=== PATIENT | female | born 1950 | race Caucasian/White ===

== ENCOUNTER 2019-07-20 23:44 | Inpatient (IN) | payer OTHER, MEDICARE, SELFPAY ==
--- NOTE | ~2019-07-20 | CT_ITS ---
EXAMINATION: CT abdomen pelvis wo con DATE: 07/21/2019 01:13 INDICATION: Generalized abdominal pain, nausea, vomiting, diarrhea. Gastrostomy tube. TECHNIQUE: Computed tomography (CT) of the abdomen and pelvis was performed without intravenous contr ast. Automated exposure control and iterative reconstruction technique were employed. Exam dose: 341 .36 mGy-cm total exam DLP. COMPARISON: 09/30/2018 CT abdomen pelvis FINDINGS: The lung bases are clear of infiltrate or consolidation. Normal heart size. No pericardial or pleural effusion. Small sliding hiatal hernia. Status post cholecystectomy. No bile duct or pancreatic duct dilatation. No hepatic, splenic, pancrea tic, and adrenal or renal space-occupying mass lesion is evident. No urinary tract calculus or hydrou reteronephrosis is detected. There is extensive calcification of the abdominal aorta and branches. No intraperitoneal or retroperitoneal or pelvic mass lesion or adenopathy or ascites. The urinary bladder is unremarkable. Status post hysterectomy. A gastrostomy tube is present within the gastric lumen. There is fluid throughout the nondilated smal l and large bowel without bowel wall thickening, obstruction, pneumatosis or intraperitoneal free air . Consider gastroenteritis. Bilateral fat-containing inguinal hernias. IMPRESSION: Fluid throughout the small and large bowel, which may be secondary to gastroenteritis Gastrostomy tube in stomach Small sliding hiatal hernia Status post cholecystectomy Reviewed, dictated and finalized at [facility]. Reviewed, dictated and finalized at [facility].
[2019-07-20 23:45] VITALS: BP 75/42; PULSE 64; RESP 22; TEMP 36.7; O2SAT 100
[2019-07-21] VITALS (19 sets, daily range): BP systolic 93–121; BP diastolic 45–83; PULSE 59–96; RESP 16–22; TEMP 36.3–37.2; O2SAT 78–100; BMI 24.0; BMI 24.2
--- NOTE | 2019-07-21 | ECHO_ITS ---
Patient Info Name: Barb Padilla Age: 69 years : 1950 Gender: Female Ht: 64 in Wt: 141 lbs BSA: 1.71 m2 HR: 62 bpm BP: 93 / 45 mmHg Heart Rhythm: Sinus Rhythm Technical Quality: Good Exam Date: 07/21/2019 10:06 AM Exam Location: [facility] Patient Status: Inpatient Admit Date: 07/21/2019 Staff Ordering Physician: Candido Odonnell MD Negative Cutter: Angelito Medrano RDCS Attending Provider: Goldie Roman DO Referring Physician: Belle FRANKS; Exam Type: CA echo doppler color flow Study Info Indications R01.1 - Cardiac murmur, unspecified Complete two-dimensional, color flow and Doppler transthoracic echocardiogram is performed. History/Risk Factors HoTN; syncope and ATIYA, CKD4. Summary 1. Left ventricular chamber size, wall thickness, systolic and diastolic function are normal with no regional wall motion abnormalities with an estimated ejection fraction of >70%. 2. No significant valve disease. 3. Normal sinus rhythm. Left Ventricle Left ventricular chamber dimension is normal. Left ventricular systolic function is normal, estimated at >70%. There is no increased left ventricular wall thickness. Left ventricular septal wall motion is normal. The left ventricular diastolic function is normal. Left ventricular chamber size, wall thickness, systolic and diastolic function are normal with no regional wall motion abnormalities with an estimated ejection fraction of >70%. Right Ventricle Right ventricular chamber dimension is normal. Right ventricular systolic function is normal. Left Atria Left atrial chamber dimension is normal. Right Atria Right atrial chamber dimension is normal. Aortic Valve The aortic valve is trileaflet. There is no aortic valve sclerosis. There is no aortic valve stenosis. There is no aortic valve regurgitation. Pulmonic Valve The pulmonic valve is normal. There is no pulmonic valve stenosis. There is no pulmonic regurgitation. Mitral Valve The mitral valve has normal leaflets. There is no mitral valve stenosis. There is trace mitral valve regurgitation. Tricuspid Valve The tricuspid valve leaflets are normal. There is no significant tricuspid valve stenosis. There is trace tricuspid valve regurgitation. No pulmonary hypertension, estimated pulmonary arterial systolic pressure is 33 mmHg. Pericardium/Pleural The pericardium appears normal. There is no pericardial effusion. Inferior Vena Cava Normal inferior vena cava with >50% collapse upon inspiration consistent with Empty right atrial pressure, 5 mmHg. Aorta The aortic root size at the sinus of Valsalva is normal. The prox ascending aorta size is normal. Left Ventricular Outflow Tract Name Value Normal LVOT 2D LVOT Diameter 1.9 cm LVOT Doppler LVOT Peak Gradient 9 mmHg LVOT Mean Gradient 5 mmHg LVOT VTI 33 cm LVOT VTI/AV VTI Ratio 0.9 LVOT Stroke Volume 92 ml LVOT CO
--- NOTE | 2019-07-21 00:01 | ED.SYNCOPE ---
HPI - Syncope General Chief Complaint: Syncope Stated Complaint: syncope Time Seen by Provider: 07/20/19 23:56 Source: patient and RN notes reviewed Mode of arrival: EMS Limitations: no limitations History of Present Illness HPI narrative: Pt is a 69 y/o female who presents to the ED via EMS with c/o multiple syncopal episodes happening this evening. She notes that she has a Hx of oral cancer, and states that she has a chronic feeding tube in place. Pt notes that she developed severe diffuse ABD pain earlier this evening. She states that shortly after her pain began, she passed out while laying in her recliner. Pt notes that she later regained consciousness and had a large episode of watery diarrhea. She states that she then began having projectile vomiting. Pt notes that she lost consciousness two more times before coming to the ED. She states that she was incoherent immediately after the episodes. Pt currently denies any fever or chills. She states that she hasn't had any recent antibiotic use. MD complaint: loss of consciousness Description of event: post-event confusion Prodromal symptoms: nausea/vomiting and other (diffuse ABD pain; diarrhea) Injuries sustained associated with event: none Current symptoms: abdominal pain (diffuse ABD pain) Related Data Home Medications Medication Instructions Recorded Confirmed citalopram mg 05/09/19 levothyroxine 05/09/19 Allergies Allergy/AdvReac Type Severity Reaction Status Date / Time Penicillins Allergy Unknown Anaphylactic Verified 07/21/19 00:01 Shock povidone-iodine Allergy Rash Verified 07/21/19 00:01 [From Betadine] soap [From Betadine] Allergy Rash Verified 07/21/19 00:01 Review of Systems Review of Systems: All systems reviewed & are unremarkable except as noted in HPI and below Constitutional: Constitutional: Denies chills and Denies fever(s) Gastrointestinal: Gastrointestinal: Reports abdominal pain (diffuse ABD pain), Reports diarrhea, Reports nausea and Reports vomiting Neurologic: Reports syncope PMFSH Past Medical History Medical History (Updated 07/21/19 @ 02:38 by Mason Gracia MD) Cancer of mandible Depression Fibromyalgia GERD (gastroesophageal reflux disease) History of chemotherapy Hx of radiation therapy Kidney failure Uses feeding tube Surgical History Surgical History H/O: hysterectomy History of mandibular surgery partial removal of mandible Hx of cholecystectomy Social History Social History Smoking status: Former smoker Exam Narrative: Exam Narrative: General appearance: Well-developed, well-nourished, at the bedside, intermittent shaking Skin: Normal color Head: Normocephalic, nontraumatic Eyes: Clear conjunctiva ENT: Oropharynx normal, ears normal, nose normal Neck: Supple, nontender Chest and respiratory: Airway patent, no respiratory distress, no accessory muscle use Heart: Regular rate/rhythm Abdomen: Soft, diffuse abdominal tenderness, feeding tube in place, no organomegaly, quiet bowel sounds Vascular: Normal peripheral pulses, normal capillary refill. 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 Roman. Accepted admission. Date: 07/21/19 Time: 02:29 Vital Signs Vital signs: Vital Signs Temperature 36.7 C 07/20/19 23:45 Pulse Rate 64 07/20/19 23:45 Respiratory Rate 22 H 07/20/19 23:45 Blood Pressure 75/4
--- NOTE | 2019-07-21 00:05 | ECG_ITS ---
Measurements Intervals [place] Rate: 62 P: 69 FL: 150 QRS: 15 QRSD: 94 T: 52 QT: 451 QTc: 460 Interpretive Statements SINUS RHYTHM LOW VOLTAGE- LIMB LEADS BASELINE ARTIFACT- I, II, III, AVR, AVL, AVF, V1-V6 BORDERLINE ECG Electronically Signed On 07-21-2019 7:02:07 CDT by García Friedman D.O.
[2019-07-21 00:29] LABS: Basophils Percent Auto 0.3 % (0.2-1.2); Eosinophils Absolute Auto 0.1 K/mm3 (0-0.3); Eosinophils Percent Auto 0.8 % (0-4.4); Hematocrit 35.3 % (37.0-47.0); Immature Granulocyte Absolute 0.01 K/mm3 (0.00-0.031); Immature Granulocyte Percent A 0.2 % (0-0.5); Lymphocytes Absolute Auto 0.36 K/mm3 (0.9-3.2); Lymphocytes Percent Auto 5.9 % (18.3-44.2); Mean Corpuscular HGB Conc 31.2 g/dl (32-36); Mean Corpuscular Hemoglobin 28.7 pg (26-34); Mean Corpuscular Volume 92.2 fl (80-100); Monocytes Absolute Auto 0.2 K/mm3 (0.1-0.6); Monocytes Percent Auto 3.8 % (2.6-8.5); Neutrophils Absolute Auto 5.5 K/mm3 (1.3-6.7); Platelet Count Result 153 k/mm3 (150-375); Red Blood Count 3.83 M/mm3 (4.2-5.4); Red Cell Distribution Width 13.9 % (11.5-14.5); White Blood Count 6.1 K/mm3 (4.5-10.0)
[2019-07-21] MEDS: SODIUM CHLORIDE 0.9% IV 1,000 ML 999 ML IV CONT (00:30)
[2019-07-21 00:33] LABS: Lactic Acid 1.8 mmol/L (0.7-2.1)
[2019-07-21 00:34] LABS: Blood Urea Nitrogen 43 mg/dL (7-17); Calcium 9.1 mg/dL (8.4-10.2); Carbon Dioxide 26 mmol/L (22-30); Chloride 105 mmol/L (98-107); Estimated Glomerular Filt Rate 28; Glucose 83 mg/dL (65-105); Potassium 4.2 mmol/L (3.4-5.0); Sodium 136 mmol/L (137-145)
[2019-07-21 00:50] LABS: Alanine Aminotransferase 18 U/L (4-35); Albumin Level 3.4 g/dL (3.5-5.1); Alkaline Phosphatase 100 U/L (38-126); Aspartate Amino Transferase 27 U/L (14-36); Bilirubin,Total 0.3 mg/dL (0.2-1.3); Lipase 91 U/L (23-300)
[2019-07-21 01:20] LABS: Add Urine Microscopic? YES; Appearance Urine Clear (Clear); Bilirubin Urine Negative (Negative); Blood Urine Negative (Negative); Color Urine Yellow (Yellow); Glucose Urine UA Negative (Negative); Ketones Urine Trace mg/dL (Negative); Leukocyte Esterase Ur Negative LEU/UL (Negative); Mucus Urine Rare /lpf; Nitrate Urine Negative (Negative); Protein Urine Negative (Negative); RBC Urine 0-2 /hpf (0-2); Specific Grav Ur 1.013 (1.001-1.035); Squamous Epithelial Cell Urine Rare /hpf (Few); Urobilinogen Urine Negative mg/dL (<2.0); WBC Urine 0-3 /hpf
--- NOTE | 2019-07-21 03:41 | ADMGEN ---
This patient, Barb Padilla, was admitted to IMU Room 203-01. Patient/family oriented to hospital policies and general routines including ID bracelet, bed and alarms, visiting hours, pain management, procedures, bathroom and other care routines, personal items, smoking policy, room service/diet, and visiting hours. Valuables list has been completed. Information on how to activate the Rapid Response Team has been discussed. Patient/Family are encouraged to report perceived risks to care and to ask questions if they do not understand what they are told or what they should do.
[2019-07-21] MEDS: LACTATED RINGERS 1,000 ML 125 ML IV CONT ×3 (03:59→20:25)
--- NOTE | 2019-07-21 08:37 | PM.IMHP ---
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 Yesterday in the evening while preparing for sleep developed rather severe diffuse abdominal pain was in a recliner and passed out. Possibly under 2 minutes and observed. When awoke she felt like she had to have diarrhea and had profuse diarrhea. While sitting on the stool had another syncopal episode with propping her up and eventually managed to get her to the shower where she had projectile vomiting with another syncopal episode. No tonic or clonic activity but mild confusion. She remembers the ambulance coming and bringing her to the hospital. She has had syncopal episodes in the past but none recently. She has had no unusual travel no fever no chills and has not eaten anything unusual or different. 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 after chemo in the past Psych history of mild depression PMFSH Past Medical History Medical History (Updated 07/21/19 @ 08:50 by Candido Odonnell MD) Cancer of mandible Depression Fibromyalgia GERD (gastroesophageal reflux disease) History of chemotherapy Hx of radiation therapy Kidney failure Uses feeding tube Surgical History Surgical History H/O: hysterectomy History of mandibular surgery partial removal of mandible Hx of cholecystectomy Family History Family History (Updated 07/21/19 @ 03:35 by Jennifer David RN) Father Afib COPD (chronic obstructive pulmonary disease) Diabetes mellitus Mother Tumor Daughter Cancer Social History Social History Smoking packs per day: 1 Smoking cigarettes per day: 20.0 Years smoked: 30 Smoking pack-years: 30.00 Smoking status: Former smoker Tobacco type: cigarettes Second hand tobacco smoke exposure: Yes Alcohol intake: never Substance use: never Gender identity (if verbalized by the patient): Female Spiritual care concerns: No Agree to blood products: Yes Meds Home Medications and Allergies Home Medications Medication Instructions Recorded Confirmed Type albuterol sulfate 2 puff INHALATION QID PRN #6.7 gm 05/09/19 07/21/19 Rx citalopram 40 mg FEEDING TUBE DAILY 05/09/19 07/21/19 History levothyroxine 50 mcg FEEDING TUBE DAILY 05/09/19 07/21/19 History hydrocodone-acetaminophen 1 tablet FEEDING TUBE PRN PRN 07/21/19 07/21/19 History Allergies Allergy/AdvReac Type Severity Reaction Status Date / Time Penicillins Allergy Unknown Anaphylactic Verified 07/21/19 00:01 Shock povidone-iodine Allergy Rash Verified 07/21/19 00:01 [From Betadine] soap [From Betadine] Allergy Rash Verified 07/21/19 00:01 Vital Signs Vital Signs - 24 hr 07/20/19 23:45 07/21/19 00:30 07/21/19 01:54 Temperature 36.7 C Pulse Rate 64 96 76 Respiratory Rate 22 H 22 H 20 Blood Pressure 75/42 L 102/83 110/53 L Pulse Oximetry 100 96 96 07/21/19 02:52 07/21/19 03:07 07/21/19 03:40 Temperature 36.6 C 37.2 C Pulse Rate 83 82 78 Respiratory Rate 18 18 20 Blood Pressure 115/58 L 112/58 L 104/51 L Pulse Oximetry 98 97 78 L 07/21/19 04:00 07/21/19 06:00 07/21/19 07:42 Temperature 36.3 C L Pulse Rate 78 75 68 Respiratory Rate 16 Blood Pressure 93/45 L Pulse Oximetry 100
[2019-07-21] MEDS: ENOXAPARIN 30 MG/0.3 ML SYRINGE SUB-Q (12:08)
[2019-07-21] MEDS: CITALOPRAM HYDROBROMIDE 20 MG TABLET 40 MG FEED TUBE (12:08)
[2019-07-21] MEDS: LEVOTHYROXINE SODIUM 50 MCG TABLET FEED TUBE (12:09)
--- NOTE | 2019-07-21 15:01 | PCNSR ---
On 07/21/19, the student, Abida Ni, provided care and completed [facility] documentation on this patient. I have reviewed the student's documentation and agree with the findings.
[2019-07-22] VITALS: PULSE 64
[2019-07-22 02:00] VITALS: PULSE 58
[2019-07-22 04:00] VITALS: PULSE 60
[2019-07-22 04:16] VITALS: BP 123/57; PULSE 59; RESP 18; TEMP 36.8; O2SAT 97
[2019-07-22] MEDS: LACTATED RINGERS 1,000 ML 125 ML IV CONT (04:37)
[2019-07-22 04:48] LABS: Basophils Percent Auto 0.5 % (0.2-1.2); Eosinophils Absolute Auto 0.2 K/mm3 (0-0.3); Eosinophils Percent Auto 4.8 % (0-4.4); Hematocrit 31.5 % (37.0-47.0); Hemoglobin 9.7 g/dL (12.0-15.0); Immature Granulocyte Absolute 0.01 K/mm3 (0.00-0.031); Immature Granulocyte Percent A 0.3 % (0-0.5); Immature Platelet Fraction Pct 8.8 % (0.9-11.2); Lymphocytes Percent Auto 20.4 % (18.3-44.2); Mean Corpuscular HGB Conc 30.8 g/dl (32-36); Mean Corpuscular Hemoglobin 28.7 pg (26-34); Mean Corpuscular Volume 93.2 fl (80-100); Mean Platelet Volume 13.1 fl (7.4-10.4); Monocytes Absolute Auto 0.3 K/mm3 (0.1-0.6); Monocytes Percent Auto 8.4 % (2.6-8.5); Neutrophils Absolute Auto 2.6 K/mm3 (1.3-6.7); Neutrophils Percent Auto 65.6 % (45.5-73.1); Platelet Count Result 122 k/mm3 (150-375); Red Blood Count 3.38 M/mm3 (4.2-5.4); White Blood Count 3.9 K/mm3 (4.5-10.0)
[2019-07-22 05:06] LABS: Blood Urea Nitrogen 26 mg/dL (7-17); Carbon Dioxide 28 mmol/L (22-30); Chloride 109 mmol/L (98-107); Estimated CRCL calculation 30 ml/min; Estimated Glomerular Filt Rate 38; Glucose 67 mg/dL (65-105); Potassium 4.1 mmol/L (3.4-5.0); Sodium 140 mmol/L (137-145)
[2019-07-22] MEDS: LEVOTHYROXINE SODIUM 50 MCG TABLET FEED TUBE (05:38)
[2019-07-22 05:39] VITALS: PULSE 76; RESP 16
[2019-07-22 08:56] VITALS: BP 114/58; PULSE 59; RESP 18; TEMP 36.3; O2SAT 100
[2019-07-22] MEDS: CITALOPRAM HYDROBROMIDE 20 MG TABLET 40 MG FEED TUBE (09:03)
--- NOTE | 2019-07-23 17:21 | PM.DS ---
DS: Diagnosis Admitting Diagnosis Admitting Diagnosis: Syncope and collapse Discharge Diagnosis (1) Syncope and collapse: Code(s): R55 - Syncope and collapse Status: Acute Assessment and Plan: By history definitely appears to be vagal.. Hydrated and pressure rebounded. echocardiogram was normal with EF 70% and minimal mitral insufficiency . (2) Gastroenteritis: Code(s): K52.9 - Noninfective gastroenteritis and colitis, unspecified Status: Acute Assessment and Plan: By history and by CT scan, probable viral. Resumed tube feedings and tolerated well (3) Chronic renal failure, stage 4 (severe): Code(s): N18.4 - Chronic kidney disease, stage 4 (severe) Status: Acute Assessment and Plan: Creatinine 1.7 in April of 2019 and 1.8 now. Have her hydration and before discharge creatinine 1.4 (4) Hypotension due to hypovolemia: Code(s): I95.89 - Other hypotension; E86.1 - Hypovolemia Status: Acute Assessment and Plan: BP back to her usual baseline 114 systolic by discharge after hydration (5) Hypothyroidism: Code(s): E03.9 - Hypothyroidism, unspecified Status: Acute Assessment and Plan: Continue thyroid replacement DS: Summary Hospital Course Hospital Course: [age] old white female with chronic tube feeding after treatment for oral carcinoma several years ago. She developed abdominal pain and had a syncopal episode followed by profuse diarrhea and emesis. Which is brought in by EMS for evaluation. CT scan abdomen pelvis was compatible with gastroenteritis.. After hydration pressure darrell and creatinine fell to 1.4. She was up and about without any symptomatology on tolerating her tube feedings. If she has recurrent episodes possibly and event monitor would be in order but appear to be simple vagal syncope He has follow-up soon with her oncologist Time Spent with Patient Time attestation: Total time spent providing and/or coordinating discharge services:35 minutes Exam Narrative: Exam Narrative: Condition on discharge Blood pressure 114/58 pulse 60 Lungs clear CV regular rate rhythm with very faint systolic ejection murmur lower left sternal border Abdomen soft nontender Extremities without edema distal pulses are 2+ Neuro alert pleasant cooperative no focal deficits She was up about without any symptomatology tolerating her tube feedings. DS: Data Data Completed and Pending Labs on day of discharge: Preliminary micro results at discharge 07/21/19 01:01 Blood Culture - Preliminary Blood 07/21/19 01:01 Blood Culture - Preliminary Blood Discharge Plan Discharge Attending physician on discharge: Candido Odonnell Discharging Clinician: Candido Odonnell Patient Disposition: Home, Self-Care Activity: as tolerated Diet: tube feeding Patient Instructions: Antibiotic Form Stand Alone Forms: General Discharge Information Follow-up/Referrals: LeylaVince MD [Primary Care Provider] - Keep Reg. Scheduled Appt. Discharge Medications: Continued citalopram 40 mg tablet 40 mg feeding tube DAILY RF: 0 levothyroxine 50 mcg tablet 50 mcg feeding tube DAILY RF: 0 albuterol sulfate 90 mcg/actuation HFA aerosol inhaler 2 puff INHALATION QID PRN (Reason: shortness of breath or wheezing) Qty: 6.7 RF: 0 hydrocodone-acetaminophen 5-325 mg tablet 1 tablet feeding tube PRN PRN (Reason: Pain) RF: 0 Date of admission: 07/21/19 02:39 Primary Care Provider: LeylaVince Admitting Provider: Goldie Roman Discharge Date/Time: 07/22/19 10:00 Attending physician on admission: Goldie Roman Condition: Stable
== END 2019-07-22 10:00 | disposition home or self-care (01) | DRG 312 ==
LOC: ANHED 07-21 02:56 → ANHIMU 07-21 03:11
PROVIDERS: Admitting Provider Internal Medicine; Emergency Provider Emergency Medicine; PCP Internal Medicine; Visit Provider Internal Medicine
DX: R55 Syncope and collapse (principal); N18.4 Chronic kidney disease, stage 4 (severe); A08.4 Viral intestinal infection, unspecified; I95.89 Other hypotension; E86.1 Hypovolemia; E03.9 Hypothyroidism, unspecified; K21.9 Gastro-esophageal reflux disease without esophagitis; M79.7 Fibromyalgia; Z85.818 Personal history of malignant neoplasm of other sites of lip, oral cavity, and pharynx; Z85.819 Personal history of malignant neoplasm of unspecified site of lip, oral cavity, and pharynx; Z90.49 Acquired absence of other specified parts of digestive tract; Z90.710 Acquired absence of both cervix and uterus; Z87.891 Personal history of nicotine dependence; Z93.1 Gastrostomy status
CPT/HCPCS: 36415; 51701; 74176; 80048; 80076; 81001; 83605; 83690; 85025; 85055; 87040; 93005; 93306; 96360; 99291; A9270; J1650; J7030; J7120

== ENCOUNTER 2019-08-20 13:47 | Emergency (ER) | payer OTHER, SELFPAY ==
--- NOTE | ~2019-08-20 | XR_ITS ---
EXAMINATION: XR chest 1V portable EXAM DATE: 08/20/2019 15:15 INDICATION: Cough and fever. TECHNIQUE: Portable AP frontal chest x-ray was obtained. Comparison is made to prior examination from chest x-ray 05/09/2019. FINDINGS: The lungs are clear. There are no pleural effusions. The cardiomediastinal silhouette is within normal limits. There is no pneumothorax suspected. There is aortic arterial sclerosis. Cervi mulu fusion hardware. Surgical clips in the neck probably thyroidectomy related, correlate with histor y. IMPRESSION: No acute cardiopulmonary findings. Reviewed, dictated and finalized at location A.
[2019-08-20 13:50] VITALS: BP 122/70; PULSE 87; RESP 18; TEMP 39.1; O2SAT 100
--- NOTE | 2019-08-20 14:08 | ED.SOB ---
HPI - SOB/Dyspnea General Chief Complaint: Fever Stated Complaint: fever/cough/body aches Time Seen by Provider: 08/20/19 13:49 Source: patient and family Mode of arrival: ambulatory Limitations: no limitations History of Present Illness HPI Narrative: Patient is a 69-year-old female with a hx of oral carcinoma, g tube dependent, who presents for evaluation of cough, shortness of breath and fever. Patient reports a 3-day history of cough, sore throat, myalgias. Patient with 102 degrees fever today. She is not taking any Tylenol. Patient reports general malaise overall. She reports some myalgias. No nausea, vomiting or diarrhea. Patient has been at home over the past week, prior to 7 days ago she had been going to physical therapy sessions. Patient's has been going into the office sporadically, twice in the past week. No known contacts with diagnosed coronavirus. Related Data Home Medications Medication Instructions Recorded Confirmed citalopram 40 mg FEEDING TUBE DAILY 05/09/19 07/21/19 levothyroxine 50 mcg FEEDING TUBE DAILY 05/09/19 07/21/19 hydrocodone-acetaminophen 1 tablet FEEDING TUBE PRN PRN 07/21/19 07/21/19 Allergies Allergy/AdvReac Type Severity Reaction Status Date / Time Penicillins Allergy Unknown Anaphylactic Verified 07/21/19 00:01 Shock povidone-iodine Allergy Rash Verified 07/21/19 00:01 [From Betadine] soap [From Betadine] Allergy Rash Verified 07/21/19 00:01 Review of Systems Review of Systems: Narrative: CONSTITUTIONAL: Reports fever and chills EYES: Denies visual changes, redness, or discharge. ENT: Reports sore throat CARDIOVASCULAR: Denies chest pain, palpitations, or edema. RESPIRATORY: Reports cough and shortness of breath GASTROINTESTINAL: Denies abdominal pain, nausea, vomiting, or diarrhea. GENITOURINARY: Denies dysuria or hematuria. SKIN: Denies rash or itching. MUSCULOSKELETAL: Denies back pain, joint pain, or myalgia. NEUROLOGIC: Denies headache, numbness, or weakness. [facility] Past Medical History Medical History Cancer of mandible Depression Fibromyalgia GERD (gastroesophageal reflux disease) History of chemotherapy Hx of radiation therapy Kidney failure Uses feeding tube Surgical History Surgical History H/O: hysterectomy History of mandibular surgery partial removal of mandible Hx of cholecystectomy Family History Family History Father Afib COPD (chronic obstructive pulmonary disease) Diabetes mellitus Mother Tumor Daughter Cancer Social History Social History Smoking packs per day: 1 Smoking cigarettes per day: 20.0 Years smoked: 30 Smoking pack-years: 30.00 Smoking status: Former smoker Tobacco type: cigarettes Second hand tobacco smoke exposure: Yes Alcohol intake: never Substance use: never Gender identity (if verbalized by the patient): Female Spiritual care concerns: No Agree to blood products: Yes Exam Narrative: Exam Narrative: GENERAL: Awake, alert, conversant HEAD: Normocephalic, evidence of mandibular surgery EYES: PERRLA and EOMI. ENT: Nares clear, no rhinorrhea or epistaxis. Mucous membranes dry. Former tracheostomy tube site scarred, well-healed. NECK: Supple. CHEST: No respiratory distress, breathing even and non labored, no coarse breath sounds, no crackles, no wheezing HEART: Regular rate, sinus rhythm ABDOMEN:Non distended, non tender, g tube present EXTREMITIES: Normal range of motion. No edema. SKIN: Warm, dry, no rash. NEURO:No focal deficits. Alert and oriented x3 Course Vital Signs Vital signs: Vital Signs Temperature 39.1 C H 08/20/19 13:50 Pulse Rate 87 08/20/19 13:50 Respiratory Rate 18 08/20/19 13:50 Blood Pressure 122/70 08/20/19 13:50 Puls
[2019-08-20] MEDS: ONDANSETRON INJ 4 MG/2 ML VIAL IV PUSH (14:28)
[2019-08-20] MEDS: SODIUM CHLORIDE 0.9% IV 500 ML 999 ML IV CONT (14:29)
[2019-08-20 14:47] LABS: Hematocrit 37.9 % (37.0-47.0); Hemoglobin 11.7 g/dL (12.0-15.0); Immature Platelet Fraction Pct 11.6 % (0.9-11.2); Mean Corpuscular HGB Conc 30.9 g/dl (32-36); Mean Corpuscular Hemoglobin 28.8 pg (26-34); Mean Corpuscular Volume 93.3 fl (80-100); Mean Platelet Volume 13.7 fl (7.4-10.4); Platelet Count Result 131 k/mm3 (150-375); Red Blood Count 4.06 M/mm3 (4.2-5.4); Red Cell Distribution Width 13.6 % (11.5-14.5); White Blood Count 9.7 K/mm3 (4.5-10.0)
[2019-08-20 14:48] LABS: Alveolar/Arterial O2 Gradient 28.1 mmHg; Base Excess ABG 2.6 mEq/l (+/-2.0); Carboxyhemoglobin 0.3 % THb (0-2.0); Fractional Inspired Oxygen 21 %; HCO3 ABG 26.4 mEq/l (22.0-26.0); Methemoglobin ABG 0.3 %THb (0-1.5); Oxygen Content ABG 14.9 %vol (16.0-22.0); Oxygen Saturation ABG 95.9 % (95.0-100.0); Oxyhemoglobin 94.2 % THb (90.0-100.0); PO2 ABG 76.1 mmHg (80.0-100.0); PO2 FiO2 Ratio Arterial Blood 3.62 %; Reduced Hemoglobin 5.2 %THb (0-5.0); Site Drawn LEFT BRACHIAL; Total Hemoglobin 11.2 g/dL (12.0-18.0)
[2019-08-20 14:49] LABS: Add Urine Microscopic? YES; Appearance Urine Clear (Clear); Bacteria Urine Trace /hpf; Bilirubin Urine Negative (Negative); Blood Urine Negative (Negative); Color Urine Yellow (Yellow); Glucose Urine UA Negative (Negative); Ketones Urine Negative (Negative); Leukocyte Esterase Ur Negative LEU/UL (Negative); Nitrate Urine Negative (Negative); Protein Urine Negative (Negative); RBC Urine 0-2 /hpf (0-2); Specific Grav Ur 1.015 (1.001-1.035); Squamous Epithelial Cell Urine Rare /hpf (Few); Urobilinogen Urine Negative mg/dL (<2.0); WBC Urine 0-3 /hpf
[2019-08-20 14:49] LABS: Device ROOM AIR
[2019-08-20 14:56] LABS: INR 1.1; Prothrombin Time 14.1 Seconds (11.1-14.7)
[2019-08-20 14:57] LABS: Partial Thromboplastin Time 27.5 SECONDS (22.3-36.8)
[2019-08-20 14:58] VITALS: BP 115/56; PULSE 73; RESP 16; O2SAT 99
[2019-08-20 15:02] LABS: Alanine Aminotransferase 20 U/L (4-35); Alkaline Phosphatase 135 U/L (38-126); Aspartate Amino Transferase 30 U/L (14-36); Bilirubin,Total 0.5 mg/dL (0.2-1.3); Blood Urea Nitrogen 36 mg/dL (7-17); Calcium 9.3 mg/dL (8.4-10.2); Carbon Dioxide 32 mmol/L (22-30); Chloride 99 mmol/L (98-107); Estimated Glomerular Filt Rate 35; Glucose 96 mg/dL (65-105); Lactate Dehydrogenase 374 U/L (313-618); Potassium 3.8 mmol/L (3.4-5.0); Sodium 137 mmol/L (137-145)
[2019-08-20 15:12] LABS: Band Neutrophils Percent 11 % (0-6); Eosinophils Absolute Manual 0.19 K/mm3 (0.02-0.5); Eosinophils Percent Manual 2 % (0-4); Lymphocytes Absolute Manual 0.48 K/mm3 (1.1-4.5); Monocytes Absolute Manual 0.09 K/mm3 (0.1-0.90); Monocytes Percent Manual 1 % (3-9); Neutrophils Absolute Manual 8.92 K/mm3 (1.7-7.2); Neutrophils Percent Manual 81 % (46-73); Platelet Estimate Decreased (Adequate); Total Cells Counted 100
[2019-08-20 16:02] VITALS: BP 110/53; PULSE 78; RESP 18; O2SAT 97
== END 2019-08-20 16:03 | disposition home or self-care (01) ==
PROVIDERS: Emergency Provider Emergency Medicine; PCP Internal Medicine
DX: R50.9 Fever, unspecified (principal); B34.9 Viral infection, unspecified; Z20.828 Contact with and (suspected) exposure to other viral communicable diseases; N18.9 Chronic kidney disease, unspecified; Z92.21 Personal history of antineoplastic chemotherapy; Z85.818 Personal history of malignant neoplasm of other sites of lip, oral cavity, and pharynx; Z93.1 Gastrostomy status; Z92.3 Personal history of irradiation; Z87.891 Personal history of nicotine dependence
CPT/HCPCS: 36415; 36600; 71045; 80053; 81001; 82375; 82728; 82805; 83050; 83615; 85025; 85055; 85610; 85730; 86140; 87804; 87880; 96361; 96374; 96375; 99284; J0131; J2405; J7040

== ENCOUNTER 2019-08-25 09:00 | Outpatient (RCR) | payer OTHER, SELFPAY ==
--- NOTE | 2019-07-03 08:26 | PTOPEVAL ---
PHYSICAL THERAPY EVALUATION AND PLAN OF CARE 07-03-2019 The PT evaluation was completed for the diagnosis of lymphedema of head/neck/face. Her plan of treatment is for 2x/week for 6 weeks. Thank you for referring Mrs. Padilla to [facility]. Please review, sign, date and return this plan of care HEIDI. I agree with and certify that the following plan of care is medically necessary. Referring Physician Date Attending Provider: Dr. Juan Miguel Elliott *PT Outpatient Evaluation Start: 07/03/19 07:10 Document 07/03/19 07:10 ZA (Rec: 07/03/19 08:25 ZA [email or web address]) Outpatient Past Medical History Cardiovascular History Hx Cardiac Disorders No Significant History Respiratory History Hx Respiratory Disorders No Significant History Gastrointestinal History Hx Cholecystectomy Yes Hx Other Gastrointestinal Disorders Yes: feeding tube-taking liquids only,swallow issues Genitourinary History Hx Other Genitourinary Disorders Yes: kidney failure after chemo 30% capacity Musculoskeletal History Hx Fibromyalgia Yes: shoulders and neck most tender Hx Orthopedic Surgery Yes: cervical fusion 2000; Hx Other Musculoskeletal Disorders Yes: L knee pain, incr on stairs, pops Endocrine History Hx Hypothyroidism Yes Hx Other Endocrine Disorders Yes Reproductive History Hx Hysterectomy Yes Psychosocial History Hx Anxiety Yes Hx Depression Yes: take meds doing OK Other History Hx Cancer Yes: ORAL Hx Other Surgeries Yes: gall bladder, hysterectomy Evaluation Information Problem Diagnosis lymphedema of neck, face, head Onset May 27 2019 Subjective Information gradual increase in swelling Query Text:As Reported By Patient/ and mouth harder to move Family Previous Treatments Previous Treatments For This Problem previous PT here Apr 2017 and into 2018 Prior Level of Function Activity Level (Last 3 Months) 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
--- NOTE | 2019-07-06 07:56 | PCPTNOTE ---
Pt no show fo 7am appt. Called pt at 7:20 am . Pt thought her appt was at 8 and still wanted to come. At 7:57 pt was not here.
--- NOTE | 2019-07-29 10:19 | PCPTNOTE ---
Late Note for 07/23/2019 8am, Babr was seen for 45 minutes , 3 units of manual therapy. MLD to head , neck, face. focusing on anterior and posterior neck. STM to right anterior incision scar. afterward, swelling in cheeks greatly reduced. scar tissue softer. Pt arrived and stated she had been in the hospital for 2 days due to inflammation of her intestines, Pt stated she had had this before since having a feeding tube . Physical Therapist , Jewels Moore talked to Barb and cleared her for therapy today.
--- NOTE | 2019-08-13 08:46 | PTOPEVAL ---
PHYSICAL THERAPY REEVALUATION AND UPDATED PLAN OF CARE 08-13-2019 Mrs. Padilla has received 13 PT sessions, from July 03 to today, for the diagnosis of lymphedema of head/neck/face. Compared to the initial evaluation: pain rating has decreased at the worst rating from 9 to 7/10 and least rating from 3 to 2/10; reported use of pain med has reduced from 2x/week to 1x/week; strength of shoulder and scapular musculature has increased; cervical active rotation to the R and L have increased by 15' to R and 8' to L, and flexion improved by 1 cm with distance bottom lip to chest; circumferential measurements: at top of lip decreased by 2.5 cm and horizontal to top lip is the same; jaw/mouth motions: opening of mouth is the same, sticking tongue out is the same and slight increase with tongue motion to the L side of mouth; and slight increase with lateral jaw motion to R and L; There continues to to tightness and decreased mobility of the tissue over her neck, with reports of tenderness and pain. It does decrease with manual therapy and kinesiotaping. She is also reporting dizziness with positional changes, which may be related to her allergies and sinus issues. PT is to continue treatment 2x/week for 3 weeks. Thank you for referring Steve to [facility]. Please review, sign, date and return this plan of care HEIDI. I agree with and certify that the following plan of care is medically necessary. Referring Physician Date Attending Provider: Dr. Juan Miguel Elliott *PT Outpatient ReEvaluation Document 08/13/19 08:02 ZA (Rec: 08/13/19 08:46 ZA [id number]) Subjective Information Barb reports: therapy is Query Text:As Reported By Patient/ going well; more tightness in Family neck in the past few days--not able to relate to anything-? change in weather, wants to contiue therapy; is doing her exercises; has been having dizzy spells, like head spinning, when go from lying down to sitting to standing and quick movements; have allergy med, but not taking regularly; (discussed use of zyrtex PRN for allergy and see if dizziness changes); is using her home intermittent compression pump daily. She feels that PT is helping to loosen up the neck area and wants to continue therapy. Pain Assessment Timing of Pain Assessment Timing of Pain Assessment Assessment Pain Scale Pain Scale Used Numeric (1 - 10) Self Report Pain Assessment Bilateral Mouth Reported Pain Level 4 Pain Description Tightness Pain Frequency Chronic Other Pain Description tender and sore--neck- on both
--- NOTE | 2019-08-18 08:45 | PCPTNOTE ---
Patient called & cancelled scheduled appointment this date due to [ cough, no temp reported.]
--- NOTE | 2019-08-27 08:44 | PCPTNOTE ---
talked with pt on phone, she called and stated in the hospital, infection and on IV antibiotics at [facility]; COVID testing was negative; told her infection may be coming from the mandible; discussed with her hold PT and will need new order to resume PT.
--- NOTE | 2019-09-21 11:53 | PCPTNOTE ---
PHYSICAL THERAPY DISCHARGE 09-21-2019 Attending Provider: Dr. Juan Miguel Elliott Patient:Barb Padilla Date of :1950 Barb was hospitalized, canceling on August 26 and has not returned for any further treatments. Therefore she will be discharged at this time. She had received 14 PT sessions, from July 03 to August 24, for the diagnosis of neck and face lymphedema. The goals were not assessed. Thank you for referring Mrs. Padilla to [facility]. Please review, sign, date and return this discharge summary HEIDI. I have been updated about the patient's current status and I agree with discharge from the above service at this time. Referring Physician Date
== END 2019-09-21 12:18 | disposition home or self-care (01) ==
LOC: ANHPT 09:00
PROVIDERS: PCP Internal Medicine
DX: I89.0 Lymphedema, not elsewhere classified (principal); T85.8 Other specified complications of internal prosthetic devices, implants and grafts, not elsewhere classified
CPT/HCPCS: 97110; 97140; 97162

== ENCOUNTER 2020-03-19 15:16 | Emergency (ER) | payer OTHER, SELFPAY ==
--- NOTE | ~2020-03-19 | XR_ITS ---
EXAMINATION: XR chest 1V portable DATE: 03/19/2020 16:26 INDICATION: Shortness of breath. COVID-19 positive. TECHNIQUE: A single frontal view of the chest was obtained. COMPARISON: Chest single view 08/20/19, CT abdomen and pelvis 07/21/2019 FINDINGS: There is mild scarring at the lung apices. No pleural effusion or pneumothorax. The heart s ize is normal. There are changes of anterior fusion procedure in cervical spine. There are surgical c lips in the neck. IMPRESSION: 1. Mild scarring at the lung apices. Reviewed, dictated and finalized at location A. R FEEDER
[2020-03-19 15:50] VITALS: BP 120/68; PULSE 71; RESP 18; TEMP 37.3; O2SAT 100
[2020-03-19 15:54] VITALS: PULSE 71
[2020-03-19 16:05] LABS: Basophils Percent Auto 0.6 % (0.2-1.2); Eosinophils Percent Auto 0.6 % (0-4.4); Hematocrit 36.3 % (37.0-47.0); Hemoglobin 11.5 g/dL (12.0-15.0); Lymphocytes Absolute Auto 0.52 K/mm3 (0.9-3.2); Lymphocytes Percent Auto 10.9 % (18.3-44.2); Mean Corpuscular HGB Conc 31.7 g/dl (32-36); Mean Corpuscular Hemoglobin 29.1 pg (26-34); Mean Corpuscular Volume 91.9 fl (80-100); Monocytes Absolute Auto 0.4 K/mm3 (0.1-0.6); Monocytes Percent Auto 8.4 % (2.6-8.5); Neutrophils Absolute Auto 3.8 K/mm3 (1.3-6.7); Neutrophils Percent Auto 79.5 % (45.5-73.1); Platelet Count Result 117 k/mm3 (150-375); Red Blood Count 3.95 M/mm3 (4.2-5.4); Red Cell Distribution Width 13.4 % (11.5-14.5); White Blood Count 4.8 K/mm3 (4.5-10.0)
[2020-03-19 16:16] LABS: Alanine Aminotransferase 21 U/L (4-35); Alkaline Phosphatase 121 U/L (38-126); Anion Gap 5 mmol/L (8-16); Aspartate Amino Transferase 35 U/L (14-36); Bilirubin,Total 0.4 mg/dL (0.2-1.3); Blood Urea Nitrogen 33 mg/dL (7-17); Calcium 9.2 mg/dL (8.4-10.2); Carbon Dioxide 33 mmol/L (22-30); Chloride 98 mmol/L (98-107); Estimated CRCL calculation 30 ml/min; Estimated Glomerular Filt Rate 38; Glucose 68 mg/dL (65-105); Lactic Acid Reflex 0.9 mmol/L (0.7-2.1); Potassium 4.1 mmol/L (3.4-5.0); Sodium 136 mmol/L (137-145)
--- NOTE | 2020-03-19 16:27 | ED.GENADULT ---
HPI - General Adult General Chief complaint: Unspecified Stated complaint: COVID + SOB Time Seen by Provider: 03/19/20 15:47 Source: patient Mode of arrival: ambulatory Limitations: no limitations History of Present Illness HPI narrative: This is a 69 year old female that presents to the ER for coronavirus. Reports she tested positive about one week ago. Reports her tested positive first and then she developed symptoms shortly after. Reports fever, cough, congestion and sore throat. Reports some shortness of breath with exertion. Reports she mostly came in to be seen so her would be seen as she was worried about him. Denies chest pain or lower extremity edema. Related Data Home Medications Medication Instructions Recorded Confirmed citalopram 40 mg FEEDING TUBE DAILY 05/09/19 07/21/19 levothyroxine 50 mcg FEEDING TUBE DAILY 05/09/19 07/21/19 hydrocodone-acetaminophen 1 tablet FEEDING TUBE PRN PRN 07/21/19 07/21/19 Allergies Allergy/AdvReac Type Severity Reaction Status Date / Time Penicillins Allergy Unknown Anaphylactic Verified 07/21/19 00:01 Shock povidone-iodine Allergy Rash Verified 07/21/19 00:01 [From Betadine] soap [From Betadine] Allergy Rash Verified 07/21/19 00:01 Review of Systems Review of Systems: Narrative: CONSTITUTIONAL: Denies fever CARDIOVASCULAR: Denies chest pain, or edema. RESPIRATORY: Reports cough and dyspnea. All systems reviewed & are unremarkable except as noted in HPI and below PMFSH Past Medical History Medical History (Updated 03/19/20 @ 17:25 by Zoë Alcocer PA-C) Cancer of mandible Depression Fibromyalgia GERD (gastroesophageal reflux disease) History of chemotherapy Hx of radiation therapy Kidney failure Uses feeding tube Surgical History Surgical History H/O: hysterectomy History of mandibular surgery partial removal of mandible Hx of cholecystectomy Family History Family History Father Afib COPD (chronic obstructive pulmonary disease) Diabetes mellitus Mother Tumor Daughter Cancer Social History Social History Smoking packs per day: 1 Smoking cigarettes per day: 20.0 Years smoked: 30 Smoking pack-years: 30.00 Smoking status: Former smoker Tobacco type: cigarettes Second hand tobacco smoke exposure: Yes Alcohol intake: never Substance use: never Gender identity (if verbalized by the patient): Female Spiritual care concerns: No Agree to blood products: Yes Exam Narrative: Exam Narrative: GENERAL: Well-appearing, well-nourished, and in no acute distress. HEAD: Normocephalic, atraumatic. EYES: EOMI. ENT: Nares clear, no rhinorrhea or epistaxis. Mucous membranes moist. Oropharynx without tonsillar hypertrophy exudate or other lesions. Bilateral TMs pearly kimbrough non-bulging NECK: Supple. No adenopathy or masses. CHEST: Clear to auscultation. No respiratory distress. No wheezes rales or rhonchi HEART: Regular rate and rhythm. No murmur heard. Normal peripheral pulses. EXTREMITIES: Normal range of motion. No edema. SKIN: Warm, dry, no rash. NEURO: No focal deficits. Alert and oriented x3. PSYCH: Normal mood and affect Course Vital Signs Vital signs: Vital Signs Temperature 99.2 F 03/19/20 15:50 Pulse Rate 71 03/19/20 15:50 Respiratory Rate 18 03/19/20 15:50 Blood Pressure 120/68 03/19/20 15:50 Pulse Oximetry 100 03/19/20 15:50 Temperature 99.2 F 03/19/20 15:50 Pulse Rate 68 03/19/20 17:07 Respiratory Rate 16 03/19/20 17:07 Blood Pressure 126/82 03/19/20 17:07 Pulse Oximetry 98 03/19/20 17:07 Medical Decision Making MDM Narrative Medical decision making narrative: Patient presents to the emergency department for cold symptoms. Reports she had been diagnosed with coronavirus about a week ago. S
[2020-03-19 17:07] VITALS: BP 126/82; PULSE 68; RESP 16; O2SAT 98
[2020-03-19 17:56] VITALS: BP 121/78; PULSE 68; RESP 18; O2SAT 100
== END 2020-03-19 17:57 | disposition home or self-care (01) ==
PROVIDERS: Physician Assistant; Emergency Provider Emergency Medicine; PCP Internal Medicine
DX: U07.1 COVID-19 (principal); N19 Unspecified kidney failure; K21.9 Gastro-esophageal reflux disease without esophagitis; M79.7 Fibromyalgia; F32.9 Major depressive disorder, single episode, unspecified; Z93.1 Gastrostomy status; Z92.3 Personal history of irradiation; Z92.21 Personal history of antineoplastic chemotherapy; Z85.830 Personal history of malignant neoplasm of bone; Z87.891 Personal history of nicotine dependence
CPT/HCPCS: 36415; 71045; 80053; 83605; 85025; 99283

== ENCOUNTER 2020-04-27 09:30 | Outpatient (RCR) | payer OTHER, SELFPAY ==
--- NOTE | 2020-02-01 15:58 | PTOPEVAL ---
PHYSICAL THERAPY EVALUATION AND PLAN OF CARE 02-01-2020 Thank you for referring Mrs. Padilla to [facility].? She is scheduled to be seen for therapy? 2 x/week for 6 weeks. Please review, sign, date and return this plan of care HEIDI. I agree with and certify that the following plan of care is medically necessary. Referring Physician Date Attending Provider: Dr. Juan Miguel Elliott *PT Outpatient Evaluation Start: 02/01/20 14:40 Document 02/01/20 14:35 ZA (Rec: 02/01/20 15:52 ZA [email or web address]) Therapy Assessment Status Assessment Status Assessment Status Evaluation Outpatient Past Medical History Past Medical History Source of Past Medical History Patient Neurological History Hx Seizures Yes: FROM AGES 5-16 Cardiovascular History Hx Cardiac Disorders No Significant History Respiratory History Hx Respiratory Disorders No Significant History Gastrointestinal History Hx Cholecystectomy Yes Hx Other Gastrointestinal Disorders Yes: feeding tube-taking liquids only,swallow issues Genitourinary History Hx Other Genitourinary Disorders Yes: kidney failure after chemo 30% capacity Musculoskeletal History Hx Fibromyalgia Yes: shoulders and neck most tender Hx Orthopedic Surgery Yes: cervical fusion 2000; Hx Other Musculoskeletal Disorders Yes: L knee pain, incr on stairs, pops Endocrine History Hx Hypothyroidism Yes Hx Other Endocrine Disorders Yes HEENT History Hx Cataracts Yes: surgery on Leye in November and to have R eye tomorrow Hx Other HEENT Disorders Yes: decrease hearing- does not want hearing aides Reproductive History Hx Hysterectomy Yes Psychosocial History Hx Anxiety Yes Hx Depression Yes: take meds doing OK Other History Hx Cancer Yes: ORAL Hx Other Surgeries Yes: gall bladder, hysterectomy Evaluation Information Problem Diagnosis lymphedema of head and neck Onset January 11, 2020 Diagnostic Tests MRI For This Problem Yes: head,neck,spine-negative; did have dizziness Prior Level of Function Activity Level (Last 3 Months) Occupation retired Hand Dominance Right Activity of Daily Living Ability Independent Indoor/Home Mobility Independent Community Mobility Independent Stairs Ability Independent Functional Cognition (Planning, Shopping Independent , Taking Medications) Cleaning Yes
--- NOTE | 2020-02-15 16:01 | PTOPEVAL ---
PHYSICAL THERAPY REEVALUATION FOR INSURANCE AUTHORIZATION 02-15-2020 Document 02/15/20 15:00 KASHBRYAN (Rec: 02/15/20 16:01 [email or web address] [email or web address]) Assessment Status Re-evaluation Subjective Information Mikhailen reports: feel like Query Text:As Reported By Patient/ neck is more loose; able to Family open up mouth a little more, so talking is better; still pop in L jaw, but not as often ; NO pain meds for past week ; shoulders not hurting as much; had R eye cataract surgery and doing well with it ; sleeping with pillows in wedge so head is elevated, so better; able to wear compression head piece about 2 hours, then too tight on ears and have to take off; feel like swelling is less when wake up in the morning; is using home pump 2x/day instead of 1x/day; having less headaches; she is very pleased with her improvements; is doing home exercises; weIght is about the same, 129# this AM; want to continue with therapy; Pain Assessment Timing of Pain Assessment Timing of Pain Assessment Assessment Pain Scale Pain Scale Used Numeric (1 - 10) Self Report Pain Assessment Bilateral Neck Reported Pain Level 0 Pain Frequency Chronic Lowest Pain Intensity 0 Greatest Pain Intensity 0 Other Alleviating Interventions no pain meds for past few weeks; Additional Pain Comments no neck pain, had one headache started but only 20 min then gone; muscles tight & tender, but no pain Pain Score Pain Score 0: Self Report Cervical and Lumbar ROM Cervical ROM Cervical ROM Comments sitting active cervical rotation to R 45'/ L 40'- no increase pain but tight Upper Extremity Range of Motion General Upper Extremity Range of Motion Gross Upper Extremity Range of Motion standing R shoulder AROM; Comments flexion 145'/abduction 145'- no pain L shoulder AROM: flexion 140'/ abduction 135'- no pain; ER- reach to back of head with
--- NOTE | 2020-03-28 08:51 | PTOPEVAL ---
PHYSICAL THERAPY RE-EVALUATION AND UPDATED PLAN OF CARE 03-28-2020 Refer to the clinical summary below for her status with the reevaluation. PT is to continue 2x/week for 5 weeks. Thank you for referring Barb Ross Barbraellyn to [facility].? Please review, sign, date and return this plan of care HEIDI. I agree with and certify that the following plan of care is medically necessary. Referring Physician Date Attending Provider: Dr. Juan Miguel Elliott *PT Outpatient Re-Evaluation Document 03/28/20 08:05 ZA (Rec: 03/28/20 08:50 ZA [id number]) Subjective Information Barb reports: L top tooth Query Text:As Reported By Patient/ just fell out- to have CT scan Family tomorrow; feeling better, recovering from COVID, still fatigued; still have a cough; neck and bottom of jaw tight and stiff- hurts; rub the area to help it; sleeping OK; am doing FlexiTouch pump 2x/ day; when sick, was not doing pump or exercises, now back to doing face and arm exercises; still not have very much energy; see oncologist tomorrow after CT scan- will get results of it tomorrow; Pain Assessment Timing of Pain Assessment Timing of Pain Assessment Assessment Pain Scale Pain Scale Used Numeric (1 - 10) Self Report Pain Assessment Bilateral Neck Reported Pain Level 3 Pain Frequency Chronic Other Pain Description start of headache in both jaws ; Lowest Pain Intensity 0 Greatest Pain Intensity 4 Additional Pain Comments jaw and neck tight and stiff, hurts, same range as above 0-4 /10; Pain Score Pain Score 3: Self Report Interventions Used Interventions Used By Clinicians Exercise Other Alleviating Interventions had L top tooth just fell out- not sure why--pain is less in mouth now Upper Extremity Range of Motion General Upper Extremity Range of Motion Gross Upper Extremity Range of Motion active R shoulder ROM: Comments flexion 140;; abduct 145'; ER- reach back of head , palm to back of head; ER- reach behind back, fingers to scapula active L shoulder ROM: flexion 140', abduction
--- NOTE | 2020-04-27 10:12 | PTOPEVAL ---
PHYSICAL THERAPY DISCHARGE Thank you for referring Barb Padilla to [facility].? Please review, sign, date and return this discharge HEIDI. I agree with and certify that the following plan of care is medically necessary. Referring Physician Date Attending Provider: Dr. Juan Miguel Elliott PT Outpatient Discharge Document 04/27/20 09:30 ZA (Rec: 04/27/20 10:11 ZA [email or web address]) Subjective Information Barb reports: she has an Query Text:As Reported By Patient/ appointment next week for the Family oral surgeon; dry needling helps the muscle tightness; has been doing the mouth and neck exercises and her self massage; Pain Assessment Timing of Pain Assessment Timing of Pain Assessment Assessment Pain Scale Pain Scale Used Numeric (1 - 10) Self Report Pain Assessment Jaw(s) Reported Pain Level 0 Pain Description Soreness,Tender on Palpation, Tightness Pain Frequency Chronic Other Pain Description R and L TMJ, mandible and neck ; B upper traps Lowest Pain Intensity 0 Greatest Pain Intensity 5 Pain Score Pain Score 0: Self Report Interventions Used Interventions Used By Clinicians Exercise Other Alleviating Interventions educated and used Theracane for trigger points upper traps Upper Extremity Range of Motion General Upper Extremity Range of Motion Gross Upper Extremity Range of Motion R and L shoulder AROM is WNL, Comments without pain reported Lymphedema Evaluation Skin Inspection Location Head/Neck/Face Tissue Texture Hard Lymphedema Stage II Skin Inspection Comment sitting: AROM: open mouth: bottom of top tooth to top of bottom lip: .5 cm; stick tongue out: from top lip to edge of tongue: .8 cm stick tongue out and move to R /L corner of mouth: R can reach corner/ L about 1/2 to corner of mouth; TMJ- with palpation, tender over L; with open/ close mouth : slight motion/movement over TMJ; MEASUREMENTS: sitting: - base of L ear to corner of L mouth: 8.8 cm
== END 2020-04-27 11:28 | disposition home or self-care (01) ==
LOC: ANHPT 09:30
PROVIDERS: PCP Internal Medicine
DX: C06.9 Malignant neoplasm of mouth, unspecified (principal); C41.1 Malignant neoplasm of mandible
CPT/HCPCS: 97110; 97140; 97162

== ENCOUNTER 2021-04-05 15:19 | Emergency (ER) | payer OTHER, SELFPAY ==
[2021-04-05] VITALS (16 sets, daily range): BP systolic 121–144; BP diastolic 69–76; PULSE 56–68; RESP 9–22; TEMP 36.6–36.9; O2SAT 96–100
--- NOTE | ~2021-04-05 | XR_ITS ---
EXAMINATION: XR chest 2V DATE: 04/05/2021 15:43 INDICATION: Midsternal chest pain. TECHNIQUE: Frontal and lateral views of the chest were obtained. COMPARISON: Chest single view 03/19/2020 FINDINGS: The chest demonstrates clear lungs without pneumonia, pleural effusion, or pneumothorax. Th e heart size is normal. Surgical clips in the right upper quadrant are likely from cholecystectomy. T here is a gastrostomy tube in expected position. There are changes of anterior fusion procedure in ce rvical spine. Surgical clips overlie the neck. IMPRESSION: 1. No acute cardiopulmonary disease. Reviewed, dictated and finalized at location B. [facility]
--- NOTE | 2021-04-05 15:19 | ECG_ITS ---
Measurements Intervals [place] Rate: 63 P: 67 VT: 145 QRS: -7 QRSD: 84 T: 51 QT: 414 QTc: 424 Interpretive Statements SINUS RHYTHM NORMAL ECG Electronically Signed On 04-05-2021 16:08:46 PARADICHLOROBENZENE TENDER by García Friedman D.O.
[2021-04-05 15:51] LABS: Basophils Absolute Auto 0.1 K/mm3 (0.0-0.1); Basophils Percent Auto 1.5 % (0.2-1.2); Eosinophils Absolute Auto 0.1 K/mm3 (0-0.3); Eosinophils Percent Auto 1.8 % (0-4.4); Hematocrit 36.5 % (37.0-47.0); Hemoglobin 11.5 g/dL (12.0-15.0); Immature Granulocyte Absolute 0.01 K/mm3 (0.00-0.031); Immature Granulocyte Percent A 0.3 % (0-0.5); Lymphocytes Absolute Auto 0.74 K/mm3 (0.9-3.2); Lymphocytes Percent Auto 18.9 % (18.3-44.2); Mean Corpuscular HGB Conc 31.5 g/dl (32-36); Mean Corpuscular Hemoglobin 30.3 pg (26-34); Mean Corpuscular Volume 96.3 fl (80-100); Mean Platelet Volume 12.5 fl (7.4-10.4); Monocytes Absolute Auto 0.4 K/mm3 (0.1-0.6); Monocytes Percent Auto 8.9 % (2.6-8.5); Neutrophils Absolute Auto 2.7 K/mm3 (1.3-6.7); Neutrophils Percent Auto 68.6 % (45.5-73.1); Platelet Count Result 137 k/mm3 (150-375); Red Blood Count 3.79 M/mm3 (4.2-5.4); Red Cell Distribution Width 14.8 % (11.5-14.5); White Blood Count 3.9 K/mm3 (4.5-10.0)
[2021-04-05 16:01] LABS: Alanine Aminotransferase 28 U/L (4-35); Albumin Level 4.2 g/dL (3.5-5.1); Alkaline Phosphatase 119 U/L (38-126); Anion Gap 3 mmol/L (8-16); Aspartate Amino Transferase 34 U/L (14-36); Bilirubin,Total 0.3 mg/dL (0.2-1.3); Blood Urea Nitrogen 44 mg/dL (7-17); Calcium 9.6 mg/dL (8.4-10.2); Carbon Dioxide 33 mmol/L (22-30); Chloride 96 mmol/L (98-107); Estimated CRCL calculation 29 ml/min; Estimated Glomerular Filt Rate 37; Glucose 95 mg/dL (65-110); Lipase 167 U/L (23-300); Potassium 4.1 mmol/L (3.4-5.0); Sodium 132 mmol/L (137-145)
[2021-04-05 16:13] LABS: Troponin I < 0.012 ng/mL (0.000-0.034)
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
[2021-04-05 17:09] LABS: NT Pro B Type Natriuretic Pept 490 pg/mL (5-100)
[2021-04-05 17:21] LABS: INR 1.1; Partial Thromboplastin Time 32.1 SECONDS (22.3-36.8); Prothrombin Time 13.7 Seconds (11.1-14.7)
[2021-04-05 17:38] LABS: D Dimer 0.27 ug/mL (<0.48)
[2021-04-05] MEDS: ONDANSETRON INJ 4 MG/2 ML VIAL IV PUSH (18:16)
[2021-04-05] MEDS: MORPHINE SULFATE (*CRX) 2 MG/ML INJ IV PUSH (18:16)
[2021-04-05 19:03] LABS: Troponin I < 0.012 ng/mL (0.000-0.034)
== END 2021-04-05 19:50 | disposition home or self-care (01) ==
PROVIDERS: Physician Assistant; Emergency Provider Emergency Medicine; PCP Internal Medicine
DX: R07.89 Other chest pain (principal); M79.7 Fibromyalgia; K21.9 Gastro-esophageal reflux disease without esophagitis; N19 Unspecified kidney failure; Z92.21 Personal history of antineoplastic chemotherapy; Z92.3 Personal history of irradiation; Z87.891 Personal history of nicotine dependence; Z85.830 Personal history of malignant neoplasm of bone; Z93.1 Gastrostomy status
CPT/HCPCS: 36415; 71046; 80053; 83690; 83880; 84484; 85025; 85380; 85610; 85730; 93005; 96374; 96375; 99284; J0131; J2270; J2405

== ENCOUNTER 2021-04-28 02:39 | Day surgery (SDC) | payer MEDICARE, SELFPAY ==
[2021-04-17 10:04] VITALS: BMI 20.1
--- NOTE | 2021-04-17 11:08 | PC.NURSE ---
Report to the Outpatient Waiting Room, entrance under the green pavilion located off [facility], at time _0745_ on date _04/28/21__. OR Time: __0945 AM__. - You and your visitor will be asked a series of questions to screen for COVID 19 for your protection. - A mask is required within the hospital. - Only one visitor is allowed at this time. Patient visitors will be guided where to wait when not with patient. Preoperative COVID Testing Requirements: No COVID Test needed if: (proof is required; if not received patient will have Rapid Test prior to entry) - Patient has received COVID Vaccine at least 14 days prior to procedure date or - Patient has positive COVID test result within last 90 days of surgery date. COVID Test needed if above criteria is not met If not COVID vaccinated a COVID test must be conducted within 72 hours of surgery and patient is asked to isolate self from time of testing until procedure. You will go to the [facility] for your COVID testing. The [facility] is located at the corner of [address] [facility]. You will only be called if COVID results are positive and your surgeon may reschedule your elective surgery date. Patients may have clear liquids (water, carbonated beverages, clear teas, apple juice) until 3 hours prior to surgery (0645AM) with a maximum of 20 ounces. - No food from midnight until time of surgery - Infants may have breast milk until 4 hours before surgery, formula 6 hours prior to surgery. - Children will be allowed to drink immediately following surgery. If applicable, please bring a bottle or sippy cup to assist with drinking. Juice, water, soda, and popsicles are readily available. For infants on formula, please bring formula the day of surgery. Pacifiers are allowed. Take the following medications with a SIP of water the morning of surgery: _CITALOPRAM, LEVOTHYROXIINE, PAIN PILL & INHALER IF NEEDED_ Medications to discontinue per physician ALL VITAMINS & SUPPLEMENTS - 3 DAYS PRIOR TO SURGERY PER ANESTHESIA_ Date to take last dose__04/24/21 Please no make-up, nail cypriot, hairspray, perfume, deodorant, or body powder the day of surgery. No jewelry (including any body piercings) or valuables the day of surgery, leave them at home. Please take a shower or bath the night before, or the morning of, surgery with an antibacterial soap. Wear comfortable, loose fitting clothing. Children are encouraged to wear pajamas. - Jewelry must be removed prior to entering the operating room. Rings and piercings that are not removed may be cut off. - The hospital will not accept responsibility for valuables. - Please leave all valuables, including medications, at home the day of surgery. If you are going home after surgery, a licensed bottom hoop driver must drive you home. - NO public transportation without another adult. - We recommend that an adult stay with you for 24 hours following discharge. - We also recommend that you do not drive, make important decision, drink alcoholic beverages, or take any drugs that were not prescribed by your health care provider for at least 24 hours after your discharge time. For Pediatric surgeries, we recommend two adults accompany the child home (only one inside the building at this time). Follow any additional instructions given to you from your surgeon. Telephone instructions given to ___PT and asked if any additional questions and then verbalized understanding. Patient advised to call surgeon office or pre surgery nurse liaison [phone] if any additional questions.
--- NOTE | 2021-04-23 11:32 | PM.IMHP ---
H&P: HPI History of Present Illness Date/Time: 04/23/21 11:32 70-year-old woman with overactive bladder and urge incontinence. She has had InterStim trial with greater than 65% improvement in symptoms. Chief Complaint: urge incontinence Review of Systems Review of Systems: All systems reviewed & are unremarkable except as noted in HPI and below PMFSH Past Medical History Medical History (Updated 04/23/21 @ 11:33 by Ben Mishra MD) Cancer of mandible Depression Fibromyalgia GERD (gastroesophageal reflux disease) History of chemotherapy Hx of radiation therapy Kidney failure Uses feeding tube Surgical History Surgical History H/O: hysterectomy History of mandibular surgery partial removal of mandible Hx of cholecystectomy Family History Family History Father Afib COPD (chronic obstructive pulmonary disease) Diabetes mellitus Mother Tumor Daughter Cancer Social History Social History Smoking packs per day: 1 Smoking cigarettes per day: 20.0 Years smoked: 30 Smoking pack-years: 30.00 Smoking status: Former smoker Tobacco type: cigarettes Second hand tobacco smoke exposure: No Additional smoking assessment comments: STATES 1PK/DAY/30+YRS-QUIT 2005 Alcohol intake: former Substance use: never Substance use type: does not use Gender identity (if verbalized by the patient): Female Spiritual care concerns: No Agree to blood products: Yes Meds Home Medications and Allergies Home Medications Medication Instructions Recorded Confirmed Type albuterol sulfate 2 puff INHALATION QID PRN #6.7 gm 05/09/19 04/17/21 Rx citalopram 40 mg FEEDING TUBE DAILY 05/09/19 04/17/21 History levothyroxine 50 mcg FEEDING TUBE DAILY 05/09/19 04/17/21 History hydrocodone-acetaminophen 1 tablet FEEDING TUBE PRN PRN 07/21/19 04/17/21 History albuterol sulfate 2 inh INHALATION Q4-6H PRN #1 ea 03/19/20 04/17/21 Rx L.rhamn A-191-L.ac-B.carri-B.diana 1 cap PO DAILY 04/17/21 04/17/21 History [Probiotic] Allergies Allergy/AdvReac Type Severity Reaction Status Date / Time Penicillins Allergy Unknown Anaphylactic Verified 04/17/21 09:59 Shock povidone-iodine Allergy Rash Verified 04/17/21 09:59 [From Betadine] soap [From Betadine] Allergy Rash Verified 04/17/21 09:59 CILLINS Allergy Anaphylaxis Uncoded 04/17/21 09:59 Exam Narrative: no acute distress normal breathing alert and oriented x3 Assessment and Plan Assessment and plan (1) Urge incontinence: Code(s): N39.41 - Urge incontinence Status: Acute Assessment and Plan: placement of sacral neurostimulator
--- NOTE | ~2021-04-28 | XR_ITS ---
EXAMINATION: XR fl neurostim insert<1hr EXAM DATE: 04/28/2021 10:53 INDICATION: Neurostim Implant Phase 1 2 TECHNIQUE: Fluoroscopy used during XR fl neurostim insert<1hr performed by Dr. Ben Mishra MD . Radiologist was not present for the imaging or procedure. Total fluoroscopic time of 114 seconds The DAP for this procedure was 0.88 mGym2. A total of 3 images sent to PACS from the exam. FINDINGS: Images demonstrate neural stimulator lead extending through a neural foramina. No side mar ker. Correlate with procedure note. IMPRESSION: Fluoroscopy used during XR fl neurostim insert<1hr. Reviewed, dictated and finalized at location B. NTEGRATOR
--- NOTE | 2021-04-28 07:06 | WPDHPUPDATE1 ---
History and Physical Update Update Date/Time: 04/28/21 07:06 History and Physical has been reviewed, including an updated exam of the patient. There are NO changes in the patient's condition. Risks, benefits, and alternatives have been discussed and questions answered. Patient agrees to proceed with procedure.
[2021-04-28] MEDS: LACTATED RINGERS 1,000 ML 30 ML IV CONT (08:32)
[2021-04-28 08:36] VITALS: BP 99/68; PULSE 64; RESP 16; TEMP 35.9; O2SAT 100
--- NOTE | 2021-04-28 08:57 | WPDANESEPPF ---
Anes - Initial Pre Proc Eval Procedure: Operation Date: 04/28/21 09:45 Proposed Procedures p Neurostimulator Implant Phase One and Two Combined - Ben Mishra MD Date/Time: 04/28/21 08:57 Surgeon: Ben Mishra MD Pre Op Diagnosis: sensory urge incont, stress incont Patient Data Age: 70 Gender: F Height: 1.63 m Weight: 54.1 kg Last Vital Signs Temp 35.9 C L 04/28/21 08:36 Pulse 64 04/28/21 08:36 Resp 16 04/28/21 08:36 BP 99/68 L 04/28/21 08:36 Pulse Ox 100 04/28/21 08:36 Allergies Allergy/AdvReac Type Severity Reaction Status Date / Time Penicillins Allergy Unknown Anaphylactic Verified 04/28/21 08:03 Shock povidone-iodine Allergy Rash Verified 04/28/21 08:03 [From Betadine] soap [From Betadine] Allergy Rash Verified 04/28/21 08:03 CILLINS Allergy Anaphylaxis Uncoded 04/28/21 08:03 Home Medications Medication Instructions Recorded Confirmed Type albuterol sulfate 2 puff INHALATION QID PRN #6.7 gm 05/09/19 04/17/21 Rx citalopram 40 mg FEEDING TUBE DAILY 05/09/19 04/28/21 History levothyroxine 50 mcg FEEDING TUBE DAILY 05/09/19 04/28/21 History hydrocodone-acetaminophen 1 tablet FEEDING TUBE PRN PRN 07/21/19 04/28/21 History albuterol sulfate 2 inh INHALATION Q4-6H PRN #1 ea 03/19/20 04/17/21 Rx L.rhamn A-191-L.ac-B.carri-B.diana 1 cap PO DAILY 04/17/21 04/28/21 History [Probiotic] Patient hx anesthesia problems: none Family hx anesthesia problems: none Results Review: All pre-operative results and documents have been reviewed as part of the pre-operative evaluation. [facility] Past Medical History Medical History Asthma Cancer of mandible Chronic renal failure, stage 4 (severe) Depression Fibromyalgia GERD (gastroesophageal reflux disease) History of chemotherapy Hx of radiation therapy Kidney failure Seizure age 5-16 Uses feeding tube Surgical History Surgical History H/O: hysterectomy History of mandibular surgery partial removal of mandible Hx of cholecystectomy S/P cervical spinal fusion 2000 Family History Family History Father Afib COPD (chronic obstructive pulmonary disease) Diabetes mellitus Mother Tumor Daughter Cancer Social History Social History Smoking packs per day: 1 Smoking cigarettes per day: 20.0 Years smoked: 30 Smoking pack-years: 30.00 Smoking status: Former smoker Tobacco type: cigarettes Second hand tobacco smoke exposure: No Additional smoking assessment comments: STATES 1PK/DAY/30+YRS-QUIT 2005 Alcohol intake: former Substance use: never Substance use type: does not use Living arrangements: with family Gender identity (if verbalized by the patient): Female Spiritual care concerns: No Agree to blood products: Yes Anes - Eval Final PreProcedure Day of Procedure 04/28/21 08:57 Patient weight: normal Heart: regular rate and rhythm Lungs: clear to auscultation Airway: Mallampati scale class IV and special considerations (mandible reconstruction/oral cancer 5 years ago) Neurological: alert and oriented Last oral intake: >/= 8 hours ASA classification: III Emergent: no Anesthesia type and monitoring: general GIVS and standard monitoring Results Review: All pre-operative results and documents have been reviewed as part of the pre-operative evaluation. Informed Consent: The patient's anesthetic plan and its attendant risks and benefits were discussed with the patient/family/POA. Questions were solicited and answers provided to the satisfaction of the patient/family/POA.
[2021-04-28] MEDS: ceFAZolin 2 GM/D5W 50 ML 2 GM/50 ML BAG IVPB (10:01)
[2021-04-28] MEDS: LIDO 1%/EPINEPHRINE 1:100,000 50 ML VIAL 30 ML INFILTRATE (10:20)
[2021-04-28 10:58] VITALS: BP 109/48; PULSE 92; RESP 18; O2SAT 100
--- NOTE | 2021-04-28 11:05 | P.OP_ITS ---
Procedure Note - Detailed Date of Procedure 04/28/21 Pre-op Diagnosis sensory urge incont, stress incont Post-op Diagnosis same Procedure Performed Implantation of sacral lead 30346 Fluoroscopic guidance for needle placement 76938-68 Placement of implantable pulse generator 18779 Complex neurostimulator programming impedance check [id number] Surgeon Ben Mishra MD Anesthesia MAC and local Indications This is a patient with refractory urge urinary incontinence. They have undergone a successful trial of sacral nerve stimulation. They present today for permanent implantation. They understand the risks of bleeding, infection, decreased efficacy, need for revision and battery changes. They agree to proce ed Findings See dictated Description of Procedure They were correctly identified and informed consent was obtained. There brought to the operating room. There placed in the prone position. There given appropriate perioperative antibiotics. A time-out performed. I used fluoroscopy to khari out my sacral landmarks in the AP and the lateral orientation. I anesthetized the skin. I entered the S3 foramen. I monitored the needle with fluoroscopy. I got appropriate Rishi and toe response at a l ow threshold. I made a skin daja. I placed a stylet. I placed the lead introducer sheath. I thinned placed and deployed to my lead. I got appropriate responses again at a low threshold. I marked out the site of the pulse generator. I anesthetized the skin and made that incision. I created a subcutaneous pocket to house the pulse generator. I did a skipping incision. I tunneled the lead towards this pocket. Appropriate connections were made between the lead and the battery. It was placed in the pocket. It was programmed and impedances were checked and found to be normal. I irrigated out all wounds. I ensured hemostasis. I closed the subcutaneous tissues with 2 Vicryl. I closed the skin with 4 0 Vicryl. Glue was applied. There then awakened and transferred to the PACU in stable condition. Implants Sacral neurostimulator Estimated Blood Loss 5 Drains No Packing No Pathology none sent Condition stable Disposition PACU
[2021-04-28 11:25] VITALS: BP 111/44; PULSE 71; RESP 18; O2SAT 100
[2021-04-28 11:55] VITALS: BP 108/45; PULSE 69; RESP 18
--- NOTE | 2021-04-28 12:01 | SUR.PHASEII ---
NEURO STIM TECH HERE TO INSTRUCT PATIENT AND SPOUSE.
== END 2021-04-28 12:44 | disposition home or self-care (01) ==
PROVIDERS: PCP Internal Medicine; Visit Provider Urology
PROC: (CPT 64581; principal; 2021-04-28 09:45)
DX: N39.46 Mixed incontinence (principal); J45.909 Unspecified asthma, uncomplicated; N18.4 Chronic kidney disease, stage 4 (severe); M79.7 Fibromyalgia; K21.9 Gastro-esophageal reflux disease without esophagitis; G40.909 Epilepsy, unspecified, not intractable, without status epilepticus; F32.9 Major depressive disorder, single episode, unspecified; Z79.51 Long term (current) use of inhaled steroids; Z93.1 Gastrostomy status; Z85.830 Personal history of malignant neoplasm of bone; Z92.3 Personal history of irradiation; Z98.1 Arthrodesis status; Z87.891 Personal history of nicotine dependence
CPT/HCPCS: 64581; 64590; C1767; C1778; C1787; J0171; J0690; J2250; J3010; J7120

== ENCOUNTER 2021-07-06 12:30 | Outpatient (RCR) | payer MEDICARE, SELFPAY ==
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
--- NOTE | 2021-06-16 10:05 | PCPTNOTE ---
pt called and canceled due to bad weather;
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
== END 2021-07-07 11:04 | disposition home or self-care (01) ==
LOC: ANHPT 12:30
PROVIDERS: PCP Internal Medicine
DX: I89.0 Lymphedema, not elsewhere classified (principal)
CPT/HCPCS: 97140; 97161

== ENCOUNTER 2021-11-23 07:29 | Outpatient (CLI) | payer MEDICARE, SELFPAY ==
--- NOTE | ~2021-11-23 | CT_ITS ---
EXAMINATION: CT abdomen pelvis w con DATE: 11/23/2021 08:21 INDICATION: Left upper quadrant abdominal pain TECHNIQUE: Computed tomography (CT) of the abdomen and pelvis was performed with 100 CC Omnipaque 300 intravenous contrast. Automated exposure control and iterative reconstruction technique were employe d. Exam dose: 220.56 mGy-cm total exam DLP. COMPARISON: 07/21/2019 CT abdomen pelvis noncontrast examination FINDINGS: The lung bases are clear. Normal heart size. No pericardial or pleural effusion. Status post cholecystectomy. No bile duct or pancreatic duct dilatation. No hepatic, pancreatic or sp lenic space-occupying mass lesion. Normal morphology of the adrenal glands. No renal mass lesion or urinary tract calculus or hydroureteronephrosis. There is moderate thickening of the urinary bladder wall; cystitis is not excluded. Status post hysterectomy. Small bilateral fat-containing inguinal hernias. There is atherosclerotic calcification but normal caliber of the abdominal wall. Prominent renal aram ry calcifications and calcifications at the origins of the celiac and superior mesenteric arteries. B ilateral iliac and femoral atherosclerotic calcifications. No intraperitoneal or retroperitoneal or pelvic mass lesion or adenopathy or ascites. Normal appendix. No bowel obstruction or intraperitoneal free air. There is a gastrostomy tube in the gastric lumen. Right lower back battery pack with lead extending through the right sacral neural foramen. Severe degenerative disc disease is at L5-S1. No suspicious osteolytic or osteosclerotic lesions. IMPRESSION: Gastrostomy tube in stomach Normal appendix No bowel obstruction or free air Status post cholecystectomy Moderate bladder wall thickening; cystitis is not excluded Status post hysterectomy Bilateral fat-containing inguinal hernias Atherosclerosis Reviewed, dictated and finalized at Location A. Reviewed, dictated and finalized at location A.
[2021-11-23 08:12] LABS: Estimated Glomerular Filt Rate 37
== END 2021-11-23 07:30 | disposition home or self-care (01) ==
PROVIDERS: PCP Internal Medicine; Visit Provider Nurse Practitioner
DX: R10.12 Left upper quadrant pain (principal); T85.848A Pain due to other internal prosthetic devices, implants and grafts, initial encounter; Z86.010 Personal history of colon polyps; I70.0 Atherosclerosis of aorta; K40.20 Bilateral inguinal hernia, without obstruction or gangrene, not specified as recurrent; Z90.49 Acquired absence of other specified parts of digestive tract
CPT/HCPCS: 74177; Q9967

== ENCOUNTER 2021-11-30 21:14 | Emergency (ER) | payer MEDICARE, SELFPAY ==
--- NOTE | ~2021-11-30 | XR_ITS ---
EXAMINATION: XR chest 2V DATE: 11/30/2021 21:44 INDICATION: Left chest pain. TECHNIQUE: Frontal and lateral views of the chest were obtained. COMPARISON: Chest 2 views 04/05/2021 FINDINGS: There is mild scarring at the lung apices. No pleural effusion or pneumothorax. The heart s ize is normal. There are changes of anterior fusion procedure in cervical spine. There are surgical c lips in the neck. Surgical clips in the right upper quadrant are likely from cholecystectomy. There i s a gastrostomy tube in expected position. IMPRESSION: 1. Stable mild scarring at the lung apices. Reviewed, dictated and finalized at location A.
--- NOTE | 2021-11-30 21:20 | ECG_ITS ---
Measurements Intervals [place] Rate: 50 P: 73 MS: 154 QRS: -24 QRSD: 85 T: 54 QT: 434 QTc: 399 Interpretive Statements SINUS BRADYCARDIA LEFT ATRIAL ENLARGEMENT ANTEROSEPTAL INFARCT, AGE INDETERMINATE ABNORMAL ECG Electronically Signed On 12-01-2021 8:41:46 CDT by García Friedman D.O.
[2021-11-30 21:24] VITALS: BP 118/66; PULSE 57; RESP 18; TEMP 36.6; O2SAT 99
[2021-11-30 21:35] LABS: Basophils Percent Auto 1.1 % (0.2-1.2); Eosinophils Absolute Auto 0.2 K/mm3 (0-0.3); Eosinophils Percent Auto 4.9 % (0-4.4); Hematocrit 35.7 % (37.0-47.0); Lymphocytes Percent Auto 27.4 % (18.3-44.2); Mean Corpuscular HGB Conc 30.8 g/dl (32-36); Mean Corpuscular Hemoglobin 29.8 pg (26-34); Mean Corpuscular Volume 96.7 fl (80-100); Mean Platelet Volume 12.6 fl (7.4-10.4); Monocytes Absolute Auto 0.4 K/mm3 (0.1-0.6); Neutrophils Percent Auto 55.6 % (45.5-73.1); Platelet Count Result 111 k/mm3 (150-375); Red Blood Count 3.69 M/mm3 (4.2-5.4); Red Cell Distribution Width 13.2 % (11.5-14.5); White Blood Count 3.7 K/mm3 (4.5-10.0)
[2021-11-30 21:44] LABS: INR 1.1; Prothrombin Time 13.7 Seconds (11.1-14.7)
[2021-11-30 21:45] LABS: Partial Thromboplastin Time 32.4 SECONDS (22.3-36.8)
[2021-11-30 21:47] LABS: Alanine Aminotransferase 15 U/L (6-35); Albumin Level 3.9 g/dL (3.5-5.1); Alkaline Phosphatase 121 U/L (38-126); Anion Gap 4 mmol/L (8-16); Aspartate Amino Transferase 28 U/L (14-36); Bilirubin,Total 0.4 mg/dL (0.2-1.3); Blood Urea Nitrogen 45 mg/dL (7-17); Calcium 8.9 mg/dL (8.4-10.2); Carbon Dioxide 32 mmol/L (22-30); Chloride 99 mmol/L (98-107); Estimated CRCL calculation 31 ml/min; Estimated Glomerular Filt Rate 41; Glucose 105 mg/dL (65-110); Lipase 485 U/L (23-300); Potassium 4.5 mmol/L (3.4-5.0); Sodium 135 mmol/L (137-145)
[2021-11-30 21:59] LABS: Troponin I < 0.012 ng/mL (0.000-0.034)
[2021-11-30 23:16] VITALS: PULSE 48
[2021-11-30 23:20] VITALS: BP 127/60; PULSE 54; RESP 20; O2SAT 100
--- NOTE | 2021-11-30 23:28 | ED.GENADULT ---
HPI - General Adult General Chief complaint: Chest Pain Stated complaint: chest pain Time Seen by Provider: 11/30/21 23:06 History of Present Illness HPI narrative: 71-year-old female presenting to the emergency department for evaluation of left-sided chest tenderness to palpation. Patient states the left-sided chest pain has been present since approximately 6 AM. Patient denies any associated shortness of breath. Patient states pain is not worsened with deep inspiration. Patient denies any radiation of the pain. Patient does have reproducible tenderness to palpation. Patient does have history of oral cancer status postsurgical repair and treatment. Patient does have G-tube feeding, patient was having some tenderness at her G-tube site and did have an outpatient CT scan. Patient does have follow-up with GI. Patient also reports chronic ache in all her joints has been going on for greater than a month. Patient denies any prior cardiac history. Related Data Home Medications Medication Instructions Recorded Confirmed citalopram 40 mg tablet 40 mg PO DAILY 05/09/19 11/30/21 levothyroxine 50 mcg tablet 50 mcg PO DAILY 05/09/19 11/30/21 L.acidophil,rhamnosus-B.breve,longum 1 cap PO DAILY 04/17/21 11/30/21 20 billion cell sprinkle capsule (Probiotic) cetirizine 5 mg tablet 5 mg PO DAILY PRN Allergy Symptoms 11/09/21 11/30/21 fluticasone propionate 50 1 spray intranasal DAILY 11/09/21 11/30/21 mcg/actuation nasal spray,suspension Allergies Allergy/AdvReac Type Severity Reaction Status Date / Time Penicillins Allergy Unknown Anaphylactic Verified 11/30/21 23:17 Shock povidone-iodine Allergy Rash Verified 11/30/21 23:17 [From Betadine] soap [From Betadine] Allergy Rash Verified 11/30/21 23:17 CILLINS Allergy Anaphylaxis Uncoded 11/30/21 23:17 Review of Systems Review of Systems: CONSTITUTIONAL: Denies fever, chills, or sweats. EYES: Denies visual changes, redness, or discharge. ENT: Denies rhinorrhea, congestion, sore throat, or otalgia. CARDIOVASCULAR: See HPI RESPIRATORY: Denies cough or dyspnea. GASTROINTESTINAL: Denies abdominal pain, nausea, vomiting, or diarrhea. GENITOURINARY: Denies dysuria or hematuria. SKIN: Denies rash or itching. MUSCULOSKELETAL: See HPI NEUROLOGIC: Denies headache, numbness, or weakness. [facility] Past Medical History Medical History (Updated 12/01/21 @ 01:59 by Douglas Evans MD) Asthma Cancer of mandible Chronic renal failure, stage 4 (severe) Depression Fibromyalgia GERD (gastroesophageal reflux disease) History of chemotherapy Hx of adenomatous colonic polyps Hx of radiation therapy Kidney failure Left upper quadrant pain Pain around percutaneous endoscopic gastrostomy (PEG) tube site Seizure age 5-16 Uses feeding tube Surgical History Surgical History H/O: hysterectomy History of mandibular surgery partial removal of mandible Hx of cholecystectomy S/P cervical spinal fusion 2000 Family History Family History Father Afib COPD (chronic obstructive pulmonary disease) Diabetes mellitus Mother Tumor Daughter Cancer Social History Social History Smoking packs per day: 1 Smoking cigarettes per day: 20.0 Years smoked: 30 Smoking pack-years: 30.00 Smoking status: Former smoker Tobacco type: cigarettes Second hand tobacco smoke exposure: No Additional smoking assessment comments: STATES 1PK/DAY/30+YRS-QUIT 2005 Alcohol intake: former Substance use: never Substance use type: does not use Gender identity (if verbalized by the patient): Female Spiritual care concerns: No Agree to blood products: Yes Exam Narrative: APPEARANCE: Well appearing, no pain, no distress, well-nourished. HEAD: normocephalic, atraumatic. EYES: PERRLA/EOMI, conju
[2021-12-01 00:57] LABS: Appearance Urine Clear (Clear); Bilirubin Urine Negative (Negative); Blood Urine Negative (Negative); Color Urine Yellow (Yellow); Glucose Urine UA Negative (Negative); Ketones Urine Negative (Negative); Leukocyte Esterase Ur Negative LEU/UL (Negative); Nitrate Urine Negative (Negative); Protein Urine Negative (Negative); Urobilinogen Urine 0.2 mg/dL (<2.0)
[2021-12-01 01:01] VITALS: BP 134/56; PULSE 50; RESP 11; O2SAT 100
[2021-12-01 01:01] LABS: Bacteria Urine Trace /hpf; Mucus Urine Rare /lpf; RBC Urine 0-2 /hpf (0-2); WBC Urine 0-3 /hpf
[2021-12-01 01:12] LABS: Add Urine Microscopic? NO
[2021-12-01 01:18] LABS: Troponin I < 0.012 ng/mL (0.000-0.034)
[2021-12-01 02:01] VITALS: BP 127/58; PULSE 51; RESP 17; O2SAT 100
== END 2021-12-01 02:27 | disposition home or self-care (01) ==
PROVIDERS: Emergency Provider Emergency Medicine; PCP Internal Medicine
DX: R07.89 Other chest pain (principal); J45.909 Unspecified asthma, uncomplicated; N18.4 Chronic kidney disease, stage 4 (severe); M79.7 Fibromyalgia; K21.9 Gastro-esophageal reflux disease without esophagitis; Z92.3 Personal history of irradiation; Z92.21 Personal history of antineoplastic chemotherapy; Z98.1 Arthrodesis status; Z90.710 Acquired absence of both cervix and uterus; Z93.1 Gastrostomy status; Z85.819 Personal history of malignant neoplasm of unspecified site of lip, oral cavity, and pharynx; Z87.891 Personal history of nicotine dependence; R00.1 Bradycardia, unspecified; R94.31 Abnormal electrocardiogram [ECG] [EKG]
CPT/HCPCS: 36415; 71046; 80053; 81003; 83690; 84484; 85025; 85610; 85730; 93005; 99284

== ENCOUNTER 2021-12-06 00:35 | Day surgery (SDC) | payer MEDICARE, SELFPAY ==
[2021-12-01 08:53] VITALS: BMI 20.2
[2021-12-06 06:27] VITALS: BP 107/50; PULSE 60; RESP 18; TEMP 36.6; O2SAT 98
--- NOTE | 2021-12-06 09:33 | P.OP_ITS ---
Procedure Note - Detailed Date of Procedure 12/06/21 Pre-op Diagnosis malfuncting Gastrostomy Tube Post-op Diagnosis Same Procedure Performed I removed previous G-tube and then placed a 16 [place] Quinn[place]richmond low profile gastrostomy tube at the bedside, then inflated the balloon with 5 ml of water, if was secured in right position. Patient is going home and ok to resume tube feeding as usual she is to call if malfunctioning again Surgeon Patrice Fields MD Anesthesia None Description of Procedure as above
== END 2021-12-06 07:20 | disposition home or self-care (01) ==
PROVIDERS: PCP Internal Medicine; Visit Provider Internal Medicine Gastroenterology
PROC: 0DH63UZ Insertion of Feeding Device into Stomach, Percutaneous Approach (ICD-10-PCS; CPT 43246; principal; 2021-12-06 07:00)
DX: T85.848A Pain due to other internal prosthetic devices, implants and grafts, initial encounter (principal); R10.12 Left upper quadrant pain; Y83.3 Surgical operation with formation of external stoma as the cause of abnormal reaction of the patient, or of later complication, without mention of misadventure at the time of the procedure; Z85.830 Personal history of malignant neoplasm of bone; N18.4 Chronic kidney disease, stage 4 (severe); J45.909 Unspecified asthma, uncomplicated; F32.A Depression, unspecified; M79.7 Fibromyalgia; Z92.21 Personal history of antineoplastic chemotherapy; Z92.3 Personal history of irradiation; Z98.1 Arthrodesis status; Z87.891 Personal history of nicotine dependence; Z79.51 Long term (current) use of inhaled steroids; Z79.891 Long term (current) use of opiate analgesic
CPT/HCPCS: 99211; G0463

== ENCOUNTER 2021-12-15 07:40 | Outpatient (CLI) | payer MEDICARE, SELFPAY ==
--- NOTE | ~2021-12-15 | NM_ITS ---
EXAMINATION: NM bone scan whole body DATE: 12/15/2021 13:32 INDICATION: Malignant neoplasm of the mandible. TECHNIQUE: 24.2 mCi Tc-99m HDP was administered intravenously. Delayed whole-body scintigrams were o btained. COMPARISON: Chest 2 views 11/30/2021, CT abdomen and pelvis 11/23/2021 FINDINGS: There is increased activity in the mandible. There is increased activity in the spine corre lating with spondylosis on radiographs. There is increased activity in the carpus on either side, lik cira osteoarthritis. IMPRESSION: 1. Increased activity in the mandible, which may be an expected finding given the history of mandible surgery. Infection and malignancy are not excluded. Correlate with any outside imaging such as a nec k CT. Reviewed, dictated and finalized at location A. IMPRESSION: 1. Increased activity in the mandible, which may be an expected finding given t he history of mandible surgery. Infection and malignancy are not excluded. Mery elate with any outside imaging such as a neck CT.
== END 2021-12-15 07:41 | disposition home or self-care (01) ==
PROVIDERS: PCP Internal Medicine; Visit Provider Internal Medicine
DX: C41.1 Malignant neoplasm of mandible (principal)
CPT/HCPCS: 78306; A9561

== ENCOUNTER → 2022-01-10 11:04 | Outpatient (CLI) | payer MEDICARE, SELFPAY ==
--- NOTE | ~2022-01-10 | MM_ITS ---
EXAMINATION: MM screening [facility] BI w [facility] HISTORY: Screening mammogram TECHNIQUE: Craniocaudal and mediolateral oblique 3-D tomosynthesis images were obtained and synthetic 2-D images were generated. CAD analysis was submitted and interpreted. COMPARISON: 09/10/2018, 03/24/2015, 02/17/2014 BREAST PARENCHYMAL COMPOSITION: The breasts are heterogeneously dense, which may obscure small masses . FINDINGS: There is no suspicious mass, calcification, or architectural distortion to suggest malignan cy in either breast. There has been no suspicious interval change. IMPRESSION: 1. No mammographic evidence of malignancy. 2. Recommend routine screening mammography in one year. BI-RADS Category 1: Negative Reviewed, dictated and finalized at location A.
== END ==
PROVIDERS: PCP Internal Medicine; Visit Provider Internal Medicine
DX: Z12.31 Encounter for screening mammogram for malignant neoplasm of breast (principal)
CPT/HCPCS: 77063; 77067

== ENCOUNTER 2022-02-10 08:44 | Observation (INO) | payer MEDICARE, SELFPAY ==
[2022-02-10] VITALS (17 sets, daily range): BP systolic 103–130; BP diastolic 53–97; PULSE 53–66; RESP 14–18; TEMP 36.4–36.6; O2SAT 65–100; BMI 20.9
--- NOTE | ~2022-02-10 | US_ITS ---
EXAMINATION: US carotid duplex BI DATE: 02/12/2022 12:23 INDICATION: Syncope TECHNIQUE: Grayscale, color Doppler, and pulsed Doppler images of the cervical carotid arteries were obtained. The degree of vessel stenosis is placed in one of the following categories: normal, <50%, 5 0-69%, >=70% but less than near-occlusion, near-occlusion, or total occlusion. Note that percent sten osis relative to normal distal artery lumen diameter is indirectly measured from velocity measurement s as described by Major, et al. Radiology 2003; 229:340-346. Notes: Normal: Peak systolic velocity <125 centimeters/sec and no plaque <50%. Peak systolic velocity <125 ( EDV <40; ICA/CCA PSV ratio <2.0; used these factors only a tandem lesions or low cardiac output or co ntralateral disease) 50-69 %: PSV 125-230 (EDV 40-100; ratio 2-4) >= 70% but less than near occlusion: PSV greater than 230 (EDV > 100; ratio> 4.0) Near Occlusion: PSV that is variable; markedly narrowed lumen Occlusion: Absent flow on color/spectral Doppler and no lumen on kimbrough scale. COMPARISON: None. FINDINGS: RIGHT: The right common carotid artery (CCA) peak systolic velocity (PSV) is 94 cm/s. The right internal car otid artery (ICA) PSV is 97 cm/s. The right ICA end-diastolic velocity (EDV) is 29 cm/s. The right IC A/CCA PSV ratio is 1.0. The external carotid artery (ECA) PSV is 124 cm/s. There is antegrade flow in the right vertebral artery. LEFT: The left CCA PSV is 97 cm/s. The left ICA PSV is 102 cm/s. The left ICA EDV is 25 cm/s. The left ICA/ CCA PSV ratio is 1.1. The ECA PSV is 126 cm/s. There is antegrade flow in the left vertebral artery. IMPRESSION: 1. Less than 50% stenosis in the right internal carotid artery by sonographic criteria. 2. Less than 50% stenosis in the left internal carotid artery by sonographic criteria. Reviewed, dictated and finalized at location A. IMPRESSION: 1. Less than 50% stenosis in the right internal carotid artery by sonographic francia farias. 2. Less than 50% stenosis in the left internal carotid artery by sonographic shena beltran.
--- NOTE | ~2022-02-10 | CT_ITS ---
EXAMINATION: CT cervical spine wo con DATE: 02/10/2022 10:38 INDICATION: Neck injury. Fall. TECHNIQUE: Computed tomography (CT) of the cervical spine was performed without intravenous contrast. Automated exposure control and iterative reconstruction technique were employed. The dose-length pro duct was 132.24 mGy-cm. COMPARISON: None FINDINGS: There is mild scarring at the lung apices. There are surgical clips in the neck bilaterally . There are changes of anterior fusion procedure from C5 to C7 with healed interbody bone graft and a nterior plate and screws. There is mild chronic anterior wedging of T1 and T2 vertebral bodies. There is mildly decreased disc height at C2-C3, moderately decreased disc height at C3-C4, and severely de creased disc height at C4-C5 and from C7-T1 through T3-T4. The following disc levels are specifically discussed: C2-C3: There is mild bilateral uncovertebral joint osteoarthritis. There is mild right and severe lef t facet joint osteoarthritis. There is mild left neural foraminal stenosis. There is no central canal stenosis. C3-C4: There is moderate right and severe left uncovertebral joint osteoarthritis. There is severe bi lateral facet joint osteoarthritis. There is mild bilateral neural foraminal stenosis. There is mild central canal stenosis. C4-C5: There is severe bilateral uncovertebral joint osteoarthritis. There is mild right and severe l eft facet joint osteoarthritis. There is mild right and moderate left neural foraminal stenosis. Ther e is mild central canal stenosis. C5-C6: There is moderate bilateral uncovertebral joint hypertrophy. There is ankylosis of the facet j oints without hypertrophy. There is mild bilateral neural foraminal stenosis. There is mild central c anal stenosis. C6-C7: There is mild bilateral uncovertebral joint hypertrophy. There is ankylosis of the facet joint s without hypertrophy. There is no neural foraminal stenosis. There is mild central canal stenosis. C7-T1: There is severe bilateral uncovertebral joint osteoarthritis. There is severe bilateral facet joint osteoarthritis. There is mild right neural foraminal stenosis. There is mild central canal sten osis. IMPRESSION: 1. No fracture. 2. Severe cervical spondylosis. 3. Anterior fusion procedure from C5 to C7. Reviewed, dictated and finalized at location A.
--- NOTE | ~2022-02-10 | CT_ITS ---
EXAMINATION: CT brain wo con DATE: 02/10/2022 10:38 INDICATION: Syncope. TECHNIQUE: Computed tomography (CT) of the head was performed without intravenous contrast. The mA wa s adjusted according to patient size. Iterative reconstruction technique was employed. The dose-lengt h product was 605.33 mGy-cm. COMPARISON: None FINDINGS: There are scattered areas of low attenuation in the cerebral white matter. There is no intr acranial hemorrhage, acute infarction, or abnormal intracranial mass lesion. The ventricles are francy l in size. There are likely changes of ocular lens replacement surgeries. There is mild mucosal thick ening in the ethmoid sinuses. The mastoid air cells are normal. IMPRESSION: 1. Moderate nonspecific cerebral white matter disease, which likely represents chronic small vessel i schemic disease. Reviewed, dictated and finalized at location A. IMPRESSION: 1. Moderate nonspecific cerebral white matter disease, which likely represents chronic small vessel ischemic disease.
--- NOTE | 2022-02-10 08:45 | ECG_ITS ---
Measurements Intervals [place] Rate: 53 P: 65 [place]: 152 QRS: -6 QRSD: 85 T: 46 QT: 448 QTc: 424 Interpretive Statements SINUS BRADYCARDIA ANTEROSEPTAL INFARCT, AGE INDETERMINATE COMPARED TO ECG 11/30/2021 21:24:05 NO SIGNIFICANT CHANGES Electronically Signed On 02-11-2022 17:03:26 CDT by Pee Mendiola M.D.
[2022-02-10 09:09] LABS: Basophils Percent Auto 0.6 % (0.2-1.2); Eosinophils Absolute Auto 0.1 K/mm3 (0-0.3); Eosinophils Percent Auto 1.3 % (0-4.4); Hemoglobin 11.4 g/dL (12.0-15.0); Immature Granulocyte Absolute 0.01 K/mm3 (0.00-0.031); Immature Granulocyte Percent A 0.2 % (0-0.5); Immature Platelet Fraction Pct 11.8 % (0.9-11.2); Lymphocytes Absolute Auto 0.23 K/mm3 (0.9-3.2); Lymphocytes Percent Auto 4.9 % (18.3-44.2); Mean Corpuscular HGB Conc 30.8 g/dl (32-36); Mean Corpuscular Hemoglobin 30.1 pg (26-34); Mean Corpuscular Volume 97.6 fl (80-100); Mean Platelet Volume 12.2 fl (7.4-10.4); Monocytes Absolute Auto 0.3 K/mm3 (0.1-0.6); Monocytes Percent Auto 6.6 % (2.6-8.5); Neutrophils Percent Auto 86.4 % (45.5-73.1); Platelet Count Result 92 k/mm3 (150-375); Red Blood Count 3.79 M/mm3 (4.2-5.4); Red Cell Distribution Width 13.4 % (11.5-14.5); White Blood Count 4.7 K/mm3 (4.5-10.0)
[2022-02-10 09:17] LABS: Alanine Aminotransferase 18 U/L (6-35); Albumin Level 3.6 g/dL (3.5-5.1); Alkaline Phosphatase 99 U/L (38-126); Anion Gap 5 mmol/L (8-16); Aspartate Amino Transferase 27 U/L (14-36); Bilirubin,Total 0.7 mg/dL (0.2-1.3); Blood Urea Nitrogen 36 mg/dL (7-17); Carbon Dioxide 31 mmol/L (22-30); Chloride 102 mmol/L (98-107); Estimated CRCL calculation 31 ml/min; Estimated Glomerular Filt Rate 41; Glucose 87 mg/dL (65-110); Potassium 4.7 mmol/L (3.4-5.0); Sodium 138 mmol/L (137-145)
--- NOTE | 2022-02-10 09:55 | ED.FALL ---
HPI - Fall General Chief Complaint: Fall Stated Complaint: dizzy/fall, weakness, hypotensive Time Seen by Provider: 02/10/22 09:44 Source: patient, family and EMS Mode of arrival: EMS Limitations: no limitations History of Present Illness HPI Narrative: 71 years old white female was taking a shower, developed lightheadedness, came out of the shower to go to her bedroom and blacked out next to her bed ,went down to the floor, hit the back of her head on the floor, the blackout lasted for less than 1 minute then patient is back to normal. Currently complaining of occipital pain and feeling hungry and would like to eat. Patient reported history of lightheadedness before of unknown etiology.. But never blacked out. 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 Patient had a feeding tube for the last 6 years, she is able to swallow her saliva and intermittent sips of water. She denies any fever, chills, nausea, vomiting, chest pain, shortness of breath, diarrhea, constipation or urinary symptoms. Patient is not on any antiplatelet or anticoagulant medication. EMT reported that patient blood pressure was low and her pulse was 43-52 on arrival to her house MD complaint: fall Related Data Home Medications Medication Instructions Recorded Confirmed citalopram 40 mg tablet 40 mg PO DAILY 05/09/19 12/01/21 levothyroxine 50 mcg tablet 50 mcg PO DAILY 05/09/19 12/01/21 L.acidophil,rhamnosus-B.breve,longum 1 cap PO DAILY 04/17/21 12/01/21 20 billion cell sprinkle capsule (Probiotic) cetirizine 5 mg tablet 5 mg PO DAILY PRN Allergy Symptoms 11/09/21 12/01/21 fluticasone propionate 50 1 spray intranasal DAILY 11/09/21 12/01/21 mcg/actuation nasal spray,suspension Allergies Allergy/AdvReac Type Severity Reaction Status Date / Time Penicillins Allergy Unknown Anaphylactic Verified 02/10/22 08:55 Shock povidone-iodine Allergy Rash Verified 02/10/22 08:55 [From Betadine] soap [From Betadine] Allergy Rash Verified 02/10/22 08:55 CILLINS Allergy Anaphylaxis Uncoded 02/10/22 08:55 Review of Systems Review of Systems: All systems reviewed & are unremarkable except as noted in HPI and below PMFSH Past Medical History Medical History Asthma Cancer of mandible Chronic renal failure, stage 4 (severe) Depression Fibromyalgia GERD (gastroesophageal reflux disease) History of chemotherapy Hx of adenomatous colonic polyps Hx of radiation therapy Kidney failure Left upper quadrant pain Pain around percutaneous endoscopic gastrostomy (PEG) tube site Seizure age 5-16 Uses feeding tube Surgical History Surgical History H/O: hysterectomy History of mandibular surgery partial removal of mandible Hx of cholecystectomy S/P cervical spinal fusion 2000 Family History Family History Father Afib COPD (chronic obstructive pulmonary disease) Diabetes mellitus Mother Tumor Daughter Cancer Social History Social History Smoking packs per day: 1 Smoking cigarettes per day: 20.0 Years smoked: 30 Smoking pack-years: 30.00 Smoking status: Former smoker Tobacco type: cigarettes Second hand tobacco smoke exposure: No Additional smoking assessment comments: STATES 1PK/DAY/30+YRS-QUIT 2005 Alcohol intake: former Substance use: never Substance use type: does not use Gender identity (if verbalized by the patient): Female Spiritual care concerns: No Agree to blood products: Yes Exam Narrative: General appearance: Well-developed, well-nourished Skin: Normal color Head: Normocephalic, occipital tenderness Eyes: Clear conjunctiva ENT: Oropharynx normal, ears normal, nose normal Neck: Supple, nontender Chest and respirat
[2022-02-10 09:59] LABS: Platelet Estimate Decreased (Adequate)
[2022-02-10 10:03] LABS: Schistocytes None Seen (NORMAL)
[2022-02-10 10:05] LABS: Anisocytosis 1+ (NORMAL)
[2022-02-10] MEDS: ONDANSETRON INJ 4 MG/2 ML VIAL IV PUSH (11:57)
[2022-02-10] MEDS: MORPHINE SULFATE (*CRX) 4 MG/ML INJ IV PUSH (11:57)
--- NOTE | 2022-02-10 14:28 | PM.IMHP ---
H&P: HPI History of Present Illness Date/Time: 02/10/22 14:28 Chief Complaint: Fall dizziness Narrative: This is a 71-year-old female patient who has a history of having mandible cancer with radiation and chemotherapy many years ago. The patient only eats to her G-tube. The patient was taking a shower this morning when she developed some lightheadedness. She came out of her shower to go to her bedroom and she blacked out next her bed. She went down on the floor and hit the back of her head on the floor and blacked out for approximately 1 minute and then came back to normal. The patient was complaining of occipital pain and was feeling hungry. The patient gave herself her usual tube feeding. The patient has had periods of lightheadedness in the past but has never passed out. The patient has to bed for at least 6 years and she can swallow her saliva and has intermittent sips of water. She denies any fever chills. No nausea vomiting chest pain or shortness of breath. No diarrhea. The patient's blood pressure was low upon admission to the ED and her pulse was 40 3-50 T upon arrival to her house. The patient has no complaints at this time. The patient is able to get up and walk from the stretcher to the bed in her room. The patient was given Zofran, IV Tylenol and IV fluids in the emergency room. The patient chronically takes [place] and was given 1 [place] in the emergency room. Her blood pressure is currently 103/56. Heart rate 66. The patient is being admitted to observation status on the date of service of 02/10/2022. Review of Systems Review of Systems: See HPI All systems reviewed & are unremarkable except as noted in HPI and below Constitutional: Constitutional: Reports as per HPI and Reports no additional constitutional complaints Eyes: Eyes: Reports as per HPI and Reports no additional eye complaints ENT: Reports system reviewed and no additional complaints, except as documented and Reports Normal hearing present Cardiovascular: Cardiovascular: Reports no additional cardiovascular complaints Respiratory: Respiratory: Reports no additional respiratory complaints and Reports no additional respiratory complaints Gastrointestinal: Gastrointestinal: Reports as per HPI and Reports no additional gastrointestinal complaints Musculoskeletal: Musculoskeletal: Reports no additional musculoskeletal complaints Integumentary/Breasts: Skin/Breast: Reports system reviewed and no additional complaints, except as docu and Reports as per HPI Neurologic: Reports system reviewed and no additional complaints, except as documented, Reports as per HPI and Reports Normal hearing present Psychiatric: Psychiatric: Reports no additional psychiatric complaints and Reports as per HPI Endocrine: Endocrine: Reports no additional endocrine complaints Hematologic/Lymphatic: Hematologic/Lymphatic: Reports no additional hematologic/lymphatic complaints Allergic/Immunologic: Allergic/Immunologic: Reports no additional allergic/immunologic complaints PMF Past Medical History Medical History (Updated 02/10/22 @ 20:36 by Lorie Nunes NP) Asthma Cancer of mandible Chronic renal failure, stage 4 (severe) Depression Fibromyalgia GERD (gastroesophageal reflux disease) History of chemotherapy Hx of adenomatous colonic polyps Hx of radiation therapy Kidney failure Left upper quadrant pain Pain around percutaneous endoscopic gastrostomy (PEG) tube site Seizure age 5-16 Uses feeding tube Surgical History Surgical History H/O: hysterectomy History of mandibular surgery partial removal of mandible Hx of cholecystectomy S/P cervical spinal fusion 2000 Family History Family History Father Afib COPD (chronic obstructive pulmonary disease) Diabetes mellitus Mother Tumor Daughter Cancer Social History Social History ([place]
[2022-02-10] MEDS: SODIUM CHLORIDE 0.9% IV 1,000 ML 125 ML IV CONT ×2 (15:15→23:16)
[2022-02-10] MEDS: HYDROcodone/acetaminophen (*CRX) 7.5-325 MG TABLET 1 TAB PO (17:30)
[2022-02-10] MEDS: HYDROcodone/acetaminophen (*CRX) 7.5-325 MG TABLET 1 TAB FEED TUBE (23:23)
[2022-02-11] VITALS (11 sets, daily range): BP systolic 114–161; BP diastolic 57–73; PULSE 6–70; RESP 16–20; TEMP 35.8–36.4; O2SAT 90–98
[2022-02-11 05:52] LABS: Basophils Percent Auto 0.5 % (0.2-1.2); Eosinophils Absolute Auto 0.1 K/mm3 (0-0.3); Eosinophils Percent Auto 4.6 % (0-4.4); Hematocrit 33.7 % (37.0-47.0); Hemoglobin 10.4 g/dL (12.0-15.0); Immature Granulocyte Absolute 0.01 K/mm3 (0.00-0.031); Immature Granulocyte Percent A 0.5 % (0-0.5); Immature Platelet Fraction Pct 10.8 % (0.9-11.2); Lymphocytes Absolute Auto 0.28 K/mm3 (0.9-3.2); Lymphocytes Percent Auto 14.4 % (18.3-44.2); Mean Corpuscular HGB Conc 30.9 g/dl (32-36); Mean Corpuscular Hemoglobin 30.7 pg (26-34); Mean Corpuscular Volume 99.4 fl (80-100); Mean Platelet Volume 12.9 fl (7.4-10.4); Monocytes Absolute Auto 0.2 K/mm3 (0.1-0.6); Monocytes Percent Auto 11.8 % (2.6-8.5); Neutrophils Absolute Auto 1.3 K/mm3 (1.3-6.7); Neutrophils Percent Auto 68.2 % (45.5-73.1); Platelet Count Result 79 k/mm3 (150-375); Red Blood Count 3.39 M/mm3 (4.2-5.4); Red Cell Distribution Width 13.6 % (11.5-14.5)
[2022-02-11] MEDS: SODIUM CHLORIDE 0.9% IV 1,000 ML 125 ML IV CONT ×3 (05:53→17:48)
[2022-02-11] MEDS: LEVOTHYROXINE SODIUM 50 MCG TABLET FEED TUBE (05:55)
[2022-02-11 06:13] LABS: Alanine Aminotransferase 21 U/L (6-35); Albumin Level 3.1 g/dL (3.5-5.1); Alkaline Phosphatase 108 U/L (38-126); Anion Gap 3 mmol/L (8-16); Aspartate Amino Transferase 29 U/L (14-36); Bilirubin,Total 0.2 mg/dL (0.2-1.3); Blood Urea Nitrogen 29 mg/dL (7-17); Calcium 8.4 mg/dL (8.4-10.2); Carbon Dioxide 28 mmol/L (22-30); Chloride 108 mmol/L (98-107); Creatine Kinase 68 U/L (30-135); Estimated CRCL calculation 37 ml/min; Estimated Glomerular Filt Rate 49; Glucose 76 mg/dL (65-110); Lactate Dehydrogenase 139 U/L (120-246); Potassium 4.3 mmol/L (3.4-5.0); Sodium 139 mmol/L (137-145)
[2022-02-11 07:41] LABS: Lactic Acid Reflex < 0.5 mmol/L (0.7-2.0)
[2022-02-11] MEDS: FLUTICASONE PROPIONATE 0.05% NA SPR 16 GM BTL (*BKC) 1 SPRAY NASAL (08:57)
[2022-02-11] MEDS: ACIDOPHILUS/BULGARICUS CHEWABLE TABLET 1 TABLET FEED TUBE (08:58)
[2022-02-11] MEDS: LIDOCAINE 5% PATCH 2 PATCH TRANSDERM (08:58)
[2022-02-11] MEDS: LORATADINE 10 MG TABLET FEED TUBE (08:58)
[2022-02-11] MEDS: CITALOPRAM HYDROBROMIDE 20 MG TABLET 40 MG FEED TUBE (08:58)
[2022-02-11] MEDS: HYDROcodone/acetaminophen (*CRX) 7.5-325 MG TABLET 1 TAB FEED TUBE ×2 (09:09→20:54)
--- NOTE | 2022-02-11 11:33 | PM.IMPN ---
Progress Note: A&P Assessment and Plan (1) Syncope: Code(s): R55 - Syncope and collapse Status: Acute Assessment and Plan: -the patient does take pain medication routinely which could possibly be adding to this situation. - the patient only takes tube feedings and appears to be thin and frail. I did continue with her tube feedings but then I ask for dietary to consult to see if the patient is getting enough nutrition. 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 -The patient is not on any beta-blockers or blood pressure medicine. We will check her orthostatics. -Continue with IV fluids. Patient may have been dehydrated. 02/11/2022 interval history: patient with mandible cancer presented with syncopal episode etiology uncertain, patient had a CT scan of the head and cervical spine no acute injury, possibly orthostatic hypertension, due to dehydration, as patient being fed with PEG and been able to take p.o. water and ice chips, to further evaluate will do cardiac echo and carotid ultrasound, patient also has a bradycardia will consult Cardiology patient will benefit from Holter monitor, PT OT evaluate the and further recommendation to follow (2) Bradycardia: Code(s): R00.1 - Bradycardia, unspecified Status: Acute Assessment and Plan: - I am not sure if this is due to dehydration or if it is due to her pain medication. -Her heart rate is in the 60s Now. 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 She has completed her course and is in remission (4) Hypothyroidism: Code(s): E03.9 - Hypothyroidism, unspecified Status: Acute Assessment and Plan: -Check thyroid level - continue with Synthroid (5) Chronic renal failure, stage 3 (moderate): Code(s): N18.30 - Chronic kidney disease, stage 3 unspecified Status: Acute Assessment and Plan: - patient's creatinine is 1.3 which is at her baseline. The patient does get tube feedings and she takes sips of water. (6) Depression: Code(s): F32.9 - Major depressive disorder, single episode, unspecified Status: Acute Assessment and Plan: -Continue citalopram (7) Asthma: Code(s): J45.909 - Unspecified asthma, uncomplicated Status: Acute Assessment and Plan: Continue with albuterol and allergy medicine Subjective Date/time seen: 02/11/22 11:33 Fall dizziness HPI-Narrative: This is a 71-year-old female patient who has a history of having mandible cancer with radiation and chemotherapy many years ago.? The patient only eats to her G-tube.? The patient was taking a shower this morning when she developed some lightheadedness.? She came out of her shower to go to her bedroom and she blacked out next her bed.? She went down on the floor and hit the back of her head on the floor and blacked out for approximately 1 minute and then came back to normal.? The patient was complaining of occipital pain and was feeling hungry.? The patient gave herself her usual tube feeding.? The patient has had periods of lightheadedness in the past but has never passed out.? The patient has to bed for at least 6 years and she can swallow her saliva and has intermittent sips of water.? She denies any fever chills.? No nausea vomiting chest pain or shortness of breath.? No diarrhea.? The patient's blood pressure was low upon admission to the ED and her pulse was 40 3-50 T upon arrival to her house.? The patient has no complaints at this time.? The patient is able to get up and walk from the stretcher to the bed in her room.? The patient was given Zofran, IV Tylenol and IV fluids in the emergency room.? The patient chronically takes [place] and was given 1 [place] in the emergency room.? Her blood
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
[2022-02-11] MEDS: guaiFENesin 12 HR 600 MG TABCR PO (17:44)
[2022-02-12] VITALS (9 sets, daily range): BP systolic 128–163; BP diastolic 63–70; PULSE 63–76; RESP 16–18; TEMP 36.3–37; O2SAT 91–98; BMI 20.9
--- NOTE | 2022-02-12 | ECHO_ITS ---
Patient Info Name: Barb Padilla Age: 71 years : 1950 Gender: Female Ht: 64 in Wt: 121 lbs BSA: 1.57 m2 HR: 76 bpm BP: 163 / 70 mmHg Heart Rhythm: Sinus Rhythm Technical Quality: Good, Fair Exam Date: 02/12/2022 1:25 PM Exam Location: [facility] Exam Room: 324 Patient Status: Inpatient Admit Date: 02/10/2022 Staff Ordering Physician: Galileo Frank MD Transportation Maintenance Specialist: Chikis Hawthorne RDCS Attending Provider: Rachel Vivar DO Exam Type: CA echo doppler color flow Study Info Indications - SYNCOPE BRADYCARDIA Complete two-dimensional, color flow and Doppler transthoracic echocardiogram is performed. Summary 1. Complete two-dimensional, color flow and Doppler transthoracic echocardiogram is performed. 2. Left ventricular chamber dimension is normal. 3. Left ventricular systolic function is hyperdynamic, estimated at >70%. 4. There is no increased left ventricular wall thickness. 5. The left ventricular diastolic function is grade I diastolic dysfunction. 6. There is no aortic valve stenosis. 7. There is trace mitral valve regurgitation. 8. There is trace tricuspid valve regurgitation. 9. No pulmonary hypertension, estimated pulmonary arterial systolic pressure is 29 mmHg. 10. There is small pericardial effusion. Left Ventricle Left ventricular chamber dimension is normal. Left ventricular systolic function is hyperdynamic, estimated at >70%. There is no increased left ventricular wall thickness. The left ventricular diastolic function is grade I diastolic dysfunction. Right Ventricle Right ventricular chamber dimension is normal. Right ventricular systolic function is normal. Left Atria Left atrial chamber dimension is normal. Right Atria Right atrial chamber dimension is mildly enlarged. Aortic Valve The aortic valve is probable trileaflet. There is no aortic valve stenosis. There is no aortic valve regurgitation. Pulmonic Valve The pulmonic valve is not well visualized. Mitral Valve The mitral valve has thickened leaflets. There is trace mitral valve regurgitation. The mitral valve annulus is moderately calcified. Tricuspid Valve The tricuspid valve leaflets are normal. There is trace tricuspid valve regurgitation. No pulmonary hypertension, estimated pulmonary arterial systolic pressure is 29 mmHg. Pericardium/Pleural The pericardium appears normal. There is small pericardial effusion. Inferior Vena Cava Normal inferior vena cava with >50% collapse upon inspiration consistent with normal right atrial pressure, 5 mmHg. Aorta The aortic root size at the sinus of Valsalva is not well visualized. Left Ventricular Outflow Tract Name Value Normal LVOT 2D LVOT Diameter 2.0 cm LVOT Doppler LVOT Peak Gradient 7 mmHg LVOT Mean Gradient 3 mmHg LVOT VTI 26 cm LVOT VTI/AV VTI Ratio 0.9 LVOT Stroke Volume 81 ml LVOT CO 15.8 l/min LVOT CI
[2022-02-12] MEDS: HYDROcodone/acetaminophen (*CRX) 7.5-325 MG TABLET 1 TAB FEED TUBE ×2 (03:34→08:32)
[2022-02-12] MEDS: SODIUM CHLORIDE 0.9% IV 1,000 ML 125 ML IV CONT ×2 (03:35→11:24)
[2022-02-12] MEDS: LEVOTHYROXINE SODIUM 50 MCG TABLET FEED TUBE (06:27)
[2022-02-12 06:29] LABS: Hematocrit 37.1 % (37.0-47.0); Hemoglobin 11.2 g/dL (12.0-15.0); Immature Platelet Fraction Pct 11.6 % (0.9-11.2); Mean Corpuscular HGB Conc 30.2 g/dl (32-36); Mean Corpuscular Hemoglobin 29.8 pg (26-34); Mean Corpuscular Volume 98.7 fl (80-100); Mean Platelet Volume 13.5 fl (7.4-10.4); Platelet Count Result 87 k/mm3 (150-375); Red Blood Count 3.76 M/mm3 (4.2-5.4); Red Cell Distribution Width 13.7 % (11.5-14.5); White Blood Count 6.3 K/mm3 (4.5-10.0)
[2022-02-12 06:49] LABS: Anion Gap 5 mmol/L (8-16); Blood Urea Nitrogen 23 mg/dL (7-17); Calcium 8.7 mg/dL (8.4-10.2); Carbon Dioxide 26 mmol/L (22-30); Chloride 108 mmol/L (98-107); Estimated CRCL calculation 45 ml/min; Estimated Glomerular Filt Rate > 60; Glucose 83 mg/dL (65-110); Magnesium 1.8 mg/dL (1.6-2.3); Potassium 3.9 mmol/L (3.4-5.0); Sodium 139 mmol/L (137-145)
[2022-02-12] MEDS: FLUTICASONE PROPIONATE 0.05% NA SPR 16 GM BTL (*BKC) 1 SPRAY NASAL (08:30)
[2022-02-12] MEDS: CITALOPRAM HYDROBROMIDE 20 MG TABLET 40 MG FEED TUBE (08:31)
[2022-02-12] MEDS: guaiFENesin 12 HR 600 MG TABCR PO (08:31)
[2022-02-12] MEDS: ACIDOPHILUS/BULGARICUS CHEWABLE TABLET 1 TABLET FEED TUBE (08:31)
[2022-02-12] MEDS: LORATADINE 10 MG TABLET FEED TUBE (08:31)
--- NOTE | 2022-02-12 11:12 | PM.PNCARD ---
Progress Note: A&P Assessment and Plan (1) Syncope: Code(s): R55 - Syncope and collapse Status: Acute Assessment and Plan: Most likely intravascular volume depletion orthostatic hypotension. No clear indication bradycardia primary contributor despite reported history. Avoid AV wyatt blocking agents. Continue IV fluid hydration as clinically appropriate. Check orthostatics. 2D echo pending will review when available. No exam findings suggestive of significant pathologic valve contribution at this time. Concern for contribution with narcotic pain medication. (2) Bradycardia: Code(s): R00.1 - Bradycardia, unspecified Status: Acute Assessment and Plan: As above, stable thus far, no evidence of high-grade AV block. Need for outpatient school bus monitor questionable at this time. Recommendation follow after review of echo and ability to ambulate to monitor heart rate response. (3) Acute kidney injury: Code(s): N17.9 - Acute kidney failure, unspecified Status: Acute Assessment and Plan: Resolved with IV fluid since admission clinically appears to be secondary to intravascular volume depletion. (4) Thrombocytopenia: Code(s): D69.6 - Thrombocytopenia, unspecified Status: Acute Assessment and Plan: Chronic, some progressive. No evidence for bleeding. She has outpatient evaluation with Hematology set up in 1 month. Follow while in hospital defer to primary service in this regard. Subjective Date/time seen: Date of service: 02/12/22 11:12 Follow-up for syncope Patient has received IV fluids since admission and feels much better. No longer orthostatic. Denies shortness of breath, chest pain. No abdominal pain or palpitations. No new issues overnight. Afebrile. Some question with regards to free fluid administration as an outpatient although patient admits to 16 oz free water after tube feeds for total 64 oz free water. Review of Systems Review of Systems: No dizziness lightheadedness, shortness of breath. All systems reviewed & are unremarkable except as noted in HPI and below (subjective) Exam Const: General: comfortable and no acute distress Other: Alert and oriented x3 breathing comfortably sitting upright in bed. HENMT: Other: Deformity of the chin Neck: Neck: no JVD Resp: Effort & Inspection: normal respiratory effort Auscultation: clear to auscultation bilaterally Cardio: Rate: regular rate Rhythm: regular rhythm Heart sounds: no murmurs GI: Other: Nontender nondistended positive bowel sounds. G-tube in place Skin: General skin exam: normal color Other: Warm and dry no ecchymosis or cyanosis Neuro: Speech: normal speech Other: Nonfocal exam alert and oriented x3 Extrem: General: no edema Other: No edema clubbing or cyanosis Psych: Mental Status: mental status grossly normal Other: Mood calm and appropriate Objective Data Vital Signs Vital Signs: Vital Signs - 24 hr 02/11/22 14:00 02/11/22 12:00 02/11/22 16:00 Temperature 36.4 C Pulse Rate 61 60 56 L Respiratory Rate 18 Blood Pressure 114/72 Pulse Oximetry 95 Oxygen Delivery 02/11/22 20:00 02/11/22 20:05 02/11/22 20:42 Temperature 35.8 C L Pulse Rate 58 L 65 70 Respiratory Rate 18 18 18 Blood Pressure 161/67 H 149/71 H 156/63 H Pulse Oximetry 90 90 92 Oxygen Delivery 02/11/22 20:00 02/11/22 20:00 02/12/22 00:00 Temperature Pulse Rate 64 63 Respiratory Rate Blood Pressure Pulse Oximetry Oxygen Delivery Room Air 02/12/22 04:00 02/12/22 06:00 02/12/22 07:58 Temperature 36.3 C L Pulse Rate 73 76 Respiratory Rate 18 Blood Pressure 163/70 H 145/69 H Pulse Oximetry 91 Oxygen Delivery 02/12/22 08:00 02/12/22 08:02 Temperature Pulse Rate Respiratory Rate Blood Pressure 128/69 128/69 Pulse Oximetry Oxygen Delivery Intake/Output Intake/Output: Intake & Output 01/13
--- NOTE | 2022-02-12 14:40 | PM.IMPN ---
Progress Note: A&P Assessment and Plan (1) Syncope: Code(s): R55 - Syncope and collapse Status: Acute Assessment and Plan: -the patient does take pain medication routinely which could possibly be adding to this situation. - the patient only takes tube feedings and appears to be thin and frail. I did continue with her tube feedings but then I ask for dietary to consult to see if the patient is getting enough nutrition. 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 -The patient is not on any beta-blockers or blood pressure medicine. We will check her orthostatics. -Continue with IV fluids. Patient may have been dehydrated. 02/12/2022 interval history: patient with mandible cancer presented with syncopal episode etiology uncertain, patient had a CT scan of the head and cervical spine no acute injury, possibly orthostatic hypotension, due to dehydration, as patient being fed with PEG and been able to take p.o. water and ice chips, today patient seen by cross roller does not suspect cardiac cause of syncopal episode and bradycardia, to further evaluate will do cardiac echo and carotid ultrasound, which are pending, patient has thrombocytopenia, seen by veneer jointer helper at [facility], PT OT evaluate the and further recommendation to follow (2) Bradycardia: Code(s): R00.1 - Bradycardia, unspecified Status: Acute Assessment and Plan: - I am not sure if this is due to dehydration or if it is due to her pain medication. -Her heart rate is in the 60s Now. 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 She has completed her course and is in remission (4) Hypothyroidism: Code(s): E03.9 - Hypothyroidism, unspecified Status: Acute Assessment and Plan: -Check thyroid level - continue with Synthroid (5) Chronic renal failure, stage 3 (moderate): Code(s): N18.30 - Chronic kidney disease, stage 3 unspecified Status: Acute Assessment and Plan: - patient's creatinine is 1.3 which is at her baseline. The patient does get tube feedings and she takes sips of water. (6) Depression: Code(s): F32.9 - Major depressive disorder, single episode, unspecified Status: Acute Assessment and Plan: -Continue citalopram (7) Asthma: Code(s): J45.909 - Unspecified asthma, uncomplicated Status: Acute Assessment and Plan: Continue with albuterol and allergy medicine Subjective Date/time seen: 02/12/22 14:40 02/12/2022 interval history: patient with mandible cancer presented with syncopal episode etiology uncertain, patient had a CT scan of the head and cervical spine no acute injury, possibly orthostatic hypotension, due to dehydration, as patient being fed with PEG and been able to take p.o. water and ice chips, today patient seen by cross roller does not suspect cardiac cause of syncopal episode and bradycardia, to further evaluate will do cardiac echo and carotid ultrasound, which are pending, patient has thrombocytopenia, seen by veneer jointer helper at [facility], PT OT evaluate the and further recommendation to follow Review of Systems Review of Systems: All systems reviewed & are unremarkable except as noted in HPI and below Exam Narrative: Patient is comfortable, NAD HEENT: eyes are clear and none icteric, there is asymmetry of the face around mandible LUNGS:CTA HEART: RR S1S2 ABD: BS+, Soft and nontender Lower extremities: no edema SKIN: nonjaundiced Neuro: grossly intact. Objective Data Vital Signs Vital Signs: Vital Signs - 24 hr 02/11/22 16:00 02/11/22 20:00 02/11/22 20:05 Temperature 96.4 F L Pulse Rate 56 L 58 L 65 Respiratory Rate 18 18 Blood Pressure 161/67 H 149/71 H Pulse Oxi
--- NOTE | 2022-02-12 16:39 | PM.DS ---
DS: Admitting Diagnosis Discharge Date 02/12/2022 Admitting Diagnosis Fall dizziness DS: Discharge Diagnosis Discharge Diagnosis (1) Syncope: Code(s): R55 - Syncope and collapse Status: Acute Assessment and Plan: -the patient does take pain medication routinely which could possibly be adding to this situation. - the patient only takes tube feedings and appears to be thin and frail. I did continue with her tube feedings but then I ask for dietary to consult to see if the patient is getting enough nutrition. 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 -The patient is not on any beta-blockers or blood pressure medicine. We will check her orthostatics. -Continue with IV fluids. Patient may have been dehydrated. 02/12/2022 interval history: patient with mandible cancer presented with syncopal episode etiology uncertain, patient had a CT scan of the head and cervical spine no acute injury, possibly orthostatic hypotension, due to dehydration, as patient being fed with PEG and been able to take p.o. water and ice chips, today patient seen by postdoctoral fellow does not suspect cardiac cause of syncopal episode and bradycardia, to further evaluate will do cardiac echo and carotid ultrasound, which are pending, patient has thrombocytopenia, seen by rip tailer at [facility], PT OT evaluate the and further recommendation to follow (2) Bradycardia: Code(s): R00.1 - Bradycardia, unspecified Status: Acute Assessment and Plan: - I am not sure if this is due to dehydration or if it is due to her pain medication. -Her heart rate is in the 60s Now. 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 She has completed her course and is in remission (4) Hypothyroidism: Code(s): E03.9 - Hypothyroidism, unspecified Status: Acute Assessment and Plan: -Check thyroid level - continue with Synthroid (5) Chronic renal failure, stage 3 (moderate): Code(s): N18.30 - Chronic kidney disease, stage 3 unspecified Status: Acute Assessment and Plan: - patient's creatinine is 1.3 which is at her baseline. The patient does get tube feedings and she takes sips of water. (6) Depression: Code(s): F32.9 - Major depressive disorder, single episode, unspecified Status: Acute Assessment and Plan: -Continue citalopram (7) Asthma: Code(s): J45.909 - Unspecified asthma, uncomplicated Status: Acute Assessment and Plan: Continue with albuterol and allergy medicine DS: Summary Hospital Course Reason for hospitalization: Fall dizziness Narrative: This is a 71-year-old female patient who has a history of having mandible cancer with radiation and chemotherapy many years ago.? The patient only eats to her G-tube.? The patient was taking a shower this morning when she developed some lightheadedness.? She came out of her shower to go to her bedroom and she blacked out next her bed.? She went down on the floor and hit the back of her head on the floor and blacked out for approximately 1 minute and then came back to normal.? The patient was complaining of occipital pain and was feeling hungry.? The patient gave herself her usual tube feeding.? The patient has had periods of lightheadedness in the past but has never passed out.? The patient has to bed for at least 6 years and she can swallow her saliva and has intermittent sips of water.? She denies any fever chills.? No nausea vomiting chest pain or shortness of breath.? No diarrhea.? The patient's blood pressure was low upon admission to the ED and her pulse was 40 3-50 T upon arrival to her house.? The patient has no complaints at this time.? The patient is able to get up and walk from the stret
--- NOTE | 2022-02-12 21:09 | PC.NURSE ---
Patient called nurses station post discharge with c/o new onset of fever and stated that I just don't feel right ; I'm starting to feel bad again . Patient advised to return to the closest emergency department per discharge instructions from discharging provider.
== END 2022-02-12 17:48 | disposition home or self-care (01) ==
LOC: ANHED 13:07 → ANH3MEDSUR 02-12 13:33
PROVIDERS: Nurse Practitioner; Admitting Provider Student in an Organized Health Care Education/Training Program; Emergency Provider Emergency Medicine; PCP Internal Medicine; Visit Provider Family Medicine
DX: R55 Syncope and collapse (principal); R00.1 Bradycardia, unspecified; D69.6 Thrombocytopenia, unspecified; K21.9 Gastro-esophageal reflux disease without esophagitis; J45.909 Unspecified asthma, uncomplicated; N18.4 Chronic kidney disease, stage 4 (severe); Z85.89 Personal history of malignant neoplasm of other organs and systems; Z87.891 Personal history of nicotine dependence; Z93.1 Gastrostomy status; F32.9 Major depressive disorder, single episode, unspecified; E03.9 Hypothyroidism, unspecified
CPT/HCPCS: 36415; 70450; 72125; 80048; 80053; 82550; 83605; 83615; 83735; 84443; 85025; 85027; 85055; 93005; 93306; 93880; 96361; 96365; 96366; 96374; 96375; 96376; 97161; 99285; A9270; G0378; J0131; J2270; J2405; J7030

== ENCOUNTER 2022-06-20 10:23 | Outpatient (CLI) | payer MEDICARE, SELFPAY | END 2022-06-20 10:24 | disposition home or self-care (01) | LOC: ANHAUDASC 10:24 | PROVIDERS: PCP Internal Medicine; Visit Provider Internal Medicine | DX: H90.3 Sensorineural hearing loss, bilateral (principal) | CPT/HCPCS: 92557; 92567 ==

== ENCOUNTER 2022-08-24 10:31 | Outpatient (CLI) | payer MEDICARE, SELFPAY ==
[2022-08-24 11:17] LABS: INR 1.1; Prothrombin Time 14.1 Seconds (11.1-14.7)
[2022-08-24 11:18] LABS: Anion Gap 4 mmol/L (8-16); Blood Urea Nitrogen 32 mg/dL (7-17); Calcium 9.7 mg/dL (8.4-10.2); Carbon Dioxide 36 mmol/L (22-30); Chloride 96 mmol/L (98-107); Estimated Glomerular Filt Rate 44; Glucose 77 mg/dL (65-110); Potassium 4.4 mmol/L (3.4-5.0); Sodium 136 mmol/L (137-145)
[2022-08-24 11:19] LABS: Partial Thromboplastin Time 33.1 SECONDS (22.3-36.8)
== END 2022-08-24 10:32 | disposition home or self-care (01) ==
LOC: ANHSURGERY 10:35
PROVIDERS: Anesthesiology; PCP Internal Medicine; Visit Provider Urology
DX: Z01.812 Encounter for preprocedural laboratory examination (principal); N18.30 Chronic kidney disease, stage 3 unspecified; N36.42 Intrinsic sphincter deficiency (ISD)
CPT/HCPCS: 36415; 80048; 85610; 85730; 87086

== ENCOUNTER 2022-08-31 03:01 | Day surgery (SDC) | payer MEDICARE, SELFPAY ==
--- NOTE | 2022-08-21 15:35 | PC.NURSE ---
Addendum entered by Maria Isabel Oneil RN 08/21/22 15:46: PT AWARE CAN TAKE PAIN PILL AM OF SURGERY IF NEEDED Original Note: PRE-OP INSTRUCTIONS, PLEASE READ CAREFULLY Report to the Outpatient Waiting Room, entrance under the green pavilion located off [facility], at time _0745_ on date _08/31/22_. Planned Procedure Time: _0945_. Time changes happen often and if your time is changed the preop area will call you the afternoon before. - You and your visitor will be asked to self-screen and do not enter if you have any COVID symptoms. - A mask is optional within the hospital at this time. Patients may have clear liquids (water, carbonated beverages, clear teas, apple juice) until 3 hours prior to surgery (0645 AM) with a maximum of 20 ounces. - No TUBE FEEDING from midnight until time of surgery Take the following medications with a SIP of water the morning of surgery: _CITALOPRAM, LEVOTHYROXINE, NASAL SPRAY, INHALER IF NEEDED_ DO NOT STOP ANY OF YOUR OTHER PRESCRIPTION MEDICATIONS PRIOR TO SURGERY ?EXCEPT THE FOLLOWING Medications to discontinue per ANESTHESIA - _PROBIOTIC 3 DAYS PRIOR TO SURGERY, Date to take last dose 08/27/22_ Please no make-up, nail yi, hairspray, perfume, deodorant, or body powder the day of surgery. No jewelry (including any body piercings) or valuables the day of surgery, leave them at home. Please take a shower or bath the night before, or the morning of, surgery with an antibacterial soap. Wear comfortable, loose fitting clothing. - Jewelry must be removed prior to entering the operating room. Rings and piercings that are not removed may be cut off. - The hospital will not accept responsibility for valuables. - Please leave all valuables, including medications, at home the day of surgery. If you are going home after surgery, a licensed local flatbed driver must drive you home. - NO public transportation without another adult if you receive anesthesia. - We recommend that an adult stay with you for 24 hours following discharge. - We also recommend that you do not drive, make important decision, drink alcoholic beverages, or take any drugs that were not prescribed by your health care provider for at least 24 hours after your discharge time. Follow any additional instructions given to you from your surgeon. If you or anyone in your household have experienced Covid symptoms in the past week, please notify your surgeon or the nurse liaison at the phone number below for possible testing. Telephone instructions given to _PATIENT_and asked if any additional questions and then verbalized understanding. Patient advised to call surgeon office or pre surgery nurse liaison [phone] if any additional questions.
[2022-08-21 15:38] VITALS: BMI 20.1
[2022-08-30 08:23] VITALS: BP 100/50; PULSE 66; RESP 18; TEMP 36.6; O2SAT 97
--- NOTE | 2022-08-31 05:03 | PM.IMHP ---
H&P: HPI History of Present Illness Date/Time: 08/31/22 05:03 Chief Complaint: intrinsic sphincter deficiency Narrative: urge incontinence controlled with InterStim. 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 Review of Systems Review of Systems: All systems reviewed & are unremarkable except as noted in HPI and below PMFSH Past Medical History Medical History Asthma Cancer of mandible Chronic renal failure, stage 4 (severe) Depression Fibromyalgia GERD (gastroesophageal reflux disease) History of chemotherapy Hx of adenomatous colonic polyps Hx of radiation therapy Kidney failure Left upper quadrant pain Pain around percutaneous endoscopic gastrostomy (PEG) tube site Seizure age 5-16 Uses feeding tube Surgical History Surgical History H/O: hysterectomy History of mandibular surgery partial removal of mandible Hx of cholecystectomy S/P cervical spinal fusion 2000 Family History Family History Father Afib COPD (chronic obstructive pulmonary disease) Diabetes mellitus Mother Tumor Daughter Cancer Social History Social History Social History: The patient is and lives with her . 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 She does not drink any alcohol. She is an ex-smoker she smoked a pack a cigarettes a day for 30 years and quit in 2005. Her is a durable power prosecuting attorney for healthcare. Code status full code Smoking packs per day: 1 Smoking cigarettes per day: 20.0 Years smoked: 30 Smoking pack-years: 30.00 Smoking status: Former smoker Tobacco type: cigarettes Second hand tobacco smoke exposure: No Additional smoking assessment comments: STATES QUIT SMOKING 2006 Alcohol intake: never Substance use: never Substance use type: does not use Living arrangements: with family Gender identity (if verbalized by the patient): Female Spiritual care concerns: No Agree to blood products: Yes Meds Home Medications and Allergies Home Medications Medication Instructions Recorded Confirmed Type albuterol sulfate 90 mcg/actuation 2 puff inhalation QID PRN 05/09/19 08/21/22 Rx aerosol inhaler shortness of breath or wheezing #6.7 grams citalopram 40 mg tablet 40 mg feeding tube DAILY 05/09/19 08/21/22 History levothyroxine 50 mcg tablet 50 mcg feeding tube DAILY 05/09/19 08/21/22 History L.acidophil,rhamnosus-B.breve,longum 1 cap PO DAILY 04/17/21 08/21/22 History 20 billion cell sprinkle capsule (Probiotic) cetirizine 5 mg tablet 5 mg feeding tube DAILY 11/09/21 08/21/22 History fluticasone propionate 50 1 spray intranasal DAILY 11/09/21 08/21/22 History mcg/actuation nasal spray,suspension hydrocodone 7.5 mg-acetaminophen 1 tablet feeding tube Q8H 02/10/22 08/21/22 History 325 mg tablet lactose-reduced food with fiber 1 ea feeding tube USEASDIRECTD 02/10/22 08/21/22 History oral liquid lidocaine 5 % topical patch 1 patch transdermal DAILY PRN Pain 02/10/22 08/21/22 History clindamycin HCl 300 mg capsule 300 mg Q6H 08/21/22 08/21/22 History Allergies Allergy/AdvReac Type Severity Reaction Status Date / Time Penicillins Allergy Unknown Anaphylactic Verified 08/21/22 15:30 Shock povidone-iodine Allergy Rash Verified 08/21/22 15:30 [From Betadine] soap [From Betadine] Allergy Rash Verified 08/21/22 15:30 CILLINS Allergy Anaphylaxis Uncoded 08/21/22 15:30 Exam Narrative: no acute distress normal breathing alert oriented x3 fixed urethra Assessment and Plan Assessment and plan (1) Intrinsic sphincter deficiency (ISD): Code(s): N36.42 - Intrinsic sphincter deficiency (ISD) Status: Acute Assessment and Girma
[2022-08-31] MEDS: LACTATED RINGERS 1,000 ML 30 ML IV CONT (08:35)
--- NOTE | 2022-08-31 09:21 | WPDANESEPPF ---
Anes - Initial Pre Proc Eval Procedure: Operation Date: 08/31/22 09:45 Proposed Procedures p Cystoscopy, Injection Bulking Agent - Ben Mishra MD Date/Time: 08/31/22 09:21 Surgeon: Ben Mishra MD Pre Op Diagnosis: ISD Patient Data Age: 72 Gender: F Height: 1.63 m Weight: 53.4 kg Last Vital Signs Temp 36.6 C 08/30/22 08:23 Pulse 66 08/30/22 08:23 Resp 18 08/30/22 08:23 BP 100/50 L 08/30/22 08:23 Pulse Ox 97 08/30/22 08:23 O2 Del Method Room Air 08/30/22 08:23 Allergies Allergy/AdvReac Type Severity Reaction Status Date / Time Penicillins Allergy Unknown Anaphylactic Verified 08/31/22 08:40 Shock povidone-iodine Allergy Rash Verified 08/31/22 08:40 [From Betadine] soap [From Betadine] Allergy Rash Verified 08/31/22 08:40 CILLINS Allergy Anaphylaxis Uncoded 08/31/22 08:40 Home Medications Medication Instructions Recorded Confirmed Type albuterol sulfate 90 mcg/actuation 2 puff inhalation QID PRN 05/09/19 08/31/22 Rx aerosol inhaler shortness of breath or wheezing #6.7 grams citalopram 40 mg tablet 40 mg feeding tube DAILY 05/09/19 08/31/22 History levothyroxine 50 mcg tablet 50 mcg feeding tube DAILY 05/09/19 08/31/22 History L.acidophil,rhamnosus-B.breve,longum 1 cap PO DAILY 04/17/21 08/31/22 History 20 billion cell sprinkle capsule (Probiotic) cetirizine 5 mg tablet 5 mg feeding tube DAILY 11/09/21 08/31/22 History fluticasone propionate 50 1 spray intranasal DAILY 11/09/21 08/31/22 History mcg/actuation nasal spray,suspension hydrocodone 7.5 mg-acetaminophen 1 tablet feeding tube Q8H 02/10/22 08/31/22 History 325 mg tablet lactose-reduced food with fiber 1 ea feeding tube USEASDIRECTD 02/10/22 08/31/22 History oral liquid lidocaine 5 % topical patch 1 patch transdermal DAILY PRN Pain 02/10/22 08/31/22 History clindamycin HCl 300 mg capsule 300 mg Q6H 08/21/22 08/31/22 History phenazopyridine 200 mg tablet 200 mg PO TID PRN pain 6 doses #30 08/31/22 Rx (Pyridium) tabs Patient hx anesthesia problems: none Family hx anesthesia problems: none Results Review: All pre-operative results and documents have been reviewed as part of the pre-operative evaluation. [facility] Past Medical History Medical History Asthma Cancer of mandible Chronic renal failure, stage 4 (severe) Depression Fibromyalgia GERD (gastroesophageal reflux disease) History of chemotherapy Hx of adenomatous colonic polyps Hx of radiation therapy Kidney failure Left upper quadrant pain Pain around percutaneous endoscopic gastrostomy (PEG) tube site Seizure age 5-16 Uses feeding tube Surgical History Surgical History H/O: hysterectomy History of mandibular surgery partial removal of mandible Hx of cholecystectomy S/P cervical spinal fusion 2000 Family History Family History Father Afib COPD (chronic obstructive pulmonary disease) Diabetes mellitus Mother Tumor Daughter Cancer Social History Social History Social History: The patient is and lives with her . 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 She does not drink any alcohol. She is an ex-smoker she smoked a pack a cigarettes a day for 30 years and quit in 2005. Her is a durable power associate attorney for healthcare. Code status full code Smoking packs per day: 1 Smoking cigarettes per day: 20.0 Years smoked: 30 Smoking pack-years: 30.00 Smoking status: Former smoker Tobacco type: cigarettes Second hand tobacco smoke exposure: No Additional smoking assessment comments: STATES QUIT SMOKING 2005 Alcohol intake: never Substance use: never Substance use type: does not use Living arrangements: with
[2022-08-31] MEDS: levoFLOXacin 500 MG/D5W 100 ML 500 MG/100 ML BAG 100 MG IVPB (09:53)
[2022-08-31] MEDS: LIDOCAINE HCL 2% GEL UROJET 10 ML PKG MUCOUS MEM (10:04)
[2022-08-31 10:20] VITALS: BP 102/46; PULSE 51; RESP 12; O2SAT 99
--- NOTE | 2022-08-31 10:22 | W.PM.PROC2 ---
Procedure Note - Detailed Date of Procedure 08/31/22 Pre-op Diagnosis ISD Post-op Diagnosis Same Procedure Performed Cystoscopy with suburethral injection of implant material Surgeon Ben Mishra MD Anesthesia MAC and Local Indications This is a woman mixed incontinence. She has InterStim device for her urge incontinence. She has bothersome intrinsic sphincter deficiency and presents for a bulking agent. She understands risks of bleeding, infection, lack of efficacy, need for repeat procedures, urinary retension. She agrees to proceed Findings Open urethra consistent with intrinsic sphincter deficiency Description of Procedure She was correctly identified. Informed consent obtained. She from the operating room. She was given MAC anesthesia. She was placed in dorsal lithotomy position. She was prepped draped sterile fashion. Time-out performed. I performed cystoscopy. The bladder was examined was normal. There was no significant abnormalities. Ureteral orifices were normal. Urethra was open consistent with intrinsic sphincter deficiency. I chose a site 2 cm distal the bladder neck. I injected my bulking agent circumferentially. I used 1-1/2 syringe. There was excellent bulking effect. Her bladder was left partially full. She was awakened transferred to PACU in stable condition. Estimated Blood Loss 0 Pathology None sent Complications No immediate complications Condition Stable
[2022-08-31 10:50] VITALS: BP 101/51; PULSE 51; O2SAT 99
[2022-08-31 11:20] VITALS: BP 119/61; PULSE 49; RESP 14
== END 2022-08-31 11:36 | disposition home or self-care (01) ==
PROVIDERS: PCP Internal Medicine; Visit Provider Urology
PROC: 3E0K8GC Introduction of Other Therapeutic Substance into Genitourinary Tract, Via Natural or Artificial Opening Endoscopic (ICD-10-PCS; CPT 51715; principal; 2022-08-31 09:45)
DX: N36.42 Intrinsic sphincter deficiency (ISD) (principal); Z93.1 Gastrostomy status; J45.909 Unspecified asthma, uncomplicated; N18.4 Chronic kidney disease, stage 4 (severe); F32.A Depression, unspecified; Z92.3 Personal history of irradiation; Z85.830 Personal history of malignant neoplasm of bone; Z79.51 Long term (current) use of inhaled steroids; Z98.1 Arthrodesis status; Z87.891 Personal history of nicotine dependence
CPT/HCPCS: 51715; 36415; 80048; 85610; 85730; 87086; J1956; J2704; J3010; J7120; L8606

== ENCOUNTER 2022-10-12 09:00 | Outpatient (RCR) | payer MEDICARE, SELFPAY ==
--- NOTE | 2022-07-18 10:19 | PTOPEVAL1 ---
Assessment and note entered by Jewels Moore, PT, CLT Evaluation Information Assessment Status Evaluation Diagnosis lymphedema of head/neck,face Onset Mar 2022 Subjective Information more swelling when started having more dental issues and dentists' looking and messing with mouth; August 01- will have 2 root canals and capping of tooth; compared to previous--feels have more pain in her jaws and more swelling over her cheeks, L more so than R; neck more tight, swollen and tender; Reported Pain Level Pain Score Self Report Additional Pain Score Comments pain range of R and L jaw, stays at 7/10 most of the time; pain med- hydrocodone takes the edge off the pain a little but always there; dull, achey, throbbing that will not go away; tender on both sides of neck--have tried heat, ice rubbing neck; Assessment PT Clinical Summary Barb has the diagnosis of lymphedema of head, neck and face. She reports more swelling and pain with dental exams and care. And is to have root canals with tooth capping August 01, currently on an antibiotic for preventative to surgery. Reports that her mouth opening is about the same as it has been, continues to receive nutrition by the feeding tube. With the evaluation, she has tightness and tenderness over R and L neck and upper traps areas with puffy area of swelling over L neck--below mandible. Her cervical rotation ROM is limited to R and L. Skilled PT services are indicated for manual lymph drainage, manual therapy, therapeutic exercises and education for lymphedema care and management. Plan of Care Interventions Manual Lymph Drainage,Manual Therapy,Patient/ Caregiver Education,Therapeutic Exercise PT Services Indicated Yes Treatment Frequency and 2x/wk for 6 weeks Duration These treatments will address the objective and functional deficits as defined above. The patient will be advanced safely and appropriately in order for the patient to progress towards his/her prior level of function. Additional exercises will be introduced and as well as a comprehensive home exercise program upon discharge, if needed, ?to ensure carryover of functional gains achieved in the clinic. This treatment plan has been reviewed and agreement upon by the patient.
--- NOTE | 2022-09-07 11:47 | PTOPPROG ---
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 is using the tubigrip band over her cheeks and head at night when sleeping; pain range in past week 7-8/10; both R and L mouth sore, hurt and swollen, is biting her L inside of mouth; neck is still tight; Assessment PT Clinical Summary Barb has had 11 PT sessions. Compared to the initial evaluation: she has more pain reported with more pocketing of fluid proximal to scar and pain with recent dental work; her cervical rotation to the R is less and to the L is same. She continues to use her home pump and night compression over her cheeks. And is doing her neck exercises. During the course of treatment, she had improved slightly, then worse after the 2 dental procedures Continue PT to decrease pain of cheeks and neck, and decrease lymphedema over cheeks and neck, with improved skin mobility. Plan of Care Interventions Manual Lymph Drainage,Manual Therapy,Patient/ Caregiver Educati,Therapeutic Exercise PT Services Indicated Yes Treatment Frequency and 1-2x/wk for 5 weeks Duration These treatments will address the objective and functional deficits as defined above. The patient will be advanced safely and appropriately in order for the patient to progress towards his/her prior level of function. Additional exercises will be introduced and as well as a comprehensive home exercise program upon discharge, if needed, ?to ensure carryover of functional gains achieved in the clinic. This treatment plan has been reviewed and agreement upon by the patient.
--- NOTE | 2022-09-12 10:02 | PCPTNOTE ---
Patient did not show up for scheduled appointment this date. Called and left voicemail about missed appointment. Reminded of upcoming appointment on September 20, @ 09:30. Informed Pt to call back if unable to make it, had questions or concerns at . This is Pt's first N/S.
--- NOTE | 2022-10-12 09:53 | PTOPDC ---
Assessment and note entered by Jewels Moore, PT, CLT Evaluation Information Assessment Status Discharge Diagnosis lymphedema of head/neck,face Onset Mar 2022 Subjective Information Barb reports: saw her general dr yesterday, weight is down 4#; discussed pain with dr-- he referred her to pain management; do not feel like anything has changed; continues to use her home pump and home compression with tubigrip, cannot tolerate her full face/neck garment; have been doing the tape at home too; swallowing is better, not as swollen feeling in her throat; agree to d/c from PT treatment. Reported Pain Level Pain Score Self Report Additional Pain Score Comments pain range in the past week: 3-9/10; R and L mandible and cheeks; pain meds not really help that much, not working like it used to--going to see pain management dr; use heat; sometimes ice; Assessment PT Clinical Summary Barb has received a total of 18 PT sessions. Compared to the last reevaluation: less pain rating, was 7-8/10 and now 3-9/10-- she has had dental work completed; reports swallowing is better, does not feel as tight in her throat with swallowing; cervical rotation to R and L ranges are the same; continues to have tightness of the tissue and tenderness over neck, jaw and cheeks; kinesiotape over her neck does give her slight relief in pain; education completed and she has good understanding. She is to continue with her home exercises, self massage, home pump and compression over neck and cheeks. The goals were partially met Discharge from PT treatment. Plan of Care PT Services Indicated No
== END 2022-10-12 13:14 | disposition home or self-care (01) ==
LOC: ANHPT 09:00
PROVIDERS: PCP Internal Medicine; Visit Provider Internal Medicine
DX: R59.0 Localized enlarged lymph nodes (principal)
CPT/HCPCS: 97140; 97161; 99199

== ENCOUNTER 2022-12-02 21:23 | Emergency (ER) | payer MEDICARE, SELFPAY ==
--- NOTE | ~2022-12-02 | XR_ITS ---
XR soft tissue neck 12/02/2022 22:26 Indication: Dog bite in the neck. History of cancer. Evaluate for retained foreign body. Procedure: 2 views of the neck soft tissues Comparison: No prior studies for comparison. Findings: There are extensive surgical changes of the neck bilaterally including fusion at C5-C7. No prevertebral soft tissue abnormality. Lung apices are normal. There is multilevel uncinate and facet hypertrophy. Generalized osteopenia. No prevertebral soft tissue abnormality. Impression: 1: No acute abnormality of the neck soft tissues are identified. Reviewed, dictated and finalized at location A. Impression: 1: No acute abnormality of the neck soft tissues are identified.
[2022-12-02 21:25] VITALS: BP 145/67; PULSE 59; RESP 18; O2SAT 98
[2022-12-02] MEDS: TETANUS,DIPHTHERIA,AC PERTUSSIS ADULT (0.5 ML) BOOSTRIX IM (22:27)
[2022-12-03] MEDS: CLINDAMYCIN HCL 150 MG CAP 450 MG FEED TUBE (00:01)
[2022-12-03 00:06] VITALS: BP 144/70; PULSE 59; RESP 17; TEMP 36.4; O2SAT 100
--- NOTE | 2022-12-03 00:12 | PC.NURSE ---
ERP in room with patient, patient states she is in 6/10 pain. ERP gave VORB to given 1 5-325 percocet.
[2022-12-03] MEDS: oxyCODONE/ACETAMINOPHEN (*CRX) 5-325 MG TABLET 1 TABLET FEED TUBE (00:19)
--- NOTE | 2022-12-03 00:20 | ED.ANIMALBIT ---
HPI - Animal Bite General Chief Complaint: Animal Bite Stated Complaint: dog bite to face Time Seen by Provider: 12/02/22 21:39 History of Present Illness HPI narrative: This is a 72-year-old female, with past history of oral cancer, status post mandible resection who presents to the emergency department after being bitten in the face by a dog. The patient states she was working in her garden, when the neighbor's vaccinated dog ran into her, jumping to the face and biting her at the chin and upper lip. 5/10 pain at the neck but denies difficulty breathing, head injury or loss of consciousness. Related Data Home Medications Medication Instructions Recorded Confirmed citalopram 40 mg tablet 40 mg feeding tube DAILY 05/09/19 08/31/22 levothyroxine 50 mcg tablet 50 mcg feeding tube DAILY 05/09/19 08/31/22 L.acidophil,rhamnosus-B.breve,longum 1 cap PO DAILY 04/17/21 08/31/22 20 billion cell sprinkle capsule (Probiotic) cetirizine 5 mg tablet 5 mg feeding tube DAILY 11/09/21 08/31/22 fluticasone propionate 50 1 spray intranasal DAILY 11/09/21 08/31/22 mcg/actuation nasal spray,suspension hydrocodone 7.5 mg-acetaminophen 1 tablet feeding tube Q8H 02/10/22 08/31/22 325 mg tablet lactose-reduced food with fiber 1 ea feeding tube USEASDIRECTD 02/10/22 08/31/22 oral liquid lidocaine 5 % topical patch 1 patch transdermal DAILY PRN Pain 02/10/22 08/31/22 clindamycin HCl 300 mg capsule 300 mg Q6H 08/21/22 08/31/22 Allergies Allergy/AdvReac Type Severity Reaction Status Date / Time Penicillins Allergy Unknown Anaphylactic Verified 12/02/22 21:24 Shock povidone-iodine Allergy Rash Verified 12/02/22 21:24 [From Betadine] soap [From Betadine] Allergy Rash Verified 12/02/22 21:24 CILLINS Allergy Anaphylaxis Uncoded 12/02/22 21:24 Review of Systems Review of Systems: CONSTITUTIONAL: Denies fever, chills, or sweats. CARDIOVASCULAR: Denies chest pain, palpitations, or edema. RESPIRATORY: Denies cough or dyspnea. GASTROINTESTINAL: Denies abdominal pain, nausea, vomiting, or diarrhea. GENITOURINARY: Denies dysuria or hematuria. SKIN: Laceration of the left upper lip and right neck. Denies rash or itching. MUSCULOSKELETAL: Denies back pain, joint pain, or myalgia. NEUROLOGIC: Denies headache, numbness, dizziness, or weakness. PSYCHIATRIC: Denies anxiety or depression. [facility] Past Medical History Medical History Asthma Cancer of mandible Chronic renal failure, stage 4 (severe) Depression Fibromyalgia GERD (gastroesophageal reflux disease) History of chemotherapy Hx of adenomatous colonic polyps Hx of radiation therapy Kidney failure Left upper quadrant pain Pain around percutaneous endoscopic gastrostomy (PEG) tube site Seizure age 5-16 Uses feeding tube Surgical History Surgical History H/O: hysterectomy History of mandibular surgery partial removal of mandible Hx of cholecystectomy S/P cervical spinal fusion 2000 Family History Family History Father Afib COPD (chronic obstructive pulmonary disease) Diabetes mellitus Mother Tumor Daughter Cancer Social History Social History Social History: The patient is and lives with her . 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 She does not drink any alcohol. She is an ex-smoker she smoked a pack a cigarettes a day for 30 years and quit in 2005. Her is a durable power embedded systems software developer for healthcare. Code status full code Smoking packs per day: 1 Smoking cigarettes per day: 20.0 Years smoked: 30 Smoking pack-years: 30.00 Smoking status: Former smoker Tobacco type: cigarettes Second hand tobacco smoke exposure: No Additional smoking assessment comments: STATES EDMUNDO
== END 2022-12-03 00:47 | disposition home or self-care (01) ==
PROVIDERS: Emergency Provider Preventive Medicine Aerospace Medicine; PCP Internal Medicine
DX: S01.551A Open bite of lip, initial encounter (principal); S11.95XA Open bite of unspecified part of neck, initial encounter; Z23 Encounter for immunization; J45.909 Unspecified asthma, uncomplicated; N18.4 Chronic kidney disease, stage 4 (severe); M79.7 Fibromyalgia; K21.9 Gastro-esophageal reflux disease without esophagitis; Z85.830 Personal history of malignant neoplasm of bone; Z92.21 Personal history of antineoplastic chemotherapy; Z86.010 Personal history of colon polyps; Z87.891 Personal history of nicotine dependence; Z90.710 Acquired absence of both cervix and uterus; Z90.49 Acquired absence of other specified parts of digestive tract; Z98.1 Arthrodesis status; W54.0XXA Bitten by dog, initial encounter
CPT/HCPCS: 12011; 70360; 90471; 90715; 99283; A9270

== ENCOUNTER 2023-01-07 19:17 | Emergency (ER) | payer MEDICARE, SELFPAY ==
--- NOTE | ~2023-01-07 | XR_ITS ---
EXAMINATION: XR tibia fibula RT 2V DATE: 01/07/2023 19:47 INDICATION: Right lower leg injury and pain. TECHNIQUE: 2 views of right tibia and fibula on 4 radiographs were obtained. COMPARISON: Right foot radiographs 01/07/2023 FINDINGS: Bone alignment is normal. There is a transverse fracture of distal tip of fibula. There is no soft tissue swelling in this area. There is absence of diaphysis of fibula with surgical clips. Th ere is mild osteoarthritis of talonavicular joint. There is mild right knee osteoarthritis. IMPRESSION: 1. Age-indeterminate transverse fracture of distal tip of fibula. Reviewed, dictated and finalized at location E.
--- NOTE | ~2023-01-07 | XR_ITS ---
EXAMINATION: XR foot RT min 3V DATE: 01/07/2023 19:47 INDICATION: Right foot injury and pain. TECHNIQUE: 4 views of right foot were obtained. COMPARISON: None. FINDINGS: Bone alignment is normal. No fracture. There is heterotopic ossification distal to lateral malleolus. There is absence of diaphysis of right fibula. There is mild osteoarthritis of first metat arsophalangeal joint and some of the interphalangeal joints. There are enthesophytes at the posterior and plantar aspects of calcaneal tuberosity. IMPRESSION: 1. Mild polyarticular osteoarthritis. Reviewed, dictated and finalized at location E.
[2023-01-07 19:37] VITALS: BP 125/64; PULSE 56; RESP 18; TEMP 36.4; O2SAT 100
--- NOTE | 2023-01-07 19:43 | ED.LOWEXIN ---
HPI - Extremity Injury (Lower) General Chief Complaint: Extremity Injury, Lower Stated Complaint: Injured foot and leg Time Seen by Provider: 01/07/23 19:43 Source: patient, RN notes reviewed and old records reviewed Mode of arrival: ambulatory Limitations: no limitations History of Present Illness HPI Narrative: 72-year-old female presents to the [facility] with complaints of right foot pain and lower anterior bennett pain since approximately 4:00 a.m. this morning. States that she got up was walking, stumbled. No direct injury. Small contusion noted to the anterior portion of the lower bennett. No bruising or swelling noted to the foot. Tenderness at the 1st 2nd and 3rd metatarsals Related Data Home Medications Medication Instructions Recorded Confirmed citalopram 40 mg tablet 40 mg feeding tube DAILY 05/09/19 01/07/23 levothyroxine 50 mcg tablet 50 mcg feeding tube DAILY 05/09/19 01/07/23 L.acidophil,rhamnosus-B.breve,longum 1 cap PO DAILY 04/17/21 01/07/23 20 billion cell sprinkle capsule (Probiotic) cetirizine 5 mg tablet 5 mg feeding tube DAILY 11/09/21 01/07/23 fluticasone propionate 50 1 spray intranasal DAILY 11/09/21 01/07/23 mcg/actuation nasal spray,suspension hydrocodone 7.5 mg-acetaminophen 1 tablet feeding tube Q8H 02/10/22 01/07/23 325 mg tablet lactose-reduced food with fiber 1 ea feeding tube USEASDIRECTD 02/10/22 01/07/23 oral liquid Allergies Allergy/AdvReac Type Severity Reaction Status Date / Time Penicillins Allergy Unknown Anaphylactic Verified 01/07/23 19:31 Shock povidone-iodine Allergy Rash Verified 01/07/23 19:31 [From Betadine] soap [From Betadine] Allergy Rash Verified 01/07/23 19:31 CILLINS Allergy Anaphylaxis Uncoded 01/07/23 19:31 Review of Systems Review of Systems: All systems reviewed & are unremarkable except as noted in HPI and below Constitutional: Constitutional: Reports no additional constitutional complaints Eyes: Eyes: Reports no additional eye complaints ENT: Reports system reviewed and no additional complaints, except as documented Cardiovascular: Cardiovascular: Reports no additional cardiovascular complaints, Denies chest pain and Denies dyspnea Respiratory: Respiratory: Reports no additional respiratory complaints, Denies chest congestion, Denies cough and Denies dyspnea Gastrointestinal: Gastrointestinal: Reports no additional gastrointestinal complaints, Denies abdominal pain, Denies nausea and Denies vomiting Musculoskeletal: Musculoskeletal: Reports as per HPI Integumentary/Breasts: Skin/Breast: Reports system reviewed and no additional complaints, except as docu Neurologic: Reports system reviewed and no additional complaints, except as documented Psychiatric: Psychiatric: Reports no additional psychiatric complaints Allergic/Immunologic: Allergic/Immunologic: Reports no additional allergic/immunologic complaints PMFSH Past Medical History Medical History Asthma Cancer of mandible Chronic renal failure, stage 4 (severe) Depression Fibromyalgia GERD (gastroesophageal reflux disease) History of chemotherapy Hx of adenomatous colonic polyps Hx of radiation therapy Kidney failure Left upper quadrant pain Pain around percutaneous endoscopic gastrostomy (PEG) tube site Seizure age 5-16 Uses feeding tube Surgical History Surgical History H/O: hysterectomy History of mandibular surgery partial removal of mandible Hx of cholecystectomy S/P cervical spinal fusion 2000 Family History Family History Father Afib COPD (chronic obstructive pulmonary disease) Diabetes mellitus Mother Tumor Daughter Cancer Social History Social History Social History: The patient is and lives with her .
== END 2023-01-07 20:04 | disposition home or self-care (01) ==
PROVIDERS: Emergency Provider Nurse Practitioner; PCP Internal Medicine
DX: M19.071 Primary osteoarthritis, right ankle and foot (principal); S80.11XA Contusion of right lower leg, initial encounter; X58.XXXA Exposure to other specified factors, initial encounter; J45.909 Unspecified asthma, uncomplicated; M79.7 Fibromyalgia; K21.9 Gastro-esophageal reflux disease without esophagitis; N18.4 Chronic kidney disease, stage 4 (severe); Z85.830 Personal history of malignant neoplasm of bone; Z92.3 Personal history of irradiation
CPT/HCPCS: 73590; 73630; 99214; G0463

== ENCOUNTER 2023-02-21 19:32 | Observation (INO) | payer MEDICARE, SELFPAY ==
[2023-02-21] VITALS (17 sets, daily range): BP systolic 80–127; BP diastolic 43–64; PULSE 72–78; RESP 12–20; TEMP 36.6–38.8; O2SAT 92–97
--- NOTE | ~2023-02-21 | XR_ITS ---
Clinical Indication: Fever AP and lateral views of the chest: Comparison: 11/30/2021 Findings: There is probable left lower lobe airspace disease. Right lung clear. Cardiomediastinal si lhouette is within normal limits. Bones and soft tissues are unremarkable. Impression: . Probable left lower lobe pneumonia. Reviewed, dictated and finalized at location . Impression: . Probable left lower lobe pneumonia.
--- NOTE | ~2023-02-21 | CT_ITS ---
CT of the Abdomen and Pelvis: Indication: Abdominal pain Technique: 2.5 mm axial scans were obtained through the abdomen and pelvis following intravenous adm inistration of 100 cc of Omnipaque 350. Dose reduction technique was used on this scan by utilizing a utomated exposure control and iterative reconstruction technique. The dose-length product (DLP) was 3 11.41 mGy-cm. COMPARISON: 11/23/2021 Findings: Scans through the lung bases demonstrate extensive consolidation in the visualized left lo wer lobe with small left pleural effusion.. The liver, spleen, pancreas, adrenals and kidneys are within normal limits. Cholecystectomy clips are present. There are atherosclerotic calcifications of the aorta. No lymphadenopathy. No bowel obstruction or bowel wall thickening. There is no evidence to suggest acute appendicitis. Images through the pelvis were performed. Urinary bladder unremarkable. No adnexal mass seen. No asci john. Neurostimulator noted in the pelvis. Impression: Left lower lobe pneumonia with small left pleural effusion. Reviewed, dictated and finalized at [facility]. Impression: Left lower lobe pneumonia with small left pleural effusion.
[2023-02-21 21:42] LABS: Basophils Percent Auto 0.5 % (0.2-1.2); Eosinophils Percent Auto 0.2 % (0-4.4); Hematocrit 34.7 % (37.0-47.0); Hemoglobin 10.9 g/dL (12.0-15.0); Immature Granulocyte Absolute 0.02 K/mm3 (0.00-0.031); Immature Granulocyte Percent A 0.3 % (0-0.5); Lymphocytes Absolute Auto 0.17 K/mm3 (0.9-3.2); Lymphocytes Percent Auto 2.7 % (18.3-44.2); Mean Corpuscular HGB Conc 31.4 g/dl (32-36); Mean Corpuscular Hemoglobin 29.7 pg (26-34); Mean Corpuscular Volume 94.6 fl (80-100); Mean Platelet Volume 12.8 fl (7.4-10.4); Monocytes Absolute Auto 0.4 K/mm3 (0.1-0.6); Monocytes Percent Auto 6.3 % (2.6-8.5); Neutrophils Absolute Auto 5.6 K/mm3 (1.3-6.7); Platelet Count Result 108 k/mm3 (150-375); Red Blood Count 3.67 M/mm3 (4.2-5.4); Red Cell Distribution Width 13.4 % (11.5-14.5); White Blood Count 6.2 K/mm3 (4.5-10.0)
[2023-02-21 22:27] LABS: Alanine Aminotransferase 21 U/L (6-35); Albumin Level 3.9 g/dL (3.5-5.1); Alkaline Phosphatase 103 U/L (38-126); Anion Gap 5 mmol/L (8-16); Aspartate Amino Transferase 35 U/L (14-36); Bilirubin,Total 0.8 mg/dL (0.2-1.3); Blood Urea Nitrogen 43 mg/dL (7-17); Carbon Dioxide 31 mmol/L (22-30); Chloride 96 mmol/L (98-107); Estimated CRCL calculation 27 ml/min; Estimated Glomerular Filt Rate 37; Glucose 103 mg/dL (65-110); Lipase 33 U/L (23-300); Sodium 132 mmol/L (137-145)
--- NOTE | 2023-02-21 23:37 | ECG_ITS ---
Measurements Intervals [place] Rate: 71 P: 62 IL: 154 QRS: -19 QRSD: 82 T: 37 QT: 390 QTc: 424 Interpretive Statements SINUS RHYTHM LEFT ATRIAL ENLARGEMENT [-0.15mV P WAVE IN V1/V2] LOW QRS VOLTAGE IN PRECORDIAL LEADS [QRS DEFLECTION < 1.0 mV IN CHEST LEADS] CANNOT RULE OUT PREVIOUS ANTEROSEPTAL INFARCTION ABNORMAL ECG COMPARED TO ECG 02/10/2022 08:50:34 NO DIFFERENCE Electronically Signed On 02-22-2023 7:40:01 CDT by Sammy Baumann M.D.
[2023-02-21 23:56] LABS: Appearance Urine Clear (Clear); Bacteria Urine None Seen /hpf; Bilirubin Urine Negative (Negative); Blood Urine Negative (Negative); Color Urine Yellow (Yellow); Glucose Urine UA Negative (Negative); Ketones Urine Negative (Negative); Leukocyte Esterase Ur Trace LEU/UL (Negative); Nitrate Urine Negative (Negative); Non Pathogenic Casts 0-2; Protein Urine Negative (Negative); RBC Urine 0-2 /hpf (0-2); Specific Grav Ur 1.013 (1.001-1.035); Squamous Epithelial Cell Urine None seen /hpf (Few); WBC Urine 0-5 /hpf
[2023-02-21 23:58] LABS: Add Urine Microscopic? YES
[2023-02-22] VITALS (18 sets, daily range): BP systolic 98–127; BP diastolic 45–58; PULSE 57–81; RESP 12–23; TEMP 36.4–36.8; O2SAT 90–98; BMI 20.3
[2023-02-22 00:25] LABS: Partial Thromboplastin Time 32.2 SECONDS (22.3-36.8)
[2023-02-22 00:46] LABS: Lactic Acid Reflex 1.4 mmol/L (0.7-2.0)
[2023-02-22 00:49] LABS: CRP 1.4 mg/dL (<1.0)
[2023-02-22] MEDS: MORPHINE SULFATE (*CRX) 2 MG/ML INJ IV PUSH ×2 (00:53→03:02)
[2023-02-22 01:07] LABS: INR 1.2; Prothrombin Time 15.5 Seconds (11.1-14.7)
--- NOTE | 2023-02-22 03:54 | PC.NURSE ---
Patient states that after the second round of morphine her pain is still 10/10. EDP Marlin Ruvalcaba aware.
--- NOTE | 2023-02-22 04:00 | ED.ABDPAIN ---
HPI - Abdominal Pain General Chief Complaint: Abdominal Pain Stated Complaint: left lower abd pain Time Seen by Provider: 02/21/23 23:09 Source: patient Mode of arrival: ambulatory Limitations: no limitations History of Present Illness HPI narrative: 72-year-old female presents today with complaints of left-sided abdominal pain that started today around 4:00. Temperature possibly at home. Her had come home and found her covered up and shivering and brought her here. Upon arrival patient's temp was 102 and blood pressure was 80/43. She does have a history of oral cancer and does do tube feedings. G-tube is intact and patient states there is no issues with this. Denies any burning on urination or more frequent urination than normal. Patient with left sided abdominal pain. Related Data Home Medications Medication Instructions Recorded Confirmed citalopram 40 mg tablet 40 mg feeding tube DAILY 05/09/19 01/07/23 levothyroxine 50 mcg tablet 50 mcg feeding tube DAILY 05/09/19 01/07/23 L.acidophil,rhamnosus-B.breve,longum 1 cap PO DAILY 04/17/21 01/07/23 20 billion cell sprinkle capsule (Probiotic) cetirizine 5 mg tablet 5 mg feeding tube DAILY 11/09/21 01/07/23 fluticasone propionate 50 1 spray intranasal DAILY 11/09/21 01/07/23 mcg/actuation nasal spray,suspension hydrocodone 7.5 mg-acetaminophen 1 tablet feeding tube Q8H 02/10/22 01/07/23 325 mg tablet lactose-reduced food with fiber 1 ea feeding tube USEASDIRECTD 02/10/22 01/07/23 oral liquid Allergies Allergy/AdvReac Type Severity Reaction Status Date / Time Penicillins Allergy Unknown Anaphylactic Verified 01/07/23 19:31 Shock povidone-iodine Allergy Rash Verified 01/07/23 19:31 [From Betadine] soap [From Betadine] Allergy Rash Verified 01/07/23 19:31 CILLINS Allergy Anaphylaxis Uncoded 01/07/23 19:31 Review of Systems Review of Systems: All systems reviewed & are unremarkable except as noted in HPI and below PMFSH Past Medical History Medical History Asthma Cancer of mandible Chronic renal failure, stage 4 (severe) Depression Fibromyalgia GERD (gastroesophageal reflux disease) History of chemotherapy Hx of adenomatous colonic polyps Hx of radiation therapy Kidney failure Left upper quadrant pain Pain around percutaneous endoscopic gastrostomy (PEG) tube site Seizure age 5-16 Uses feeding tube Surgical History Surgical History H/O: hysterectomy History of mandibular surgery partial removal of mandible Hx of cholecystectomy S/P cervical spinal fusion 2000 Family History Family History Father Afib COPD (chronic obstructive pulmonary disease) Diabetes mellitus Mother Tumor Daughter Cancer Social History Social History Social History: The patient is and lives with her . 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 She does not drink any alcohol. She is an ex-smoker she smoked a pack a cigarettes a day for 30 years and quit in 2005. Her is a durable power deputy county attorney for healthcare. Code status full code Smoking packs per day: 1 Smoking cigarettes per day: 20.0 Years smoked: 30 Smoking pack-years: 30.00 Smoking status: Former smoker Tobacco type: cigarettes Second hand tobacco smoke exposure: No Additional smoking assessment comments: STATES QUIT SMOKING 2005 Alcohol intake: never Substance use: never Substance use type: does not use Living arrangements: with family Gender identity (if verbalized by the patient): Female Spiritual care concerns: No Agree to blood products: Yes Exam Const: General: cooperative, healthy appearing, comfortable, no acute distress and well developed Orientation/consciousnes
[2023-02-22] MEDS: KETOROLAC 15 MG/ML VIAL (*BKC) IV PUSH (04:10)
[2023-02-22] MEDS: levoFLOXacin 750 MG/D5W 150 ML 750 MG/150 ML BAG 100 MG IVPB (04:34)
[2023-02-22] MEDS: LACTATED RINGERS 1,000 ML 75 ML IV CONT (06:10)
--- NOTE | 2023-02-22 06:31 | ADMGEN ---
This patient, Barb Padilla, was admitted to Medical Room 245-. Patient/family oriented to hospital policies and general routines including ID bracelet, bed and alarms, visiting hours, pain management, procedures, bathroom and other care routines, personal items, smoking policy, room service/diet, and visiting hours. Information on how to activate the Rapid Response Team has been discussed. Patient/Family are encouraged to report perceived risks to care and to ask questions if they do not understand what they are told or what they should do.
[2023-02-22] MEDS: MORPHINE SULFATE (*CRX) 4 MG/ML INJ IV PUSH (07:00)
--- NOTE | 2023-02-22 09:25 | PM.IMHP ---
H&P: HPI History of Present Illness Date/Time: 02/22/23 09:25 Chief Complaint: Left side pain, findings of left lower lobe pneumonia Narrative: This is a 72-year-old female patient with a history mandibular cancer CKD stage PEG tube, seizures and fibromyalgia who was admitted to the hospital after sudden onset left side pain, chills, shortness of breath that started around 1600 yesterday. Patient states prior to this she was feeling in her baseline state of health. Patient had aggressive ENT surgery in 2017 with mandible removal at [facility] and she has been PEG tube dependent since then. Patient has a G-button in place and she feeds Jevity 1.58 oz 4 times daily followed by 8 oz of water each feed. She also sips on ice, water and occasionally coffee orally. She does not eat any food orally. Patient denies any recent choking episode or reflux symptoms to support concern for aspiration. Additionally, abnormal findings are in the left lower lobe which would be the least likely place for an aspiration pneumonia. Patient reports that her only problem at this time is pain that is worse with ambulation or palpation. She denies any nausea vomiting bowel or bladder problems. Patient takes chronic [place] 10 mg every 4 hours and has not received any overnight. She reports that her home [place] was not helping her pain which is partially why she came to the hospital. In the ER she was noted to be hypotensive. This has improved with IV fluids. Patient reports she is allergic to penicillin but has tolerated cephalosporins in the past. Review of Systems Review of Systems: All systems reviewed & are unremarkable except as noted in HPI and below PMFSH Past Medical History Medical History (Updated 02/22/23 @ 11:49 by Landon Garcia APRN) Asthma Cancer of mandible Chronic anemia Chronic renal failure, stage 4 (severe) Depression Fibromyalgia GERD (gastroesophageal reflux disease) History of chemotherapy Hx of adenomatous colonic polyps Hx of radiation therapy Kidney failure Left upper quadrant pain Pain around percutaneous endoscopic gastrostomy (PEG) tube site Seizure age 5-16 Uses feeding tube Surgical History Surgical History H/O: hysterectomy History of mandibular surgery partial removal of mandible Hx of cholecystectomy S/P cervical spinal fusion 2000 Family History Family History Father Afib COPD (chronic obstructive pulmonary disease) Diabetes mellitus Mother Tumor Daughter Cancer Social History Social History Social History: The patient is and lives with her . 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 She does not drink any alcohol. She is an ex-smoker she smoked a pack a cigarettes a day for 30 years and quit in 2005. Her is a durable power title attorney for healthcare. Code status full code Smoking packs per day: 1 Smoking cigarettes per day: 20.0 Years smoked: 30 Smoking pack-years: 30.00 Smoking status: Former smoker Tobacco type: cigarettes Second hand tobacco smoke exposure: No Additional smoking assessment comments: STATES QUIT SMOKING 2006 Alcohol intake: former Substance use: never Substance use type: does not use Lack of Transportation: No Lack of Food: Never True Current Housing: I Have Housing Concerned About Future Housing: No Difficulty Paying Gas/Electric Bills: No Difficulty Paying for Meds: No Currently Unemployed: No Education: Associate Degree Difficulty w/ Childcare or Family Care: No Living arrangements: with family Gender identity (if verbalized by the patient): Female Spiritual care concerns: No Agree to blood products: Yes Meds Home Medications and Allergies Home Medications Medication Instructions Recorded
[2023-02-22] MEDS: FLUTICASONE PROPIONATE 0.05% NA SPR 16 GM BTL (*BKC) 1 SPRAY NASAL (10:48)
[2023-02-22] MEDS: LORATADINE 5 MG TABLET FEED TUBE (10:49)
[2023-02-22] MEDS: CITALOPRAM HYDROBROMIDE 20 MG TABLET 40 MG FEED TUBE (10:49)
[2023-02-22] MEDS: LEVOTHYROXINE SODIUM 50 MCG TABLET FEED TUBE (10:49)
[2023-02-22] MEDS: ACIDOPHILUS/BULGARICUS CHEWABLE TABLET 1 TABLET PO (10:49)
[2023-02-22] MEDS: HYDROcodone/acetaminophen (*CRX) 10-325 MG TABLET 1 TAB FEED TUBE ×4 (10:50→22:01)
[2023-02-22 12:41] LABS: Hematocrit 30.1 % (37.0-47.0); Hemoglobin 9.3 g/dL (12.0-15.0); Immature Platelet Fraction Pct 11.1 % (0.9-11.2); Mean Corpuscular HGB Conc 30.9 g/dl (32-36); Mean Corpuscular Hemoglobin 29.9 pg (26-34); Mean Corpuscular Volume 96.8 fl (80-100); Mean Platelet Volume 12.2 fl (7.4-10.4); Platelet Count Result 98 k/mm3 (150-375); Red Blood Count 3.11 M/mm3 (4.2-5.4); Red Cell Distribution Width 13.9 % (11.5-14.5); White Blood Count 10.1 K/mm3 (4.5-10.0)
[2023-02-22 12:49] LABS: Anion Gap 3 mmol/L (8-16); Blood Urea Nitrogen 38 mg/dL (7-17); Calcium 8.4 mg/dL (8.4-10.2); Carbon Dioxide 30 mmol/L (22-30); Chloride 97 mmol/L (98-107); Estimated CRCL calculation 29 ml/min; Estimated Glomerular Filt Rate 37; Glucose 116 mg/dL (65-110); Potassium 4.1 mmol/L (3.4-5.0); Sodium 130 mmol/L (137-145)
[2023-02-22 15:33] LABS: Influenza A QL RT-PCR Negative (Negative); Influenza B QL RT-PCR Negative (Negative); RSV RNA, RT-PCR Negative (Negative); SARS-CoV-2 RNA PCR Negative (Negative)
[2023-02-22] MEDS: ACETAMINOPHEN 325 MG TABLET 650 MG PO (17:29)
[2023-02-23] MEDS: HYDROcodone/acetaminophen (*CRX) 10-325 MG TABLET 1 TAB FEED TUBE ×6 (02:30→23:33)
[2023-02-23 05:32] VITALS: BP 112/53; PULSE 62; RESP 14; TEMP 36.7; O2SAT 93
[2023-02-23 05:50] LABS: Hematocrit 31.6 % (37.0-47.0); Hemoglobin 9.8 g/dL (12.0-15.0); Immature Platelet Fraction Pct 11.1 % (0.9-11.2); Mean Corpuscular Hemoglobin 30.2 pg (26-34); Mean Corpuscular Volume 97.2 fl (80-100); Mean Platelet Volume 13.1 fl (7.4-10.4); Platelet Count Result 96 k/mm3 (150-375); Red Blood Count 3.25 M/mm3 (4.2-5.4); Red Cell Distribution Width 13.7 % (11.5-14.5); White Blood Count 9.3 K/mm3 (4.5-10.0)
[2023-02-23 06:00] LABS: Alanine Aminotransferase 20 U/L (6-35); Alkaline Phosphatase 112 U/L (38-126); Anion Gap 1 mmol/L (8-16); Aspartate Amino Transferase 29 U/L (14-36); Bilirubin,Total 0.4 mg/dL (0.2-1.3); Blood Urea Nitrogen 37 mg/dL (7-17); Calcium 8.8 mg/dL (8.4-10.2); Carbon Dioxide 35 mmol/L (22-30); Chloride 97 mmol/L (98-107); Estimated CRCL calculation 27 ml/min; Estimated Glomerular Filt Rate 34; Glucose 94 mg/dL (65-110); Potassium 4.2 mmol/L (3.4-5.0); Sodium 133 mmol/L (137-145)
[2023-02-23] MEDS: LEVOTHYROXINE SODIUM 50 MCG TABLET FEED TUBE (06:11)
[2023-02-23 06:51] LABS: Band Neutrophils Percent 5 % (0-6); Eosinophils Absolute Manual 0.27 K/mm3 (0.02-0.5); Eosinophils Percent Manual 3 % (0-4); Lymphocytes Absolute Manual 0.65 K/mm3 (1.1-4.5); Monocytes Absolute Manual 0.55 K/mm3 (0.1-0.90); Monocytes Percent Manual 6 % (3-9); Neutrophils Absolute Manual 7.81 K/mm3 (1.7-7.2); Neutrophils Percent Manual 79 % (46-73); Platelet Estimate Decreased (Adequate); Schistocytes None Seen (NORMAL); Total Cells Counted 100
[2023-02-23 08:54] VITALS: O2SAT 95
[2023-02-23] MEDS: FLUTICASONE PROPIONATE 0.05% NA SPR 16 GM BTL (*BKC) 1 SPRAY NASAL (08:56)
[2023-02-23] MEDS: CITALOPRAM HYDROBROMIDE 20 MG TABLET 40 MG FEED TUBE (08:57)
[2023-02-23] MEDS: ACIDOPHILUS/BULGARICUS CHEWABLE TABLET 1 TABLET PO (08:57)
--- NOTE | 2023-02-23 09:31 | PM.IMPN ---
Progress Note: A&P Assessment and Plan (1) Pneumonia: Qualifiers: Laterality: left Lung location: lower lobe of lung Pneumonia type: due to unspecified organism Qualified Code(s): J18.9 - Pneumonia, unspecified organism Code(s): J18.9 - Pneumonia, unspecified organism Status: Acute Assessment and Plan: Left lower quadrant pneumonia on chest x-ray and CT scan abdomen pelvis. No oxygen demand at this time. Patient is allergic to penicillin so she was started on Levaquin adjusted for renal failure. 02/23: vest therapy for pulmonary toilet is helping. Continue this today and plan discharge tomorrow. PEP is not making a difference. (2) Chronic renal failure, stage 3 (moderate): Code(s): N18.30 - Chronic kidney disease, stage 3 unspecified Status: Acute Assessment and Plan: Estimated GFR 37, creatinine 1.4, BUN 43, estimated creatinine clearance 27 on admission. Prior findings GFR range from 28-49 with most recent prior to admission 44. Renally adjust medications and avoid nephrotoxins when possible. (3) Hypotension due to hypovolemia: Code(s): I95.89 - Other hypotension; E86.1 - Hypovolemia Status: Acute Assessment and Plan: Hypotension resolved after IV fluid resuscitation. Patient maintains on IV fluids at 75 mL/hr. Restarting tube feeds as well. 02/23: blood pressure remains on the low side of normal without symptoms. Stable. (4) Cancer of mandible: Code(s): C41.1 - Malignant neoplasm of mandible Status: Acute Assessment and Plan: G-button in place. Tube feeds escalated per dietitian evaluation. Patient will receive Jevity 1.5, 300 mL 4 times daily with 150 mL flush after each feed. 02/23: Patient tolerating tube feeds increased as above. (5) Chronic anemia: Code(s): D64.9 - Anemia, unspecified Status: Acute Assessment and Plan: Admission hemoglobin of 10.9 hematocrit 34.7 within range of prior values. Likely related to chronic renal insufficiency and anemia of chronic disease. 02/23: stable 9.8/31.6 after fluid resuscitation, no signs of acute blood loss (6) Protein calorie malnutrition: Qualifiers: Protein-calorie malnutrition severity: severe Qualified Code(s): E43 - Unspecified severe protein-calorie malnutrition Code(s): E46 - Unspecified protein-calorie malnutrition Status: Acute Assessment and Plan: Severe protein calorie malnutrition as evidenced by: weight loss per patient. States about 3 months ago weight was around 120 ibs. She has been down to 112 lbs. 8 lbs down or 6% Plan continue treatment throughout the day today. Plan discharge tomorrow. Time Spent With Patient Time with patient: 25 - 35 minutes Subjective Date/time seen: 02/23/23 09:31 Interval history: Patient reporting improved pain only needing 1 dose of IV narcotic medication. She notes that the vest therapy has been helping to break-up consolidation in her chest. She states no improvement with PEP treatments. patient also reports that she is tolerating her increased Jevity feeding through G-tube. Patient feels like her condition is improving. We will plan to keep on Vest therapy and additional IV antibiotics today with planned discharge tomorrow. Review of Systems Review of Systems: All systems reviewed & are unremarkable except as noted in HPI and below Exam Narrative: GENERAL: Thin, chronically ill-appearing, alert and oriented, in no apparent distress. She is pleasant and conversant in full sentences. HEENT: Pupils are equally round and briskly reactive to light. Extraocular muscles are intact. Oral mucous membranes are moist without lesions. Facial changes of mandibular resection NECK: The patient has no noted JVD. No adenopathy is appreciated. CHEST/LUNGS: Lungs are clear throughout except left lower lobe which has improved aeration and some coarse crackles. Palpable tenderness to the lef
[2023-02-23 14:00] VITALS: BP 122/60; PULSE 64; RESP 16; TEMP 37.1; O2SAT 97
[2023-02-23 20:10] VITALS: BP 125/56; PULSE 64; RESP 16; TEMP 36.8; O2SAT 97
[2023-02-23 21:08] VITALS: O2SAT 96
[2023-02-24] MEDS: HYDROcodone/acetaminophen (*CRX) 10-325 MG TABLET 1 TAB FEED TUBE ×2 (03:13→06:15)
[2023-02-24 03:17] VITALS: BP 123/63; PULSE 65; RESP 14; TEMP 36.9; O2SAT 97
[2023-02-24 05:15] LABS: Basophils Percent Auto 0.3 % (0.2-1.2); Eosinophils Absolute Auto 0.3 K/mm3 (0-0.3); Eosinophils Percent Auto 4.5 % (0-4.4); Hematocrit 30.7 % (37.0-47.0); Hemoglobin 9.5 g/dL (12.0-15.0); Immature Granulocyte Absolute 0.01 K/mm3 (0.00-0.031); Immature Granulocyte Percent A 0.2 % (0-0.5); Immature Platelet Fraction Pct 12.8 % (0.9-11.2); Lymphocytes Percent Auto 10.6 % (18.3-44.2); Mean Corpuscular HGB Conc 30.9 g/dl (32-36); Mean Corpuscular Hemoglobin 30.3 pg (26-34); Mean Corpuscular Volume 97.8 fl (80-100); Mean Platelet Volume 13.5 fl (7.4-10.4); Monocytes Absolute Auto 0.5 K/mm3 (0.1-0.6); Neutrophils Absolute Auto 5.1 K/mm3 (1.3-6.7); Neutrophils Percent Auto 77.4 % (45.5-73.1); Platelet Count Result 102 k/mm3 (150-375); Red Blood Count 3.14 M/mm3 (4.2-5.4); Red Cell Distribution Width 13.7 % (11.5-14.5); White Blood Count 6.6 K/mm3 (4.5-10.0)
[2023-02-24 05:28] LABS: Alanine Aminotransferase 17 U/L (6-35); Alkaline Phosphatase 115 U/L (38-126); Anion Gap -1 mmol/L (8-16); Aspartate Amino Transferase 26 U/L (14-36); Bilirubin,Total 0.3 mg/dL (0.2-1.3); Blood Urea Nitrogen 32 mg/dL (7-17); Calcium 8.6 mg/dL (8.4-10.2); Carbon Dioxide 33 mmol/L (22-30); Chloride 102 mmol/L (98-107); Estimated CRCL calculation 33 ml/min; Estimated Glomerular Filt Rate 44; Glucose 110 mg/dL (65-110); Potassium 4.3 mmol/L (3.4-5.0); Sodium 134 mmol/L (137-145)
[2023-02-24] MEDS: LEVOTHYROXINE SODIUM 50 MCG TABLET FEED TUBE (06:15)
[2023-02-24 07:52] VITALS: PULSE 56; RESP 18; O2SAT 95
[2023-02-24 08:00] VITALS: PULSE 56; RESP 18; O2SAT 95
[2023-02-24] MEDS: LORATADINE 5 MG TABLET FEED TUBE (08:32)
[2023-02-24] MEDS: ACIDOPHILUS/BULGARICUS CHEWABLE TABLET 1 TABLET PO (08:32)
[2023-02-24] MEDS: CITALOPRAM HYDROBROMIDE 20 MG TABLET 40 MG FEED TUBE (08:32)
[2023-02-24] MEDS: FLUTICASONE PROPIONATE 0.05% NA SPR 16 GM BTL (*BKC) 1 SPRAY NASAL (08:32)
[2023-02-24] MEDS: levoFLOXacin 750 MG/D5W 150 ML 750 MG/150 ML BAG 100 MG IVPB (08:32)
--- NOTE | 2023-02-24 09:15 | PM.DS ---
DS: Admitting Diagnosis Discharge Date 02/24/2023 Admitting Diagnosis pneumonia, CKD stage 3, hypotension due to hypovolemia, cancer of mandible, chronic anemia, protein calorie malnutrition DS: Discharge Diagnosis Discharge Diagnosis (1) Pneumonia: Qualifiers: Laterality: left Lung location: lower lobe of lung Pneumonia type: due to unspecified organism Qualified Code(s): J18.9 - Pneumonia, unspecified organism Code(s): J18.9 - Pneumonia, unspecified organism Status: Acute (2) Chronic renal failure, stage 3 (moderate): Code(s): N18.30 - Chronic kidney disease, stage 3 unspecified Status: Acute (3) Hypotension due to hypovolemia: Code(s): I95.89 - Other hypotension; E86.1 - Hypovolemia Status: Acute (4) Cancer of mandible: Code(s): C41.1 - Malignant neoplasm of mandible Status: Acute (5) Chronic anemia: Code(s): D64.9 - Anemia, unspecified Status: Acute (6) Protein calorie malnutrition: Qualifiers: Protein-calorie malnutrition severity: severe Qualified Code(s): E43 - Unspecified severe protein-calorie malnutrition Code(s): E46 - Unspecified protein-calorie malnutrition Status: Acute DS: Summary Hospital Course Reason for hospitalization: Patient was admitted for left lower lobe pneumonia with hypotension Hospital Course: This is a 72 year old female patient with a past history of mandibular cancer s/p resection and G tube dependent who is admitted to the hospital due to left lower lobe pneumonia and low blood pressure. Her BP responded well after IV fluid resuscitation. Patient was started on renally adjusted Levaquin. Patient benefited from Vest CPT. Power Wheelchair Mechanic spoke with patient and adjusted her G tube feeds to maintain appropriate calorie intake. Patient had mild hyponatremia that responded well. Patient was feeling much better and was discharged home with low dose (renally adjusted) levofloxacin. Status at Discharge Cognitive/behavioral status at discharge: awake, alert, oriented and very pleasant Functional status at discharge: independent ambulation Overall status at discharge: patient is progressing back to baseline Time Spent with Patient Time attestation: Total time spent providing and/or coordinating discharge services: 35 minutes Time spent: Greater than 30 minutes Exam Narrative: GENERAL: Thin, chronically ill-appearing, alert and oriented, in no apparent distress. She is pleasant and conversant in full sentences. HEENT: Pupils are equally round and briskly reactive to light. Extraocular muscles are intact. Oral mucous membranes are moist without lesions. Facial changes of mandibular resection NECK: The patient has no noted JVD. No adenopathy is appreciated. CHEST/LUNGS: Lungs are clear throughout except left lower lobe which has improved aeration and some coarse crackles. Palpable tenderness to the left lower lateral chest wall. HEART: The patient has a regular rate and rhythm. No murmurs, rubs, or gallops are appreciated. Distal pulses are 2+. No carotid bruits appreciated. ABDOMEN: The patient?s abdomen is soft, nontender, and nondistended. Bowel sounds are positive. G-button in place. EXTREMITIES: The patient has no peripheral edema. There is no focal long bone tenderness or deformity. SKIN: The patient?s skin is warm and dry, without rashes or lesions. PSYCHIATRIC: The patient has normal mental status and has an appropriate affect. NEUROLOGIC: There are no gross deficits to the cranial nerves. Patient moves all extremities 5/5 strength DS: Data Data Completed and Pending Completed studies during hospitalization: abdomen pelvis CT, CXR Labs on day of discharge: Labs from last 24 hours 02/24/23 04:56 WBC 6.6 RBC 3.14 L Hgb 9.5 L Hct 30.7 L MCV 97.8 MCH 30.3 MCHC 30.9 L RDW 13.7 Plt Count 102 L MPV 13.5 H Immature Gran % (Auto) 0.2 Neut % (Auto) 77.4 H Lymph % (Auto) 1
[2023-02-24 23:02] LABS: Pneumococcal Antigen Urine Detected (Not Detected)
[2023-02-26 03:16] LABS: Legionella pneumophila Ag Ur Not Detected (Not Detected)
--- NOTE | 2023-02-26 09:49 | PC.NURSE ---
Urine legionella is not detected. Urine pneumococcal antigen is detected. BRE Kingsley aware.
--- NOTE | 2023-03-01 07:02 | PC.NURSE ---
Blood cx are negative.
== END 2023-02-24 10:56 | disposition home or self-care (01) ==
LOC: ANHED 02-22 04:39 → ANH2MED 02-22 06:22
PROVIDERS: Emergency Medicine; Nurse Practitioner; Admitting Provider Internal Medicine; Emergency Provider Nurse Practitioner Family; PCP Internal Medicine; Visit Provider Internal Medicine
DX: J18.9 Pneumonia, unspecified organism (principal); N18.30 Chronic kidney disease, stage 3 unspecified; C41.1 Malignant neoplasm of mandible; D64.9 Anemia, unspecified; E46 Unspecified protein-calorie malnutrition; I95.89 Other hypotension; N39.0 Urinary tract infection, site not specified; B95.1 Streptococcus, group B, as the cause of diseases classified elsewhere; F32.A Depression, unspecified; M79.7 Fibromyalgia; K21.9 Gastro-esophageal reflux disease without esophagitis; Z93.1 Gastrostomy status; Z20.822 Contact with and (suspected) exposure to COVID-19; Z92.3 Personal history of irradiation; J45.909 Unspecified asthma, uncomplicated; R94.31 Abnormal electrocardiogram [ECG] [EKG]; Z87.891 Personal history of nicotine dependence; Z85.819 Personal history of malignant neoplasm of unspecified site of lip, oral cavity, and pharynx; Z92.21 Personal history of antineoplastic chemotherapy; Z79.891 Long term (current) use of opiate analgesic; Z79.899 Other long term (current) drug therapy; Z83.6 Family history of other diseases of the respiratory system
CPT/HCPCS: 36415; 71046; 74177; 80048; 80053; 81001; 83605; 83690; 85025; 85027; 85055; 85610; 85730; 86140; 87040; 87070; 87077; 87081; 87205; 87449; 87637; 87899; 93005; 94667; 94668; 94669; 96361; 96365; 96366; 96375; 96376; 99285; A9270; G0378; J1885; J1956; J2270; J7120; Q9967

== ENCOUNTER 2023-02-28 20:57 | Emergency (ER) | payer MEDICARE, SELFPAY ==
--- NOTE | ~2023-02-28 | XR_ITS ---
Portable chest x-ray Comparison: 02/22/2023 Clinical History: Cough Findings: Lungs are clear, without focal consolidation or pleural effusion. Cardiomediastinal silho uette is stable. Cervical spine fixation hardware is unchanged. Impression: Clear lungs. Reviewed, dictated and finalized at location . Impression: Clear lungs.
[2023-02-28 20:59] VITALS: BP 151/58; PULSE 65; RESP 16; TEMP 36.6; O2SAT 99
[2023-03-01] MEDS: KETOROLAC 15 MG/ML VIAL (*BKC) IV PUSH (00:38)
[2023-03-01 00:40] VITALS: BP 134/68; PULSE 64; RESP 16; O2SAT 100
--- NOTE | 2023-03-01 00:42 | ED.GENADULT ---
HPI - General Adult General Chief complaint: Recheck/Abnormal Lab/Rx Stated complaint: abnormal labs Time Seen by Provider: 03/01/23 00:22 History of Present Illness HPI narrative: Patient is 72-year-old female who presents the emergency department with chief complaint of neck pain. Patient reports that she had recently had pneumonia and was admitted to the hospital treated initially with Levaquin and then subsequently has been transitioned to doxycycline patient reports she is still taking Doxy at home and reports that she has had pain on the left side of her neck and reports that she is also had somewhat of a headache with this as well patient reports she is continue to have low-grade fevers at home although she is currently afebrile here in the emergency department the patient reports that she was concerned that she may have meningitis Related Data Home Medications Medication Instructions Recorded Confirmed citalopram 40 mg tablet 40 mg feeding tube DAILY 05/09/19 02/22/23 levothyroxine 50 mcg tablet 50 mcg feeding tube DAILY 05/09/19 02/22/23 L.acidophil,rhamnosus-B.breve,longum 1 cap PO DAILY 04/17/21 02/22/23 20 billion cell sprinkle capsule (Probiotic) cetirizine 5 mg tablet (Allergy 5 mg feeding tube DAILY 11/09/21 02/22/23 Relief (cetirizine)) fluticasone propionate 50 1 spray intranasal DAILY 11/09/21 02/22/23 mcg/actuation nasal spray,suspension lactose-reduced food with fiber 1 ea feeding tube USEASDIRECTD 02/10/22 02/22/23 oral liquid hydrocodone 10 mg-acetaminophen 1 tablet feeding tube Q4H 02/22/23 02/22/23 325 mg tablet Allergies Allergy/AdvReac Type Severity Reaction Status Date / Time Penicillins Allergy Unknown Anaphylactic Verified 01/07/23 19:31 Shock povidone-iodine Allergy Rash Verified 01/07/23 19:31 [From Betadine] soap [From Betadine] Allergy Rash Verified 01/07/23 19:31 CILLINS Allergy Anaphylaxis Uncoded 01/07/23 19:31 Review of Systems Review of Systems: A 10 system review of systems was completed on the patient and is negative except for what is stated in the HPI. Nursing and ancillary documentation was reviewed. [facility] Past Medical History Medical History Asthma Cancer of mandible Chronic anemia Chronic renal failure, stage 4 (severe) Depression Fibromyalgia GERD (gastroesophageal reflux disease) History of chemotherapy Hx of adenomatous colonic polyps Hx of radiation therapy Kidney failure Left upper quadrant pain Pain around percutaneous endoscopic gastrostomy (PEG) tube site Seizure age 5-16 Uses feeding tube Surgical History Surgical History H/O: hysterectomy History of mandibular surgery partial removal of mandible Hx of cholecystectomy S/P cervical spinal fusion 2000 Family History Family History Father Afib COPD (chronic obstructive pulmonary disease) Diabetes mellitus Mother Tumor Daughter Cancer Social History Social History Social History: The patient is and lives with her . 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 She does not drink any alcohol. She is an ex-smoker she smoked a pack a cigarettes a day for 30 years and quit in 2005. Her is a durable power assistant attorney general for healthcare. Code status full code Smoking packs per day: 1 Smoking cigarettes per day: 20.0 Years smoked: 30 Smoking pack-years: 30.00 Smoking status: Former smoker Tobacco type: cigarettes Second hand tobacco smoke exposure: No Additional smoking assessment comments: STATES QUIT SMOKING 2006 Alcohol intake: former Substance use: never Substance use type: does not use Lack of Transportation: No Lack of Food: Never True Cur
[2023-03-01 03:36] VITALS: BP 144/74; PULSE 64; RESP 15; O2SAT 100
[2023-03-01 03:42] LABS: Alanine Aminotransferase 19 U/L (6-35); Albumin Level 3.5 g/dL (3.5-5.1); Alkaline Phosphatase 119 U/L (38-126); Anion Gap 4 mmol/L (8-16); Aspartate Amino Transferase 31 U/L (14-36); Bilirubin,Total 0.4 mg/dL (0.2-1.3); Blood Urea Nitrogen 33 mg/dL (7-17); Calcium 8.8 mg/dL (8.4-10.2); Carbon Dioxide 32 mmol/L (22-30); Chloride 99 mmol/L (98-107); Estimated CRCL calculation 32 ml/min; Estimated Glomerular Filt Rate 44; Glucose 136 mg/dL (65-110); Lactic Acid Reflex 0.9 mmol/L (0.7-2.0); Magnesium 2.1 mg/dL (1.6-2.3); Potassium 3.5 mmol/L (3.4-5.0); Procalcitonin 0.6 ng/mL; Sodium 135 mmol/L (137-145); Troponin I < 0.012 ng/mL (0.000-0.034)
[2023-03-01 03:49] LABS: Basophils Absolute Auto 0.1 K/mm3 (0.0-0.1); Basophils Percent Auto 1.4 % (0.2-1.2); Eosinophils Absolute Auto 0.1 K/mm3 (0-0.3); Eosinophils Percent Auto 3.9 % (0-4.4); Hematocrit 33.1 % (37.0-47.0); Hemoglobin 9.9 g/dL (12.0-15.0); Immature Granulocyte Absolute 0.02 K/mm3 (0.00-0.031); Immature Granulocyte Percent A 0.6 % (0-0.5); Immature Platelet Fraction Pct 8.5 % (0.9-11.2); Lymphocytes Absolute Auto 0.74 K/mm3 (0.9-3.2); Lymphocytes Percent Auto 20.4 % (18.3-44.2); Mean Corpuscular HGB Conc 29.9 g/dl (32-36); Mean Corpuscular Hemoglobin 29.2 pg (26-34); Mean Corpuscular Volume 97.6 fl (80-100); Mean Platelet Volume 12.1 fl (7.4-10.4); Monocytes Absolute Auto 0.4 K/mm3 (0.1-0.6); Monocytes Percent Auto 11.6 % (2.6-8.5); Neutrophils Absolute Auto 2.3 K/mm3 (1.3-6.7); Neutrophils Percent Auto 62.1 % (45.5-73.1); Platelet Count Result 143 k/mm3 (150-375); Red Blood Count 3.39 M/mm3 (4.2-5.4); Red Cell Distribution Width 13.6 % (11.5-14.5); White Blood Count 3.6 K/mm3 (4.5-10.0)
[2023-03-01 03:53] LABS: Hypochromasia 1+ (NORMAL); Microcytosis 2+ (NORMAL); Platelet Estimate Adequate (Adequate)
[2023-03-01 03:54] LABS: Schistocytes None Seen (NORMAL)
[2023-03-01 04:05] LABS: Appearance Urine Clear (Clear); Bacteria Urine None Seen /hpf; Bilirubin Urine Negative (Negative); Blood Urine Negative (Negative); Color Urine Yellow (Yellow); Glucose Urine UA Negative (Negative); Ketones Urine Negative (Negative); Leukocyte Esterase Ur Trace LEU/UL (Negative); Need Manual Microscopic Reviewed; Nitrate Urine Negative (Negative); Non Pathogenic Casts 0-2; Protein Urine Negative (Negative); RBC Urine 0-2 /hpf (0-2); Specific Grav Ur 1.004 (1.001-1.035); Squamous Epithelial Cell Urine None seen /hpf (Few); Urobilinogen Urine 0.2 mg/dL (<2.0); WBC Urine 0-5 /hpf; pH Urine 7.5 (5.0-9.0)
[2023-03-01 04:12] LABS: Add Urine Microscopic? YES
== END 2023-03-01 03:39 | disposition home or self-care (01) ==
PROVIDERS: Emergency Provider Emergency Medicine; PCP Internal Medicine
DX: M43.6 Torticollis (principal); N18.4 Chronic kidney disease, stage 4 (severe); J45.909 Unspecified asthma, uncomplicated; D64.9 Anemia, unspecified; M79.7 Fibromyalgia; K21.9 Gastro-esophageal reflux disease without esophagitis; Z87.01 Personal history of pneumonia (recurrent); Z85.830 Personal history of malignant neoplasm of bone; Z86.010 Personal history of colon polyps; Z92.21 Personal history of antineoplastic chemotherapy; Z92.3 Personal history of irradiation; Z87.891 Personal history of nicotine dependence; Z90.710 Acquired absence of both cervix and uterus; Z90.49 Acquired absence of other specified parts of digestive tract; Z98.1 Arthrodesis status
CPT/HCPCS: 36415; 71045; 80053; 81001; 83605; 83735; 84145; 84484; 85025; 85055; 96374; 99284; J1885

== ENCOUNTER 2023-03-05 10:05 | Emergency (ER) | payer MEDICARE, SELFPAY ==
[2023-03-05] VITALS (10 sets, daily range): BP systolic 112–158; BP diastolic 55–71; PULSE 57–66; RESP 11–18; TEMP 36.6; O2SAT 98–100
--- NOTE | ~2023-03-05 | XR_ITS ---
EXAMINATION: XR chest 2V DATE: 03/05/2023 12:23 INDICATION: Chest pain TECHNIQUE: PA and lateral views of the chest were obtained. COMPARISON: Chest radiograph dated 03/01/2023 FINDINGS: Increased opacity at the left lower lung zone with blunting at the posterior sulcus and costophrenic angle consistent with small pleural effusion and associated atelectasis and/or pneumonia. Right lung is clear. No pulmonary edema, pneumothorax or right-sided pleural effusion. The cardiomediastinal lissette houette is normal. Plain screw fixation for lower cervical anterior spinal fusion. Surgical clips at the left and right neck suggesting prior carotid endarterectomies. Mild thoracic dextrocurvature scol iosis with moderate spondylosis. Cholecystectomy clips in right upper quadrant. Percutaneous gastrost royer tube projecting over expected location the left upper quadrant. IMPRESSION: 1. Increasing small left pleural effusion with left basilar opacities which could represent atelectas is and/or pneumonia. Reviewed, dictated and finalized at location A. IMPRESSION: 1. Increasing small left pleural effusion with left basilar opacities which cou ld represent atelectasis and/or pneumonia.
--- NOTE | ~2023-03-05 | CT_ITS ---
EXAMINATION:CT diagnostic chest wo con DATE: 03/05/2023 15:44 INDICATION: Left chest pain. TECHNIQUE: Computed tomography (CT) of the chest was performed without intravenous contrast. Automate d exposure control and iterative reconstruction technique were employed. The dose-length product (DLP ) was 123.40 mGy-cm. COMPARISON: CT abdomen and pelvis 02/22/2023 FINDINGS: There is mild scarring at the lung apices. There is mild atelectasis in right lower lobe. T here is a small left pleural effusion. There are airspace opacities in dependent left lower lobe. Kip cified left lung nodules are consistent with old granulomatous disease. There is mild aortic atherosc lerosis. The heart size is normal. There are coronary artery calcifications. There is a small pericar dial effusion. There are changes of cholecystectomy. There are changes of anterior fusion procedure i n cervical spine. There is moderate thoracic spondylosis. There is a dextroscoliosis is noted. IMPRESSION: 1. Small left pleural effusion. 2. Left lower lobe airspace opacities, consistent with atelectasis versus pneumonia. 3. Small pericardial effusion. Reviewed, dictated and finalized at location E. IMPRESSION: 1. Small left pleural effusion. 2. Left lower lobe airspace opacities, consistent with atelectasis versus pneum onia. 3. Small pericardial effusion.
--- NOTE | 2023-03-05 11:37 | ECG_ITS ---
Measurements Intervals [facility] Rate: 60 P: 57 SC: 150 QRS: 1 QRSD: 89 T: 38 QT: 428 QTc: 429 Interpretive Statements SINUS RHYTHM POSSIBLE LEFT ATRIAL ENLARGEMENT [-0.1mV P WAVE IN V1/V2] COMPARED TO ECG 02/21/2023 23:49:57 NO SIGNIFICANT CHANGES Electronically Signed On 03-05-2023 19:57:43 CDT by Shannon Alexander M.D.
[2023-03-05 12:54] LABS: Basophils Percent Auto 0.6 % (0.2-1.2); Eosinophils Absolute Auto 0.1 K/mm3 (0-0.3); Eosinophils Percent Auto 1.2 % (0-4.4); Hematocrit 37.9 % (37.0-47.0); Hemoglobin 11.3 g/dL (12.0-15.0); Immature Granulocyte Absolute 0.02 K/mm3 (0.00-0.031); Immature Granulocyte Percent A 0.3 % (0-0.5); Lymphocytes Absolute Auto 0.79 K/mm3 (0.9-3.2); Lymphocytes Percent Auto 12.3 % (18.3-44.2); Mean Corpuscular HGB Conc 29.8 g/dl (32-36); Mean Corpuscular Hemoglobin 29.4 pg (26-34); Mean Corpuscular Volume 98.7 fl (80-100); Mean Platelet Volume 12.3 fl (7.4-10.4); Monocytes Absolute Auto 0.5 K/mm3 (0.1-0.6); Monocytes Percent Auto 7.2 % (2.6-8.5); Neutrophils Percent Auto 78.4 % (45.5-73.1); Platelet Count Result 183 k/mm3 (150-375); Red Blood Count 3.84 M/mm3 (4.2-5.4); Red Cell Distribution Width 14.4 % (11.5-14.5); White Blood Count 6.4 K/mm3 (4.5-10.0)
[2023-03-05 13:04] LABS: Hypochromasia 1+ (NORMAL); Platelet Estimate Adequate (Adequate)
[2023-03-05 13:06] LABS: Schistocytes None Seen (NORMAL); Stomatocytes 1+ (NORMAL)
[2023-03-05 13:10] LABS: Alanine Aminotransferase 21 U/L (6-35); Albumin Level 4.2 g/dL (3.5-5.1); Alkaline Phosphatase 133 U/L (38-126); Anion Gap 5 mmol/L (8-16); Aspartate Amino Transferase 31 U/L (14-36); Bilirubin,Total 0.5 mg/dL (0.2-1.3); Blood Urea Nitrogen 34 mg/dL (7-17); Calcium 9.5 mg/dL (8.4-10.2); Carbon Dioxide 34 mmol/L (22-30); Chloride 99 mmol/L (98-107); Estimated CRCL calculation 33 ml/min; Estimated Glomerular Filt Rate 44; Glucose 60 mg/dL (65-110); Lipase 56 U/L (23-300); Potassium 3.8 mmol/L (3.4-5.0); Sodium 138 mmol/L (137-145)
[2023-03-05 13:17] LABS: Troponin I < 0.012 ng/mL (0.000-0.034)
[2023-03-05] MEDS: DEXTROSE 50% 25 GM/50 ML SYRINGE IV PUSH (13:18)
[2023-03-05 13:20] LABS: Partial Thromboplastin Time 32.5 SECONDS (22.3-36.8); Prothrombin Time 14.1 Seconds (11.1-14.7)
--- NOTE | 2023-03-05 15:26 | ED.GENADULT ---
HPI - General Adult General Chief complaint: Unspecified Stated complaint: left side paini Time Seen by Provider: 03/05/23 11:37 History of Present Illness HPI narrative: 72-year-old female present emergency department for evaluation of recurrent left-sided chest wall pain. Patient had a recent hospitalization for a left-sided pneumonia. Patient just completed her antibiotics 2 days ago. Patient states last night she had increased left-sided chest pain that is worsened with deep inspiration. Related Data Home Medications Medication Instructions Recorded Confirmed citalopram 40 mg tablet 40 mg feeding tube DAILY 05/09/19 02/22/23 levothyroxine 50 mcg tablet 50 mcg feeding tube DAILY 05/09/19 02/22/23 L.acidophil,rhamnosus-B.breve,longum 1 cap PO DAILY 04/17/21 02/22/23 20 billion cell sprinkle capsule (Probiotic) cetirizine 5 mg tablet (Allergy 5 mg feeding tube DAILY 11/09/21 02/22/23 Relief (cetirizine)) fluticasone propionate 50 1 spray intranasal DAILY 11/09/21 02/22/23 mcg/actuation nasal spray,suspension lactose-reduced food with fiber 1 ea feeding tube USEASDIRECTD 02/10/22 02/22/23 oral liquid hydrocodone 10 mg-acetaminophen 1 tablet feeding tube Q4H 02/22/23 02/22/23 325 mg tablet Allergies Allergy/AdvReac Type Severity Reaction Status Date / Time Penicillins Allergy Unknown Anaphylactic Verified 03/05/23 10:34 Shock povidone-iodine Allergy Rash Verified 03/05/23 10:34 [From Betadine] soap [From Betadine] Allergy Rash Verified 03/05/23 10:34 CILLINS Allergy Anaphylaxis Uncoded 03/05/23 10:34 Review of Systems Review of Systems: All systems reviewed & are unremarkable except as noted in HPI and below PMFSH Past Medical History Medical History Asthma Cancer of mandible Chronic anemia Chronic renal failure, stage 4 (severe) Depression Fibromyalgia GERD (gastroesophageal reflux disease) History of chemotherapy Hx of adenomatous colonic polyps Hx of radiation therapy Kidney failure Left upper quadrant pain Pain around percutaneous endoscopic gastrostomy (PEG) tube site Seizure age 5-16 Uses feeding tube Surgical History Surgical History H/O: hysterectomy History of mandibular surgery partial removal of mandible Hx of cholecystectomy S/P cervical spinal fusion 2000 Family History Family History Father Afib COPD (chronic obstructive pulmonary disease) Diabetes mellitus Mother Tumor Daughter Cancer Social History Social History Social History: The patient is and lives with her . 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 She does not drink any alcohol. She is an ex-smoker she smoked a pack a cigarettes a day for 30 years and quit in 2005. Her is a durable power applications engineer manufacturing for healthcare. Code status full code Smoking packs per day: 1 Smoking cigarettes per day: 20.0 Years smoked: 30 Smoking pack-years: 30.00 Smoking status: Former smoker Tobacco type: cigarettes Second hand tobacco smoke exposure: No Additional smoking assessment comments: STATES QUIT SMOKING 2006 Alcohol intake: former Substance use: never Substance use type: does not use Lack of Transportation: No Lack of Food: Never True Current Housing: I Have Housing Concerned About Future Housing: No Difficulty Paying Gas/Electric Bills: No Difficulty Paying for Meds: No Currently Unemployed: No Education: Associate Degree Difficulty w/ Childcare or Family Care: No Living arrangements: with family Gender identity (if verbalized by the patient): Female Spiritual care concerns: No Agree to blood products: Yes Exam Narrative: APPEARANCE: Well ap
--- NOTE | 2023-03-05 16:03 | PC.NURSE ---
Dr. Evans approved pt to give self G tube feeding. Isosource 1.5cal.
[2023-03-05] MEDS: HYDROcodone/acetaminophen (*CRX) 5-325 MG TABLET 1 TAB PO (16:18)
[2023-03-05 16:27] LABS: Troponin I < 0.012 ng/mL (0.000-0.034)
[2023-03-05] MEDS: HYDROmorphone HCL INJ (*CRX) 1 MG/ML SYR 0.5 MG IV PUSH (17:51)
[2023-03-05] MEDS: DOXYCYCLINE HYCLATE 100 MG TABLET PO (17:51)
== END 2023-03-05 18:13 | disposition home or self-care (01) ==
PROVIDERS: Physician Assistant; Emergency Provider Emergency Medicine; PCP Internal Medicine
DX: R07.89 Other chest pain (principal); J45.909 Unspecified asthma, uncomplicated; N18.4 Chronic kidney disease, stage 4 (severe); F32.A Depression, unspecified; K21.9 Gastro-esophageal reflux disease without esophagitis
CPT/HCPCS: 36415; 71046; 71250; 80053; 83690; 84484; 85025; 85610; 85730; 93005; 96374; 96375; 99284; A9270; J1170

== ENCOUNTER 2023-03-19 03:02 | Day surgery (SDC) | payer MEDICARE, SELFPAY ==
[2023-03-13 11:45] VITALS: BMI 19.6
--- NOTE | 2023-03-15 11:49 | SUR.PREOP ---
Patient called regarding upcoming procedure. Reviewed preop instructions, appointment times, and procedure prep. Spoke with pt's spouse Aron.
[2023-03-19 12:54] VITALS: BMI 19.6
--- NOTE | 2023-03-19 13:12 | PM.HPGS ---
History of Present Illness History of Present Illness Consent: Risks, benefits, and alternatives have been discussed and questions answered. Patient agrees to proceed with procedure. Chief complaint: Pain Due to Other Internal prosthetic devices Narrative: Barb Padilla is a 72 year old female previous g-tube is not working well, needs replacement Review of Systems Constitutional: Constitutional: Denies headache(s) and Denies weakness Eyes: Eyes: Denies blurry vision ENT: Reports Normal hearing present, Denies headache(s) and Denies neck pain Cardiovascular: Cardiovascular: Denies chest pain and Denies dyspnea Respiratory: Respiratory: Denies dyspnea Gastrointestinal: Gastrointestinal: Reports no additional gastrointestinal complaints Genitourinary: Genitourinary: Denies dysuria Musculoskeletal: Musculoskeletal: Denies neck pain Integumentary/Breasts: Skin/Breast: Denies dry skin Neurologic: Reports Normal hearing present, Denies headache(s) and Denies weakness Psychiatric: Psychiatric: Denies anxiety Endocrine: Endocrine: Denies change in body appearance Hematologic/Lymphatic: Hematologic/Lymphatic: Denies easy bleeding Allergic/Immunologic: Allergic/Immunologic: Denies urticaria PMFSH Past Medical History Medical History (Updated 03/19/23 @ 13:14 by Patrice Fields MD) Asthma Cancer of mandible Chronic anemia Chronic renal failure, stage 4 (severe) Depression Fibromyalgia Gastrostomy malfunction GERD (gastroesophageal reflux disease) History of chemotherapy Hx of adenomatous colonic polyps Hx of radiation therapy Kidney failure Left upper quadrant pain Pain around percutaneous endoscopic gastrostomy (PEG) tube site Seizure age 5-16 Uses feeding tube Surgical History Surgical History H/O: hysterectomy History of mandibular surgery partial removal of mandible Hx of cholecystectomy S/P cervical spinal fusion 2000 Family History Family History Father Afib COPD (chronic obstructive pulmonary disease) Diabetes mellitus Mother Tumor Daughter Cancer Social History Social History Social History: The patient is and lives with her . 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 She does not drink any alcohol. She is an ex-smoker she smoked a pack a cigarettes a day for 30 years and quit in 2005. Her is a durable power insurance defense attorney for healthcare. Code status full code Smoking packs per day: 1 Smoking cigarettes per day: 20.0 Years smoked: 20 Smoking pack-years: 20.00 Smoking status: Former smoker Tobacco type: cigarettes Second hand tobacco smoke exposure: No Additional smoking assessment comments: STATES QUIT SMOKING 2006 Alcohol intake: former Substance use: never Substance use type: does not use Lack of Transportation: No Lack of Food: Never True Current Housing: I Have Housing Concerned About Future Housing: No Difficulty Paying Gas/Electric Bills: No Difficulty Paying for Meds: No Currently Unemployed: No Education: Associate Degree Difficulty w/ Childcare or Family Care: No Living arrangements: with family Gender identity (if verbalized by the patient): Female Spiritual care concerns: No Agree to blood products: Yes Meds Home Medications and Allergies Home Medications Medication Instructions Recorded Confirmed Type citalopram 40 mg tablet 40 mg feeding tube DAILY 05/09/19 03/19/23 History levothyroxine 50 mcg tablet 50 mcg feeding tube DAILY 05/09/19 03/19/23 History L.acidophil,rhamnosus-B.breve,longum 1 cap PO DAILY 04/17/21 03/19/23 History 20 billion cell sprinkle capsule (Probiotic) cetirizine 5 mg tablet (Allergy 5 mg feeding tube DAILY 11/09/21 03/19/23 Hist
--- NOTE | 2023-03-19 13:14 | P.OP_ITS ---
Procedure Note - Detailed Date of Procedure 03/19/23 Pre-op Diagnosis malfunctioning g-tube Post-op Diagnosis Same Procedure Performed I removed previous G-tube and then placed a 16 Divehi Quinn-richmond low profile gastrostomy tube at the bedside, then inflated the balloon with 5 ml of water, if was secured in right position. Patient is going home and ok to resume tube feeding as usual she is to call if malfunctioning again (normally it is exchanged every year) Surgeon Patrice Fields MD Anesthesia None Description of Procedure g-tube exchange
--- NOTE | 2023-03-19 14:00 | SUR.PREOP ---
Peg tube removal and replacement done at [facility] per dr castelan. Pt brought the tube kit in with her. tolerated procedure well. site clear. pt left ambulatory with spouse.
== END 2023-03-19 13:13 | disposition home or self-care (01) ==
PROVIDERS: PCP Internal Medicine; Visit Provider Internal Medicine Gastroenterology
PROC: 0DH63UZ Insertion of Feeding Device into Stomach, Percutaneous Approach (ICD-10-PCS; CPT 43246; principal; 2023-03-19 13:30)
DX: K94.23 Gastrostomy malfunction (principal); C41.1 Malignant neoplasm of mandible; N18.4 Chronic kidney disease, stage 4 (severe); D64.9 Anemia, unspecified; K21.9 Gastro-esophageal reflux disease without esophagitis; M79.7 Fibromyalgia; J45.909 Unspecified asthma, uncomplicated; F32.A Depression, unspecified; Z92.21 Personal history of antineoplastic chemotherapy; Z92.3 Personal history of irradiation; Z98.1 Arthrodesis status; Z87.891 Personal history of nicotine dependence
CPT/HCPCS: 43762; 99211; G0463

== ENCOUNTER 2023-04-15 18:38 | Emergency (ER) | payer MEDICARE, SELFPAY ==
--- NOTE | ~2023-04-15 | XR_ITS ---
EXAMINATION: XR humerus RT DATE: 04/15/2023 19:24 INDICATION: Right humerus injury. Fall. TECHNIQUE: 2 views of right humerus were obtained. COMPARISON: None. FINDINGS: Bone alignment is normal. No fracture. There is mild osteoarthritis of glenohumeral joint a nd acromioclavicular joint. IMPRESSION: 1. Polyarticular osteoarthritis. Reviewed, dictated and finalized at location E. [facility] SERGEANT SHERIFF'S OFFICE
--- NOTE | ~2023-04-15 | XR_ITS ---
EXAMINATION: XR forearm RT 2V DATE: 04/15/2023 19:24 INDICATION: Right forearm injury. Fall. TECHNIQUE: 2 views of right forearm were obtained. COMPARISON: None. FINDINGS: Bone alignment is normal. No fracture. There is moderate osteoarthritis of triscaphe joint and mild osteoarthritis of first carpometacarpal joint. No elbow joint effusion. IMPRESSION: 1. Polyarticular osteoarthritis. Reviewed, dictated and finalized at location E. ENT ART CURATOR
--- NOTE | ~2023-04-15 | XR_ITS ---
EXAMINATION: XR femur RT min 2V DATE: 04/15/2023 19:24 INDICATION: Right femur pain. Fall. TECHNIQUE: 2 views of right femur on 4 radiographs were obtained. COMPARISON: None. FINDINGS: Bone alignment is normal. No fracture. There is mild right knee osteoarthritis. Right hip j oint space is normal. No knee joint effusion. There is an electrode overlying the right S3 neural for amen. IMPRESSION: 1. Mild right knee osteoarthritis. Reviewed, dictated and finalized at location E. UTER INSTRUCTOR
[2023-04-15 18:46] VITALS: BP 126/81; PULSE 62; RESP 16; TEMP 36.6; O2SAT 100
[2023-04-15 18:49] VITALS: BP 126/81; PULSE 62; RESP 16; TEMP 36.6; O2SAT 100
--- NOTE | 2023-04-15 19:28 | ED.FALL ---
HPI - Fall General Chief Complaint: Extremity Injury, Upper Stated Complaint: Injured leg/arm Time Seen by Provider: 04/15/23 18:41 Source: patient Mode of arrival: ambulatory Limitations: no limitations History of Present Illness HPI Narrative: Patient is 72-year-old female that presents with right arm and right thigh pain after fall on to metal dog bed. Patient denies hitting her head or loss of conscious. Patient has swelling to right forearm and tenderness on palpation to right humerus and thigh. Denies any weakness, numbness or tingling to extremities. Patient still able to walk normally. Related Data Home Medications Medication Instructions Recorded Confirmed citalopram 40 mg tablet 40 mg feeding tube DAILY 05/09/19 04/15/23 levothyroxine 50 mcg tablet 50 mcg feeding tube DAILY 05/09/19 04/15/23 L.acidophil,rhamnosus-B.breve,longum 1 cap PO DAILY 04/17/21 04/15/23 20 billion cell sprinkle capsule (Probiotic) cetirizine 5 mg tablet (Allergy 5 mg feeding tube DAILY 11/09/21 04/15/23 Relief (cetirizine)) fluticasone propionate 50 1 spray intranasal DAILY 11/09/21 04/15/23 mcg/actuation nasal spray,suspension lactose-reduced food with fiber 1 ea feeding tube USEASDIRECTD 02/10/22 04/15/23 oral liquid hydrocodone 10 mg-acetaminophen 1 tablet feeding tube Q4H 02/22/23 04/15/23 325 mg tablet oxybutynin chloride 5 mg tablet 5 mg feeding tube HS PRN Bladder 03/13/23 04/15/23 spasms Allergies Allergy/AdvReac Type Severity Reaction Status Date / Time Penicillins Allergy Unknown Anaphylactic Verified 04/15/23 18:47 Shock levofloxacin [From Levaquin] Allergy Rash Verified 04/15/23 18:47 povidone-iodine Allergy Rash Verified 04/15/23 18:47 [From Betadine] soap [From Betadine] Allergy Rash Verified 04/15/23 18:47 CILLINS Allergy Anaphylaxis Uncoded 04/15/23 18:47 Review of Systems Review of Systems: All systems reviewed & are unremarkable except as noted in HPI and below Constitutional: Constitutional: Denies body ache(s), Denies chills, Denies fatigue, Denies fever(s), Denies headache(s), Denies malaise and Denies weakness Eyes: Eyes: Denies blurry vision, Denies irritation and Denies loss of vision ENT: Denies otalgia, Denies headache(s), Denies nasal discharge, Denies sinus pain and Denies sore throat Cardiovascular: Cardiovascular: Denies chest pain, Denies irregular heart rhythm and Denies dyspnea Respiratory: Respiratory: Denies dyspnea Gastrointestinal: Gastrointestinal: Denies abdominal pain, Denies melena, Denies hematochezia, Denies diarrhea, Denies nausea and Denies vomiting Musculoskeletal: Musculoskeletal: Denies back pain, Reports myalgias and Denies arthralgias Integumentary/Breasts: Skin/Breast: Denies pruritus and Denies rash Neurologic: Denies headache(s), Denies loss of vision and Denies weakness Psychiatric: Psychiatric: Reports no additional psychiatric complaints Endocrine: Endocrine: Denies fatigue PMFSH Past Medical History Medical History Asthma Cancer of mandible Chronic anemia Chronic renal failure, stage 4 (severe) Depression Fibromyalgia Gastrostomy malfunction GERD (gastroesophageal reflux disease) History of chemotherapy Hx of adenomatous colonic polyps Hx of radiation therapy Kidney failure Left upper quadrant pain Pain around percutaneous endoscopic gastrostomy (PEG) tube site Seizure age 5-16 Uses feeding tube Surgical History Surgical History H/O: hysterectomy History of mandibular surgery partial removal of mandible Hx of cholecystectomy S/P cervical spinal fusion 2000 Family History Family History Father Afib COPD (chronic obstructive pulmonary disease) Diabetes mellitus Mother Tumor Daughter Cancer Social History Social History (Reviewed 1
== END 2023-04-15 19:42 | disposition home or self-care (01) ==
PROVIDERS: Emergency Provider Nurse Practitioner Family; PCP Internal Medicine
DX: S50.11XA Contusion of right forearm, initial encounter (principal); S40.021A Contusion of right upper arm, initial encounter; S70.11XA Contusion of right thigh, initial encounter; W19.XXXA Unspecified fall, initial encounter; J45.909 Unspecified asthma, uncomplicated; M79.7 Fibromyalgia; K21.9 Gastro-esophageal reflux disease without esophagitis; N18.4 Chronic kidney disease, stage 4 (severe); Z85.830 Personal history of malignant neoplasm of bone; Z92.21 Personal history of antineoplastic chemotherapy; Z92.3 Personal history of irradiation; Z87.891 Personal history of nicotine dependence
CPT/HCPCS: 73060; 73090; 73552; 99214; G0463

== ENCOUNTER 2023-04-24 01:54 | Day surgery (SDC) | payer MEDICARE, SELFPAY ==
[2023-03-19 14:07] VITALS: BMI 19.5
--- NOTE | 2023-04-01 08:44 | SUR.PREOP ---
Patient called regarding upcoming procedure. Message left on stephane'ts voicemail regarding preop instructions, appointment times, and procedure prep.
--- NOTE | 2023-04-09 14:13 | PC.NURSE ---
Medications and health history reviewed with patient. Instructions for prep through her PEG tube discussed and patient verbalizes understanding.
--- NOTE | 2023-04-22 09:24 | SUR.PREOP ---
Patient called regarding upcoming procedure. Reviewed preop instructions, appointment times, and procedure prep.
--- NOTE | 2023-04-23 14:35 | PM.HPGS ---
History of Present Illness History of Present Illness Consent: Risks, benefits, and alternatives have been discussed and questions answered. Patient agrees to proceed with procedure. Chief complaint: hx of colon polyps Narrative: Barb Padilla is a 72 year old female referred for colonoscopy due to history of polyps. Her last colonoscopy was done by Dr. Ray. 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 Review of Systems Review of Systems: All systems reviewed & are unremarkable except as noted in HPI and below PMFSH Past Medical History Medical History Asthma Cancer of mandible Chronic anemia Chronic renal failure, stage 4 (severe) Depression Fibromyalgia Gastrostomy malfunction GERD (gastroesophageal reflux disease) History of chemotherapy Hx of adenomatous colonic polyps Hx of radiation therapy Kidney failure Left upper quadrant pain Pain around percutaneous endoscopic gastrostomy (PEG) tube site Seizure age 5-16 Uses feeding tube Surgical History Surgical History H/O: hysterectomy History of mandibular surgery partial removal of mandible Hx of cholecystectomy S/P cervical spinal fusion 2000 Family History Family History Father Afib COPD (chronic obstructive pulmonary disease) Diabetes mellitus Mother Tumor Daughter Cancer Social History Social History Social History: The patient is and lives with her . 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 She does not drink any alcohol. She is an ex-smoker she smoked a pack a cigarettes a day for 30 years and quit in 2005. Her is a durable power word processing specialist for healthcare. Code status full code Smoking packs per day: 1 Smoking cigarettes per day: 20.0 Years smoked: 20 Smoking pack-years: 20.00 Smoking status: Former smoker Tobacco type: cigarettes Second hand tobacco smoke exposure: No Additional smoking assessment comments: STATES QUIT SMOKING 2006 Alcohol intake: former Substance use: never Substance use type: does not use Lack of Transportation: No Lack of Food: Never True Current Housing: I Have Housing Concerned About Future Housing: No Difficulty Paying Gas/Electric Bills: No Difficulty Paying for Meds: No Currently Unemployed: No Education: Associate Degree Difficulty w/ Childcare or Family Care: No Living arrangements: with family Gender identity (if verbalized by the patient): Female Spiritual care concerns: No Agree to blood products: Yes Meds Home Medications and Allergies Home Medications Medication Instructions Recorded Confirmed Type citalopram 40 mg tablet 40 mg feeding tube DAILY 05/09/19 04/24/23 History levothyroxine 50 mcg tablet 50 mcg feeding tube DAILY 05/09/19 04/24/23 History L.acidophil,rhamnosus-B.breve,longum 1 cap PO DAILY 04/17/21 04/24/23 History 20 billion cell sprinkle capsule (Probiotic) cetirizine 5 mg tablet (Allergy 5 mg feeding tube DAILY 11/09/21 04/24/23 History Relief (cetirizine)) fluticasone propionate 50 1 spray intranasal DAILY 11/09/21 04/24/23 History mcg/actuation nasal spray,suspension lactose-reduced food with fiber 1 ea feeding tube USEASDIRECTD 02/10/22 04/24/23 History oral liquid hydrocodone 10 mg-acetaminophen 1 tablet feeding tube Q4H 02/22/23 04/24/23 History 325 mg tablet oxybutynin chloride 5 mg tablet 5 mg feeding tube HS PRN Bladder 03/13/23 04/24/23 History spasms Allergies Allergy/AdvReac Type Severity Reaction Status Date / Time Penicillins Allergy Unknown Anaphylactic Verified 04/24/23 10:21 Shock levofloxacin [From Levaquin] Allergy Rash Verified 04/24/23 10:21 povidone-iodine
[2023-04-24 10:25] VITALS: BP 131/64; PULSE 59; RESP 16; TEMP 36.3; O2SAT 100
[2023-04-24] MEDS: LACTATED RINGERS 1,000 ML 150 ML IV CONT (10:34)
--- NOTE | 2023-04-24 11:08 | WPDANESEPPF ---
Anes - Initial Pre Proc Eval Procedure: Operation Date: 04/24/23 11:30 Proposed Procedures p Colonoscopy - Wilmer Ansari MD Date/Time: 04/24/23 11:08 Surgeon: Wilmer Ansari MD Pre Op Diagnosis: hx of colon polyps Patient Data Age: 72 Gender: F Height: 1.63 m Weight: 52.4 kg Last Vital Signs Temp 97.3 F L 04/24/23 10:25 Pulse 59 L 04/24/23 10:25 Resp 16 04/24/23 10:25 BP 131/64 04/24/23 10:25 Pulse Ox 100 04/24/23 10:25 O2 Del Method Room Air 04/24/23 10:25 Allergies Allergy/AdvReac Type Severity Reaction Status Date / Time Penicillins Allergy Unknown Anaphylactic Verified 04/24/23 10:21 Shock levofloxacin [From Levaquin] Allergy Rash Verified 04/24/23 10:21 povidone-iodine Allergy Rash Verified 04/24/23 10:21 [From Betadine] soap [From Betadine] Allergy Rash Verified 04/24/23 10:21 CILLINS Allergy Anaphylaxis Uncoded 04/24/23 10:21 Home Medications Medication Instructions Recorded Confirmed Type citalopram 40 mg tablet 40 mg feeding tube DAILY 05/09/19 04/24/23 History levothyroxine 50 mcg tablet 50 mcg feeding tube DAILY 05/09/19 04/24/23 History L.acidophil,rhamnosus-B.breve,longum 1 cap PO DAILY 04/17/21 04/24/23 History 20 billion cell sprinkle capsule (Probiotic) cetirizine 5 mg tablet (Allergy 5 mg feeding tube DAILY 11/09/21 04/24/23 History Relief (cetirizine)) fluticasone propionate 50 1 spray intranasal DAILY 11/09/21 04/24/23 History mcg/actuation nasal spray,suspension lactose-reduced food with fiber 1 ea feeding tube USEASDIRECTD 02/10/22 04/24/23 History oral liquid hydrocodone 10 mg-acetaminophen 1 tablet feeding tube Q4H 02/22/23 04/24/23 History 325 mg tablet oxybutynin chloride 5 mg tablet 5 mg feeding tube HS PRN Bladder 03/13/23 04/24/23 History spasms Patient hx anesthesia problems: none Family hx anesthesia problems: none Results Review: All pre-operative results and documents have been reviewed as part of the pre-operative evaluation. [facility] Past Medical History Medical History Asthma Cancer of mandible Chronic anemia Chronic renal failure, stage 4 (severe) Depression Fibromyalgia Gastrostomy malfunction GERD (gastroesophageal reflux disease) History of chemotherapy Hx of adenomatous colonic polyps Hx of radiation therapy Kidney failure Left upper quadrant pain Pain around percutaneous endoscopic gastrostomy (PEG) tube site Seizure age 5-16 Uses feeding tube Surgical History Surgical History H/O: hysterectomy History of mandibular surgery partial removal of mandible Hx of cholecystectomy S/P cervical spinal fusion 2000 Family History Family History Father Afib COPD (chronic obstructive pulmonary disease) Diabetes mellitus Mother Tumor Daughter Cancer Social History Social History Social History: The patient is and lives with her . 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 She does not drink any alcohol. She is an ex-smoker she smoked a pack a cigarettes a day for 30 years and quit in 2005. Her is a durable power parts sales advisor for healthcare. Code status full code Smoking packs per day: 1 Smoking cigarettes per day: 20.0 Years smoked: 20 Smoking pack-years: 20.00 Smoking status: Former smoker Tobacco type: cigarettes Second hand tobacco smoke exposure: No Additional smoking assessment comments: STATES QUIT SMOKING 2006 Alcohol intake: former Substance use: never Substance use type: does not use Lack of Transportation: No Lack of Food: Never True Current Housing: I Have Housing Concerned About Future Housing: No Difficulty Paying Gas/Electric Bills: No Difficulty Paying for Me
[2023-04-24 11:15] VITALS: BP 138/65; PULSE 55; RESP 15; O2SAT 100
[2023-04-24 11:25] VITALS: BP 143/60; PULSE 56; RESP 19; O2SAT 100
[2023-04-24 11:35] VITALS: BP 152/59; PULSE 57; RESP 16; O2SAT 100
== END 2023-04-24 11:45 | disposition home or self-care (01) ==
PROVIDERS: PCP Internal Medicine; Visit Provider Internal Medicine Gastroenterology
PROC: 0DJD8ZZ Inspection of Lower Intestinal Tract, Via Natural or Artificial Opening Endoscopic (ICD-10-PCS; CPT 45378; principal; 2023-04-24 11:30)
DX: Z12.11 Encounter for screening for malignant neoplasm of colon (principal); K57.30 Diverticulosis of large intestine without perforation or abscess without bleeding; Z86.010 Personal history of colon polyps; D64.9 Anemia, unspecified; N18.4 Chronic kidney disease, stage 4 (severe); J45.909 Unspecified asthma, uncomplicated; M79.7 Fibromyalgia; K21.9 Gastro-esophageal reflux disease without esophagitis; Z93.1 Gastrostomy status; Z92.21 Personal history of antineoplastic chemotherapy; Z92.3 Personal history of irradiation; Z98.1 Arthrodesis status; Z87.891 Personal history of nicotine dependence; Z85.818 Personal history of malignant neoplasm of other sites of lip, oral cavity, and pharynx
CPT/HCPCS: G0105; J2704; J7120

== ENCOUNTER → 2023-07-01 11:03 | Outpatient (CLI) | payer MEDICARE, SELFPAY ==
--- NOTE | ~2023-07-01 | MM_ITS ---
EXAMINATION: MM screening sarah BI w howard HISTORY: Screening TECHNIQUE: Craniocaudal and mediolateral oblique 3-D tomosynthesis images were obtained and synthetic 2-D images were generated. CAD analysis was submitted and interpreted. COMPARISON: Comparison to multiple prior studies sequentially, with oldest reviewed study dated 12/2013. BREAST PARENCHYMAL COMPOSITION: Dense: The breasts are extremely dense, which lowers the sensitivity of mammography. FINDINGS: There is no evidence of suspicious mass, calcification, or architectural distortion to sugg est malignancy in either breast. There has been no suspicious interval change. IMPRESSION: 1. No mammographic evidence of malignancy. 2. Recommend routine screening mammography in one year. BI-RADS Category 1: Negative Reviewed, dictated and finalized at location A. ES' ASSOCIATION COUNSELOR
--- NOTE | ~2023-07-01 | DEXA_ITS ---
Bone Density Report Name: ALEJANDRA CELESTE Age: 73 Sex: Female Ethnicity: White Date of : 1950 Indication: postmenopausal; screening for osteoporosis; parental hip fracture; height loss; asthma or emphysema; hysterectomy; Referring Provider: ALFONZO, KAMERON Hess Study: Bone densitometry was performed. Exam Date: July 01, 2023 Accession number: [id number] Bone Density: Region BMD T-score Z-score Classification AP Spine (L1-L4) 0.895 -1.4 0.8 Osteopenia Femoral Neck (Left) 0.560 -2.6 -0.7 Osteoporosis Total Hip (Left) 0.676 -2.2 -0.6 Osteopenia Femoral Neck (Right) 0.548 -2.7 -0.9 Osteoporosis Total Hip (Right) 0.681 -2.1 -0.6 Osteopenia Total Hip Mean 0.679 -2.2 -0.6 Osteopenia World Health Organization criteria for BMD impression classify patients as: Normal (T-score at or above -1.0), Osteopenia (T-score between -1.0 and -2.5), or Osteoporosis (T-score at or below -2.5). 10-year Fracture Risk: FRAX not reported because: Some T-score for Spine Total or Hip Total or Femoral Neck at or below -2.5 Clinical Information Provided by Patient: Parent has had a hip fracture Has the following medical conditions: Asthma or Emphysema, Hysterectomy, HX OF MANDIBLE CA WITH RADIATION AND CHEMO Patient maximum height was 64.0 Menopause Age: 41 Drinks caffeinated beverages Onset of menses at age 13 Number of children 2 Impression: The patient has osteoporosis, based on the Right Femoral Neck T-score. The patient has risk factors, including: parental hip fracture. Discussion: INCREASED RISK OF FRACTURE. BONE DENSITY IS UNDESIRABLY LOW AT ONE OR MORE SKELETAL SITES, CONSISTENT WITH POSTMENOPAUSAL OSTEOPOROSIS. This patient's lowest T-score meets the World Health Organization's (WHO) criteria for osteoporosis at one or more sites (T-score -2.5 or below). In untreated patients, the risk of osteoporotic fracture increases approximately two-fold for each 1.0 SD decrease in T-score. Low bone density is not the only risk factor for fracture; also consider factors such as patient's age, frailty or poor health, risk of falling, risk of injury, previous osteoporotic fracture, family history of osteoporosis, cigarette smoking, low body weight, etc. Not everyone with low bone mineral density has osteoporosis; osteomalacia and other metabolic bone disorders should also be considered. Patients who have osteoporosis should be evaluated for specific diseases and conditions (secondary causes) that may cause or contribute to bone loss. The [employer] Association of Clinical Endocrinologists (AACE) and National Osteoporosis Foundation (NOF) recommend pharmacologic intervention for all postmenopausal women whose T-score is in this range. The patient should follow a healthful lifestyle (good nutrition with adequate calcium a
--- NOTE | ~2023-07-01 | XR_ITS ---
Clinical Indication: Pneumonia PA and lateral views of the chest: Comparison: 03/05/2023 Findings: The lungs are clear, without evidence of focal consolidation or pleural effusion. Cardiome diastinal silhouette is within normal limits. Bones and soft tissues are unremarkable, aside from cer vical fixation hardware. Impression: Normal chest. Reviewed, dictated and finalized at location . 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
== END ==
PROVIDERS: PCP Internal Medicine; Visit Provider Internal Medicine
DX: Z12.31 Encounter for screening mammogram for malignant neoplasm of breast (principal); M81.0 Age-related osteoporosis without current pathological fracture; J18.9 Pneumonia, unspecified organism; M85.88 Other specified disorders of bone density and structure, other site; M85.852 Other specified disorders of bone density and structure, left thigh; M85.851 Other specified disorders of bone density and structure, right thigh
CPT/HCPCS: 71046; 77063; 77067; 77080

== ENCOUNTER 2023-07-09 12:25 | Emergency (ER) | payer MEDICARE, SELFPAY ==
[2023-07-09] VITALS (8 sets, daily range): BP systolic 88–136; BP diastolic 48–67; PULSE 58–64; RESP 12–20; TEMP 36.6–37.1; O2SAT 95–99
--- NOTE | ~2023-07-09 | XR_ITS ---
EXAMINATION: XR chest 2V DATE: 07/09/2023 16:24 INDICATION: Cough. TECHNIQUE: Frontal and lateral views of the chest were obtained. COMPARISON: Chest 2 views 07/01/2023 FINDINGS: There are airspace opacities in basilar left lower lobe. There is a small left pleural effu antonia. No pneumothorax. The heart size is normal. There are changes of anterior fusion procedures in c ervical spine. Surgical clips in the right upper quadrant are likely from cholecystectomy. IMPRESSION: 1. Small left pleural effusion. 2. Airspace opacities in basilar left lower lobe, consistent with atelectasis versus pneumonia. Reviewed, dictated and finalized at location A. 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 Small left pleural effusion. 2. Airspace opacities in basilar left lower lobe, consistent with atelectasis v ersus pneumonia.
--- NOTE | 2023-07-09 14:42 | PC.NURSE ---
COVID/Flu/RSV swab collected & sent to lab
--- NOTE | 2023-07-09 14:42 | PC.NURSE ---
Pt c/o fever that reduces with Tylenol & then returns, dizziness & neck pain.
[2023-07-09 14:54] LABS: Basophils Percent Auto 0.4 % (0.2-1.2); Eosinophils Percent Auto 0.1 % (0-4.4); Hematocrit 36.9 % (37.0-47.0); Hemoglobin 11.4 g/dL (12.0-15.0); Immature Granulocyte Absolute 0.04 K/mm3 (0.00-0.031); Immature Granulocyte Percent A 0.4 % (0-0.5); Immature Platelet Fraction Pct 15.5 % (0.9-11.2); Lymphocytes Absolute Auto 0.59 K/mm3 (0.9-3.2); Lymphocytes Percent Auto 5.5 % (18.3-44.2); Mean Corpuscular HGB Conc 30.9 g/dl (32-36); Mean Corpuscular Hemoglobin 29.8 pg (26-34); Mean Corpuscular Volume 96.3 fl (80-100); Monocytes Absolute Auto 0.6 K/mm3 (0.1-0.6); Monocytes Percent Auto 5.5 % (2.6-8.5); Neutrophils Absolute Auto 9.4 K/mm3 (1.3-6.7); Neutrophils Percent Auto 88.1 % (45.5-73.1); Platelet Count Result 108 k/mm3 (150-375); Red Blood Count 3.83 M/mm3 (4.2-5.4); Red Cell Distribution Width 14.6 % (11.5-14.5); White Blood Count 10.7 K/mm3 (4.5-10.0)
[2023-07-09 15:09] LABS: Alanine Aminotransferase 14 U/L (6-35); Albumin Level 4.2 g/dL (3.5-5.1); Alkaline Phosphatase 109 U/L (38-126); Anion Gap 2 mmol/L (8-16); Aspartate Amino Transferase 33 U/L (14-36); Bilirubin,Total 0.8 mg/dL (0.2-1.3); Blood Urea Nitrogen 38 mg/dL (7-17); Calcium 9.6 mg/dL (8.4-10.2); Carbon Dioxide 35 mmol/L (22-30); Chloride 97 mmol/L (98-107); Estimated CRCL calculation 31 ml/min; Estimated Glomerular Filt Rate 44; Glucose 86 mg/dL (65-110); Potassium 4.5 mmol/L (3.4-5.0); Sodium 134 mmol/L (137-145)
[2023-07-09 15:28] LABS: Influenza A QL RT-PCR Negative (Negative); Influenza B QL RT-PCR Negative (Negative); RSV RNA, RT-PCR Negative (Negative); SARS-CoV-2 RNA PCR Negative (Negative)
[2023-07-09] MEDS: SODIUM CHLORIDE 0.9% IV 1,000 ML 999 ML IV CONT (16:56)
--- NOTE | 2023-07-09 17:30 | ED.FEVER ---
HPI - Fever General Chief Complaint: Fever Stated Complaint: Fever Time Seen by Provider: 07/09/23 15:56 History of Present Illness HPI Narrative: This is a 73-year-old female, with history of squamous cell carcinoma of the jaw -resolved, no longer on chemotherapy or radiation, who presents to the emergency department complaining fever and intermittent cough. Patient states she had a measured temperature of 105?F at home that improved with Tylenol and ibuprofen. She complains of cough productive of some mucus with out blood. She has no other complaints at this time. Related Data Home Medications Medication Instructions Recorded Confirmed citalopram 40 mg tablet 40 mg feeding tube DAILY 05/09/19 04/24/23 levothyroxine 50 mcg tablet 50 mcg feeding tube DAILY 05/09/19 04/24/23 L.acidophil,rhamnosus-B.breve,longum 1 cap PO DAILY 04/17/21 04/24/23 20 billion cell sprinkle capsule (Probiotic) cetirizine 5 mg tablet (Allergy 5 mg feeding tube DAILY 11/09/21 04/24/23 Relief (cetirizine)) fluticasone propionate 50 1 spray intranasal DAILY 11/09/21 04/24/23 mcg/actuation nasal spray,suspension lactose-reduced food with fiber 1 ea feeding tube USEASDIRECTD 02/10/22 04/24/23 oral liquid hydrocodone 10 mg-acetaminophen 1 tablet feeding tube Q4H 02/22/23 04/24/23 325 mg tablet oxybutynin chloride 5 mg tablet 5 mg feeding tube HS PRN Bladder 03/13/23 04/24/23 spasms Allergies Allergy/AdvReac Type Severity Reaction Status Date / Time Penicillins Allergy Unknown Anaphylactic Verified 04/24/23 10:21 Shock levofloxacin [From Levaquin] Allergy Rash Verified 04/24/23 10:21 povidone-iodine Allergy Rash Verified 04/24/23 10:21 [From Betadine] soap [From Betadine] Allergy Rash Verified 04/24/23 10:21 CILLINS Allergy Anaphylaxis Uncoded 04/24/23 10:21 Review of Systems Review of Systems: CONSTITUTIONAL: Fever Denies chills, or sweats. ENT: Denies rhinorrhea, congestion, sore throat, or otalgia. CARDIOVASCULAR: Denies chest pain, palpitations, or edema. RESPIRATORY: Cough productive of nonbloody sputum Denies dyspnea. GASTROINTESTINAL: Denies abdominal pain, nausea, vomiting, or diarrhea. GENITOURINARY: Denies dysuria or hematuria. SKIN: Denies rash or itching. MUSCULOSKELETAL: Denies back pain, joint pain, or myalgia. NEUROLOGIC: Denies headache, numbness, dizziness, or weakness. PSYCHIATRIC: Denies anxiety or depression. [facility]LY [facility] Past Medical History Medical History Asthma Cancer of mandible Chronic anemia Chronic renal failure, stage 4 (severe) Depression Fibromyalgia Gastrostomy malfunction GERD (gastroesophageal reflux disease) History of chemotherapy Hx of adenomatous colonic polyps Hx of radiation therapy Kidney failure Left upper quadrant pain Pain around percutaneous endoscopic gastrostomy (PEG) tube site Seizure age 5-16 Uses feeding tube Surgical History Surgical History H/O: hysterectomy History of mandibular surgery partial removal of mandible Hx of cholecystectomy S/P cervical spinal fusion 2000 Family History Family History Father Afib COPD (chronic obstructive pulmonary disease) Diabetes mellitus Mother Tumor Daughter Cancer Social History Social History Social History: The patient is and lives with her . 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 She does not drink any alcohol. She is an ex-smoker she smoked a pack a cigarettes a day for 30 years and quit in 2005. Her is a durable power health care attorney for healthcare. Code status full code Smoking packs per day: 1 Smoking cigarettes per day: 20.0 Years smoked: 20 Smoking pack-years: 20.00 Smoking status: Former smoker Tobacco ty
== END 2023-07-09 17:55 | disposition home or self-care (01) ==
PROVIDERS: Emergency Medicine; Emergency Provider Preventive Medicine Aerospace Medicine; PCP Internal Medicine
DX: J18.9 Pneumonia, unspecified organism (principal); R05.1 Acute cough; N18.4 Chronic kidney disease, stage 4 (severe); Z87.891 Personal history of nicotine dependence; Z20.822 Contact with and (suspected) exposure to COVID-19
CPT/HCPCS: 36415; 71046; 80053; 85025; 85055; 87637; 96360; 99283; J7030

== ENCOUNTER 2023-12-06 13:05 | Emergency (ER) | payer MEDICARE, SELFPAY ==
--- NOTE | ~2023-12-06 | XR_ITS ---
XR chest 2V Ordering provider: Gabby Butler APRN History: 73 years Female with . cough . Comparison: July 09, 2023 FINDINGS: MEDIASTINUM: The cardiac silhouette is not enlarged. LUNGS: No pneumothorax. Opacification in the right lower lobe medially which is seen posteriorly in t he lateral view. Minimal effusion also seen in the right side. OTHER: Postoperative changes in the cervical spine. No free air under the diaphragm. IMPRESSION: Right lower lobe pneumonia with minimal effusion. Reviewed, dictated and finalized at location A.
[2023-12-06 13:15] VITALS: BP 108/58; PULSE 58; RESP 16; TEMP 36.4; O2SAT 96
--- NOTE | 2023-12-06 13:21 | ED.URI ---
HPI - URI/Sore Throat General Chief Complaint: Upper Respiratory Infection Stated Complaint: Lung Pain/Fever Time Seen by Provider: 12/06/23 13:24 Source: patient Mode of arrival: ambulatory Limitations: no limitations History of Present Illness HPI Narrative: patient presents with complaints of cough and fever since yesterday. She reports that she has had pneumonia in the past, this feels similar. She has been taking Tylenol, states that she has not had a fever today, but yesterday it did get up to 103. Cough is nonproductive, she has associated body aches. Denies any shortness of breath. Not in any distress at this time. MD elicited complaint: fever and cough Pertinent past history: pneumonia and COPD Onset (ago): day(s) (1) Related Data Home Medications Medication Instructions Recorded Confirmed citalopram 40 mg tablet 40 mg feeding tube DAILY 05/09/19 12/06/23 levothyroxine 50 mcg tablet 50 mcg feeding tube DAILY 05/09/19 12/06/23 L.acidophil,rhamnosus-B.breve,longum 1 cap PO DAILY 04/17/21 12/06/23 20 billion cell sprinkle capsule (Probiotic) cetirizine 5 mg tablet (Allergy 5 mg feeding tube DAILY 11/09/21 12/06/23 Relief (cetirizine)) fluticasone propionate 50 1 spray intranasal DAILY 11/09/21 12/06/23 mcg/actuation nasal spray,suspension lactose-reduced food with fiber 1 ea feeding tube USEASDIRECTD 02/10/22 12/06/23 oral liquid hydrocodone 10 mg-acetaminophen 1 tablet feeding tube Q4H 02/22/23 12/06/23 325 mg tablet oxybutynin chloride 5 mg tablet 5 mg feeding tube HS PRN Bladder 03/13/23 12/06/23 spasms Allergies Allergy/AdvReac Type Severity Reaction Status Date / Time Penicillins Allergy Unknown Anaphylactic Verified 12/06/23 13:11 Shock levofloxacin [From Levaquin] Allergy Rash Verified 12/06/23 13:11 povidone-iodine Allergy Rash Verified 12/06/23 13:11 [From Betadine] soap [From Betadine] Allergy Rash Verified 12/06/23 13:11 CILLINS Allergy Anaphylaxis Uncoded 12/06/23 13:11 Review of Systems Review of Systems: All systems reviewed & are unremarkable except as noted in HPI and below Constitutional: Constitutional: Reports as per HPI and Reports no additional constitutional complaints ENT: Reports system reviewed and no additional complaints, except as documented Cardiovascular: Cardiovascular: Reports no additional cardiovascular complaints Respiratory: Respiratory: Reports no additional respiratory complaints, Reports chest congestion, Reports cough, Denies pain on inspiration, Reports pain with cough and Denies dyspnea Gastrointestinal: Gastrointestinal: Reports no additional gastrointestinal complaints Musculoskeletal: Musculoskeletal: Reports myalgias PMFSH Past Medical History Medical History Asthma Cancer of mandible Chronic anemia Chronic renal failure, stage 4 (severe) Depression Fibromyalgia Gastrostomy malfunction GERD (gastroesophageal reflux disease) History of chemotherapy Hx of adenomatous colonic polyps Hx of radiation therapy Kidney failure Left upper quadrant pain Pain around percutaneous endoscopic gastrostomy (PEG) tube site Seizure age 5-16 Uses feeding tube Surgical History Surgical History H/O: hysterectomy History of mandibular surgery partial removal of mandible Hx of cholecystectomy S/P cervical spinal fusion 2000 Family History Family History Father Afib COPD (chronic obstructive pulmonary disease) Diabetes mellitus Mother Tumor Daughter Cancer Social History Social History Social History: The patient is and lives with her . 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 She does not drink any alcohol. She is an ex-smoker she smoked a pack a cigarett
== END 2023-12-06 13:58 | disposition home or self-care (01) ==
PROVIDERS: Emergency Provider Nurse Practitioner Family; PCP Internal Medicine
DX: J18.1 Lobar pneumonia, unspecified organism (principal); Z20.822 Contact with and (suspected) exposure to COVID-19; Z87.891 Personal history of nicotine dependence; N18.4 Chronic kidney disease, stage 4 (severe); J45.909 Unspecified asthma, uncomplicated; M79.7 Fibromyalgia; K21.9 Gastro-esophageal reflux disease without esophagitis; F32.A Depression, unspecified; Z85.830 Personal history of malignant neoplasm of bone; Z92.21 Personal history of antineoplastic chemotherapy
CPT/HCPCS: 71046; 87426; 99213; G0463

== ENCOUNTER 2024-02-20 08:35 | Outpatient (CLI) | payer MEDICARE, SELFPAY ==
--- NOTE | ~2024-02-20 | NM_ITS ---
EXAMINATION: NM bone scan whole body DATE: 02/20/2024 12:26 INDICATION: Squamous cell carcinoma of the larynx. TECHNIQUE: 25.4 mCi Tc-99m HDP was administered intravenously. Delayed whole-body scintigrams were o btained. COMPARISON: Bone scan 12/15/2021, chest CT 03/05/2023, neck radiographs 12/02/2022 FINDINGS: There is joint-centered increased activity in the wrists, sternoclavicular joints, and shou lders, likely osteoarthritis. Again seen is increased activity in the mandible. IMPRESSION: 1. Increased activity in the mandible again seen, which may be an expected finding given the history of mandible surgery. Infection of malignancy are not excluded. Correlate with any outside imaging suc h as a neck CT. Reviewed, dictated and finalized at location A. IMPRESSION: 1. Increased activity in the mandible again seen, which may be an expected find ing given the history of mandible surgery. Infection of malignancy are not excl uded. Correlate with any outside imaging such as a neck CT.
== END 2024-02-20 08:36 | disposition home or self-care (01) ==
LOC: ANHIMG 08:38
PROVIDERS: PCP Internal Medicine; Visit Provider Internal Medicine
DX: C32.9 Malignant neoplasm of larynx, unspecified (principal)
CPT/HCPCS: 78306; A9503

== ENCOUNTER 2024-03-24 03:06 | Outpatient (CLI) | payer MEDICARE, SELFPAY ==
[2024-03-20 09:03] VITALS: BMI 19.6
[2024-03-24 06:30] VITALS: BP 116/60; PULSE 58; RESP 16; TEMP 36.2; O2SAT 99
--- NOTE | 2024-03-24 07:25 | PM.HPGS ---
History of Present Illness History of Present Illness Consent: Risks, benefits, and alternatives have been discussed and questions answered. Patient agrees to proceed with procedure. Chief complaint: Gastrostomy Malfunction/ PEG replacement Narrative: Barb Padilla is a 73 year old female previous g-tube is not working well, needs replacement Review of Systems Review of Systems: All systems reviewed & are unremarkable except as noted in HPI and below PMFSH Past Medical History Medical History Asthma Cancer of mandible Chronic anemia Chronic renal failure, stage 4 (severe) Depression Fibromyalgia Gastrostomy malfunction GERD (gastroesophageal reflux disease) History of chemotherapy Hx of adenomatous colonic polyps Hx of radiation therapy Kidney failure Left upper quadrant pain Pain around percutaneous endoscopic gastrostomy (PEG) tube site Seizure age 5-16 Uses feeding tube Surgical History Surgical History H/O: hysterectomy History of mandibular surgery partial removal of mandible Hx of cholecystectomy S/P cervical spinal fusion 2000 Family History Family History Father Afib COPD (chronic obstructive pulmonary disease) Diabetes mellitus Mother Tumor Daughter Cancer Social History Social History Social History: The patient is and lives with her . 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 She does not drink any alcohol. She is an ex-smoker she smoked a pack a cigarettes a day for 30 years and quit in 2005. Her is a durable power passenger elevator operator for healthcare. Code status full code Smoking packs per day: 1 Smoking cigarettes per day: 20.0 Years smoked: 30 Smoking pack-years: 30.00 Smoking status: Former smoker Tobacco type: cigarettes Second hand tobacco smoke exposure: No Additional smoking assessment comments: STATES QUIT SMOKING 2006 Alcohol intake: current Substance use: never Substance use type: does not use Lack of Transportation: No Lack of Food: Never True Current Housing: I Have Housing Concerned About Future Housing: No Difficulty Paying Gas/Electric Bills: No Difficulty Paying for Meds: No Currently Unemployed: No Education: Associate Degree Difficulty w/ Childcare or Family Care: No Living arrangements: with family Gender identity (if verbalized by the patient): Female Spiritual care concerns: No Agree to blood products: Yes Meds Home Medications and Allergies Home Medications Medication Instructions Recorded Confirmed Type citalopram 40 mg tablet 40 mg feeding tube DAILY 05/09/19 03/24/24 History levothyroxine 50 mcg tablet 50 mcg feeding tube DAILY 05/09/19 03/24/24 History cetirizine 5 mg tablet (Allergy 5 mg feeding tube DAILY 11/09/21 03/24/24 History Relief (cetirizine)) fluticasone propionate 50 1 spray intranasal DAILY 11/09/21 03/24/24 History mcg/actuation nasal spray,suspension lactose-reduced food with fiber 1 ea feeding tube USEASDIRECTD 02/10/22 03/24/24 History oral liquid hydrocodone 10 mg-acetaminophen 1 tablet feeding tube Q4H 02/22/23 03/24/24 History 325 mg tablet oxybutynin chloride 5 mg tablet 5 mg feeding tube HS Bladder spasms 03/13/23 03/24/24 History albuterol sulfate 90 mcg/actuation 2 puff inhalation QID PRN 12/06/23 03/20/24 Rx aerosol inhaler (Proventil HFA) shortness of breath or wheezing #8.5 grams alendronate 70 mg tablet 70 mg PO DAILY 03/20/24 03/24/24 History amlodipine 2.5 mg tablet 2.5 mg feeding tube DAILY 03/20/24 03/24/24 History aspirin 81 mg chewable tablet 81 mg feeding tube DAILY 03/20/24 03/24/24 History atorvastatin 20 mg tablet 20 mg feeding tube DAILY 03/20/24 03/24/24 History Allergies Allergy/AdvReac Type Severity Reaction Status Date / Time Penicillins Allergy Unknown Anaphylactic Verified 03/24/24 06:28 Shock levofloxacin [From Levaquin] Allergy Rash Verified 03/24/24 06:28 povidone-iodine Allergy Rash Verified 03/24/24 06:28 [From Betadine] soap [From Betadine] Allergy Rash Verified 03/24/24 06:28 CILLINS Allergy Anaphylaxis Uncoded 03/24/24 06:28 Vital Signs Vital Signs - 24 hr 03/24/24 06:30 Temperature 97.2 F L Pulse Rate 58 L Respiratory Rate 16 Blood Pressure 116/60 Pulse Oximetry 99 Oxygen Delivery Room Air Exam Const: General: alert Orientation/consciousness: patient oriented x3 HENMT: Face/Nose/Sinus: Other nasal findings present ( Deformity due to previous surgery) Resp: Auscultation: clear to auscultation bilaterally Cardio: Rhythm: regular rhythm GI: Inspection: other ( G-tube in place) GI Palp: Yes Soft to palpation and No Tenderness to palpation present (GI) Neuro: General: patient oriented x3 Assessment and Plan Assessment and plan (1) Gastrostomy malfunction: Code(s): K94.23 - Gastrostomy malfunction Status: Acute Assessment and Plan: will replace g-tube
--- NOTE | 2024-03-24 07:30 | W.PM.PROC2 ---
Procedure Note - Detailed Date of Procedure 03/24/24 Pre-op Diagnosis Gastrostomy Malfunction/ PEG replacement Post-op Diagnosis Same Procedure Performed I removed previous G-tube and then placed a 16 [place] Quinn-rich[place] low profile gastrostomy tube at the bedside, then inflated the balloon with 6 ml of water, if was secured in right position. Patient is going home and ok to resume tube feeding as usual she is to call if malfunctioning again (normally it is exchanged every year) Surgeon Patrice Fields MD Anesthesia None Description of Procedure replacement of new g-tube at bedside
--- NOTE | 2024-03-24 07:52 | SUR.PREOP ---
Successful G-tube replacement at bedside with Dr. Gramajo. Patient brought СЕРГЕЙ-MORALES Low-Profile G-Tube ([id number] exp- 09/11/24) from home. G-tube balloon inflated with 6mL sterile water. Patient tolerated procedure well. Patient states no issues or questions at this time.
--- NOTE | 2024-03-24 14:27 | SUR.PREOP ---
Times - Time Out Called: 722 Procedure Start: 723 Procedure End: 726 Position and Devices - Position: Supine Positioning Devices: NA Pre-Procedure Assessment - Site and Procedure Verified w Patient and/or Others as Appropriate: Yes Verification Coincides w Consent, H&P, Endoscopy Schedule, and Pre-Op Orders: Yes X-Rays/Imaging Studies in Room and/or Implants on Site: Yes Verified Operative Side Marked YES When Applicable: NA Preop Assessment Completed By: Miguel Hobbs RN Time Out - Entire Operative Team Participates and Confirms: Yes Correct Patient, Procedure, Side/Site and Position: Yes Availability of Implants, Special Equipment and Requests: Yes Preop Antibiotics Given within 1 Hour of Incision: NA Assessment of Skin Prep Dry Time: NA Prep = Surgery Prep Solution: NA Site Prepped: NA Prepped By: JORGE LUIS Staff - Animal Pathologist: Miguel Hobbs RN Actual Procedures - Description: PEG replacement with 16 tamazight СЕРГЕЙ-MORALES Low-Profile G-Tube ([id number] exp- 09/11/24) Wound Class: Clean Contaminated Surgeon: Donnie Severity: PEG tube Preop Diagnosis: Gastrostomy Malfunction/ PEG replacement Postop Diagnosis: Successful PEG replacement Transfer Data - Destination: Home Transfer Method: Ambulatory Complications: none Completed Date/Time: 03/24/24729 Completed By: Miguel Hobbs RN
== END 2024-03-24 07:30 ==
PROVIDERS: PCP Internal Medicine; Visit Provider Internal Medicine Gastroenterology
PROC: 0DH63UZ Insertion of Feeding Device into Stomach, Percutaneous Approach (ICD-10-PCS; CPT 43246; principal; 2024-03-24 07:00)
PROC: 0DH63UZ Insertion of Feeding Device into Stomach, Percutaneous Approach (ICD-10-PCS; CPT 43246; 2024-03-24 07:00)
DX: K94.23 Gastrostomy malfunction (principal)
CPT/HCPCS: 99212; G0463

== ENCOUNTER 2024-07-03 11:29 | Outpatient (CLI) | payer MEDICARE, SELFPAY ==
--- NOTE | ~2024-07-03 | MM_ITS ---
EXAMINATION: MM screening sarah BI w howard HISTORY: Screening TECHNIQUE: Craniocaudal and mediolateral oblique 3-D tomosynthesis images were obtained and synthetic 2-D images were generated. CAD analysis was submitted and interpreted. COMPARISON: Comparison to multiple prior studies sequentially, with oldest reviewed study dated 03/13. BREAST PARENCHYMAL COMPOSITION: Dense: The breasts are extremely dense, which lowers the sensitivity of mammography. FINDINGS: There is no evidence of suspicious mass, calcification, or architectural distortion to sugg est malignancy in either breast. There has been no suspicious interval change. IMPRESSION: 1. No mammographic evidence of malignancy. 2. Recommend routine screening mammography in one year. BI-RADS Category 1: Negative Reviewed, dictated and finalized at location L. ING MACHINE OPERATOR
== END 2024-07-03 11:30 | disposition home or self-care (01) ==
LOC: MICIMG 11:30
PROVIDERS: PCP Internal Medicine; Visit Provider Internal Medicine
DX: Z12.31 Encounter for screening mammogram for malignant neoplasm of breast (principal)
CPT/HCPCS: 77063; 77067

== ENCOUNTER 2024-07-23 23:34 | Inpatient (IN) | payer MEDICARE, SELFPAY ==
--- NOTE | ~2024-07-23 | XR_ITS ---
Portable chest x-ray Comparison: 12/06/2023 Clinical History: Hypoxia Findings: Probable focal retrocardiac airspace disease. Right lung clear. Cardiomediastinal silhoue tte is stable. Bones and soft tissues are unremarkable. Impression: Probable left lower lobe pneumonia. Reviewed, dictated and finalized at [facility]. Impression: Probable left lower lobe pneumonia.
--- NOTE | ~2024-07-23 | XR_ITS ---
XR hip RT min 2V Ordering provider: Vicky Tao MD History: . hip pain . Comparison: None. FINDINGS: BONES: No acute fracture or dislocation. HIP JOINT SPACES: Normal. SACROILIAC JOINT SPACES/LUMBAR SPINE: The sacroiliac joint spaces are normal. Age appropriate degener ative changes of the visualized lower lumbar spine. PUBIC SYMPHYSIS: Normal. SOFT TISSUES: Normal. Spinal stimulator is seen in the right buttock area IMPRESSION: No acute osseous abnormality pelvis and right hip. Reviewed, dictated and finalized at location A.
--- OUTSIDE RECORDS SUMMARY | 2024-07-23 23:36 | XMS_ITS | Patient Health Summary ---
Author Organization [facility] Address [address] [place] [address] Care Team Providers Care Sql Server Developer Name Role Phone Vince Fernando MD Primary Care Provider [phone] [facility],non-owned Affiliates and Associated Physician Practices is amultiple site organization consisting of ambulatory clinics and hospital sitesin [place], [place], [place] and [place]. This disclosure is being madepursuant to the Care Everywhere program and may not contain all information available regarding this patient. Last updated 18.[facility] Allergies * Penicillins(Unknown) Social History Tobacco Use Types Packs/Day Years Used Date Smoking Tobacco: Never Assessed AUDIT-C Answer Date Recorded Q1: How often do you have a drink containing alc ohol? Never 09/05/2021 Average Number of Drinks Not on file 022 Frequency of Binge Drinking Not on file 08/12 Sex and Gender Information Value Date Recorded Sex Assigned at Not on file Gender Identity Not on file Sexual Orientation Not on file Last Filed Vital Signs Vital Sign Reading Time Taken Comments Blood Pressure 106/59 09/05/2021 11:50 AM CDT Pulse 57 09/05/2021 11:50 AM CDT Temperature 36.7 C (98.1 F) 09/05/2021 10:25 AM CDT Respiratory Rate 15 09/05/2021 11:49 AM CDT Oxygen Saturation 100% 09/05/2021 11:50 AM CDT Inhaled Oxygen Concentration - - Weight 54.4 kg (120 lb) 09/05/2021 10:34 AM CDT Height 161 cm (5' 3.39) 09/05/2021 10:34 AM CDT Body Mass Index 21 09/05/2021 10:34 AM CDT Procedures * PHOSPHORUS BLOOD(Performed 09/05/2021) * CBC W AUTO DIFFERENTIAL(Performed 09/05/2021) * COMPREHENSIVE METABOLIC PANEL(Performed 09/05/2021) * MAGNESIUM BLOOD(Performed 09/05/2021) * GLUCOSE - POINT OF CARE(Performed 09/05/2021) Results * (ABNORMAL) CBC W AUTO DIFFERENTIAL (09/05/2021 10:38 AM CDT) WBC 4.9 3.5 - 10.5 10 3/uL 09/05/2021 10:59 AM [facility] RBC 4.00 3.80 - 5.20 10 6/uL 09/05/2021 10:59 AM [facility] Hemoglobin 12.0 12.0 - 15.6 g/dL 09/05/2021 10:59 AM [facility] Hematocrit 38.0 35.0 - 45.0 % 09/05/2021 10:59 AM [facility] MCV 95.0 80.7 - 98.3 fL 09/05/2021 10:59 AM [facility] MCH 30.0 26.7 - 34.0 pg 09/05/2021 10:59 AM [facility] MCHC 31.6 30.8 - 35.9 g/dL 09/05/2021 10:59 AM [facility] Platelet Count 134(L) 150 - 400 10 3/uL 09/05/2021 10:59 AM [facility] RDW-SD 47.5 36.0 - 50.0 fL 09/05/2021 10:59 AM [facility] RDW-CV 13.6 11.2 - 14.8 % 09/05/2021 10:59 AM [facility] MPV 13.6(H) 9.4 - 12.9 fL 09/05/2021 10:59 AM [facility] nRBC Absolute 0.00 0 10 3/uL 09/05/2021 10:59 AM [facility] nRBC Auto 0.0 0 /100 WBC 09/05/2021 10:59 AM [facility] Neutrophils % 55.1 35.0 - 70.0 % 09/05/2021 10:59 AM [facility] Lymphocytes % 31.8 20.0 - 43.0 % 09/05/2021 10:59 AM [facility] Monocytes % 9.7 5.0 - 13.0 % 09/05/2021 10:59 AM [facility] Eosinophils % 2.4 0.0 - 6.0 % 09/05/2021 10:59 AM [facility] Basophil % 0.8 0.0 - 2.0 % 09/05/2021 10:59 AM [facility] Neutrophils Absolute 2.7 1.6 - 7.0 10 3/uL 09/05/2021 10:59 AM [facility] Lymphocyte Absolute 1.6 1.1 - 3.9 10 3/uL 09/05/2021 10:59 AM [facility] Monocytes Absolute 0.48 0.26 - 1.07 10 3/uL 09/05/2021 10:59 AM [facility] Eosinophils Absolute 0.12 0.00 - 0.47 10 3/uL 09/05/2021 10:59 AM [facility] Basophils Absolute 0.04 0.00 - 0.08 10 3/uL 09/05/2021 10:59 AM [facility] Immature Granulocytes % 0.2 0.0 - 1.0 % 09/05/2021 10:59 AM [facility] Immature Granulocytes Absolute 0.01 09/05/2021 10:59 AM [facility] Immature Platelet Fraction 11.6(H) 1.1 - 6.2 % 09/05/2021 10:59 AM [facility] Blood BLOOD SPECIMEN / Unknown Venipuncture / Unknown 09/05/2021 10:38 AM CDT 09/05/2021 10:45 AM [facility] Nii Rashid MD LAB - HEMATOLOGY ORD ERABLES [facility] [address] [place] [address], [facility] [phone] * (ABNORMAL) COMPREHENSIVE METABOLIC PANEL (09/05/2021 10:38 AM [facility]) BUN 41(H) 7 - 26 mg/dL 09/05/2021 11:11 AM [facility] Creatinine 1.47(H) 0.56 - 0.96 mg/dL 09/05/2021 11:11 AM [facility] Sodium 142 136 - 145 mmol/L 09/05/2021 11:11 AM [facility] Potassium 4.3 3.5 - 4.5 mmol/L 09/05/2021 11:11 AM [facility] Chloride 104 98 - 107 mmol/L 09/05/2021 11:11 AM [facility] CO2 27 22 - 29 mmol/L 09/05/2021 11:11 AM [facility] Glucose 98 70 - 115 mg/dL 09/05/2021 11:11 AM [facility] Calcium 9.9 8.4 - 10.2 mg/dL 09/05/2021 11:11 AM [facility] Protein Total 6.5 6.0 - 8.3 g/dL 09/05/2021 11:11 AM [facility] Albumin 3.7 3.4 - 5.0 g/dL 09/05/2021 11:11 AM [facility] Bilirubin Total 0.5 0.2 - 1.2 mg/dL 09/05/2021 11:11 AM [facility] Alkaline Phosphatase 113 40 - 150 U/L 09/05/2021 11:11 AM [facility] ALT 12 5 - 55 U/L 09/05/2021 11:11 AM [facility] AST 21 5 - 34 U/L 09/05/2021 11:11 AM [facility] Anion Gap 15 8 - 18 09/05/2021 11:11 AM [facility] BUN/Creatinine Ratio 28(H) 7 - 23 09/05/2021 11:11 AM [facility] Osmolality Calculated 304(H) 270 - 300 mOsm/kg 09/05/2021 11:11 AM [facility] Albumin/Globulin Ratio 1.3 1.1 - 2.3 09/05/2021 11:11 AM CDT [facility] eGFR by CKD-EPI 38(L) >=90 mL/min/1.7 3 m2 09/05/2021 11:11 AM CDT [facility] Blood BLOOD SPECIMEN / Unknown Venipuncture / Unknown 09/05/2021 10:38 AM CDT 09/05/2021 10:45 AM CDT Nii Rashid MD LAB - CHEMISTRY [facility] [address] [address], [place] [phone] * PHOSPHORUS BLOOD (09/05/2021 10:38 AM CDT) Phosphorus 3.8 2.9 - 5.1 mg/dL 09/05/2021 11:11 AM CDT [facility] Blood BLOOD SPECIMEN / Unknown Venipuncture / Unknown 09/05/2021 10:38 AM CDT 09/05/2021 10:45 AM CDT Nii Rashid MD LAB - CHEMISTRY [facility] Performing Organization Address City/[facility]/ZIP Co de Phone Number [address] [address], [place] [phone] * MAGNESIUM BLOOD (09/05/2021 10:38 AM CDT) Magnesium 2.2 1.6 - 2.6 mg/dL 09/05/2021 11:11 AM CDT [facility] Blood BLOOD SPECIMEN / Unknown Venipuncture / Unknown 09/05/2021 10:38 AM CDT 09/05/2021 10:45 AM CDT Nii Rashid MD LAB - CHEMISTRY [facility] Performing Organization Address City/[facility]/ZIP Co de Phone Number [address] [address], [place] [phone] * GLUCOSE - POINT OF CARE (09/05/2021 10:14 AM CDT) Glucose WB/POC 107 70 - 115 mg/dL 09/06/2021 6:06 AM CDT [facility] Specimen Type Cap Fingerstick 2021 6:06 AM CDT [facility] Blood BLOOD SPECIMEN / Unknown 09/05/2021 10:14 AM CDT 09/06/2021 6:06 AM CDT Provider Unknown LAB - POINT OF CARE ORDERABLES Performing Organization Address City/State/[facility] Co de Phone Number [facility] [address] [place] [address], [facility] [phone] Care Teams Sql Server Developer Relationship Specialty Start Date End Date Vince Fernando MD [address] [place] [address] [address] [place] [address] PCP - General Internal Medicine 09/05/21
--- OUTSIDE RECORDS SUMMARY | 2024-07-23 23:36 | XMS_ITS | Clinical Summary ---
Author Organization [facility] Address [address] [place] [address] Care Team Providers Care Motorboat Mechanic Name Role Phone None, Provider MD Primary Care Provider Unavaila ble Social History Tobacco Use Types Packs/Day Years Used Date Smoking Tobacco: Never Assessed Comments Unknown Sex and Gender Information Value Date Recorded Sex Assigned at Not on file Legal Sex Female 11:47 AM CDT Gender Identity Not on file Sexual Orientation Not on file Plan of Treatment Health Maintenance Due Date Last Done Comments Colorectal Cancer Screening Colonoscopy (10 Years) 1952 Hepatitis C 1970 Mammogram Screening 1992 Zoster Vaccines (2 of 3) 04/15/2016 02/19/2016 Annual Medicare Wellness Visit 2017 Dexa Scan (General) 2017 COVID-19 Vaccine ( season) 2024 02/13/2023, 02/09/2022, 02/05/2022, Additional history exists Influenza Adult (#1) 2024 02/04/2022, 02/04/2021, 02/26/2019, Additional history exists DTaP, Tdap and Td Vaccines (2 - Td or Tdap) 12/02/2032 12/02/2022 Pneumococcal Vaccine: 65+ Years Completed 03/01/2020, 02/26/2019 RSV Immunization or 60+ Years Completed 12/31/2022 Meningococcal B Vaccine Aged Out No l onger eligible based on patient's age to complete this topic Meningococcal Vaccine Aged Out No diana benita eligible based on patient's age to complete this topic RSV Immunizations Under 20 Months Aged Out No longer eligible based on patient's age to complete this topic Medical Devices Implanted Type Area Blow Down Helper Device Identifier Shelf Expiration Date Model / Serial / Lot Stimulator Lead-04/28/2021 Implanted:Qty: 1 on 04/28/2021 Lead Implant Sacrum [id number] / [id number] / Bladder Stimulator-04/28 Implanted:Qty: 1 on 04/28/2021 Stimulator Implant Pelvis [employer] [id number] / [id number] / Description:MR CONDITIONAL A T 1.5 T OR 3 T, SHOULD BE FULL BODY ELIGIBLE (CHECK WITH REMOTE), NEED REMOTE TO TURN OFF STIMULATION, FOLLOW JUSTIN RESTRICTIONS FOR BODY PART BEING SCANNED (MRI TECHNICAL MANUAL), MAX SCAN TIME OF 30 MINUTES WITH 5 MINUTE WAIT IF SCAN TIME REACHED Insurance [facility] Care Teams Motorboat Mechanic Relationship Specialty Start Date End Date None, Provider, PCP - General UNKNOWN PHYSICIAN SPECIALTY 10/02/23
--- OUTSIDE RECORDS SUMMARY | 2024-07-23 23:36 | XMS_ITS | Continuity of Care Document ---
Author Organization [facility] Address [address] [place] [address] Phone Care Team Providers Care Engineering Test Mechanic Name Role Phone Raissa Buck PT Unavailable Unavailable Procedures Procedure Date Therapeutic Activities Neuromuscular Re-Ed Therapeutic Exercise PT Evaluation Low Complexity Neuromuscular Re-Ed Therapeutic Exercise Advance Directives Directive Yes / No Effective Date File Name No Information Encounters Encounter Description Practice Location Reason(s) For Visit Diagnoses Date Provider Providers Copied on Encounter [facility], [address] [place] [address], [id number], tel:[phone] [place] No Information Feb-0 0 Cielo Haji. . Referring Provider: Radha Obrien [facility] Office [facility] [address], [address]. tel:[phone] [facility], [address] [place] [address], [id number], tel:[phone] [place] No Information Feb-0 0 Marium Skinner. . Referring Provider: Radha Obrien [facility] [address], [address]. tel:[phone] Family History Family Member Type Diagnosis Age At Onset No Information Payers Payer name Insurance type Covered green party ID Authorevelioa tion(s) Cigna [id number] Social History Type Description Quantity Date Captured Comments Sex Female Smoking Status No Information Chief Complaint And Reason For Visit No Information Reason For Referral Reason For Referral No Information History Of Present Illness Encounter Date Complaint History Of Prese nt Illness No Information Functional Status Date Functional Assessmen t No Information Instructions Date Instruction Additional Infor mation No Information Assessments Type Assessment Date No Information Patient Care Teams Name Effective Dates (start - stop) Status Members No Information
--- OUTSIDE RECORDS SUMMARY | 2024-07-23 23:36 | XMS_ITS ---
Author Name Amy Olson NP Address Unknown Phone tel: Organization Unknown Address Unknown Phone tel: Care Team Providers Care Steam Engineer Name Role Phone Amy Olson NP Primary Care Provider tel: Sharlene Albright Primary Care Provider tel: ALLERGIES, ADVERSE REACTIONS Data in this section may be excluded or not available. IMMUNIZATIONS Vaccine Date Status Lot number Covid-19(Code: 208) July 04, 2020 Completed Covid-19(Code: 208) February 05, 2021 Completed influenza(Code: 88) February 01, 2021 Completed Covid-19(Code: 208) August 01, 2020 Completed influenza(Code: 88) March 22, 2023 Completed Covid-19(Code: 213) March 22, 2023 Completed influenza(Code: 135) July 08, 2024 Completed ASSESSMENTS Data in this section may be excluded or not available. SOCIAL HISTORY Description Effective Dates Sex F (Female) PROBLEMS Data in this section may be excluded or not available. Patient Care Teams * Care Steam Engineer Role on Team Date Wesley. Amy Su
--- OUTSIDE RECORDS SUMMARY | 2024-07-23 23:36 | XMS_ITS | Encounter Summary ---
Author Organization [facility] Address [address] [place] [address] Phone Care Team Providers Care Paving Stone Installer Name Role Phone Vince Fernando MD Primary Care Provider Vince Fernando MD Unavailable [phone] Miscellaneous, Not In File Unavailable Unava ilable Mirza Gutierrez MD Unavailable [phone] Encounter Details Date Type Department Care Team (Late st Contact Info) Description 03/21/2018 Telephone [facility] [address] [address] Adriana Elliott, A Social History Tobacco Use Types Packs/Day Years Used Date Smoking Tobacco: Former Cigarettes 1 34 1 972 - 2006 Smokeless Tobacco: Never Alcohol Use Standard Drinks/Week Comments No 0 (1 standard drink = 0.6 oz pur e alcohol) Comments No Sex and Gender Information Value Date Recorded Sex Assigned at Not on file Legal Sex Female 3:54 AM HARDWOOD FLOOR INSTALLER Gender Identity Female 01/23/2021 5:40 PM CDT Sexual Orientation Straight 01/23/2021 5: 40 PM CDT documented as of this encounter Plan of Treatment Not on file documented as of this encounter Visit Diagnoses Not on filedocumented in this encounter Additional Health Concerns Infection Onset Date Last Indicated Resolved Time COVID: Suspected 08/26/2019 08/26/2019 08/27/2019 10:17 PM CDT Respiratory Infection (DOMENICA), contact + droplet Comment:Automatically added due to negative COVID-19 result. 08/27/2019 08/27/2019 08/28/2019 8:4 0 PM CDT COVID: Suspected Comment:IP/ID review: patient cleared from precautions Adriana Palomino 08/28/2019 08/28/2019 08/28/2019 08/28/2019 8:40 PM C DT COVID19 04/12/2020 04/12/2020 04/26/2020 3:08 AM HARDWOOD FLOOR INSTALLER COVID: Recovered Comment:Added based on recent COVID infection. 04/26/2020 04/29/2020 08/24/2020 3:05 AM C DT COVID: Suspected 04/11/2023 04/11/2023 04/11/2023 11:12 AM HARDWOOD FLOOR INSTALLER COVID19 04/11/2023 04/11/2023 04/21/2023 3:05 AM HARDWOOD FLOOR INSTALLER COVID: Recovered Comment:Added based on recent COVID infection. 04/21/2023 06/11/2023 07/20/2023 3:[address] documented as of this encounter Care Teams Paving Stone Installer Relationship Specialty Start Date End Date Vince Fernando MD PCP - General 07/04/16 Vince Fernando MD [address] [facility] [address] [place] [address] Referring Physician Internal Medicine 03/19/21 Miscellaneous, Not In File 03/22/21 Mirza Gutierrez MD [address] [facility] [place] [address] Consulting Physician Cardiology 01/20/24 documented as of this encounter
--- OUTSIDE RECORDS SUMMARY | 2024-07-23 23:36 | XMS_ITS | Encounter Summary ---
Author Organization [facility] Address [address] [place] [address] Phone Care Team Providers Care Tungsten Refiner Name Role Phone Vince Fernando MD Primary Care Provider Vince Fernando MD Unavailable [phone] Miscellaneous, Not In File Unavailable Unava ilable Mirza Gutierrez MD Unavailable [phone] Encounter Details Date Type Department Care Team (Latest Contact Info) Description 11/22/2020 Orders Only [facility] Scanning, Provider Social History Tobacco Use Types Packs/Day Years Used Date Smoking Tobacco: Former Cigarettes 1 34 1 972 - 2006 Smokeless Tobacco: Never Alcohol Use Standard Drinks/Week Comments No 0 (1 standard drink = 0.6 oz pur e alcohol) Comments No Sex and Gender Information Value Date Recorded Sex Assigned at Not on file Legal Sex Female 3:54 AM FREEZER WORKER Gender Identity Female 01/23/2021 5:40 PM CDT Sexual Orientation Straight 01/23/2021 5: 40 PM CDT documented as of this encounter Plan of Treatment Not on file documented as of this encounter Procedures Procedure Name Priority Date/Time Associated Diagnosis Comments SCAN - LABS 11/22/2020 documented in this encounter Results * SCAN - LABS (11/22/2020) us Provider Scanning Final Result documented in this encounter Visit Diagnoses Not on filedocumented in this encounter Additional Health Concerns Infection Onset Date Last Indicated Resolved Time COVID: Suspected 04/11/2023 04/11/2023 04/11/2023 11:12 AM FREEZER WORKER COVID19 04/11/2023 04/11/2023 04/21/2023 3:05 AM FREEZER WORKER COVID: Recovered Comment:Added based on recent COVID infection. 04/21/2023 06/11/2023 07/20/2023 3:[address] documented as of this encounter Care Teams Tungsten Refiner Relationship Specialty Start Date End Date Vince Fernando MD PCP - General 07/04/16 Vince Fernando MD [address] [facility] [address] [place] [address] Referring Physician Internal Medicine 03/19/21 Miscellaneous, Not In File 03/22/21 Mirza Gutierrez MD [address] [place] [address] Consulting Physician Cardiology 01/20/24 documented as of this encounter
--- OUTSIDE RECORDS SUMMARY | 2024-07-23 23:36 | XMS_ITS | Encounter Summary ---
Author Organization [facility] Address [address] [place] [address] Phone Care Team Providers Care Local Company Flatbed Truck Driver Name Role Phone Vince Fernando MD Primary Care Provider Vince Fernando MD Unavailable [phone] Miscellaneous, Not In File Unavailable Unava ilable Mirza Gutierrez MD Unavailable [phone] Encounter Details Date Type Department Care Team (Latest Contact Info) Description 11/25/2020 Orders Only [facility] Scanning, Provider [...] on file Legal Sex Female 3:54 AM DATA TYPIST Gender Identity Female 01/23/2021 5:40 PM CDT Sexual Orientation Straight 01/23/2021 5: 40 PM CDT documented as of this encounter Plan of Treatment Not on file documented as of this encounter Procedures Procedure Name Priority Date/Time Associated Diagnosis Comments SCAN - LABS 11/25/2020 documented in this encounter Results * SCAN - LABS (11/25/2020) us Provider Scanning Final Result documented in this encounter Visit Diagnoses Not on filedocumented in this encounter Additional Health Concerns Infection Onset Date Last Indicated Resolved Time COVID: Suspected 04/11/2023 04/11/2023 04/11/2023 11:12 AM DATA TYPIST COVID19 04/11/2023 04/11/2023 04/21/2023 3:05 AM DATA TYPIST COVID: Recovered Comment:Added based on recent COVID infection. 04/21/2023 06/11/2023 07/20/2023 3:[address] documented as of this encounter Care Teams Local Company Flatbed Truck Driver Relationship Specialty Start Date End Date Vince Fernando MD PCP - General 07/04/16 Vince Fernando MD [address] [facility] [address] [place] [address] Referring Physician Internal Medicine 03/19/21 Miscellaneous, Not In File 03/22/21 Mirza Gutierrez MD [address] [address] Consulting Physician Cardiology 01/20/24 documented as of this encounter
--- OUTSIDE RECORDS SUMMARY | 2024-07-23 23:36 | XMS_ITS | Continuity of Care Document ---
Author Organization [facility] Address [address] [place] [address] Insurance Providers Payer Plan Claims Address Claims Phone Policy Number Group Number Relation Employer Guarantor Name Guarantor Guarantor Address Guarantor Phone Cigna [id number] Cigna [id number] Self ALEJANDRA E BOOKER [address] [place] [id number] Medica re Part A Only Medic are Part A Only [id number] Self ALEJANDRA CELESTE [address] [place] [id number] [facility] [id number] [facility] [id number] Self ALEJANDRA E BOOKER [address] [place] [id number] Problems Condition ICD9 code ICD10 code SNOMED code Start Date End Date S tatus Syncope and collapse R55 Fin al Bradycardia, unspecified R00.1 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 Chronic kidney disease, stage 3 unspecified N18.30 Final Major depressive disorder, single episode, unspecified F32.9 [place] l Unspecified asthma, uncomplicated J45.909 Final Acute kidney failure, unspecified N17.9 Final Thrombocytopenia, unspecified D69.6 Final Localized enlarged lymph nodes R59.0 Admitting Localized enlarged lymph nodes R59.0 Admitting Localized enlarged lymph nodes R59.0 Admitting Localized enlarged lymph nodes R59.0 Admitting Localized enlarged lymph nodes R59.0 Admitting Localized enlarged lymph nodes R59.0 Admitting 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 Final Chronic kidney disease, stage 3 unspecified N18.30 Final Localized enlarged lymph nodes R59.0 Admitting 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 Admittin g Chronic kidney disease, stage 3 unspecified N18.30 Admitting 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 Final Chronic kidney disease, stage 3 unspecified N18.30 Final Localized enlarged lymph nodes R59.0 Admitting Localized enlarged lymph nodes R59.0 Admitting Localized enlarged lymph nodes R59.0 Admitting Localized enlarged lymph nodes R59.0 Admitting Localized enlarged lymph nodes R59.0 Admitting Localized enlarged lymph nodes R59.0 Admitting Localized enlarged lymph nodes R59.0 Admitting Localized enlarged lymph nodes R59.0 Admitting Localized enlarged lymph nodes R59.0 Final Localized enlarged lymph nodes R59.0 Admitting Chronic kidney disease, stage 3 unspecified N18.30 Final Other hypotension I95.89 Final Hypovolemia E86.1 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 Anemia, unspecified D64.9 [place] l Unspecified severe protein-calorie malnutrition E43 Final Gastrostomy malfunction K94.23 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 Encounter for screening for malignant neoplasm of colon Z12.11 Final Personal history of colonic polyps Z86.010 Final Malignant neoplasm of larynx, 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 Encounter for attention to gastrostomy Z43.1 Gastrostomy malfunction K94.23 Encounter for attention to gastrostomy Z43.1 Gastrostomy malfunction K94.23 Results No Results Allergies, adverse reactions, alerts Substance Reaction Date Status Type Levaquin 09/12/2022 Drug Immunizations Vaccine Route Date Status Covid-19 03/22/2023 Completed influenza 02/01/2021 Completed Covid-19 08/01/2020 Completed Covid-19 07/04/2020 Completed influenza 03/22/2023 Completed influenza 07/08/2024 Completed Medications No administered medications reported Vital Signs Date Vital Result Comment 08/01/2021 Oxygen saturation in Arterial blood 96.0 - 96.0 % Temperature 98 F Heart Rate 50 beats/minute Blood Pressure Systolic 103 mmHg Blood Pressure Diastolic 57 mmHg Body Height 64 in Body Weight 117 lbs 08/30/2021 Oxygen saturation in Arterial blood 100.0 - 100.0 % Temperature 98 F Heart Rate 73 beats/minute Blood Pressure Systolic 112 mmHg Blood Pressure Diastolic 68 mmHg Body Weight 123 lbs 09/25/2021 Oxygen saturation in Arterial blood 97.0 - 97.0 % Temperature 98.1 F Heart Rate 65 beats/minute Blood Pressure Systolic 102 mmHg Blood Pressure Diastolic 62 mmHg 11/06/2021 Oxygen saturation in Arterial blood 95.0 - 95.0 % Temperature 97.9 F Heart Rate 70 beats/minute Blood Pressure Systolic 102 mmHg Blood Pressure Diastolic 60 mmHg Body Weight 117 lbs 12/18/2021 Oxygen saturation in Arterial blood 97.0 - 97.0 % Temperature 97.6 F Heart Rate 65 beats/minute Blood Pressure Systolic 98 mmHg Blood Pressure Diastolic 60 mmHg 02/14/2022 Oxygen saturation in Arterial blood 98.0 - 98.0 % Temperature 98.5 F Heart Rate 63 beats/minute Blood Pressure Systolic 128 mmHg Blood Pressure Diastolic 68 mmHg 03/19/2022 Oxygen saturation in Arterial blood 98.0 - 98.0 % Temperature 98.1 F Heart Rate 64 beats/minute Blood Pressure Systolic 112 mmHg Blood Pressure Diastolic 62 mmHg Body Weight 118 lbs 04/19/2022 Oxygen saturation in Arterial blood 99.0 - 99.0 % Temperature 97.7 F Heart Rate 70 beats/minute Blood Pressure Systolic 98 mmHg Blood Pressure Diastolic 62 mmHg Body Weight 117 lbs 08/30/2021 Temperature 98 [degF] N Oxygen Saturation 100 % N Respiratory Rate 18 /min N Heart Rate 73 /min N Blood Pressure Systolic 112 mm[Hg] N Blood Pressure Diastolic 68 mm[Hg] N Body Weight 123 [lb_av] N 08/01/2021 Temperature 98 [degF] N Oxygen Saturation 96 % N Respiratory Rate 18 /min N Heart Rate 50 /min N Blood Pressure Systolic 103 mm[Hg] N Blood Pressure Diastolic 57 mm[Hg] N Body Height 64 [in_i] N Body Weight 117 [lb_av] N Body Mass Index 20.1 kg/m2 N 09/24/2021 Temperature 98.1 [degF] N Oxygen Saturation 97 % N Respiratory Rate 18 /min N Heart Rate 65 /min N Blood Pressure Systolic 102 mm[Hg] N Blood Pressure Diastolic 62 mm[Hg] N 11/05/2021 Temperature 97.9 [degF] N Oxygen Saturation 95 % N Respiratory Rate 18 /min N Heart Rate 70 /min N Blood Pressure Systolic 102 mm[Hg] N Blood Pressure Diastolic 60 mm[Hg] N Body Weight 117 [lb_av] N 12/17/2021 Temperature 97.6 [degF] N Oxygen Saturation 97 % N Respiratory Rate 20 /min N Heart Rate 65 /min N Blood Pressure Systolic 98 mm[Hg] N Blood Pressure Diastolic 60 mm[Hg] N 02/14/2022 Temperature 98.5 [degF] N Oxygen Saturation 98 % N Respiratory Rate 18 /min N Heart Rate 63 /min N Blood Pressure Systolic 128 mm[Hg] N Blood Pressure Diastolic 68 mm[Hg] N 03/19/2022 Temperature 98.1 [degF] N Oxygen Saturation 98 % N Respiratory Rate 20 /min N Heart Rate 64 /min N Blood Pressure Systolic 112 mm[Hg] N Blood Pressure Diastolic 62 mm[Hg] N Body Weight 118 [lb_av] N 04/19/2022 Temperature 97.7 [degF] N Oxygen Saturation 99 % N Respiratory Rate 20 /min N Heart Rate 70 /min N Blood Pressure Systolic 98 mm[Hg] N Blood Pressure Diastolic 62 mm[Hg] N Body Weight 117 [lb_av] N 10/16/2022 Inhaled Oxygen Concentration 21.0 % N Oxygen Saturation 97 % N Respiratory Rate 18 /min N Heart Rate 72 /min N Blood Pressure Systolic 112 mm[Hg] N Blood Pressure Diastolic 70 mm[Hg] N Body Height 64 [in_i] N 07/24/2022 Temperature 97.3 [degF] N Respiratory Rate 18 /min N Heart Rate 73 /min N Body Height 64 [in_i] N Body Weight 119 [lb_av] N Body Mass Index 20.4 kg/m2 N 09/12/2022 Inhaled Oxygen Concentration 21.0 % N Temperature 97.5 [degF] N Oxygen Saturation 95 % N Respiratory Rate 18 /min N Heart Rate 65 /min N Blood Pressure Systolic 122 mm[Hg] N Blood Pressure Diastolic 78 mm[Hg] N Body Height 64 [in_i] N Body Weight 116 [lb_av] N Body Mass Index 19.9 kg/m2 N 10/22/2022 Inhaled Oxygen Concentration 21.0 % N Temperature 97.4 [degF] N Oxygen Saturation 97 % N Respiratory Rate 18 /min N Heart Rate 61 /min N Blood Pressure Systolic 112 mm[Hg] N Blood Pressure Diastolic 70 mm[Hg] N Body Height 64 [in_i] N 11/20/2022 Inhaled Oxygen Concentration 21.0 % N Temperature 97.5 [degF] N Oxygen Saturation 98 % N Respiratory Rate 20 /min N Heart Rate 57 /min N Blood Pressure Systolic 116 mm[Hg] N Blood Pressure Diastolic 64 mm[Hg] N Body Height 64 [in_i] N Body Weight 115 [lb_av] N Body Mass Index 19.7 kg/m2 N 12/31/2022 Inhaled Oxygen Concentration 21.0 % N Temperature 97.8 [degF] N Oxygen Saturation 98 % N Respiratory Rate 18 /min N Heart Rate 58 /min N Blood Pressure Systolic 118 mm[Hg] N Blood Pressure Diastolic 68 mm[Hg] N Body Height 64 [in_i] N 02/12/2023 Inhaled Oxygen Concentration 21.0 % N Faces Pain Scale 0.0 N Oxygen Saturation 97 % N Respiratory Rate 18 /min N Heart Rate 56 /min N Blood Pressure Systolic 112 mm[Hg] N Blood Pressure Diastolic 62 mm[Hg] N Body Height 64 [in_i] N Body Weight 115 [lb_av] N Body Mass Index 19.7 kg/m2 N 02/25/2023 Inhaled Oxygen Concentration 21.0 % N Faces Pain Scale 0.0 N Oxygen Saturation 97 % N Heart Rate 57 /min N Blood Pressure Systolic 118 mm[Hg] N Blood Pressure Diastolic 56 mm[Hg] N Body Height 64 [in_i] N Body Weight 123 [lb_av] N Body Mass Index 21.1 kg/m2 N 04/29/2023 Inhaled Oxygen Concentration 21.0 % N Faces Pain Scale 0.0 N Oxygen Saturation 98 % N Respiratory Rate 18 /min N Heart Rate 78 /min N Blood Pressure Systolic 106 mm[Hg] N Blood Pressure Diastolic 56 mm[Hg] N Body Height 64 [in_i] N Body Weight 113 [lb_av] N Body Mass Index 19.4 kg/m2 N 05/29/2023 Inhaled Oxygen Concentration 21.0 % N Faces Pain Scale 0.0 N Oxygen Saturation 98 % N Respiratory Rate 18 /min N Heart Rate 74 /min N Blood Pressure Systolic 122 mm[Hg] N Blood Pressure Diastolic 74 mm[Hg] N Body Height 64 [in_i] N Body Weight 113 [lb_av] N Body Mass Index 19.4 kg/m2 N 07/31/2023 Inhaled Oxygen Concentration 21.0 % N Faces Pain Scale 0.0 N Oxygen Saturation 99 % N Respiratory Rate 18 /min N Heart Rate 78 /min N Blood Pressure Systolic 120 mm[Hg] N Blood Pressure Diastolic 70 mm[Hg] N Body Height 64 [in_i] N Body Weight 114 [lb_av] N Body Mass Index 19.6 kg/m2 N 02/26/2024 Inhaled Oxygen Concentration 21.0 % N Faces Pain Scale 0.0 N Temperature 98.1 [degF] N Oxygen Saturation 99 % N Respiratory Rate 16 /min N Heart Rate 62 /min N Blood Pressure Systolic 118 mm[Hg] N Blood Pressure Diastolic 82 mm[Hg] N Body Height 64 [in_i] N Body Weight 115 [lb_av] N Body Mass Index 19.7 kg/m2 N 06/15/2024 Inhaled Oxygen Concentration 21.0 % N Oxygen Saturation 98 % N Respiratory Rate 18 /min N Heart Rate 56 /min N Blood Pressure Systolic 126 mm[Hg] N Blood Pressure Diastolic 74 mm[Hg] N Body Height 63 [in_i] N Body Weight 114 [lb_av] N Body Mass Index 20.2 kg/m2 N 07/16/2024 Inhaled Oxygen Concentration 21.0 % N Temperature 101.1 [degF] N Oxygen Saturation 96 % N Respiratory Rate 16 /min N Heart Rate 65 /min N Blood Pressure Systolic 101 mm[Hg] N Blood Pressure Diastolic 64 mm[Hg] N Body Height 63 [in_i] N Social History No smoking Hx information available Functional Status Category Condition Date Problem (Feeding: Independent) Feeding: Independ ent 07/24/2022 Problem (Bathing: Independen t (or in shower)) Bathing: Independent (or in shower) 07/24/2022 Problem (Grooming: Independe nt face/hair/teeth/ shaving (implements provided)) Grooming: Independent face/hair/teeth/ shaving (implements provided) 07/24/2022 Problem (Dressing: Independe nt (including buttons, zips, laces, etc.)) Dressing: Independent (including buttons, zips, laces, etc.) 07/24/2022 Problem (Bowels: Continent) Bowels: Continent Problem (Bladder: Occasional accident) Bladder: Occasional accident 07/24/2022 Problem (Toilet use: Indepen dent (on and off, dressing, wiping)) Toilet use: Independent (on and off, dressing, wiping) 07/24/2022 Problem (Transfers (bed to c hair and back): Independent) Transfers (bed to chair and back): Independent 07/24/2022 Problem (Mobility (on level surfaces): Independent (but may use any aid; for example, stick) >50 yards) Mobility (on level surfaces): Independent (but may use any aid; for example, stick) >50 yards 07/24/2022 Problem (Stairs: Independent) Stairs: Independen t 07/24/2022 Problem (Total score: 95) Total score: 95 2022 Problem (Feeding: Independent) Feeding: Independ ent 10/22/2022 Problem (Bathing: Independen t (or in shower)) Bathing: Independent (or in shower) 10/22/2022 Problem (Grooming: Independe nt face/hair/teeth/ shaving (implements provided)) Grooming: Independent face/hair/teeth/ shaving (implements provided) 10/22/2022 Problem (Dressing: Independe nt (including buttons, zips, laces, etc.)) Dressing: Independent (including buttons, zips, laces, etc.) 10/22/2022 Problem (Bowels: Continent) Bowels: Continent Problem (Bladder: Occasional accident) Bladder: Occasional accident 10/22/2022 Problem (Toilet use: Indepen dent (on and off, dressing, wiping)) Toilet use: Independent (on and off, dressing, wiping) 10/22/2022 Problem (Transfers (bed to c hair and back): Independent) Transfers (bed to chair and back): Independent 10/22/2022 Problem (Mobility (on level surfaces): Independent (but may use any aid; for example, stick) >50 yards) Mobility (on level surfaces): Independent (but may use any aid; for example, stick) >50 yards 10/22/2022 Problem (Stairs: Independent) Stairs: Independen t 10/22/2022 Problem (Total score: 95) Total score: 95 2022 Problem (Dressing: Independe nt (including buttons, zips, laces, etc.)) Dressing: Independent (including buttons, zips, laces, etc.) 02/25/2023 Problem (Stairs: Independent) Stairs: Independen t 02/25/2023 Problem (Total score: 100) Total score: 100 02/10 Problem (Bowels: Continent) Bowels: Continent Problem (Feeding: Independent) Feeding: Independ ent 02/25/2023 Problem (Bathing: Independen t (or in shower)) Bathing: Independent (or in shower) 02/25/2023 Problem (Grooming: Independe nt face/hair/teeth/ shaving (implements provided)) Grooming: Independent face/hair/teeth/ shaving (implements provided) 02/25/2023 Problem (Bladder: Continent) Bladder: Continent 02/25/2023 Problem (Transfers (bed to c hair and back): Independent) Transfers (bed to chair and back): Independent 02/25/2023 Problem (Toilet use: Indepen dent (on and off, dressing, wiping)) Toilet use: Independent (on and off, dressing, wiping) 02/25/2023 Problem (Mobility (on level surfaces): Independent (but may use any aid; for example, stick) >50 yards) Mobility (on level surfaces): Independent (but may use any aid; for example, stick) >50 yards 02/25/2023 Mental Status Category Condition Date Cognitive function Normal 07/24/2022 Cognitive function Normal 10/22/2022
--- OUTSIDE RECORDS SUMMARY | 2024-07-23 23:36 | XMS_ITS | Encounter Summary ---
Author Organization [facility] Healthcare Address [address] [place] [address] Care Team Providers Care Construction Producer Name Role Phone Vince eFrnando MD Primary Care Provider Vince Fernando MD Unavailable [phone] Miscellaneous, Not In File Unavailable Unava Mirza King MD Unavailable [phone] Encounter Details Date Type Department Care Team (Late st Contact Info) Description 09/26/2020 Telephone [facility] [id number] [place] [id number] Jennifer Hughes, RT Social History Tobacco Use Types Packs/Day Years Used Date Smoking Tobacco: Former Cigarettes 1 34 1 972 - 2006 Smokeless Tobacco: Never Alcohol Use Standard Drinks/Week Comments No 0 (1 standard drink = 0.6 oz pur e alcohol) Comments No Sex and Gender Information Value Date Recorded Sex Assigned at Not on file Legal Sex Female 3:54 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 04/21/2023 06/11/2023 07/20/2023 3:05 AM TECHNOLOGY AND ENGINEERING TEACHER documented as of this encounter Care Teams Construction Producer Relationship Specialty Start Date End Date Vince Fernando MD PCP - General 07/04/16 Vince Fernando MD [address] [facility] [address] [place] [address] Referring Physician Internal Medicine 03/19/21 Miscellaneous, Not In File 03/22/21 Mirza Gutierrez MD [address] [place] [address] Consulting Physician Cardiology 01/20/24 documented as of this encounter
--- OUTSIDE RECORDS SUMMARY | 2024-07-23 23:36 | XMS_ITS | Continuity of Care Document ---
Author Organization [facility] Address [address] [place] [address] Phone Care Team Providers Care Editor Producer Name Role Phone Espinoza Dockery MD Unavailable Unavailable Advance Directives Directive Yes / No Effective Date File Name No Information Encounters Encounter Description Practice Location Reason(s) For Visit Diagnoses Date Provider Providers Copied on Encounter [facility], [address], [place], [place], [id number], [place] tel:[phone] [facility] [place] No Information Jan- [address]. [address] [facility] [address], [place], [place], [address], [place]. tel:[phone] Referring Provider: Vince Fernando, [facility] [facility], [place], [address]. tel:[phone] Family History Family Member Type Diagnosis Age At Onset No Information Payers Payer name Insurance type Covered alliance party ID Authoriza tion(s) No Information Social History Type Description Quantity Date Captured [...]
--- OUTSIDE RECORDS SUMMARY | 2024-07-23 23:36 | XMS_ITS | Referral Summary ---
Author Organization [facility] Address [address] [facility] [place] [address] Care Team Providers Care Vocational Technical Education Director Name Role Phone Vince Fernando MD Primary Care Provider [phone] Source Comments [facility],non-[facility] Affiliates and Associated Physician Practices is amultiple site organization consisting of ambulatory clinics and hospital sitesin [place], [place], [place] and [place]. This disclosure is being madepursuant to the Care Everywhere program and may not contain all information available regarding this patient. Last updated 18.[facility] Allergies Active Allergy Reactions Criticality Noted Date Comments Penicillins Unknown 09/05/2021 Social History Tobacco Use Types Packs/Day Years [...] Mass Index 21 09/05/2021 10:34 AM CDT Plan of Treatment Not on file Care Teams Vocational Technical Education Director Relationship Specialty Start Date End Date Vince Fernando MD [facility] [place] [address] PCP - General Internal Medicine 09/05/21
--- OUTSIDE RECORDS SUMMARY | 2024-07-23 23:36 | XMS_ITS | Encounter Summary ---
Author Organization [facility] Address [address] [place] [address] Phone Care Team Providers Care Hot Metal Mixer Operator Helper Name Role Phone Vince Fernando MD Primary Care Provider Vince Fernando MD Unavailable [phone] Miscellaneous, Not In File Unavailable Unava ilable Mirza Gutierrez MD Unavailable [phone] Encounter Details Date Type Department Care Team (Latest Contact Info) Description 09/30/2018 Orders Only [facility] Scanning, Provider [...] on file Legal Sex Female 3:54 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 STRATEGIC SOURCING MANAGER COVID: Recovered Comment:Added based on recent COVID infection. 04/26/2020 04/29/2020 08/24/2020 3:05 AM C DT COVID: Suspected 04/11/2023 04/11/2023 04/11/2023 11:12 AM SR. STRATEGIC SOURCING MANAGER COVID19 04/11/2023 04/11/2023 04/21/2023 3:05 AM SR. STRATEGIC SOURCING MANAGER COVID: Recovered Comment:Added based on recent COVID infection. 04/21/2023 06/11/2023 07/20/2023 3:[address] documented as of this encounter Care Teams Hot Metal Mixer Operator Helper Relationship Specialty Start Date End Date Vince Fernando MD PCP - General 07/04/16 Vince Fernando MD [address] [facility] [address] [place] [address] Referring Physician Internal Medicine 03/19/21 Miscellaneous, Not In File 03/22/21 Mirza Gutierrez MD [address] [address] Consulting Physician Cardiology 01/20/24 documented as of this encounter
--- OUTSIDE RECORDS SUMMARY | 2024-07-23 23:36 | XMS_ITS | Clinical Summary ---
Author Organization [facility] Address [address] [facility] [place] [place] [address] Care Team Providers Care Corrugator Name Role Phone Vince Fernando MD Primary Care Provider [phone] Source Comments [facility] Affiliates and Associated Physician Practices is amultiple site organization consisting of ambulatory clinics and hospital sitesin [place], [place], [place] and [place]. This disclosure is being madepursuant to the Care Everywhere program and may not contain all information available regarding this patient. Last updated 18.[facility] Allergies Active Allergy Reactions Criticality Noted Date [...] 09/05/2021 10:34 AM CDT Plan of Treatment Health Maintenance Due Date Last Done Comments BONE DENSITY TESTING 1950 COLOGUARD (AGES 45-75) - COLON CA SCREENING 1950 COLON MONITORING 1950 COLONOSCOPY - COLON CA SCREENING 1952 CT COLONOGRAPHY - COLON CA SCREENING 1950 Colorectal Cancer Screening 1950 FIT - COLON CA SCREENING 1950 FLEX SIG - COLON CA SCREENING 1950 LIPID TESTING 1950 MAMMOGRAM 1950 HEPATITIS C SCREENING 05/05/1970 DTAP/TDAP/TD VACCINES (1 - Tdap) 1971 PNEUMOCOCCAL VACCINE 50+ (1 of 1 - PCV) 2002 ZOSTER VACCINE (1 of 2) 2002 COVID-19 VACCINE (5 - season) 2024 08/30/2021, 02/05/2021, 07/17/2020, Additional history exists INFLUENZA VACCINE (#1) 2024 , 02/10/2018, 02/27/2017, Additional history exists DEPRESSION SCREENING 05/13/2024 MEDICARE AWV CALENDAR YEAR 2024 Respiratory Syncytial Virus (RSV) Vaccine Pt: or over 60 yrs (1 - 1-dose 75+ series) 2027 HEPATITIS B VACCINE Aged Out No longe r eligible based on patient's age to complete this topic HIB VACCINE Aged Out No longer eligi ble based on patient's age to complete this topic HPV VACCINE Aged Out No longer eligi ble based on patient's age to complete this topic MENINGOCOCCAL (Group B) VACCINE SHARED DECISION-MAKING Aged Out No longer eligible based on patient's age to complete this topic MENINGOCOCCAL GROUPS A/C/Y/W VACCINE Aged Out No longer eligible based on patient's age to complete this topic Care Teams Corrugator Relationship Specialty Start Date End Date Vince Fernando MD [address] [place] [address] [address] [place] [address] PCP - General Internal Medicine 09/05/21
--- OUTSIDE RECORDS SUMMARY | 2024-07-23 23:36 | XMS_ITS | CONTINUITY OF CARE DOCUMENT ---
Author Name maribel lópez Address Unknown Organization [facility] Address [address] [address] [place] [address] Phone [phone] Care Team Providers Care Machine Boss Name Role Phone Yonathan Pritchett MD Unavailable [phone] KAMERON CERVANTES MD Unavailable KAMERON CERVANTES MD Unavailable [phone] PROBLEMS Condition Status Date Provider Notes Bradycardia active Peter Kumar CAD- nonobstructive active Yonathan Pritchett MD Cancer active Landon Garcia Cellulitis, face active Landon Garcia ENCOUNTERS Date Type Provider Location Encounter Diag nosis - In-person encounter Office Visit Yonathan Pritchett MD [facility] [place] Office CAD- nonobstructiveCance rCellulitis, face VITAL SIGNS Date Observation Value Provider blood pressure, cuff size large Sa mantha Crankarri blood pressure, diastolic 63 mm[Hg] Sa mantha Cranmer blood pressure, systolic 114 mm[Hg] Fabricio antha Hemant weight E&M 118.4 [lb_av] April Cranm er pulse rate, standing 52 /min Fabricioanth a Crankarri oxygen saturation, oximetry 98 % April Marcos FUNCTIONAL STATUS Date Observation Value Provider HRA, CV Assess/Plan, Angina (inactive) Management Plan continue current therapy Landon Garcia INSURANCE PROVIDERS Payer name Policy type / Coverage type [place] red green party ID [employer] ST 0 003 (HMO POS) Medicare [id number] TREATMENT PLAN Date Name Performer Cardiology:Resolved 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 Maykel Allison current medical therapy and follow up in 1 year Landon Garcia Date Name Holter Monitor 48 hr
--- OUTSIDE RECORDS SUMMARY | 2024-07-23 23:37 | XMS_ITS | Referral Summary ---
Author Organization [facility] Address [address] [place] [address] Care Team Providers Care Senior Project Accountant Name Role Phone Vince Fernando MD Primary Care Provider Vince Fernando MD Unavailable [phone] Miscellaneous, Not In File Unavailable Unava ilMirza Shaver MD Unavailable [phone] Encounters Date Type Department Care Team Description 07/23/2024 10:00 AM CDT Office Visit [facility] Nephrology [facility] 5th [place] [address] [place] [id number] Nii Curtis MD Stage 3b chronic kidney disease (HCC) (Primary Dx); Malignant neoplasm of oral cavity (HCC) 07/20/2024 9:10 AM CDT - 07/20/2024 11:59 PM CDT Hospital Encounter [facility] [address] [place] [address] Stage 4 chronic kidney disease (HCC) Discharge Disposition: Discharge to home or self care 07/20/2024 2:30 PM CDT Lab [facility] Outpatient Lab at [address] [address] 07/20/2024 9:15 AM CDT Lab [facility] Outpatient Lab at [address] [address] Hypothyroidism (Primary Dx) 07/08/2024 11:15 AM MEDICAL ADMINISTRATIVE TECHNICIAN Lab [facility] - Lab Collection [address] [facility] [address] [place] [address] Thrombocytopenia, immune (HCC) 07/08/2024 11:00 AM MEDICAL ADMINISTRATIVE TECHNICIAN Office Visit [facility] Hematology [facility] [address] [place] [address] Inessa Evans MD Thrombocytopenia, immune (HCC) (Primary Dx) 07/08/2024 10:00 AM MEDICAL ADMINISTRATIVE TECHNICIAN Lab [facility] Oncology Lab [facility] [address] [place] [address] Thrombocytopenia, immune (HCC) from Last 3 Months Allergies Active Allergy Reactions Criticality Noted Date Comments Amoxicillin Anaphylaxis,Itching High 08/28/2016 Ampicillin Anaphylaxis,Itching High 08/28/2016 Levofloxacin Itching,Rash,Other ( See comments) Medium 04/25/2016 Mold Other (See comments) Low 04/25/2016 Seasonal allergies Penicillins Anaphylaxis,Itching, Rash,U nknown High 09/05/2021 Medications cetirizine (ZyrTEC) 1 mg/mL syrup Take by mouth daily. Active levothyroxine (SYNTHROID, LEVOTHROID) 50 mcg tablet 2 9 Active LORazepam (ATIVAN) 0.5 mg tablet Take 1 tablet (0.5 mg total) by mouth every 6 (six) hours as needed for anxiety 1 Active citalopram (CeleXA) 40 mg tablet Take 1 tablet (40 mg total) by mouth daily Active fluticasone propionate (FLONASE) 50 mcg/actuation nasal spray Administer 1 spray into each nostril daily Active lidocaine (LIDODERM) 5 % Place 1 patch on the skin daily Remove & discard patch within 12 hours or as directed by . Active oxyBUTYnin (DITROPAN) 5 mg tablet Take 1 tablet (5 mg total) by mouth nightly at bedtime. 3 Active HYDROcodone-elroy taminophen (NORCO) 10-325 mg per tablet Take 1 tablet by mouth every 4 (four) hours as needed 3 Active alendronate (FOSAMAX) 70 mg tablet Take 1 tablet (70 mg total) by mouth once a week 4 Active cholecalciferol 25 mcg (1,000 unit) tabletIndicatio ns:Osteoporosis Take 1 tablet (1,000 Units total) by mouth daily Active amLODIPine (NORVASC) 2.5 mg tablet Administer per tube 1 tablet (2.5 mg total) daily 30 tablet 4 01/21/20 25 Active aspirin 81 mg chewable tablet Take 1 tablet (81 mg total) by mouth daily 30 tablet 4 01/21/20 25 Active atorvastatin (LIPITOR) 20 mg tablet Take 1 tablet (20 mg total) by mouth daily 30 tablet 4 01/21/20 25 Active albuterol HFA (ProAir HFA) 90 mcg/actuation inhaler Inhale 1 puff every 6 (six) hours as needed for wheezing 1 each 4 Active fentaNYL (DURAGESIC) 50 mcg/hr APPLY 1 PATCH TOPICALLY TO THE SKIN EVERY 72 HOURS 5 Active furosemide (LASIX) 20 mg tablet Take 1 tablet (20 mg total) by mouth daily 30 tablet 1 5 07/24/19 26 Active Active Problems Problem Noted Date Diagnosed Date Chest pain 01/17/2024 Thrombocytopenia, immune 01/14/2024 Anemia 01/14/2024 Facial cellulitis 01/13/2024 Asthma 10/18/2022 10/18/2022 Cellulitis, face 10/18/2022 Acute urinary tract infection 06/08/2022 Pneumothorax 03/18/2021 Stage 3 chronic kidney disease 12/08/2020 Cellulitis 11/04/2019 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 She was initially evaluated at [facility] and was discharged home. When she became febrile to 103 this prompted her to present to [facility] ED for her facial cellulitis. Due to her fevers and sx of myalgias, COVID swab was sent which was negative. She was leukopenic initially and COVID was re-tested after 24hrs and again negative. Initially on broad spec ABX now narrowed to Clindamycin PO per ID recommendations. CT face with no obvious abscess or complicated infection, prior surgical changes appreciated. BCx NGTD - Continue PO clindamycin 450 mg PO Q8H x 7 days (08/27 - 09/02) Assessment & Plan (08/27/2019 12:16 PM CDT): history of chronic infections of mandible. -continue antibiotics per above. Assessment & Plan (08/26/2019 8:12 PM CDT): Hx of R mandibulectomy c/b hard infections, osteo, recurrent infections. Multiple courses of abx, last 05/2018. Presenting with typical symptoms of pain, redness. CT head/neck with no signs of abscess, acute changes. ENT evaluated in ED - no current operative needs. ID briefly consulted in ED for abx recs. --continue vanc and erta; given low CrCl will check 24 hr vanc trough and redose accordingly --f/u formal ID eval --f/u ENT recs --f/u blood cx Bradycardia 08/26/2019 Assessment & Plan (08/28/2019 10:28 PM CDT): One episode of bradycardia requiring atropine in ED with no prior hx. Associated with feeling of LH, pre-syncope prior to. May have been vaso-vagal response after initiating IV Vanc. Tele monitoring in ICU was unremarkable and no further episodes - d/c Tele Assessment & Plan (08/28/2019 11:30 AM CDT): unclear etiology. Per report was receiving vancomycin during episode which resolved with 1mg atropine. -no issues in ICU -monitor on telemetry Jaw wound 06/04/2018 Assessment & Plan (06/04/2018 2:18 PM MEDICAL ADMINISTRATIVE TECHNICIAN): - Keep wound clean and covered - Referred to wound care since wound has not completely healed since March. - She has previously undergone hyperbaric oxygen therapy through wound care. Hypothyroidism 05/14/2018 Assessment & Plan (08/28/2019 10:26 PM CDT): Continue home synthroid 50mcg Assessment & Plan (08/27/2019 12:12 PM CDT): -continue daily synthroid Assessment & Plan (08/26/2019 8:09 PM CDT): --continue synthroid 50mcg Assessment & Plan (05/14/2018 11:59 PM MEDICAL ADMINISTRATIVE TECHNICIAN): - Continue levothyroxine per tube Erysipelas 2018 Assessment & Plan (06/04/2018 2:15 PM MEDICAL ADMINISTRATIVE TECHNICIAN): - She has completed two courses of clindamycin, each with resolution of symptoms - No current signs/symptoms c/f recurrent infection - Advised to monitor closely. 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 Recently completed 10 day course of clindamycin 05/05. Follows with ID and ENT in clinic here. ENT saw patient in ED, no surgical indication at this point. ID consulted in ED, recommended admission for bone biopsy to guide antimicrobial therapy. Past cultures have just grown mixed upper respiratory alexa. 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 Post-op c/b chronic infections and OM of the mandible s/p hardware removal in 2018. She completed multiple courses of abx for OM, abscesses, recurrent infections. CT this admission unremarkable for complicated infection or OM. ID following. BCx NGTD. - continue f/u with Dr Vidal - home Perc 5s q6h PRN - nutrition per G-tube Assessment & Plan (08/27/2019 12:12 PM CDT): -s/p mandibulectomy and dissection in 05/2016. Post operative coarse complicated by chronic infections and OM of the mandible in 12/2016 s/p hardware removal in 11/2017. She completed multiple courses of abx, including dapto and clinda. She was admitted again 02/2018 with OM and abscess, s/p clinda and erta. She presented with similar symptoms again in 05/2018 and completed course of cilnda po. -Completed pembro, radiation, and cisplatin, which was complicated by severe renal failure in 09/2016. -follows with Dr Vidal. Assessment & Plan (08/26/2019 8:09 PM CDT): S/p alber-adjuvant pembro study with no signs of disease in 2+ years. Follows with Dr. Vidal. --med onc consult Assessment & Plan (05/15/2018 6:30 AM MEDICAL ADMINISTRATIVE TECHNICIAN): F/w Dr. Vidal of medical oncology and Dr. Elliott of ENT, not currently on treatment. S/p resection, chemoradiation. Has G tube. 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 Diagnosis. 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 Segmental mandibulectomy 1cm in length, from the right posterior body to the left parasymphysis with preservation of the left mental nerve [facility] Right fibula ostocutaneous free tissue transfer reconstruction of segmental mandibulectomy defect. ([place] 06/04/16) Postoperative chemoradiation therapy completed 08/2016 Diagnosis * Carcinoma of mandible (CMS/HCC) [C41.1] PROCEDURE PERFORMED [place] 11/26/17: REMOVAL HARDWARE - MANDIBLE Anxiety 06/01/2015 Overview (08/18/2016): Anxiety Assessment & Plan (08/28/2019 10:28 PM CDT): Continue home Celexa Assessment & Plan (05/14/2018 11:59 PM MEDICAL ADMINISTRATIVE TECHNICIAN): PMH anxiety/depression - Continue citalopram daily per tube Gastroesophageal reflux disease 06/01/2015 Overview (08/18/2016): GERD Hypercholesterolemia 06/01/2015 Overview (08/18/2016): Hypercholesterolaemia Resolved Problems Problem Noted Date Diagnosed Date Resolved Date Sepsis 08/26/2019 08/28/2019 Assessment & Plan (08/28/2019 11:31 AM CDT): presenting with facial cellulitis and fevers. CT face with no evidence of osteomyelitis. CT A/P with evidence of decubitus ulcer involving the left gluteal/ischial region. 08/22 blood cultures x 2 NGTD. Started on ertapenem and vanc in ED, had bradycardic event in ED with vanc but tolerated dose last PM -per ID recs, ok to change to PO clindamycin -f/u blood cultures -f/u second COVID swab Stage 4 chronic kidney disease 02/27/2017 12/08/2020 Assessment & Plan (08/28/2019 10:26 PM CDT): Currently at b/l Cr and no electrolyte abnormalities - CKD precautions, renally dosed meds Assessment & Plan (08/28/2019 11:30 AM CDT): Baseline Cr ~1.50. Cr 1.65 (1.43), likely slight increase 2/2 sepsis. -strict I/O -volume resuscitation as tolerated -renally dose medications. Assessment & Plan (08/26/2019 8:10 PM CDT): Cr stable at baseline. Monitor post contrast. --avoid nephrotoxic agents Assessment & Plan (05/15/2018 4:26 AM MEDICAL ADMINISTRATIVE TECHNICIAN): Cr ~ 1.7 on admission, previous baseline 1.4-1.5 - renally dose medications, avoid nephrotoxins Immunizations Immunization Administration Dates Next Due Influenza, Quadrivalent, Hig h Dose, Preservative Free, Intrr 02/03/2020 Influenza, Quadrivalent, Spl it, Intramuscular 02/04/2021,02/20/2016 Influenza, Quadrivalent, Spl it, Preservative Free, Intramuscular 02/26/2019,02/10/2014 Influenza, Trivalent, High D ose, Split, Preservative Free, Intramuscular 02/10/2018,02/14/2014 Influenza, Trivalent, Preser vative Free, Intramuscular 02/27/2017 Influenza, Unspecified 02/04/2022 Pfizer SARS-CoV-2 Monovalent Vaccination (12+ Yrs) [place]-READY TO USE 08/30/2021 Pfizer SARS-CoV-2 Monovalent Vaccination (12+ Yrs) PURPLE 02/05/2021,07/17/2020,06/27/2020 Pneumococcal Conjugate PCV 13 02/26/2019 Pneumococcal Polysaccharide PPV23 03/01/2020 Sars-CoV-2, Unspecified 02/05/2022 ZOSTER LIVE 02/19/2016 Social History Tobacco Use Types Packs/Day Years Used Date Smoking Tobacco: Former Cigarettes 1 34 0 05/13/1971 - 05/13/2005 Passive Smoke Exposure: Past Smokeless Tobacco: Never Tobacco Cessation:Counseling Given: Not Answered Alcohol Use Standard Drinks/Week Comments No 0 (1 standard drink = 0.6 oz pur e alcohol) [facility] Utilities Answer Date Recorded In the past 12 months has th e electric, gas, oil, or water company threatened to shut off services in your home? No 01/15/2024 Social Connection and Isolat ion Panel [NHANES] Answer Date Recorded In a typical week, how many times do you talk on the phone with family, friends, or neighbors? More than three times a week 01/15/2024 How often do you get togethe r with friends or relatives? More than three times a week 01/15/2024 How often do you attend chur ch or sabianism services? More than 4 times per year 01/15/2024 Do you belong to any clubs o r organizations such as lutheran groups, unions, fraternal or athletic groups, or school groups? No 01/15/2024 How often do you attend meet ings of the clubs or organizations you belong to? Never 01/15/2024 Are you , , di vorced, , never , or living with a partner? 01/15/2024 AUDIT-C Answer Date Recorded Q1: How often do you have a drink containing alc ohol? Never 01/18/2021 Average Number of Drinks Not on file 021 Q3: How often do you have si x or more drinks on one occasion? Never 01/18/2021 Overall Financial Resource Strain (CARDIA) Answe r Date Recorded How hard is it for you to pa y for the very basics like food, housing, medical care, and heating? Not very hard 01/15/2024 Hunger Vital Sign Answer Date Recorded Within the past 12 months, y ou worried that your food would run out before you got the money to buy more. Never true 01/15/20 24 Within the past 12 months, t he food you bought just didn't last and you didn't have money to get more. Never true 01/15/2024 PRAPARE - Transportation Answer Date Re corded In the past 12 months, has l ack of transportation kept you from medical appointments or from getting medications? No 08/2023 In the past 12 months, has l ack of transportation kept you from meetings, work, or from getting things needed for daily living? No 01/15/2024 Housing Stability Vital Sign Answer Krzysztof e Recorded In the last 12 months, was t here a time when you were not able to pay the mortgage or rent on time? No 01/15/2024 In the past 12 months, how m any times have you moved where you were living? 0 01/15/2024 At any time in the past 12 m [facility], were you homeless or living in a long term (including now)? No 01/15/2024 Personal Safety Answer Date Recorded Have you ever been in or are you currently in a harmful physical or emotional relationship or is someone making you feel afraid or unsafe? Denies 01/14/2024 Comments No Sex and Gender Information Value Date Recorded Sex Assigned at Not on file Legal Sex Female 3:54 AM MEDICAL ADMINISTRATIVE TECHNICIAN Gender Identity Female 01/23/2021 5:40 PM CDT Sexual Orientation Straight 01/23/2021 5: 40 PM CDT Last Filed Vital Signs Vital Sign Reading Time Taken Comments Blood Pressure 101/55 07/23/2024 10:16 AM CDT Pulse 59 07/23/2024 10:16 AM CDT Temperature 36.6 C (97.8 F) 07/23/2024 10:16 AM CDT Respiratory Rate 18 07/23/2024 10:16 AM CDT Oxygen Saturation 98% 07/23/2024 10:16 AM CDT Inhaled Oxygen Concentration - - Weight 55 kg (121 lb 3.2 oz) 07/23/2024 10:16 AM CDT Height 157.5 cm (5' 2) 07/23/2024 10:16 AM CDT Body Mass Index 22.17 07/23/2024 10:16 AM CDT Plan of Treatment Not on file Procedures Procedure Name Priority Date/Time Associated Diagnosis Comments EGFR Routine 07/20/2024 9:10 AM CDT Stage 4 chronic kidney disease (HCC) URINALYSIS AND REFLEX TO MICROSCOPIC Routine 07/20/2024 9:10 AM CDT Stage 4 chronic kidney disease (HCC) DIFFERENTIAL AUTO Routine 07/20/2024 9:1 0 AM CDT Stage 4 chronic kidney disease (HCC) PTH Routine 07/20/2024 9:10 AM CDT Stage 4 chronic kidney disease (HCC) CBC WITH AUTO DIFFERENTIAL Routine 07/20/2024 9:10 AM CDT Stage 4 chronic kidney disease (HCC) RENAL FUNCTION PANEL Routine 07/20/2024 9:10 AM CDT Stage 4 chronic kidney disease (HCC) DIFFERENTIAL AUTO Routine 07/08/2024 10: 37 AM MEDICAL ADMINISTRATIVE TECHNICIAN Thrombocytopenia, immune (HCC) CBC WITH AUTO DIFFERENTIAL Routine 07/08/2024 10:37 AM MEDICAL ADMINISTRATIVE TECHNICIAN Thrombocytopenia, immune (HCC) SCREENING MAMMOGRAM BILATERAL W CARLOS Schedule Routine, Read Routine (OP Routine) 09/06/2020 11:17 AM CDT Encounter for screening mammogram for malignant neoplasm of breast from Last 3 Months or Most Recently Relevant to Health Maintenance Results * (ABNORMAL) eGFR (07/20/2024 9:10 AM CDT) eGFR 46(L) >=60 mL/min/1. 73 m2 Comment: Interpretive Data Reference Interval Normal >/= 90 mL/min/1.73m2 Mildly decreased* 60 - 89 mL/min/1.73m2 Mildly to moderately decreased 45 - 59 mL/min/1.73m2 Moderately to severely decreased 30 - 44 mL/min/1.73m2 Severely decreased 15 - 29 mL/min/1.73m2 Kidney Failure < 15 mL/min/1.73m2 *Relative to young adult level Estimated glomerular filtration rate is determined by the 2020 CKD-EPI equation recommended by the National Kidney Foundation (A Unifying Approach to GFR Estimation: Recommendations of the NKF-ASK Task Force on Reassessing the Inclusion of Race in Diagnosing Kidney Disease, JASN 2020). The CKD-EPI equation should not be used for patients with unstable renal function and has not been validated in children and those over 70. Current interpretive data was last reviewed 2021. Blood 07/20/2024 9:10 AM CDT 07/20/2024 6:56 PM CDT us Nii Curtis MD LAB BLOOD ORDERABLES Fin al Result [facility] [address] Department [place] [address] * (ABNORMAL) Differential, auto (07/20/2024 9:10 AM CDT) Neutrophil abs 3.3 1.5 - 6.5 K/cumm Imm gran abs 0.0 0.0 - 0.1 K/cumm [facility] Lymphocyte abs 0.7(L) 0.8 - 3.3 K/cumm [facility] Monocyte abs 0.5 0.2 - 0.8 K/cumm [facility] Eosinophil abs 0.2 0.0 - 0.5 K/cumm [facility] Basophil abs 0.1 0.0 - 0.1 K/cumm [facility] Neutrophil pct 69.0 % [facility] Comment: Interpretive Data Percent cell count reference ranges are not reported, since discordance with absolute values may lead to misinterpretation of CBC data. Current Interpretive Data was last revised on 2017. Imm gran pct 0.2 % [facility] Comment: Interpretive Data Percent cell count reference ranges are not reported, since discordance with absolute values may lead to misinterpretation of CBC data. Current Interpretive Data was last revised on 2017. Lymphocyte pct 14.8 % [facility] Comment: Interpretive Data Percent cell count reference ranges are not reported, since discordance with absolute values may lead to misinterpretation of CBC data. Current Interpretive Data was last revised on 2017. Monocyte pct 10.4 % [facility] Comment: Interpretive Data Percent cell count reference ranges are not reported, since discordance with absolute values may lead to misinterpretation of CBC data. Current Interpretive Data was last revised on 2017. Eosinophil pct 4.6 % [facility] Comment: Interpretive Data Percent cell count reference ranges are not reported, since discordance with absolute values may lead to misinterpretation of CBC data. Current Interpretive Data was last revised on 2017. Basophil pct 1.0 % [facility] Comment: Interpretive Data Percent cell count reference ranges are not reported, since discordance with absolute values may lead to misinterpretation of CBC data. Current Interpretive Data was last revised on 2017. Blood 07/20/2024 9:10 AM CDT 07/20/2024 6:54 PM CDT Nii Curtis MD LAB BLOOD ORDERABLES Fin al Result Performing Organization Address [facility] Co de Phone Number [facility] [address] Department [place] [address] * Urinalysis reflex to microscopic (07/20/2024 9:10 AM CDT) Color, ur Yellow Yellow Clarity, ur Clear Clear [facility] Specific gravity, ur 1.010 1.003 - 1.030 [facility] pH, urine 6.5 [facility] Comment: Interpretive Data U rine pH is affected by diet, medications, systemic acid-base disturbances, and renal tubular function. pH may affect urinary stone formation. For example, urine pH below 6.0 may help reduce the tendency for calcium phosphate stones and pH greater than 6.0 may reduce the tendency for uric acid stone formation. Source: [facility] Current Interpretive Data was last revised on 2017 Protein, ur ql Negative Negative [facility] Glucose, ur ql Negative Negative [facility] Ketones, ur Negative Negative [facility] Bilirubin, ur Negative Negative [facility] Blood, ur Negative Negative [facility] Urobilinogen, ur <2.0 <2.0 mg/dL [facility] Nitrite, ur Negative Negative [facility] Leukocyte esterase, ur Negative Negative [facility] UA reflex comment Reflex conditions for microscopic UA not met. [facility] Urine 07/20/2024 9:10 AM CDT 07/20/2024 8:19 PM CDT Nii Curtis MD LAB URINE ORDERABLES Fin al Result Performing Organization Address [facility] [place] [address] [address] Department [place] [address] * (ABNORMAL) CBC with auto differential (07/20/2024 9:10 AM CDT) WBC 4.8 3.8 - 9.9 K/cumm Hgb 10.4(L) 11.9 - 15.5 g/dL [facility] Hct 34.4(L) 35.6 - 45.5 % [facility] Plt 137(L) 150 - 400 K/cumm [facility] Comment:No clot detected in sample. MPV 13.3(H) 9.1 - 12.3 fL [facility] RBC 3.47(L) 3.90 - 5.20 M/cumm [facility] MCV 99.1(H) 81.3 - 96.4 fL [facility] MCH 30.0 27.1 - 33.3 pg [facility] MCHC 30.2(L) 32.3 - 35.7 g/dL [facility] RDW CV 13.7 11.1 - 14.9 % [facility] RDW SD 49.9(H) 35.7 - 48.1 fL [facility] NRBC abs 0.00 0.00 - 0.01 K/cumm [facility] Blood 07/20/2024 9:10 AM CDT 07/20/2024 6:54 PM CDT Nii Curtis MD LAB BLOOD ORDERABLES Fin al Result Performing Organization Address [facility] Co de Phone Number [facility] [address] Department [place] [address] * PTH (07/20/2024 9:10 AM CDT) Pathologist [facility] PTH 39 15 - 65 pg/mL Blood 07/20/2024 9:10 AM CDT 07/20/2024 6:54 PM CDT Nii Curtis MD LAB BLOOD ORDERABLES Fin al Result [facility] [id number] [place] [address] * (ABNORMAL) Renal function panel (07/20/2024 9:10 AM CDT) Sodium 139 135 - 145 mmol/L Potassium, pl 4.4 3.3 - 4.9 mmol/L CERNER Chloride 98 97 - 110 mmol/L CERNER CH CO2 32 22 - 32 mmol/L CERNER CH Anion gap 9 2 - 15 mmol/L CERNER BUN 28(H) 6 - 25 mg/dL CERNER Creatinine 1.24(H) 0.60 - 1.10 mg/dL CERNER CH Glucose 79 70 - 199 mg/dL CERNER CH Comment: Interpretive Data Fasting glucose >/= 126 mg/dl is diagnostic for diabetes. Fasting is defined as no caloric intake for at least 8 hours. Fasting glucose between 100 mg/dl to 125 mg/dl is diagnostic of prediabetes. In a patient with classic symptoms of hyperglycemia or hyperglycemic crisis, a random glucose >/= 200 mg/dl is diagnostic for diabetes. In the absence of unequivocal hyperglycemia, results should be confirmed by repeat testing. The classification and Diagnosis of Diabetes Diabetes Care 2021; 46: S19-S40. Current interpretive data was last revised 2022. Calcium 10.0 8.5 - 10.3 mg/dL CERNER Phosphorus, pl 3.7 2.3 - 4.5 mg/dL CERNER Albumin 3.8 3.5 - 5.0 g/dL CERNER Blood 07/20/2024 9:10 AM CDT 07/20/2024 6:54 PM CDT Nii Curtis MD LAB BLOOD ORDERABLES Fin al Result [facility] [address] [place] [address] * (ABNORMAL) Differential, auto (07/08/2024 10:37 AM MEDICAL ADMINISTRATIVE TECHNICIAN) Neutrophil abs 4.8 1.5 - 6.5 K/cumm Comment:Testing performed by : [facility], [address] [place] [phone] Lymphocyte abs 0.4(L) 0.8 - 3.3 K/cumm [facility] Comment:Testing performed by : [facility], [address] [place] [phone] Monocyte abs 0.4 0.2 - 0.8 K/cumm [facility] Comment:Testing performed by : [facility], [address] [place], [place] [phone] Eosinophil abs 0.1 0.0 - 0.5 K/cumm [facility] Comment:Testing performed by : [facility], [address] [place] [address] Basophil abs 0.0 0.0 - 0.1 K/cumm [facility] Comment:Testing performed by : [facility], [address] [place] [address] Neutrophil pct 83.9 % [facility] Comment: Interpretive Data Percent cell count reference ranges are not reported, since discordance with absolute values may lead to misinterpretation of CBC data. Current Interpretive Data was last revised on 2017. Testing performed by: [facility], [address] [place] [phone] Lymphocyte pct 7.6 % [facility] Comment: Interpretive Data Percent cell count reference ranges are not reported, since discordance with absolute values may lead to misinterpretation of CBC data. Current Interpretive Data was last revised on 2017. Testing performed by: [facility], [address] [place] [phone] Monocyte pct 6.4 % [facility] Comment: Interpretive Data Percent cell count reference ranges are not reported, since discordance with absolute values may lead to misinterpretation of CBC data. Current Interpretive Data was last revised on 2017. Testing performed by: [facility], [address] [place] [phone] Eosinophil pct 1.4 % [facility] Comment: Interpretive Data Percent cell count reference ranges are not reported, since discordance with absolute values may lead to misinterpretation of CBC data. Current Interpretive Data was last revised on 2017. Testing performed by: [facility], [address] [place] [address] Basophil pct 0.7 % CERJAJA [facility]J Comment: Interpretive Data Percent cell count reference ranges are not reported, since discordance with absolute values may lead to misinterpretation of CBC data. Current Interpretive Data was last revised on 2017. Testing performed by: [facility], [address] [place] [address] Blood 07/08/2024 10:3 7 AM MEDICAL ADMINISTRATIVE TECHNICIAN 07/08/2024 10:59 AM MEDICAL ADMINISTRATIVE TECHNICIAN Aisha Barba STEM SETTER LAB BLOOD ORDERABLES Final Result [facility] Department [place] [address] * (ABNORMAL) CBC with auto differential (07/08/2024 10:37 AM MEDICAL ADMINISTRATIVE TECHNICIAN) WBC 5.7 3.8 - 9.9 K/cumm Comment:Testing performed by : [facility], [address] [place] [address] Hgb 10.8(L) 11.9 - 15.5 g/dL CERJAJA [facility]J Comment:Testing performed by : [facility], [address] [place] [address] Hct 32.9(L) 35.6 - 45.5 % CERJAJA [facility] Comment:Testing performed by : [facility], [address] [place] [address] Plt 111(L) 150 - 400 K/cumm CERJAJA [facility] Comment:Testing performed by : [facility], [address] [place] [address] MPV 11.7(H) 6.8 - 10.4 fL CERJAJA [facility]J Comment:Testing performed by : [facility], [address] [place] [address] RBC 3.61(L) 3.90 - 5.20 M/cumm SHERON ELIZABETH Comment:Testing performed by : [facility], [address] [place] [address] MCV 91.2 81.3 - 96.4 fL SHERON ELIZABETH Comment:Testing performed by : [facility], [address] [place] [address] MCH 29.9 27.1 - 33.3 pg SHERON ELIZABETH Comment:Testing performed by : [facility], [address] [place] [address] MCHC 32.8 32.3 - 35.7 g/dL SHERON ELIZABETH Comment:Testing performed by : [facility], [address] [place] [address] RDW CV 14.5 11.1 - 14.9 % SHERON ELIZABETH Comment:Testing performed by : [facility], [address] [place] [address] NRBC abs 0.00 0.00 - 0.01 K/cumm [facility] Comment:Testing performed by : [facility], [address] [place] [address] Blood 07/08/2024 10:3 7 AM MEDICAL ADMINISTRATIVE TECHNICIAN 07/08/2024 10:59 AM MEDICAL ADMINISTRATIVE TECHNICIAN Aisha Barba STEM SETTER LAB BLOOD ORDERABLES Final Result Performing Organization Address City/State/[facility] de Phone Number [facility] Department [place] [address] * Screening Mammogram Bilateral W Carlos (09/06/2020 11:17 AM CDT) Anatomical Region Laterality Modality Breast Bilateral Mammography Narrative 09/09/2020 11:22 AM CDT Mammogram Technique: Bilateral Digital Breast Tomosynthesis, Bilateral C-view 2D Screening mammogram. Views obtained: bilateral craniocaudal and bilateral mediolateral oblique. Computer Aided Detection was performed. Mammogram Findings: The present examination has been compared to a prior imaging study performed at [facility] on 09/10/2018. The breasts are heterogeneously dense, which may obscure small masses. There is no suspicious abnormality in either breast. Impression: There is no mammographic evidence of malignancy. Annual screening mammography is recommended. OVERALL FINAL ASSESSMENT: BI-RADS CATEGORY 1: Negative. Procedure Note Esperanza Zuniga MD - 09/09/2020 Mammogram Technique: Bilateral Digital Breast Tomosynthesis, Bilateral C-view 2D Screening mammogram. Views obtained: bilateral craniocaudal and bilateral mediolateral oblique. Computer Aided Detection was performed. Mammogram Findings: The present examination has been compared to a prior imaging study performed at [facility] on 09/10/2018. The breasts are heterogeneously dense, which may obscure small masses. There is no suspicious abnormality in either breast. Impression: There is no mammographic evidence of malignancy. Annual screening mammography is recommended. OVERALL FINAL ASSESSMENT: BI-RADS CATEGORY 1: Negative. us Self Screening Mammogram IMG MAMMO PROCEDURES Fi nal Result from Last 3 Months or Most Recently Relevant to Health Maintenance Insurance MEDICARE [employer] MEDICARE SOLUTIONS [facility] MEDICARE MEDICARE SOLUTIONS [facility] MEDICARE Address: [address] [address] [place] [address] MEDICARE SOLUTIONS [facility] MEDICARE Address: [address] [address] [place] [address] MEDICARE SOLUTIONS [facility] MEDICARE Address: [address] [address] [place] [address] Advance Directives For more information, please contact: [phone] * Full Code (Latest Code Status on File) Date Activated Date Inactivated Comments 01/13/2024 10:31 PM 01/20/2024 9:35 PM * Full Code Date Activated Date Inactivated Comments 10/19/2022 1:16 AM 10/19/2022 6:01 PM * Full Code Date Activated Date Inactivated Comments 03/18/2021 2:18 AM 03/22/2021 5:08 PM * Full Code Date Activated Date Inactivated Comments 01/18/2021 1:58 PM 01/18/2021 9:18 PM * Full Code Date Activated Date Inactivated Comments 08/26/2019 10:17 PM 08/29/2019 4:26 PM Care Teams Senior Project Accountant Relationship Specialty Start Date End Date Vince Fernando MD PCP - General 07/04/16 Vince Fernando MD [address] [facility] [address] [address] Referring Physician Internal Medicine 03/19/21 Miscellaneous, Not In File 03/22/21 Mirza Gutierrez MD [address] [place] [address] Consulting Physician Cardiology 01/20/24
--- OUTSIDE RECORDS SUMMARY | 2024-07-23 23:37 | XMS_ITS ---
Author Organization [facility] Address [address] [place] [address] Care Team Providers Care Engraver Machine Name Role Phone Vince Fernando MD Primary Care Provider Vince Fernando MD Unavailable [phone] Miscellaneous, Not In File Unavailable Unava ilMirza Shaver MD Unavailable [phone] Active Problems Problem Noted Date Diagnosed Date Chest pain 01/17/2024 Thrombocytopenia, immune 01/14/2024 Anemia 01/14/2024 Facial cellulitis 01/13/2024 Asthma 10/18/2022 10/18/2022 Cellulitis, face 10/18/2022 Acute urinary tract infection 06/08/2022 Pneumothorax 03/18/2021 Stage 3 chronic kidney disease 12/08/2020 Cellulitis 11/04/2019 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 She was initially evaluated at [facility] and was discharged home. When she became febrile to 89 this prompted her to present to [facility] ED for her facial cellulitis. Due to [...] 06/04/2018 Assessment & Plan (06/04/2018 2:18 PM ROLLER MILL TENDER): - Keep wound clean and covered - [...] 50mcg Assessment & Plan (05/14/2018 11:59 PM ROLLER MILL TENDER): - Continue levothyroxine per tube Erysipelas 2018 Assessment & Plan (06/04/2018 2:15 PM ROLLER MILL TENDER): - She has completed two courses of clindamycin, each with resolution of symptoms - No current signs/symptoms c/f recurrent infection - Advised to monitor closely. 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 Vidal of medical oncology and [...] with preservation of the left mental nerve (Dg 06/04/16) Right fibula ostocutaneous free tissue transfer reconstruction of segmental mandibulectomy defect. ([facility] 06/04/16) Postoperative chemoradiation therapy completed 08/2016 Diagnosis * Carcinoma of mandible (CMS/HCC) [C41.1] PROCEDURE PERFORMED [facility] 11/26/17: REMOVAL HARDWARE - MANDIBLE Anxiety 06/01/2015 Overview (08/18/2016): Anxiety Assessment & Plan (08/28/2019 10:28 PM CDT): Continue home Celexa Assessment & Plan (05/14/2018 11:59 PM ROLLER MILL TENDER): PMH anxiety/depression - Continue citalopram daily per tube Gastroesophageal reflux disease 06/01/2015 Overview (08/18/2016): GERD Hypercholesterolemia 06/01/2015 Overview (08/18/2016): Hypercholesterolaemia Current Treatment and Therapy Plans No current plan information found. Past Treatment and Therapy Plans No past plan information found. Lifetime Dose Tracking * Chemical Lifetime Dose Automatic Entry Manual Entr y Fluoro Time 1.4 minutes 1.4 minutes 0 minutes Air kerma at the reference point (Ka,r) 158 mGy 2 mGy 156 mGy DLP 10,892.5 mGycm 10,892.5 mGycm 0 mGycm Resolved Problems Problem Noted Date Diagnosed Date [...] agents Assessment & Plan (05/15/2018 4:26 AM ROLLER MILL TENDER): Cr ~ 1.7 on admission, previous baseline 1.4-1.5 - renally dose medications, avoid nephrotoxins
--- OUTSIDE RECORDS SUMMARY | 2024-07-23 23:37 | XMS_ITS | Clinical Summary ---
Author Organization [facility] Address [address] [place] [address] Care Team Providers Care Quilter Fixer Name Role Phone Vince Fernando MD Primary Care Provider Vince Fernando MD Unavailable [phone] Miscellaneous, Not In File Unavailable Unava ilable Mirza Gutierrez MD Unavailable [phone] Allergies Active Allergy Reactions Criticality Noted Date [...] within 12 hours or as directed by MD. 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 She was initially evaluated at [facility] and was discharged home. When she became febrile to 103 this prompted her to present to [facility] for her facial cellulitis. Due to [...] 06/04/2018 Assessment & Plan (06/04/2018 2:18 PM YARN COMBER): - Keep wound clean and covered - [...] 50mcg Assessment & Plan (05/14/2018 11:59 PM YARN COMBER): - Continue levothyroxine per tube Erysipelas 2018 Assessment & Plan (06/04/2018 2:15 PM YARN COMBER): - She has completed two courses of clindamycin, each with resolution of symptoms - No current signs/symptoms c/f recurrent infection - Advised to monitor closely. 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 Vidal of medical oncology and [...] with preservation of the left mental nerve ([facility] 06/04/16) Right fibula ostocutaneous free tissue transfer reconstruction of segmental mandibulectomy defect. ([place] 06/04/16) Postoperative chemoradiation therapy completed 08/2016 Diagnosis * Carcinoma of mandible (CMS/HCC) [C41.1] PROCEDURE PERFORMED [place] 11/26/17: REMOVAL HARDWARE - MANDIBLE Anxiety 06/01/2015 Overview (08/18/2016): Anxiety Assessment & Plan (08/28/2019 10:28 PM CDT): Continue home Celexa Assessment & Plan (05/14/2018 11:59 PM YARN COMBER): PMH anxiety/depression - Continue citalopram daily per [...] agents Assessment & Plan (05/15/2018 4:26 AM YARN COMBER): Cr ~ 1.7 on admission, previous baseline 1.4-1.5 - renally dose medications, avoid nephrotoxins Encounters Date Type Department Care Team Description 07/23/2024 10:00 AM CDT Office Visit [facility] Nephrology [address] [place] [address] [facility] 5th [place] [address] [place] [address] Nii Curtis MD Stage 3b chronic kidney disease (HCC) (Primary Dx); Malignant neoplasm of oral cavity (HCC) 07/20/2024 2:30 PM CDT Lab [facility] Outpatient Lab at [address] [address] 07/20/2024 9:15 AM CDT Lab [facility] Outpatient Lab at [address] [address] Hypothyroidism (Primary Dx) 07/20/2024 9:10 AM CDT - 07/20/2024 11:59 PM CDT Hospital Encounter [facility] [address] [place] [address] Stage 4 chronic kidney disease (HCC) Discharge Disposition: Discharge to home or self care 07/08/2024 11:15 AM YARN COMBER Lab [facility] - Lab Collection [address] [facility] Floor 6 [place] [address] Thrombocytopenia, immune (HCC) 07/08/2024 11:00 AM YARN COMBER Office Visit [facility] Hematology [address] [place] [address] Floor 6 [place] [address] Inessa Evans MD Thrombocytopenia, immune (HCC) (Primary Dx) 07/08/2024 10:00 AM YARN COMBER Lab [facility] Oncology Lab [facility] [address] [place] [address] Thrombocytopenia, immune (HCC) from Last 3 Months Immunizations Immunization Administration Dates Next Due Influenza, [...] 03/01/2020 Sars-CoV-2, Unspecified 02/05/2022 ZOSTER LIVE 02/19/2016 Surgical History Surgery Date Site/Laterality Comments CHOLECYSTECTOMY 05/13/1990 - 05/12/1991 TONSILLECTOMY 05/13/1955 - 05/12/1956 IR FINE NEEDLE ASPIRATION W IMAGE GUIDANCE 07/26/2016 N/A CENTRAL LINE PLACEMENT > 5 YEARS 07/16/2016 N/A IR G TUBE PLACEMENT PERCUTANEOUS 06/14/2016 N/A INCISIONAL HERNIA REPAIR 03/13/2016 - 04/11/2016 TOTAL ABDOMINAL HYSTERECTOMY 05/13/1992 - 05/12/1993 ANTERIOR CERVICAL DISCECTOMY W/ FUSION 04/12/2001 - 05/12/2001 C5-7 OVARIAN CYSTECTOMY 05/13/1991 - 05/12/1992 CHANGE G TUBE 05/29/2018 N/A ENTERIC TUBE INJECTION 08/15/2016 N/A US GUIDED BIOPSY RENAL 09/17/2016 N/A CHANGE G TUBE 01/06/2020 N/A CHANGE G TUBE 01/18/2021 N/A CATARACT EXTRACTION G TUBE PLACEMENT Medical History Medical History Date Comments Hard to intubate poor mouth open ing 2/2 jaw surgery Awareness under anesthesia woke up during ovarian cystectomy HL (hearing loss) Cancer (HCC) H/O cold sores Chronic kidney disease Anxiety Asthma Infection Cellulitis face Arthritis Former smoker Family History Medical History Relation Name Comments Diabetes Brother 1 Villa Diabetes mellit us; Diabetes Brother 2 Family history of diabetes mellitus - (Added by TW Conv) Allergy (severe) Daughter Dali Cancer Daughter Dali Depression Daughter Dali Atrial fibrillation Father [place] Atrial f ibrillation; COPD Father [place] COPD; /Family h istory of chronic obstructive pulmonary disease - (Added by TW Conv) Diabetes Father [place] Diabetes mellit us; /Family history of diabetes mellitus - (Added by TW Conv) Arthritis Mother October Endocrine tumor Mother October Hypertension Mother October Other Mother October Brain tumor-non cancerous; Diabetes Other Family history of Diabetes mellitus; Heart disease Other Hypertension Other Diabetes Paternal Grandmother Grandma Pack Diabetes Sister Angelica Family history of diabetes mellitus - (Added by TW Conv) Allergy (severe) Son 1 Grandson Fili Asthma Son 1 Grandson Fili Asthma Son 2 Grandson Wale Asthma Son 3 Grandson CJ Relation Name Status Comments Brother 1 Villa Alive Brother 2 Alive Daughter Dali Father Brice Mother Brianna Other Paternal Grandmother Grandma Pack Sister Angelica Son 1 Grandson Fili Son 2 Grandson Wale Son 3 Grandson CJ Social History Tobacco Use Types Packs/Day Years Used Date Smoking Tobacco: Former Cigarettes 1 34 0 05/13/1971 - 05/13/2005 Passive Smoke Exposure: Past Smokeless Tobacco: Never Tobacco Cessation:Counseling Given: Not Answered Alcohol Use Standard Drinks/Week Comments No 0 (1 standard drink = 0.6 oz pur e alcohol) [facility] Utilities Answer Date Recorded In the past [...] often do you attend chur ch or mandaeism services? More than 4 times per year 01/15/2024 Do you belong to any clubs o r organizations such as nondenominational groups, unions, fraternal or athletic groups, or [...] any time in the past 12 m [facility], were you homeless or living in a skilled nursing (including now)? No 01/15/2024 Personal Safety Answer Date Recorded Have you ever been in or are you currently in a harmful physical or emotional relationship or is someone making you feel afraid or unsafe? Denies 01/14/2024 Comments No Sex and Gender Information Value Date Recorded Sex Assigned at Not on file Legal Sex Female 3:54 AM YARN COMBER Gender Identity Female 01/23/2021 5:40 PM CDT Sexual Orientation Straight 01/23/2021 5: 40 PM CDT Obstetrics History Last Filed Vital Signs Vital Sign Reading [...] 07/23/2024 10:16 AM CDT Plan of Treatment Health Maintenance Due Date Last Done Comments Colon Cancer Screening-Colonoscopy 1950 Depression Screening 1950 Hepatitis C Screening 1950 Osteoporosis Screening-Bone Density Scan 1952 DTaP/Tdap/Td Vaccine (1 - Tdap) 1963 Hepatitis B Screening 1970 Zoster Vaccine (2 of 3) 04/15/2016 02/19/2016 Well Visit 65+ 2017 Breast Cancer Screening-Mammogram 09/06/2021 021 Covid-19 Vaccine (2023-06 5 season) 2024 02/05/2022, 08/30/2021, 02/05/2021, Additional history exists Influenza Vaccine (#1) 2024 , 02/04/2021, 02/03/2020, Additional history exists Fall Risk Assessment 01/19/2025 01/20/2024 Pneumococcal vaccine 65+ Completed 03/01/2020, 02/10 Procedures Procedure Name Priority Date/Time Associated Diagnosis [...] DIFFERENTIAL AUTO Routine 07/08/2024 10: 37 AM YARN COMBER Thrombocytopenia, immune (HCC) CBC WITH AUTO DIFFERENTIAL Routine 07/08/2024 10:37 AM YARN COMBER Thrombocytopenia, immune (HCC) SCREENING MAMMOGRAM BILATERAL W [...] MD LAB BLOOD ORDERABLES Fin al Result [facility] [address] [place] [address] * (ABNORMAL) Differential, auto (07/20/2024 9:10 AM CDT) Neutrophil abs 3.3 1.5 - 6.5 K/cumm Imm gran abs 0.0 0.0 - 0.1 K/cumm [facility] Lymphocyte abs 0.7(L) 0.8 - 3.3 K/cumm [facility] Monocyte abs 0.5 0.2 - 0.8 K/cumm [facility] Eosinophil abs 0.2 0.0 - 0.5 K/cumm [facility] Basophil abs 0.1 0.0 - 0.1 K/cumm [facility] Neutrophil pct 69.0 % CERNER Comment: Interpretive Data Percent cell count reference ranges are not reported, since discordance with absolute values may lead to misinterpretation of CBC data. Current Interpretive Data was last revised on 2017. Imm gran pct 0.2 % [facility]ER CH Comment: Interpretive Data Percent cell count reference ranges are not reported, since discordance with absolute values may lead to misinterpretation of CBC data. Current Interpretive Data was last revised on 2017. Lymphocyte pct 14.8 % [facility] CH Comment: Interpretive Data Percent cell count reference ranges are not reported, since discordance with absolute values may lead to misinterpretation of CBC data. Current Interpretive Data was last revised on 2017. Monocyte pct 10.4 % [facility] CH Comment: Interpretive Data Percent cell count reference ranges are not reported, since discordance with absolute values may lead to misinterpretation of CBC data. Current Interpretive Data was last revised on 2017. Eosinophil pct 4.6 % [facility] CH Comment: Interpretive Data Percent cell count reference ranges are not reported, since discordance with absolute values may lead to misinterpretation of CBC data. Current Interpretive Data was last revised on 2017. Basophil pct 1.0 % CERNER Comment: Interpretive Data Percent cell count reference ranges are not reported, since discordance with absolute values may lead to misinterpretation of CBC data. Current Interpretive Data was last revised on 2017. Blood 07/20/2024 9:10 AM CDT 07/20/2024 6:54 PM CDT Nii Curtis MD LAB BLOOD ORDERABLES Fin al Result [facility] [address] Department [place] [address] * Urinalysis reflex to microscopic (07/20/2024 9:10 AM CDT) Color, ur Yellow Yellow Clarity, ur Clear Clear [facility] CH Specific gravity, ur 1.010 1.003 - 1.030 CERJAJA pH, urine 6.5 CERJAJA Comment: Interpretive Data U rine pH is affected by diet, medications, systemic acid-base disturbances, and renal tubular function. pH may affect urinary stone formation. For example, urine pH below 6.0 may help reduce the tendency for calcium phosphate stones and pH greater than 6.0 may reduce the tendency for uric acid stone formation. Source: [facility] Current Interpretive Data was last revised on [...] Reflex conditions for microscopic UA not met. [facility] Urine 07/20/2024 9:10 AM CDT 07/20/2024 8:19 PM CDT us Nii Curtis MD LAB URINE ORDERABLES Fin al Result [facility] [address] Department [place] [address] * (ABNORMAL) CBC with auto differential (07/20/2024 9:10 AM CDT) WBC 4.8 3.8 - 9.9 K/cumm Hgb 10.4(L) 11.9 - 15.5 g/dL [facility] Hct 34.4(L) 35.6 - 45.5 % [facility] Plt 137(L) 150 - 400 K/cumm [facility] Comment:No clot detected in sample. MPV 13.3(H) 9.1 - 12.3 fL [facility] RBC 3.47(L) 3.90 - 5.20 M/cumm [facility] MCV 99.1(H) 81.3 - 96.4 fL [facility] MCH 30.0 27.1 - 33.3 pg [facility] MCHC 30.2(L) 32.3 - 35.7 g/dL [facility] RDW CV 13.7 11.1 - 14.9 % [facility] RDW SD 49.9(H) 35.7 - 48.1 fL [facility] NRBC abs 0.00 0.00 - 0.01 K/cumm [facility] Blood 07/20/2024 9:10 AM CDT 07/20/2024 6:54 PM CDT Nii Curtis MD LAB BLOOD ORDERABLES Fin al Result Performing Organization Address [facility] Co de Phone Number [facility] [address] [employer] [place] [employer] [place] [address] * PTH (07/20/2024 9:10 AM CDT) Pathologist [facility] PTH 39 15 - 65 pg/mL Blood 07/20/2024 9:10 AM CDT 07/20/2024 6:54 PM CDT Nii Curtis MD LAB BLOOD ORDERABLES Fin al Result Performing Organization Address [facility] de Phone Number [facility] [address] [employer] [place] [address] * (ABNORMAL) Renal function panel (07/20/2024 9:10 AM CDT) Pathologist [facility] Sodium 139 135 - 145 mmol/L Potassium, pl 4.4 3.3 - 4.9 mmol/L [facility] Chloride 98 97 - 110 mmol/L [facility] CO2 32 22 - 32 mmol/L [facility] Anion gap 9 2 - 15 mmol/L [facility] BUN 28(H) 6 - 25 mg/dL [facility] Creatinine 1.24(H) 0.60 - 1.10 mg/dL [facility] Glucose 79 70 - 199 mg/dL [facility] Comment: Interpretive Data Fasting glucose >/= 126 [...] Calcium 10.0 8.5 - 10.3 mg/dL [facility] CH Phosphorus, pl 3.7 2.3 - 4.5 mg/dL [facility] Albumin 3.8 3.5 - 5.0 g/dL [facility] Blood 07/20/2024 9:10 AM CDT 07/20/2024 6:54 PM CDT us Nii Curtis MD LAB BLOOD ORDERABLES Fin al Result [facility] [address] Department [place] [address] * (ABNORMAL) Differential, auto (07/08/2024 10:37 AM YARN COMBER) Neutrophil abs 4.8 1.5 - 6.5 K/cumm Comment:Testing performed by : [facility], [address] [place] [phone] Lymphocyte abs 0.4(L) 0.8 - 3.3 K/cumm [facility] BJ Comment:Testing performed by : [facility], [address] [place] [phone] Monocyte abs 0.4 0.2 - 0.8 K/cumm [facility] BJ Comment:Testing performed by : [facility], [address] [place] [phone] Eosinophil abs 0.1 0.0 - 0.5 K/cumm [facility] BJ Comment:Testing performed by : [facility], [address] [place] [phone] Basophil abs 0.0 0.0 - 0.1 K/cumm [facility] BJ Comment:Testing performed by : [facility], [address] [place] [phone] Neutrophil pct 83.9 % [facility] Comment: Interpretive Data Percent cell count reference ranges are not reported, since discordance with absolute values may lead to misinterpretation of CBC data. Current Interpretive Data was last revised on 2017. Testing performed by: [facility], [address] [place] [phone] Lymphocyte pct 7.6 % [facility] BJ Comment: Interpretive Data Percent cell count reference ranges are not reported, since discordance with absolute values may lead to misinterpretation of CBC data. Current Interpretive Data was last revised on 2017. Testing performed by: [facility], [address] [place] [phone] Monocyte pct 6.4 % C[facility]ER BJ Comment: Interpretive Data Percent cell count reference ranges are not reported, since discordance with absolute values may lead to misinterpretation of CBC data. Current Interpretive Data was last revised on 2017. Testing performed by: [facility], [address] [place] [phone] Eosinophil pct 1.4 % CERNER BJ Comment: Interpretive Data Percent cell count reference ranges are not reported, since discordance with absolute values may lead to misinterpretation of CBC data. Current Interpretive Data was last revised on 2017. Testing performed by: [facility], [address] [place] [phone] Basophil pct 0.7 % CERNER BJ Comment: Interpretive Data Percent cell count reference ranges are not reported, since discordance with absolute values may lead to misinterpretation of CBC data. Current Interpretive Data was last revised on 2017. Testing performed by: [facility], [address] [place] [phone] Blood 07/08/2024 10:3 7 AM YARN COMBER 07/08/2024 10:59 AM YARN COMBER Aisha Barba DOOR SERVICEMAN LAB BLOOD ORDERABLES Final Result [facility] Department [place] [address] * (ABNORMAL) CBC with auto differential (07/08/2024 10:37 AM YARN COMBER) WBC 5.7 3.8 - 9.9 K/cumm Comment:Testing performed by : [facility], [address] [place] [address] Hgb 10.8(L) 11.9 - 15.5 g/dL [facility] BJ Comment:Testing performed by : [facility], [address] [place], [place] [phone] Hct 32.9(L) 35.6 - 45.5 % [facility] BJ Comment:Testing performed by : [facility], [address] [place] [address] Plt 111(L) 150 - 400 K/cumm [facility] BJ Comment:Testing performed by : [facility], [address] [place], [place] [phone] MPV 11.7(H) 6.8 - 10.4 fL [facility] BJ Comment:Testing performed by : [facility], [address] [place], [place] [phone] RBC 3.61(L) 3.90 - 5.20 M/cumm [facility] BJ Comment:Testing performed by : [facility], [address] [place] [address] MCV 91.2 81.3 - 96.4 fL [facility] BJ Comment:Testing performed by : [facility], [address] [place] [address] MCH 29.9 27.1 - 33.3 pg [facility] BJ Comment:Testing performed by : [facility], [address] [place] [address] MCHC 32.8 32.3 - 35.7 g/dL [facility] BJ Comment:Testing performed by : [facility], [address] [place] [address] RDW CV 14.5 11.1 - 14.9 % C[facility] BJ Comment:Testing performed by : [facility], [address] [place] [address] NRBC abs 0.00 0.00 - 0.01 K/cumm [facility] BJ Comment:Testing performed by : [facility], [address] [place] [address] Blood 07/08/2024 10:3 7 AM YARN COMBER 07/08/2024 10:59 AM YARN COMBER Aisha Marques Barba DOOR SERVICEMAN LAB BLOOD ORDERABLES Final Result Performing Organization Address City/State/[facility] Co de Phone Number [facility] [place] [address] * Screening Mammogram Bilateral W Carlos (09/06/2020 11:17 AM CDT) Anatomical Region Laterality Modality Breast Bilateral Mammography Narrative 09/09/2020 11:22 AM CDT Mammogram Technique: Bilateral Digital Breast Tomosynthesis, Bilateral C-view 2D Screening mammogram. Views obtained: bilateral craniocaudal and bilateral mediolateral oblique. Computer Aided Detection was performed. Mammogram Findings: The present examination has been compared to a prior imaging study performed at [facility] on 09/10/2018. The breasts are heterogeneously dense, [...] to a prior imaging study performed at [facility] on 09/10/2018. The breasts are heterogeneously dense, [...] to Health Maintenance Insurance MEDICARE [employer] MEDICARE [employer] [place] [address] [place] [address] MEDICARE MEDICARE [employer] MEDICARE SOLUTIONS Advance Directives For more information, please contact: [phone] * Full Code (Latest Code Status on [...] 10:17 PM 08/29/2019 4:26 PM Care Teams Quilter Fixer Relationship Specialty Start Date End Date Vince Fernando MD PCP - General 07/04/16 Vince Fernando MD [address] [facility] [address] [place] [address] Referring Physician Internal Medicine 03/19/21 Miscellaneous, Not In File 03/22/21 Mirza Gutierrez MD [address] [place] [address] Consulting Physician Cardiology 01/20/24
--- OUTSIDE RECORDS SUMMARY | 2024-07-23 23:37 | XMS_ITS | Encounter Summary ---
Author Organization [facility] Address [address] [place] [address] Phone Care Team Providers Care Institutional Nutrition Consultant Name Role Phone Vince Fernando MD Primary Care Provider Vince Fernando MD Unavailable [phone] Miscellaneous, Not In File Unavailable Unava ilMirza Shaver MD Unavailable [phone] Encounter Details Date Type Department Care Team (Late st Contact Info) Description 07/23/2024 10:00 AM CDT Office Visit [facility] Nephrology [address] 5th [place] [address] [place] [address] Nii Curtis MD [facility] [address] [place] [address] Stage 3b chronic kidney disease (HCC) (Primary Dx); Malignant neoplasm of oral cavity (HCC) Social History Tobacco Use Types Packs/Day Years Used Date Smoking Tobacco: Former Cigarettes 1 34 0 05/13/1971 - 05/13/2005 Passive Smoke Exposure: Past Smokeless Tobacco: Never Tobacco Cessation:Counseling Given: Not Answered Alcohol Use Standard Drinks/Week Comments No 0 (1 standard drink = 0.6 oz pur e alcohol) [facility] Utilities Answer Date Recorded In the past 12 months has mee[employer], gas, oil, or water [employer] threatened to shut off services in your [...] often do you attend chur ch or zoroastrianism services? More than 4 times per year 01/15/2024 Do you belong to any clubs o r organizations such as taoism groups, unions, fraternal or athletic groups, or [...] any time in the past 12 [facility], were you homeless or living in a longterm (including now)? No 01/15/2024 Personal Safety Answer Date Recorded Have you ever been in or are you currently in a harmful physical or emotional relationship or is someone making you feel afraid or unsafe? 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 Gender Identity Female 01/23/2021 5:40 PM CDT Sexual Orientation Straight 01/23/2021 5: 40 PM CDT documented as of this encounter Last Filed Vital Signs Vital Sign Reading [...] Mass Index 22.17 07/23/2024 10:16 AM CDT documented in this encounter Ordered Prescriptions Prescription Sig Dispense Quantity Refills Last Filled Start Date End Date furosemide (LASIX) 20 mg tablet Take 1 tablet (20 mg total) by mouth daily 30 tablet 1 07/23/2024 07/23/2025 documented in this encounter Plan of Treatment Scheduled Orders Name Type Priority Associated Diagnoses Orde r Schedule Basic metabolic panel Lab Routine Stage 3b chronic kidney disease (HCC) Expected: 10/23/2024, Expires: 07/23/2025 documented as of this encounter Visit Diagnoses Diagnosis Stage 3b chronic kidney disease (HCC)- Primary Malignant neoplasm of oral cavity (HCC) Malignant neoplasm of mouth, unspecified site documented in this encounter Historical Medications * This list may reflect changes made after this encounter. fentaNYL (DURAGESIC) 50 mcg/hr APPLY 1 PATCH TOPICALLY TO THE SKIN EVERY 72 HOURS 07/20/2024 added in this encounter Care Teams Institutional Nutrition Consultant Relationship Specialty Start Date End Date Vince Fernando MD PCP - General 07/04/16 Vince Fernando MD [address] [address] Referring Physician Internal Medicine 03/19/21 Miscellaneous, Not In File 03/22/21 Mirza Gutierrez MD [address] [place] [address] Consulting Physician Cardiology 01/20/24 documented as of this encounter
[2024-07-23 23:40] VITALS: BP 125/50; PULSE 93; RESP 18; TEMP 37.4; O2SAT 85
[2024-07-23 23:56] VITALS: O2SAT 95
--- NOTE | 2024-07-24 00:04 | ECG_ITS ---
Test Date: 2024-07-24 00:16:05 Measurements Intervals [place] Rate: 78 P: 53 ND: 151 QRS: -7 QRSD: 80 T: 47 QT: 355 QTc: 405 Interpretive Statements SINUS RHYTHM LEFT ATRIAL ENLARGEMENT [-0.15mV P WAVE IN V1/V2] LOW QRS VOLTAGE IN PRECORDIAL LEADS [QRS DEFLECTION < 1.0 mV IN CHEST LEADS] POSSIBLE ANTERIOR MYOCARDIAL INFARCTION , PROBABLY OLD [30 ms Q WAVE IN V3/V4, OR R < 0.2 mV IN V4] No previous ECG available for comparison Electronically Signed On 07-24-2024 16:52:06 CDT by Pee Mendiola M.D.
[2024-07-24] MEDS: SODIUM CHLORIDE 0.9% IV 1,000 ML 999 ML IV CONT ×2 (00:11→02:16)
[2024-07-24 00:14] LABS: Basophils Percent Auto 0.4 % (0.2-1.2); Eosinophils Absolute Auto 0.1 K/mm3 (0-0.3); Eosinophils Percent Auto 1.8 % (0-4.4); Hematocrit 31.9 % (37.0-47.0); Immature Granulocyte Absolute 0.02 K/mm3 (0.00-0.031); Immature Granulocyte Percent A 0.3 % (0-0.5); Lymphocytes Absolute Auto 0.47 K/mm3 (0.9-3.2); Lymphocytes Percent Auto 6.1 % (18.3-44.2); Mean Corpuscular HGB Conc 31.3 g/dl (32-36); Mean Corpuscular Hemoglobin 29.7 pg (26-34); Mean Corpuscular Volume 94.7 fl (80-100); Monocytes Absolute Auto 0.5 K/mm3 (0.1-0.6); Neutrophils Absolute Auto 6.6 K/mm3 (1.3-6.7); Neutrophils Percent Auto 85.4 % (45.5-73.1); Platelet Count Result 142 k/mm3 (150-375); Red Blood Count 3.37 M/mm3 (4.2-5.4); Red Cell Distribution Width 13.4 % (11.5-14.5); White Blood Count 7.7 K/mm3 (4.5-10.0)
--- OUTSIDE RECORDS SUMMARY | 2024-07-24 00:15 | XMS_ITS | Encounter Summary ---
Author Organization [facility] Address [address] [place] [address] Phone Care Team Providers Care Help Desk Operator Name Role Phone Vince Fernando MD Primary Care Provider Vince Fernando MD Unavailable [phone] Miscellaneous, Not In File Unavailable Unava ilable Mirza Gutierrez MD Unavailable [phone] Encounter Details Date Type Department Care Team (Late st Contact Info) Description 03/21/2018 Telephone [facility] Oncology [address] [address] Adriana Elliott, A Social History Tobacco Use Types Packs/Day Years Used Date Smoking Tobacco: Former Cigarettes 1 34 1 972 - 2006 Smokeless Tobacco: Never Alcohol Use Standard Drinks/Week Comments No 0 (1 standard drink = 0.6 oz pur e alcohol) Comments No Sex and Gender Information Value Date Recorded Sex Assigned at Not on file Legal Sex Female 3:54 AM LINE INSTALLATION SUPERVISOR Gender Identity Female 01/23/2021 5:40 PM CDT [...] Comment:IP/ID review: patient cleared from precautions Adriana aPlomino 08/28/2019 08/28/2019 08/28/2019 08/28/2019 8:40 PM C DT COVID19 04/12/2020 04/12/2020 04/26/2020 3:08 AM LINE INSTALLATION SUPERVISOR COVID: Recovered Comment:Added based on recent COVID infection. 04/26/2020 04/29/2020 08/24/2020 3:05 AM C DT COVID: Suspected 04/11/2023 04/11/2023 04/11/2023 11:12 AM LINE INSTALLATION SUPERVISOR COVID19 04/11/2023 04/11/2023 04/21/2023 3:05 AM LINE INSTALLATION SUPERVISOR COVID: Recovered Comment:Added based on recent COVID infection. 04/21/2023 06/11/2023 07/20/2023 3:[address] documented as of this encounter Care Teams Help Desk Operator Relationship Specialty Start Date End Date Vince Fernando MD PCP - General 07/04/16 Vince Fernando MD [address] [facility] [address] [place] [address] Referring Physician Internal Medicine 03/19/21 Miscellaneous, Not In File 03/22/21 Mirza Gutierrez MD [address] [place] [address] Consulting Physician Cardiology 01/20/24 documented as of this encounter
--- OUTSIDE RECORDS SUMMARY | 2024-07-24 00:15 | XMS_ITS | Encounter Summary ---
Author Organization [facility] Address [address] [place] [address] Phone Care Team Providers Care Manager Developmental Name Role Phone Vince Fernando MD Primary Care Provider Vince Fernando MD Unavailable [phone] Miscellaneous, Not In File Unavailable Unava ilable Mirza Gutierrez MD Unavailable [phone] Encounter Details Date Type Department Care [...] on file Legal Sex Female 3:54 AM TIGHT COOPER Gender Identity Female 01/23/2021 5:40 PM CDT [...] COVID: Suspected 04/11/2023 04/11/2023 04/11/2023 11:12 AM TIGHT COOPER COVID19 04/11/2023 04/11/2023 04/21/2023 3:05 AM TIGHT COOPER COVID: Recovered Comment:Added based on recent COVID infection. 04/21/2023 06/11/2023 07/20/2023 3:[address] documented as of this encounter Care Teams Manager Developmental Relationship Specialty Start Date End Date Vince Fernando MD PCP - General 07/04/16 Vince Fernando MD [address] [facility] [address] [place] [address] Referring Physician Internal Medicine 03/19/21 Miscellaneous, Not In File 03/22/21 Mirza Gutierrez MD [address] [address] Consulting Physician Cardiology 01/20/24 documented as of this encounter
--- OUTSIDE RECORDS SUMMARY | 2024-07-24 00:15 | XMS_ITS | Referral Summary ---
Author Organization [facility] Address [address] [place] [address] Care Team Providers Care Transportation Security Officer Name Role Phone Vince Fernando MD Primary Care Provider [phone] Source Comments [facility],non-[facility] Affiliates and Associated Physician Practices is amultiple site organization consisting of ambulatory clinics and hospital sitesin [place], [place], [place] and [place]. This disclosure is being madepursuant to the Care Everywhere program and may not contain all information available regarding this patient. Last updated 18.[facility] Allergies Active Allergy Reactions Criticality Noted Date [...] of Treatment Not on file Care Teams Transportation Security Officer Relationship Specialty Start Date End Date Vince Fernando MD [facility] [place] [address] PCP - General Internal Medicine 09/05/21
--- OUTSIDE RECORDS SUMMARY | 2024-07-24 00:15 | XMS_ITS | CONTINUITY OF CARE DOCUMENT ---
Author Name maribel lópez Address Unknown Organization [facility] Address [address] [facility] [address] [place] [address] Phone [phone] Care Team Providers Care Horologist Name Role Phone Yonathan Pritchett MD Unavailable [phone] KAMERON CERVANTES MD Unavailable KAMERON CERVANTES MD Unavailable [phone] PROBLEMS Condition Status Date Provider Notes Bradycardia active Peter Kumar CAD- nonobstructive active Yonathan Pritchett MD Cancer active Landon Garcia Cellulitis, face active Landon Garcia ENCOUNTERS Date Type Provider Location Encounter Diag nosis - In-person encounter Office Visit Yonathan Pritcehtt MD [facility] Office CAD- nonobstructiveCance rCellulitis, face VITAL SIGNS [...] Payer name Policy type / Coverage type [place] red democrat ID [employer] MED[employer]ARE ADVANTAGE ST 0 003 (HMO POS) Medicare [id number] TREATMENT PLAN Date Name Performer Cardiology: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
--- OUTSIDE RECORDS SUMMARY | 2024-07-24 00:15 | XMS_ITS | Patient Health Summary ---
Author Organization [facility] Address [address] [facility] [place] [address] Care Team Providers Care Rivet Bucker Name Role Phone Vince Fernando MD Primary Care Provider [phone] Note from [facility],non-owned Affiliates and Associated Physician Practices is amultiple site organization consisting of ambulatory clinics and hospital sitesin [place], [place], [place] and [place]. This disclosure is being madepursuant to the Care Everywhere program and may not contain all information available regarding this patient. Last updated 18.[facility] Allergies * Penicillins(Unknown) Social History Tobacco Use [...] - 10.5 10 3/uL 09/05/2021 10:59 AM [facility] RBC 4.00 3.80 - 5.20 10 6/uL 09/05/2021 10:59 AM [facility] Hemoglobin 12.0 12.0 - 15.6 g/dL 09/05/2021 10:59 AM [facility] Hematocrit 38.0 35.0 - 45.0 % 09/05/2021 10:59 AM [facility] MCV 95.0 80.7 - 98.3 fL 09/05/2021 10:59 AM [facility] MCH 30.0 26.7 - 34.0 pg 09/05/2021 10:59 AM [facility] MCHC 31.6 30.8 - 35.9 g/dL 09/05/2021 10:59 AM [facility] Platelet Count 134(L) 150 - 400 10 3/uL 09/05/2021 10:59 AM [facility] RDW-SD 47.5 36.0 - 50.0 fL 09/05/2021 10:59 AM [facility] RDW-CV 13.6 11.2 - 14.8 % 09/05/2021 10:59 AM [facility] MPV 13.6(H) 9.4 - 12.9 fL 09/05/2021 10:59 AM [facility] nRBC Absolute 0.00 0 10 3/uL 09/05/2021 10:59 AM [facility] nRBC Auto 0.0 0 /100 WBC 09/05/2021 10:59 AM [facility] Neutrophils % 55.1 35.0 - 70.0 % 09/05/2021 10:59 AM [facility] Lymphocytes % 31.8 20.0 - 43.0 % 09/05/2021 10:59 AM [facility] Monocytes % 9.7 5.0 - 13.0 % 09/05/2021 10:59 AM [facility] Eosinophils % 2.4 0.0 - 6.0 % 09/05/2021 10:59 AM [facility] Basophil % 0.8 0.0 - 2.0 % 09/05/2021 10:59 AM [facility] Neutrophils Absolute 2.7 1.6 - 7.0 10 3/uL 09/05/2021 10:59 AM [facility] Lymphocyte Absolute 1.6 1.1 - 3.9 10 3/uL 09/05/2021 10:59 AM [facility] Monocytes Absolute 0.48 0.26 - 1.07 10 3/uL 09/05/2021 10:59 AM [facility] Eosinophils Absolute 0.12 0.00 - 0.47 10 3/uL 09/05/2021 10:59 AM [facility] Basophils Absolute 0.04 0.00 - 0.08 10 3/uL 09/05/2021 10:59 AM [facility] Immature Granulocytes % 0.2 0.0 - 1.0 % 09/05/2021 10:59 AM [facility] Immature Granulocytes Absolute 0.01 09/05/2021 10:59 AM [facility] Immature Platelet Fraction 11.6(H) 1.1 - 6.2 % 09/05/2021 10:59 AM [facility] Blood BLOOD SPECIMEN / Unknown Venipuncture / Unknown 09/05/2021 10:38 AM CDT 09/05/2021 10:45 AM [facility] Nii Rashid MD LAB - HEMATOLOGY ORD ERABLES [facility] [address] [place] [address], [facility] [phone] * (ABNORMAL) COMPREHENSIVE METABOLIC PANEL (09/05/2021 10:38 AM [facility]) BUN 41(H) 7 - 26 mg/dL 09/05/2021 11:11 AM [facility] Creatinine 1.47(H) 0.56 - 0.96 mg/dL 09/05/2021 11:11 AM [facility] Sodium 142 136 - 145 mmol/L 09/05/2021 11:11 AM [facility] Potassium 4.3 3.5 - 4.5 mmol/L 09/05/2021 11:11 AM [facility] Chloride 104 98 - 107 mmol/L 09/05/2021 11:11 AM [facility] CO2 27 22 - 29 mmol/L 09/05/2021 11:11 AM [facility] Glucose 98 70 - 115 mg/dL 09/05/2021 11:11 AM [facility] Calcium 9.9 8.4 - 10.2 mg/dL 09/05/2021 11:11 AM [facility] Protein Total 6.5 6.0 - 8.3 g/dL 09/05/2021 11:11 AM [facility] Albumin 3.7 3.4 - 5.0 g/dL 09/05/2021 11:11 AM [facility] Bilirubin Total 0.5 0.2 - 1.2 mg/dL 09/05/2021 11:11 AM [facility] Alkaline Phosphatase 113 40 - 150 U/L 09/05/2021 11:11 AM [facility] ALT 12 5 - 55 U/L 09/05/2021 11:11 AM [facility] AST 21 5 - 34 U/L 09/05/2021 11:11 AM [facility] Anion Gap 15 8 - 18 09/05/2021 11:11 AM [facility] BUN/Creatinine Ratio 28(H) 7 - 23 09/05/2021 11:11 AM [facility] Osmolality Calculated 304(H) 270 - 300 mOsm/kg 09/05/2021 11:11 AM [facility] Albumin/Globulin Ratio 1.3 1.1 - 2.3 09/05/2021 11:11 AM CDT [facility] eGFR by CKD-EPI 38(L) >=90 mL/min/1.7 3 m2 09/05/2021 11:11 AM CDT [facility] Blood BLOOD SPECIMEN / Unknown Venipuncture / Unknown 09/05/2021 10:38 AM CDT 09/05/2021 10:45 AM CDT Nii Rashid MD LAB - CHEMISTRY [facility] [address] [address], [place] [phone] * PHOSPHORUS BLOOD (09/05/2021 10:38 AM CDT) Phosphorus 3.8 2.9 - 5.1 mg/dL 09/05/2021 11:11 AM CDT [facility] Blood BLOOD SPECIMEN / Unknown Venipuncture / Unknown 09/05/2021 10:38 AM CDT 09/05/2021 10:45 AM CDT Nii Rashid MD LAB - CHEMISTRY [facility] Performing Organization Address City/[facility]/ZIP Co de Phone Number [address] [address], [place] [phone] * MAGNESIUM BLOOD (09/05/2021 10:38 AM CDT) Magnesium 2.2 1.6 - 2.6 mg/dL 09/05/2021 11:11 AM CDT [facility] Blood BLOOD SPECIMEN / Unknown Venipuncture / Unknown 09/05/2021 10:38 AM CDT 09/05/2021 10:45 AM CDT Nii Rashid MD LAB - CHEMISTRY [facility] Performing Organization Address City/[facility]/ZIP Co de Phone Number [address] [address], [place] [phone] * GLUCOSE - POINT OF CARE (09/05/2021 10:14 AM CDT) Glucose WB/POC 107 70 - 115 mg/dL 09/06/2021 6:06 AM CDT [facility] Specimen Type Cap Fingerstick 2021 6:06 AM CDT [facility] Blood BLOOD SPECIMEN / Unknown 09/05/2021 10:14 AM CDT 09/06/2021 6:06 AM CDT Provider Unknown LAB - POINT OF CARE ORDERABLES Performing Organization Address City/State/[facility] Co de Phone Number [facility] [address] [place] [address], [facility] [phone] Care Teams Rivet Bucker Relationship Specialty Start Date End Date Vince Fernando MD [address] [place] [address] [address] [place] [address] PCP - General Internal Medicine 09/05/21
--- OUTSIDE RECORDS SUMMARY | 2024-07-24 00:15 | XMS_ITS | Continuity of Care Document ---
Author Organization [facility] Address [address] [place] [address] Phone Care Team Providers Care Corrosion Engineer Name Role Phone Raissa Buck PT Unavailable Unavailable Procedures Procedure Date Therapeutic Activities Neuromuscular Re-Ed Therapeutic Exercise PT Evaluation Low Complexity Neuromuscular Re-Ed Therapeutic Exercise Advance Directives Directive Yes / No Effective Date File Name No Information Encounters Encounter Description Practice Location Reason(s) For Visit Diagnoses Date Provider Providers Copied on Encounter [facility], [address] [place] [address], [id number], tel:[phone] [place] No Information Feb-0 0 Cielo Haji. . Referring Provider: Radha Obrien [facility] [address], [address]. tel:[phone] [facility], [address] [place] [address], [id number], tel:[phone] [place] No Information Feb-0 0 Marium Skinner. . Referring Provider: Radha Obrien [facility] [address], [address]. tel:[phone] Family History Family Member Type Diagnosis Age At Onset No Information Payers Payer name Insurance type Covered alliance party ID Authorevelioa tion(s) [employer] [id number] Social History Type Description Quantity Date Captured [...]
--- OUTSIDE RECORDS SUMMARY | 2024-07-24 00:15 | XMS_ITS | Encounter Summary ---
Author Organization [facility] Address [address] [place] [address] Care Team Providers Care Dental Technician Name Role Phone Vnice Fernando MD Primary Care Provider Vince Fernando MD Unavailable [phone] Miscellaneous, Not In File Unavailable Unava Mirza King MD Unavailable [phone] Encounter Details Date Type Department Care Team (Late st Contact Info) Description 09/26/2020 Telephone [facility] [address] [place] [phone] Jennifer [place], RT Social History Tobacco Use Types Packs/Day Years Used Date Smoking Tobacco: Former Cigarettes 1 34 1 972 - 2006 Smokeless Tobacco: Never Alcohol Use Standard Drinks/Week Comments No 0 (1 standard drink = 0.6 oz pur e alcohol) Comments No Sex and Gender Information Value Date Recorded Sex Assigned at Not on file Legal Sex Female 3:54 AM JIG AND FIXTURE REPAIRER Gender Identity Female 01/23/2021 5:40 PM CDT Sexual Orientation Straight 01/23/2021 5: 40 PM CDT documented as of this encounter Plan of Treatment Not on file documented as of this encounter Visit Diagnoses Not on filedocumented in this encounter Additional Health Concerns Infection Onset Date Last Indicated Resolved Time COVID: Suspected 04/11/2023 04/11/2023 04/11/2023 11:12 AM JIG AND FIXTURE REPAIRER COVID19 04/11/2023 04/11/2023 04/21/2023 3:05 AM JIG AND FIXTURE REPAIRER COVID: Recovered Comment:Added based on recent COVID infection. 04/21/2023 06/11/2023 07/20/2023 3:05 AM JIG AND FIXTURE REPAIRER documented as of this encounter Care Teams Dental Technician Relationship Specialty Start Date End Date Vince Fernando MD PCP - General 07/04/16 Vince Fernando MD [address] [facility] [address] [place] [address] Referring Physician Internal Medicine 03/19/21 Miscellaneous, Not In File 03/22/21 Mirza Gutierrez MD [address] [place] [address] Consulting Physician Cardiology 01/20/24 documented as of this encounter
--- OUTSIDE RECORDS SUMMARY | 2024-07-24 00:15 | XMS_ITS | Clinical Summary ---
Author Organization [facility] Address [address] [facility] [place] [address] Care Team Providers Care Senior Ui Developer Name Role Phone Vince Fernando MD Primary Care Provider [phone] Source Comments [facility],non-[facility] Affiliates and Associated Physician Practices is amultiple site organization consisting of ambulatory clinics and hospital sitesin [place], [place], [place] and [place]. This disclosure is being madepursuant to the Care Everywhere program and may not contain all information available regarding this patient. Last updated 18.[facility] Allergies Active Allergy Reactions Criticality Noted Date [...] age to complete this topic Care Teams Senior Ui Developer Relationship Specialty Start Date End Date Vince Fernando MD [address] [place] [address] [address] [place] [address] PCP - General Internal Medicine 09/05/21
--- OUTSIDE RECORDS SUMMARY | 2024-07-24 00:15 | XMS_ITS | Clinical Summary ---
Author Organization [facility] Address [address] [place] [address] Care Team Providers Care Environmental Emergencies Assistant Name Role Phone None, Provider MD Primary [...] this topic Medical Devices Implanted Type Area Kids Club Attendant Device Identifier Shelf Expiration Date Model / Serial / Lot Stimulator Lead-04/28/2021 Implanted:Qty: 1 on 04/28/2021 Lead Implant Sacrum [id number] / [id number] / Bladder Stimulator-04/28 Implanted:Qty: 1 on 04/28/2021 Stimulator Implant Pelvis [id number] / [id number] / Description:MR CONDITIONAL A T 1.5 T OR 3 T, SHOULD BE FULL BODY ELIGIBLE (CHECK WITH REMOTE), NEED REMOTE TO TURN OFF STIMULATION, FOLLOW JUSTIN RESTRICTIONS FOR BODY PART BEING SCANNED (MRI TECHNICAL MANUAL), MAX SCAN TIME OF 30 MINUTES WITH 5 MINUTE WAIT IF SCAN TIME REACHED Insurance [facility] Care Teams Environmental Emergencies Assistant Relationship Specialty Start Date End Date None, Provider, PCP - General UNKNOWN PHYSICIAN SPECIALTY 10/02/23
--- OUTSIDE RECORDS SUMMARY | 2024-07-24 00:15 | XMS_ITS | Encounter Summary ---
Author Organization [facility] Address [address] [place] [address] Phone Care Team Providers Care Floriculture Professor Name Role Phone Vince Fernando MD Primary Care Provider Vince Fernando MD Unavailable [phone] Miscellaneous, Not In File Unavailable Unava ilable Mirza Gutierrez MD Unavailable [phone] Encounter Details Date Type Department Care [...] on file Legal Sex Female 3:54 AM DISTRICT ADMINISTRATIVE ASSISTANT Gender Identity Female 01/23/2021 5:40 PM CDT [...] COVID: Suspected 04/11/2023 04/11/2023 04/11/2023 11:12 AM DISTRICT ADMINISTRATIVE ASSISTANT COVID19 04/11/2023 04/11/2023 04/21/2023 3:05 AM DISTRICT ADMINISTRATIVE ASSISTANT COVID: Recovered Comment:Added based on recent COVID infection. 04/21/2023 06/11/2023 07/20/2023 3:[address] documented as of this encounter Care Teams Floriculture Professor Relationship Specialty Start Date End Date Vince Fernando MD PCP - General 07/04/16 Vince Fernando MD [address] [facility] [address] [place] [address] Referring Physician Internal Medicine 03/19/21 Miscellaneous, Not In File 03/22/21 Mirza Gutierrez MD [address] [address] Consulting Physician Cardiology 01/20/24 documented as of this encounter
--- OUTSIDE RECORDS SUMMARY | 2024-07-24 00:15 | XMS_ITS | Encounter Summary ---
Author Organization [facility] Address [address] [place] [address] Phone Care Team Providers Care Scout Name Role Phone Vince Fernando MD Primary Care Provider Vince Fernando MD Unavailable [phone] Miscellaneous, Not In File Unavailable Unava ilable Mirza Gutierrez MD Unavailable [phone] Encounter Details Date Type Department Care [...] on file Legal Sex Female 3:54 AM CRITICAL SYSTEMS TECHNICIAN Gender Identity Female 01/23/2021 5:40 PM [...] DT COVID19 04/12/2020 04/12/2020 04/26/2020 3:08 AM CRITICAL SYSTEMS TECHNICIAN COVID: Recovered Comment:Added based on recent COVID infection. 04/26/2020 04/29/2020 08/24/2020 3:05 AM C DT COVID: Suspected 04/11/2023 04/11/2023 04/11/2023 11:12 AM CRITICAL SYSTEMS TECHNICIAN COVID19 04/11/2023 04/11/2023 04/21/2023 3:05 AM CRITICAL SYSTEMS TECHNICIAN COVID: Recovered Comment:Added based on recent COVID infection. 04/21/2023 06/11/2023 07/20/2023 3:[address] documented as of this encounter Care Teams Scout Relationship Specialty Start Date End Date Vince Fernando MD PCP - General 07/04/16 Vince Fernando MD [address] [facility] [address] [place] [address] Referring Physician Internal Medicine 03/19/21 Miscellaneous, Not In File 03/22/21 Mirza Gutierrez MD [address] [address] Consulting Physician Cardiology 01/20/24 documented as of this encounter
--- OUTSIDE RECORDS SUMMARY | 2024-07-24 00:16 | XMS_ITS | Referral Summary ---
Author Organization [facility] Address [address] [place] [address] Care Team Providers Care Occ Med Physician Name Role Phone Vince Fernando MD Primary Care Provider Vince Fernando MD Unavailable [phone] Miscellaneous, Not In File Unavailable Unava ilMirza Shaver MD Unavailable [phone] Encounters Date Type Department Care Team Description 07/23/2024 10:00 AM CDT Office Visit [facility] Nephrology [facility] [facility] 5th [place] [address] [place] [id number] Nii Curtis MD Stage 3b chronic kidney disease (HCC) (Primary Dx); Malignant neoplasm of oral cavity (HCC) 07/20/2024 9:10 AM CDT - 07/20/2024 11:59 PM CDT Hospital Encounter [facility] [address] [place] [address] Stage 4 chronic kidney disease (HCC) Discharge Disposition: Discharge to home or self care 07/20/2024 2:[address] [facility] Outpatient Lab at [address] [address] 07/20/2024 9:[address] [facility] Outpatient Lab at [address] [address] Hypothyroidism (Primary Dx) 07/08/2024 11:15 AM PHOTOGRAPH FINISHER Lab [facility] - Lab Collection [address] [facility] Floor 6 [place] [address] Thrombocytopenia, immune (HCC) 07/08/2024 11:00 AM PHOTOGRAPH FINISHER Office Visit [facility] Hematology [facility] 6 [place] [address] Inessa Evans MD Thrombocytopenia, immune (HCC) (Primary Dx) 07/08/2024 10:00 AM PHOTOGRAPH FINISHER Lab [facility] Oncology Lab [facility] 6 [place] [address] Thrombocytopenia, immune (HCC) from Last 3 Months [...] facial and neck pain for 1 week [employer] SC[employer]. She was initially evaluated at [facility] and was discharged home. When she became febrile to 103 this prompted her to present to [facility] ED for her facial cellulitis. Due to [...] 06/04/2018 Assessment & Plan (06/04/2018 2:18 PM PHOTOGRAPH FINISHER): - Keep wound clean and covered - [...] 50mcg Assessment & Plan (05/14/2018 11:59 PM PHOTOGRAPH FINISHER): - Continue levothyroxine per tube Erysipelas 2018 Assessment & Plan (06/04/2018 2:15 PM PHOTOGRAPH FINISHER): - She has completed two courses of clindamycin, each with resolution of symptoms - No current signs/symptoms c/f recurrent infection - Advised to monitor closely. 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 Vidal of medical oncology and [...] with preservation of the left mental nerve ([facility]) Right fibula ostocutaneous free tissue transfer reconstruction of segmental mandibulectomy defect. 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 More than 4 times per year 01/15/2024 Do you belong to any clubs o r organizations such as shinto groups, unions, fraternal or athletic groups, or [...] any time in the past 12 [facility], were you homeless or living [...] on file Legal Sex Female 3:54 AM PHOTOGRAPH FINISHER Gender Identity Female 01/23/2021 5:40 PM CDT [...] DIFFERENTIAL AUTO Routine 07/08/2024 10: 37 AM PHOTOGRAPH FINISHER Thrombocytopenia, immune (HCC) CBC WITH AUTO DIFFERENTIAL Routine 07/08/2024 10:37 AM PHOTOGRAPH FINISHER Thrombocytopenia, immune (HCC) SCREENING MAMMOGRAM BILATERAL W [...] MD LAB BLOOD ORDERABLES Fin al Result [facility] [address] Department [place] [address] * (ABNORMAL) Differential, auto (07/20/2024 9:10 AM CDT) Neutrophil abs 3.3 1.5 - 6.5 K/cumm Imm gran abs 0.0 0.0 - 0.1 K/cumm [facility] Lymphocyte abs 0.7(L) 0.8 - 3.3 K/cumm [facility] Monocyte abs 0.5 0.2 - 0.8 K/cumm [facility] Eosinophil abs 0.2 0.0 - 0.5 K/cumm [facility] Basophil abs 0.1 0.0 - 0.1 K/cumm [facility] Neutrophil pct 69.0 % [facility] Comment: Interpretive Data Percent cell count reference ranges are not reported, since discordance with absolute values may lead to misinterpretation of CBC data. Current Interpretive Data was last revised on 2017. Imm gran pct 0.2 % [facility] Comment: Interpretive Data Percent cell count reference ranges are not reported, since discordance with absolute values may lead to misinterpretation of CBC data. Current Interpretive Data was last revised on 2017. Lymphocyte pct 14.8 % [facility] Comment: Interpretive Data Percent cell count reference ranges are not reported, since discordance with absolute values may lead to misinterpretation of CBC data. Current Interpretive Data was last revised on 2017. Monocyte pct 10.4 % [facility] Comment: Interpretive Data Percent cell count reference ranges are not reported, since discordance with absolute values may lead to misinterpretation of CBC data. Current Interpretive Data was last revised on 2017. Eosinophil pct 4.6 % [facility] Comment: Interpretive Data Percent cell count reference [...] ORDERABLES Fin al Result Performing Organization Address [facility] Co de Phone Number [facility] [address] Department [place] [address] * Urinalysis reflex to microscopic (07/20/2024 9:10 [...] tendency for uric acid stone formation. Source: [facility] [email or web address] Current Interpretive Data was last revised on [...] ORDERABLES Fin al Result Performing Organization Address City/[facility] [place] [address] [address] Department [place] [address] * (ABNORMAL) CBC with auto differential (07/20/2024 9:10 AM CDT) WBC 4.8 3.8 - 9.9 K/cumm Hgb 10.4(L) 11.9 - 15.5 g/dL [facility] Hct 34.4(L) 35.6 - 45.5 % [facility] Plt 137(L) 150 - 400 K/cumm [facility] CH Comment:No clot detected in sample. MPV 13.3(H) 9.1 - 12.3 fL [facility] RBC 3.47(L) 3.90 - 5.20 M/cumm [facility] MCV 99.1(H) 81.3 - 96.4 fL [facility] MCH 30.0 27.1 - 33.3 pg [facility] MCHC 30.2(L) 32.3 - 35.7 g/dL [facility] RDW CV 13.7 11.1 - 14.9 % [facility] RDW SD 49.9(H) 35.7 - 48.1 fL [facility] NRBC abs 0.00 0.00 - 0.01 K/cumm [facility] Blood 07/20/2024 9:10 AM CDT 07/20/2024 6:54 PM CDT Nii Curtis MD LAB BLOOD ORDERABLES Fin al Result Performing Organization Address [facility] Co de Phone Number SHERON [address] Department [email or web address] [address] * PTH (07/20/2024 9:10 AM CDT) Pathologist [facility] PTH 39 15 - 65 pg/mL Blood 07/20/2024 9:10 AM CDT 07/20/2024 6:54 PM CDT Nii Curtis MD LAB BLOOD ORDERABLES Fin al Result [facility] BRUNO [address] Department [place] [address] * (ABNORMAL) Renal function panel (07/20/2024 9:10 [...] BLOOD ORDERABLES Fin al Result [facility] BRUNO [address] Department [place] [address] * (ABNORMAL) Differential, auto (07/08/2024 10:37 AM PHOTOGRAPH FINISHER) Neutrophil abs 4.8 1.5 - 6.5 K/cumm Comment:Testing performed by : [facility], [address] [place] [phone] Lymphocyte abs 0.4(L) 0.8 - 3.3 K/cumm [facility] Comment:Testing performed by : [facility], [address] [place] [phone] Monocyte abs 0.4 0.2 - 0.8 K/cumm [facility] Comment:Testing performed by : [facility], [address] [place], [place] [id number] Eosinophil abs 0.1 0.0 - 0.5 K/cumm [facility] Comment:Testing performed by : [facility], [address] [place] [address] Basophil abs 0.0 0.0 - 0.1 K/cumm [facility] Comment:Testing performed by : [facility], [address] [place] [address] Neutrophil pct 83.9 % [facility] Comment: Interpretive Data Percent cell count reference ranges are not reported, since discordance with absolute values may lead to misinterpretation of CBC data. Current Interpretive Data was last revised on 2017. Testing performed by: [facility], [address] [place] [phone] Lymphocyte pct 7.6 % [facility] Comment: Interpretive Data Percent cell count reference ranges are not reported, since discordance with absolute values may lead to misinterpretation of CBC data. Current Interpretive Data was last revised on 2017. Testing performed by: [facility], [address] [place] [phone] Monocyte pct 6.4 % [facility] Comment: Interpretive Data Percent cell count reference ranges are not reported, since discordance with absolute values may lead to misinterpretation of CBC data. Current Interpretive Data was last revised on 2017. Testing performed by: [facility], [address] [place] [phone] Eosinophil pct 1.4 % [facility] Comment: Interpretive Data Percent cell count reference ranges are not reported, since discordance with absolute values may lead to misinterpretation of CBC data. Current Interpretive Data was last revised on 2017. Testing performed by: [facility], [address] [place] [address] Basophil pct 0.7 % [facility] Comment: Interpretive Data Percent cell count reference ranges are not reported, since discordance with absolute values may lead to misinterpretation of CBC data. Current Interpretive Data was last revised on 2017. Testing performed by: [facility], [address] [place] [address] Blood 07/08/2024 10:3 7 AM PHOTOGRAPH FINISHER 07/08/2024 10:59 AM PHOTOGRAPH FINISHER Aisha Barba RISK CONTROL OFFICER LAB BLOOD ORDERABLES Final Result SHERON [facility] Department [place] [address] * (ABNORMAL) CBC with auto differential (07/08/2024 10:37 AM PHOTOGRAPH FINISHER) WBC 5.7 3.8 - 9.9 K/cumm Comment:Testing performed by : [facility], [address] [place] [address] Hgb 10.8(L) 11.9 - 15.5 g/dL [facility] Comment:Testing performed by : [facility], [address] [place] [address] Hct 32.9(L) 35.6 - 45.5 % [facility] Comment:Testing performed by : [facility], [address] [place] [address] Plt 111(L) 150 - 400 K/cumm [facility] Comment:Testing performed by : [facility], [address] [place] [address] MPV 11.7(H) 6.8 - 10.4 fL [facility] Comment:Testing performed by : [facility], [address] [place] [address] RBC 3.61(L) 3.90 - 5.20 M/cumm SHERON ELIZABETH Comment:Testing performed by : [facility], [address] [place] [address] MCV 91.2 81.3 - 96.4 fL SHERON ELIZABETH Comment:Testing performed by : [facility], [address] [place] [address] MCH 29.9 27.1 - 33.3 pg SHERON ELIZABETH Comment:Testing performed by : [facility], [address] [place] [address] MCHC 32.8 32.3 - 35.7 g/dL SHERON ELIZABETH Comment:Testing performed by : [facility], [address] [place] [address] RDW CV 14.5 11.1 - 14.9 % SHERON ELIZABETH Comment:Testing performed by : [facility], [address] [place] [address] NRBC abs 0.00 0.00 - 0.01 K/cumm SHERON [facility] Comment:Testing performed by : [facility], [address] [place] [address] Blood 07/08/2024 10:3 7 AM PHOTOGRAPH FINISHER 07/08/2024 10:59 AM PHOTOGRAPH FINISHER Aisha Barba RISK CONTROL OFFICER LAB BLOOD ORDERABLES Final Result Performing Organization Address City/State/[facility] de Phone Number SHERON [facility] Department [place] [address] * Screening Mammogram Bilateral W Carlos (09/06/2020 11:17 AM CDT) Anatomical Region Laterality Modality Breast Bilateral Mammography Narrative 09/09/2020 11:22 AM CDT Mammogram Technique: Bilateral Digital Breast Tomosynthesis, Bilateral C-view 2D Screening mammogram. Views obtained: bilateral craniocaudal and bilateral mediolateral oblique. Computer Aided Detection was performed. Mammogram Findings: The present examination has been compared to a prior imaging study performed at [facility] on 09/10/2018. The breasts are heterogeneously dense, [...] to a prior imaging study performed at [facility] on 09/10/2018. The breasts are heterogeneously dense, [...] Insurance MEDICARE [employer] MEDICARE SOLUTIONS MEDICARE SOLUTIONS [facility] MEDICARE MEDICARE SOLUTIONS MEDICARE SOLUTIONS MEDICARE SOLUTIONS Advance Directives For more information, please contact: [phone] * Full Code (Latest Code Status on [...] 10:17 PM 08/29/2019 4:26 PM Care Teams Occ Med Physician Relationship Specialty Start Date End Date Vince Fernando MD PCP - General 07/04/16 Vince Fernando MD [address] [facility] [address] [address] Referring Physician Internal Medicine 03/19/21 Miscellaneous, Not In File 03/22/21 Mirza Gutierrez MD [address] [place] [address] Consulting Physician Cardiology 01/20/24
--- OUTSIDE RECORDS SUMMARY | 2024-07-24 00:16 | XMS_ITS | Clinical Summary ---
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 She was initially evaluated at [facility] and was discharged home. When she became febrile to 103 this prompted her to present to [facility] for her facial cellulitis. [...] 06/04/2018 Assessment & Plan (06/04/2018 2:18 PM MUSSEL OPENER): - Keep wound clean and covered - [...] 50mcg Assessment & Plan (05/14/2018 11:59 PM MUSSEL OPENER): - Continue levothyroxine per tube Erysipelas 2018 Assessment & Plan (06/04/2018 2:15 PM MUSSEL OPENER): - She has completed two courses of clindamycin, each with resolution of symptoms - No current signs/symptoms c/f recurrent infection - Advised to monitor closely. 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 Vidal of medical oncology and [...] with preservation of the left mental nerve ([facility] 06/04/16) Right fibula ostocutaneous free tissue transfer reconstruction of segmental mandibulectomy defect. 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] PROCEDURE PERFORMED [place] 11/26/17: REMOVAL HARDWARE - MANDIBLE Anxiety 06/01/2015 Overview (08/18/2016): Anxiety Assessment & Plan (08/28/2019 10:28 PM CDT): Continue home Celexa Assessment & Plan (05/14/2018 11:59 PM MUSSEL OPENER): PMH anxiety/depression - Continue citalopram daily per [...] agents Assessment & Plan (05/15/2018 4:26 AM MUSSEL OPENER): Cr ~ 1.7 on admission, previous baseline 1.4-1.5 - renally dose medications, avoid nephrotoxins Encounters Date Type Department Care Team Description 07/23/2024 10:00 AM CDT Office Visit [facility] Nephrology [address] [place] [address] [facility] 5th [place] [address] [place] [address] Nii Curtis MD Stage 3b chronic kidney disease (HCC) (Primary Dx); Malignant neoplasm of oral cavity (HCC) 07/20/2024 2:30 PM CDT Lab [facility] Outpatient Lab at [address] [address] 07/20/2024 9:15 AM CDT Lab [facility] Outpatient Lab at [address] [address] Hypothyroidism (Primary Dx) 07/20/2024 9:10 AM CDT - 07/20/2024 11:59 PM CDT Hospital Encounter [facility] [address] [place] [address] Stage 4 chronic kidney disease (HCC) Discharge Disposition: Discharge to home or self care 07/08/2024 11:15 AM MUSSEL OPENER Lab [facility] - Lab Collection [address] [facility] Floor 6 [place] [address] Thrombocytopenia, immune (HCC) 07/08/2024 11:00 AM MUSSEL OPENER Office Visit [facility] Hematology [address] [place] [address] Floor 6 [place] [address] Inessa Evans MD Thrombocytopenia, immune (HCC) (Primary Dx) 07/08/2024 10:00 AM MUSSEL OPENER Lab [facility] Oncology [facility] 6 [place] [address] Thrombocytopenia, immune (HCC) from Last 3 Months [...] Dali Depression Daughter Dali Atrial fibrillation Father Seville Atrial f ibrillation; COPD Father [place] COPD; /Family h istory of chronic obstructive pulmonary disease - (Added by TW Conv) Diabetes Father Seville Diabetes mellit us; /Family history of diabetes [...] e alcohol) [facility] Utilities Answer Date Recorded In the past [...] often do you attend chur ch or cheondoism services? More than 4 times per year 01/15/2024 Do you belong to any clubs o r organizations such as anglican groups, unions, fraternal or athletic groups, or [...] any time in the past 12 [facility], were you homeless or living in a alf (including now)? No 01/15/2024 Personal Safety Answer Date Recorded Have you ever been in or are you currently in a harmful physical or emotional relationship or is someone making you feel afraid or unsafe? Denies 01/14/2024 Comments No Sex and Gender Information Value Date Recorded Sex Assigned at Not on file Legal Sex Female 3:54 AM MUSSEL OPENER Gender Identity Female 01/23/2021 5:40 PM CDT [...] DIFFERENTIAL AUTO Routine 07/08/2024 10: 37 AM MUSSEL OPENER Thrombocytopenia, immune (HCC) CBC WITH AUTO DIFFERENTIAL Routine 07/08/2024 10:37 AM MUSSEL OPENER Thrombocytopenia, immune (HCC) SCREENING MAMMOGRAM BILATERAL W [...] MD LAB BLOOD ORDERABLES Fin al Result [facility] [address] Department [place] [address] * (ABNORMAL) Differential, auto (07/20/2024 9:10 AM CDT) Neutrophil abs 3.3 1.5 - 6.5 K/cumm Imm gran abs 0.0 0.0 - 0.1 K/cumm [facility] Lymphocyte abs 0.7(L) 0.8 - 3.3 K/cumm [facility] Monocyte abs 0.5 0.2 - 0.8 K/cumm [facility] Eosinophil abs 0.2 0.0 - 0.5 K/cumm [facility] Basophil abs 0.1 0.0 - 0.1 K/cumm [facility] Neutrophil pct 69.0 % CERNER [...] LAB BLOOD ORDERABLES Fin al Result [facility] [address] Department [place] [address] * Urinalysis reflex to microscopic [...] tendency for uric acid stone formation. Source: [facility] Laboratories Current Interpretive Data was last revised [...] Reflex conditions for microscopic UA not met. [facility] Urine 07/20/2024 9:10 AM CDT 07/20/2024 8:19 PM CDT us Nii Curtis MD LAB URINE ORDERABLES Fin al Result [facility] [address] Department [place] [address] * (ABNORMAL) CBC with auto differential (07/20/2024 9:10 AM CDT) WBC 4.8 3.8 - 9.9 K/cumm Hgb 10.4(L) 11.9 - 15.5 g/dL [facility] Hct 34.4(L) 35.6 - 45.5 % [facility] Plt 137(L) 150 - 400 K/cumm [facility] Comment:No clot detected in sample. MPV 13.3(H) 9.1 - 12.3 fL [facility] RBC 3.47(L) 3.90 - 5.20 M/cumm [facility] MCV 99.1(H) 81.3 - 96.4 fL [facility] MCH 30.0 27.1 - 33.[address] [facility] MCHC 30.2(L) 32.3 - 35.7 g/dL [facility] RDW CV 13.7 11.1 - 14.9 % [facility] RDW SD 49.9(H) 35.7 - 48.1 fL [facility] NRBC abs 0.00 0.00 - 0.01 K/cumm [facility] Blood 07/20/2024 9:10 AM CDT 07/20/2024 6:54 PM CDT Nii Curtis MD LAB BLOOD ORDERABLES Fin al Result Performing Organization Address [facility] Co de Phone Number [facility] [address] [place] [address] * PTH (07/20/2024 9:10 AM CDT) Pathologist [facility] PTH 39 15 - 65 pg/mL Blood 07/20/2024 9:10 AM CDT 07/20/2024 6:54 PM CDT Nii Curtis MD LAB BLOOD ORDERABLES Fin al Result Performing Organization Address [facility] de Phone Number [facility] [address] [place] [address] * (ABNORMAL) Renal function panel (07/20/2024 9:10 AM CDT) Pathologist [facility] Sodium 139 135 - 145 mmol/L Potassium, pl 4.4 3.3 - 4.9 mmol/L [facility] Chloride 98 97 - 110 mmol/L [facility] CO2 32 22 - 32 mmol/L [facility] Anion gap 9 2 - 15 mmol/L [facility] BUN 28(H) 6 - 25 mg/dL [facility] Creatinine 1.24(H) 0.60 - 1.10 mg/dL [facility] Glucose 79 70 - 199 mg/dL [facility] Comment: Interpretive Data Fasting glucose [...] LAB BLOOD ORDERABLES Fin al Result [facility] [address] Department [place] [address] * (ABNORMAL) Differential, auto (07/08/2024 10:37 AM MUSSEL OPENER) Neutrophil abs 4.8 1.5 - 6.5 K/cumm Comment:Testing performed by : [facility], [address] [place] [phone] Lymphocyte abs 0.4(L) 0.8 - 3.3 K/cumm [facility] Comment:Testing performed by : [facility], [address] [place] [phone] Monocyte abs 0.4 0.2 - 0.8 K/cumm [facility] Comment:Testing performed by : [facility], [address] [place] [phone] Eosinophil abs 0.1 0.0 - 0.5 K/cumm [facility] Comment:Testing performed by : [facility], [address] [place] [phone] Basophil abs 0.0 0.0 - 0.1 K/cumm [facility] Comment:Testing performed by : [facility], [address] [place] [phone] Neutrophil pct 83.9 % [facility] Comment: Interpretive Data Percent cell count reference ranges are not reported, since discordance with absolute values may lead to misinterpretation of CBC data. Current Interpretive Data was last revised on 2017. Testing performed by: [facility], [address] [place] [phone] Lymphocyte pct 7.6 % [facility] Comment: Interpretive Data Percent cell count reference ranges are not reported, since discordance with absolute values may lead to misinterpretation of CBC data. Current Interpretive Data was last revised on 2017. Testing performed by: [facility], [address] [place] [phone] Monocyte pct 6.4 % [facility] Comment: Interpretive Data Percent cell count reference ranges are not reported, since discordance with absolute values may lead to misinterpretation of CBC data. Current Interpretive Data was last revised on 2017. Testing performed by: [facility], [address] [place] [phone] Eosinophil pct 1.4 % [facility] BJ Comment: Interpretive Data Percent cell count reference ranges are not reported, since discordance with absolute values may lead to misinterpretation of CBC data. Current Interpretive Data was last revised on 2017. Testing performed by: [facility], [address] [place] [phone] Basophil pct 0.7 % [facility] Comment: Interpretive Data Percent cell count reference ranges are not reported, since discordance with absolute values may lead to misinterpretation of CBC data. Current Interpretive Data was last revised on 2017. Testing performed by: [facility], [address] [place] [phone] Blood 07/08/2024 10:3 7 AM MUSSEL OPENER 07/08/2024 10:59 AM MUSSEL OPENER Aisha Barba BATCH PLANT OPERATOR LAB BLOOD ORDERABLES Final Result [facility] Department [place] [address] * (ABNORMAL) CBC with auto differential (07/08/2024 10:37 AM MUSSEL OPENER) WBC 5.7 3.8 - 9.9 K/cumm Comment:Testing performed by : [facility], [address] [place] [address] Hgb 10.8(L) 11.9 - 15.5 g/dL [facility] Comment:Testing performed by : [facility], [address] [place], [place] [phone] Hct 32.9(L) 35.6 - 45.5 % [facility] Comment:Testing performed by : [facility], [address] [place] [address] Plt 111(L) 150 - 400 K/cumm [facility] Comment:Testing performed by : [facility], [address] [place], [place] [phone] MPV 11.7(H) 6.8 - 10.4 fL [facility] Comment:Testing performed by : [facility], [address] [place], [place] [phone] RBC 3.61(L) 3.90 - 5.20 M/cumm [facility] Comment:Testing performed by : [facility], [address] [place] [address] MCV 91.2 81.3 - 96.4 fL [facility] Comment:Testing performed by : [facility], [address] [place] [address] MCH 29.9 27.1 - 33.3 pg [facility] Comment:Testing performed by : [facility], [address] [place] [address] MCHC 32.8 32.3 - 35.7 g/dL [facility] Comment:Testing performed by : [facility], [address] [place] [address] RDW CV 14.5 11.1 - 14.9 % [facility] Comment:Testing performed by : [facility], [address] [place] [address] NRBC abs 0.00 0.00 - 0.01 K/cumm [facility] Comment:Testing performed by : [facility], [address] [place] [address] Blood 07/08/2024 10:3 7 AM MUSSEL OPENER 07/08/2024 10:59 AM MUSSEL OPENER Aisha Marques Barba BATCH PLANT OPERATOR LAB BLOOD ORDERABLES Final Result Performing Organization Address City/State/[facility] Co de Phone Number [facility] [place] [address] * Screening Mammogram Bilateral W Carlos (09/06/2020 11:17 AM CDT) Anatomical Region Laterality Modality Breast Bilateral Mammography Narrative 09/09/2020 11:22 AM CDT Mammogram Technique: Bilateral Digital Breast Tomosynthesis, Bilateral C-view 2D Screening mammogram. Views obtained: bilateral craniocaudal and bilateral mediolateral oblique. Computer Aided Detection was performed. Mammogram Findings: The present examination has been compared to a prior imaging study performed at [facility] [facility] on 09/10/2018. The breasts are heterogeneously dense, [...] to a prior imaging study performed at [facility] on 09/10/2018. The breasts are heterogeneously dense, [...] to Health Maintenance Insurance MEDICARE RESEARCH MEDICARE Spare Change Payments [employer]ICARE [employer] [address] [facility] H[facility]/PPO Address: [address] [place] [address] MEDICARE MEDICARE Spare Change Payments [facility] MEDICARE Address: [address] [address] [place] [address] MEDICARE SOLUTIONS MEDICARE SOLUTIONS Advance Directives For more information, please contact: [phone] * Full Code (Latest Code Status on [...] 10:17 PM 08/29/2019 4:26 PM Care Teams Correctional Officer Relationship Specialty Start Date End Date Vince Fernando MD PCP - General 07/04/16 Vince Fernando MD [address] [facility] [address] [place] [address] Referring Physician Internal Medicine 03/19/21 Miscellaneous, Not In File 03/22/21 Mirza Gutierrez MD [address] [place] [address] Consulting Physician Cardiology 01/20/24
--- OUTSIDE RECORDS SUMMARY | 2024-07-24 00:16 | XMS_ITS ---
Author Organization [facility] Address [address] [place] [address] Care Team Providers Care Plater Barrel Name Role Phone Vince Fernando MD Primary Care Provider Vince Fernando MD Unavailable [phone] Miscellaneous, Not In File Unavailable Unava ilMirza Shaver MD Unavailable [phone] Active Problems Problem Noted Date Diagnosed Date Chest pain 01/17/2024 Thrombocytopenia, immune 01/14/2024 Anemia 01/14/2024 Facial cellulitis 01/13/2024 Asthma 10/18/2022 10/18/2022 Cellulitis, face 10/18/2022 Acute urinary tract infection 06/08/2022 Pneumothorax 03/18/2021 Stage 3 chronic kidney disease 12/08/2020 Cellulitis 11/04/2019 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 She was initially evaluated at [facility] and was discharged home. When she became febrile to 103 this prompted her to present to [facility] ED for her facial cellulitis. Due [...] 06/04/2018 Assessment & Plan (06/04/2018 2:18 PM CHLORINATION OPERATOR): - Keep wound clean and covered - [...] 50mcg Assessment & Plan (05/14/2018 11:59 PM CHLORINATION OPERATOR): - Continue levothyroxine per tube Erysipelas 2018 Assessment & Plan (06/04/2018 2:15 PM CHLORINATION OPERATOR): - She has completed two courses of clindamycin, each with resolution of symptoms - No current signs/symptoms c/f recurrent infection - Advised to monitor closely. 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 Vidal of medical oncology and [...] tissue transfer reconstruction of segmental mandibulectomy defect. 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
--- OUTSIDE RECORDS SUMMARY | 2024-07-24 00:16 | XMS_ITS | Continuity of Care Document ---
Author Organization [facility] Address [address] [place] [address] Phone Care Team Providers Care Director Name Role Phone Espinoza Dockery MD Unavailable Unavailable Advance Directives Directive Yes / No Effective Date File Name No Information Encounters Encounter Description Practice Location Reason(s) For Visit Diagnoses Date Provider Providers Copied on Encounter [facility], [address], [place], [place], [id number], [place] tel:[phone] [facility] No Information Jan- [address]. [address] [facility] [address], [place], [place], [id number], [place]. tel:[phone] Referring Provider: Vince Fernando, [facility], [place], [address]. tel:[phone] Family History Family Member Type Diagnosis Age At Onset No Information Payers Payer name Insurance type Covered constitution party ID Authoriza tion(s) No Information Social [...]
--- OUTSIDE RECORDS SUMMARY | 2024-07-24 00:16 | XMS_ITS | Encounter Summary ---
Author Organization [facility] Address [address] [place] [address] Phone Care Team Providers Care Delivery Supervisor Name Role Phone Vince Fernando MD Primary Care Provider Vince Fernando MD Unavailable [phone] Miscellaneous, Not In File Unavailable Unava ilMirza Shaver MD Unavailable [phone] Encounter Details Date Type Department Care Team (Late st Contact Info) Description 07/23/2024 10:00 AM CDT Office Visit [facility] Nephrology [address] [facility] 5th [place] [address] [place] [address] Nii Curtis MD [facility] [address] [place] [address] Stage 3b chronic kidney disease (HCC) (Primary Dx); Malignant neoplasm of oral cavity (HCC) Social History Tobacco Use Types Packs/Day Years Used Date Smoking Tobacco: Former Cigarettes 1 34 0 05/13/1971 - 05/13/2005 Passive Smoke Exposure: Past Smokeless Tobacco: Never Tobacco Cessation:Counseling Given: Not Answered Alcohol Use Standard Drinks/Week Comments No 0 (1 standard drink = 0.6 oz pur e alcohol) [facility] Utilities Answer Date Recorded In the past 12 months has [employer] gas, oil, or water [place] threatened to shut off services in your [...] any clubs o r organizations such as uatsdin groups, unions, fraternal or athletic groups, or [...] any time in the past 12 m [facility], were you homeless or living in a [place] health care facility (including now)? No 01/15/2024 Personal Safety Answer Date Recorded Have you ever been in or are you currently in a harmful physical or emotional relationship or is someone making you feel afraid or unsafe? Denies 01/14/2024 Comments No Sex and Gender Information Value Date Recorded Sex Assigned at Not on file Legal Sex Female 3:54 AM NIGHT WORKER Gender Identity Female 01/23/2021 5:40 PM [...] 07/20/2024 added in this encounter Care Teams Delivery Supervisor Relationship Specialty Start Date End Date Vince Fernando MD PCP - General 07/04/16 Vince Fernando MD [address] [address] Referring Physician Internal Medicine 03/19/21 Miscellaneous, Not In File 03/22/21 Mirza Gutierrez MD [address] [place] [address] Consulting Physician Cardiology 01/20/24 documented as of this encounter
[2024-07-24 00:18] VITALS: O2SAT 94
[2024-07-24 00:24] LABS: Alanine Aminotransferase 14 U/L (6-35); Albumin Level 3.9 g/dL (3.5-5.1); Alkaline Phosphatase 92 U/L (38-126); Anion Gap 6 mmol/L (4-12); Aspartate Amino Transferase 26 U/L (14-36); Bilirubin,Total 0.5 mg/dL (0.2-1.3); Blood Urea Nitrogen 37 mg/dL (7-17); Calcium 9.5 mg/dL (8.4-10.2); Carbon Dioxide 34 mmol/L (22-30); Chloride 94 mmol/L (98-107); Estimated CRCL calculation 31 ml/min; Estimated Glomerular Filt Rate 41; Glucose 134 mg/dL (65-110); Sodium 134 mmol/L (137-145)
[2024-07-24 00:50] LABS: Influenza A QL RT-PCR Negative (Negative); Influenza B QL RT-PCR Negative (Negative); RSV RNA, RT-PCR Negative (Negative); SARS-CoV-2 RNA PCR Negative (Negative)
--- NOTE | 2024-07-24 01:44 | ED_ITS ---
HPI - General Adult General Chief complaint: Upper Respiratory Infection Stated complaint: flu a Time Seen by Provider: 07/24/24 00:01 History of Present Illness HPI narrative: This is a 74-year-old female presenting for fevers. She was diagnosed with influenza a approximately 7 days ago. She completed a course of Tamiflu. However she is still having fevers self reported at 103. She is still having fevers chills and shortness of breath. She has chest pain when she coughs. She denies nausea vomiting or diarrhea. Related Data Home Medications ?Medication ?Instructions ?Recorded ?Confirmed ?Last Taken ?Type citalopram 40 mg tablet 40 mg feeding tube DAILY 05/09/19 03/24/24 03/23/24 History levothyroxine 50 mcg tablet 50 mcg feeding tube DAILY 05/09/19 03/24/24 03/23/24 History cetirizine 5 mg tablet (Allergy 5 mg feeding tube DAILY 11/09/21 03/24/24 03/23/24 History Relief (cetirizine)) fluticasone propionate 50 1 spray intranasal DAILY 11/09/21 03/24/24 03/23/24 History mcg/actuation nasal spray,suspension lactose-reduced food with fiber 1 ea feeding tube USEASDIRECTD 02/10/22 03/24/24 03/23/24 History oral liquid hydrocodone 10 mg-acetaminophen 1 tablet feeding tube Q4H 02/22/23 03/24/24 03/23/24 History 325 mg tablet oxybutynin chloride 5 mg tablet 5 mg feeding tube HS Bladder spasms 03/13/23 03/24/24 03/23/24 History alendronate 70 mg tablet 70 mg PO DAILY 03/20/24 03/24/24 03/23/24 History amlodipine 2.5 mg tablet 2.5 mg feeding tube DAILY 03/20/24 03/24/24 03/23/24 History aspirin 81 mg chewable tablet 81 mg feeding tube DAILY 03/20/24 03/24/24 03/23/24 History atorvastatin 20 mg tablet 20 mg feeding tube DAILY 03/20/24 03/24/24 03/23/24 History Allergies Allergy/AdvReac Type Severity Reaction Status Date / Time Penicillins Allergy Unknown Anaphylactic Verified 07/23/24 23:35 Shock levofloxacin (From Levaquin) Allergy Rash Verified 07/23/24 23:35 povidone-iodine (From Allergy Rash Verified 07/23/24 23:35 Betadine) soap (From Betadine) Allergy Rash Verified 07/23/24 23:35 CILLINS Allergy Anaphylaxis Uncoded 07/23/24 23:35 [facility] [place] Past Medical History Medical History Asthma Cancer of mandible Chronic anemia Chronic renal failure, stage 4 (severe) Depression Fibromyalgia Gastrostomy malfunction GERD (gastroesophageal reflux disease) History of chemotherapy Hx of adenomatous colonic polyps Hx of radiation therapy Kidney failure Left upper quadrant pain Pain around percutaneous endoscopic gastrostomy (PEG) tube site Seizure age 5-16 Uses feeding tube Surgical History Surgical History H/O: hysterectomy History of mandibular surgery partial removal of mandible Hx of cholecystectomy S/P cervical spinal fusion 2000 Family History Family History Father Afib COPD (chronic obstructive pulmonary disease) Diabetes mellitus Mother Tumor Daughter Cancer Social History Social History Social History: The patient is and lives with her . 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 She does not drink any alcohol. She is an ex-smoker she smoked a pack a cigarettes a day for 30 years and quit in 2005. Her is a durable power dowel sticker operator for healthcare. Code status full code Smoking packs per day: 1 Smoking cigarettes per day: 20.0 Years smoked: 30 Smoking pack-years: 30.00 Smoking status: Former smoker Tobacco type: cigarettes Second hand tobacco smoke exposure: No Additional smoking assessment comments: STATES QUIT SMOKING 2006 Alcohol intake: current Substance use: never Substance use type: does not use Lack of Transportation: No Lack of Food: Never True Current Housing: I Have Housing Concerned About Future Housing: No Difficulty Paying Gas/Electric Bills: No Difficulty Paying for Meds: No Currently Unemployed: No Education: Associate Degree Difficulty w/ Childcare or Family Care: No Living arrangements: with family Gender identity (if verbalized by the patient): Female Spiritual care concerns: No Agree to blood products: Yes Exam 2 Narrative: APPEARANCE: No apparent distress. Head: atraumatic. EYES: EOMI, NOSE: Atraumatic NECK: Trachea midline RESPIRATORY: No increased rate of breathing, crackles in the right lower lobe CARDIOVASCULAR: RRR, no peripheral edema ABDOMINAL: Non-distended soft nontender MUSCULOSKELETAl: No obvious deformities NEURO: Alert. Moving 4/4 extremities SKIN:: Warm, dry. Normal color PSYCHIATRIC: Normal affect Course Vital Signs Vital signs: Vital Signs Temperature 99.4 F 07/23/24 23:40 Pulse Rate 93 07/23/24 23:40 Respiratory Rate 18 07/23/24 23:40 Blood Pressure 125/50 L 07/23/24 23:40 Pulse Oximetry 85 L 07/23/24 23:40 Oxygen Delivery Room Air 07/23/24 23:40 Temperature 99.4 F 07/23/24 23:40 Pulse Rate 93 07/23/24 23:40 Respiratory Rate 18 07/23/24 23:40 Blood Pressure 125/50 L 07/23/24 23:40 Pulse Oximetry 94 07/24/24 00:18 Oxygen Delivery Room Air 07/24/24 00:18 Oxygen Flow Rate 2 07/23/24 23:56 Medical Decision Making MDM Narrative Medical decision making narrative: -Course: 74-year-old female presenting with fevers. She was hypoxic on arrival 85%RA. Placed on 2 L nasal cannula which improved her to 94%. Patient has crackles in the right lower lobe. Infiltrates on x-ray. Patient will be started on antibiotics to cover PNA/secondary pneumonia. Patient will be admitted hospital for further management of her PNA. -DDX includes but is not limited to: Flu, secondary pneumonia, aspiration pneumonia Vital Signs Vital Signs: Vital Signs Temperature 99.4 F 07/23/24 23:40 Pulse Rate 93 07/23/24 23:40 Respiratory Rate 18 07/23/24 23:40 Blood Pressure 125/50 L 07/23/24 23:40 Pulse Oximetry 85 L 07/23/24 23:40 Oxygen Delivery Room Air 07/23/24 23:40 Temperature 99.4 F 07/23/24 23:40 Pulse Rate 93 07/23/24 23:40 Respiratory Rate 18 07/23/24 23:40 Blood Pressure 125/50 L 07/23/24 23:40 Pulse Oximetry 94 07/24/24 00:18 Oxygen Delivery Room Air 07/24/24 00:18 Oxygen Flow Rate 2 07/23/24 23:56 Lab Data 07/24/24 00:09 07/24/24 00:09 Labs: Lab Results 07/24/24 Range/Units 00:09 WBC 7.7 (4.5-10.0) K/mm3 RBC 3.37 L (4.2-5.4) M/mm3 Hgb 10.0 L (12.0-15.0) g/dL Hct 31.9 L (37.0-47.0) % MCV 94.7 (80-100) fl MCH 29.7 (26-34) pg MCHC 31.3 L (32-36) g/dl RDW 13.4 (11.5-14.5) % Plt Count 142 L (150-375) k/mm3 MPV 12.0 H (7.4-10.4) fl Immature Gran % (Auto) 0.3 (0-0.5) % Neut % (Auto) 85.4 H (45.5-73.1) % Lymph % (Auto) 6.1 L (18.3-44.2) % [place] % (Auto) 6.0 (2.6-8.5) % Eos % (Auto) 1.8 (0-4.4) % Baso % (Auto) 0.4 (0.2-1.2) % Lymph # (Auto) 0.47 L (0.9-3.2) K/mm3 [place] # (Auto) 0.5 (0.1-0.6) K/mm3 Eos # (Auto) 0.1 (0-0.3) K/mm3 Baso # (Auto) 0.0 (0.0-0.1) K/mm3 Abs Immat Gran (auto) 0.02 (0.00-0.031) K/mm3 Absolute Neuts (auto) 6.6 (1.3-6.7) K/mm3 Absolute Nucleated RBC 0.000 (0.0-0.012) K/mm3 Nucleated RBC % 0.0 (0.0-0.2) % Sodium 134 L (137-145) mmol/L Potassium 4.0 (3.4-5.0) mmol/L Chloride 94 L (98-107) mmol/L Carbon Dioxide 34 H (22-30) mmol/L Anion Gap 6 (4-12) mmol/L BUN 37 H (7-17) mg/dL Creatinine 1.28 H (0.7-1.0) mg/dL Estim Creat Clear Calc 31 ml/min Estimated GFR 41 L (59 - ) Glucose 134 H (65-110) mg/dL Lactic Acid 1.0 (0.7-2.0) mmol/L Calcium 9.5 (8.4-10.2) mg/dL Total Bilirubin 0.5 (0.2-1.3) mg/dL AST 26 (14-36) U/L ALT 14 (6-35) U/L Alkaline Phosphatase 92 (38-126) U/L Total Protein 7.0 (6.3-8.2) g/dL Albumin 3.9 (3.5-5.1) g/dL Influenza A (RT-PCR) Negative (Negative) Influenza B (RT-PCR) Negative (Negative) RSV (RT-PCR) Negative (Negative) SARS-CoV-2 RNA (RT-PCR) Negative (Negative) Critical Care Time Critical Care Time Critical Care Time: Yes Total Critical Care Time: 35 Discharge Plan Discharge Clinical Impression: Pneumonia, Hypoxic respiratory failure Patient Disposition: Home, Self-Care Condition: Stable Instructions: Antibiotic Form Patient Language: Romansh Prescriptions: No Action albuterol sulfate [Proventil HFA] 90 mcg/actuation HFA aerosol inhaler 2 puff inhalation QID PRN (Reason: shortness of breath or wheezing) Qty: 8.5 0RF cetirizine [Allergy Relief (cetirizine)] 5 mg tablet 5 mg feeding tube DAILY fluticasone propionate 50 mcg/actuation spray,suspension 1 spray intranasal DAILY Rx Instructions: administer into each nostril citalopram 40 mg tablet 40 mg feeding tube DAILY levothyroxine 50 mcg tablet 50 mcg feeding tube DAILY hydrocodone-acetaminophen 10-325 mg tablet 1 tablet feeding tube Q4H atorvastatin 20 mg tablet 20 mg feeding tube DAILY alendronate 70 mg tablet 70 mg PO DAILY Patient Comments: crushes and takes throguh feeding tube amlodipine 2.5 mg tablet 2.5 mg feeding tube DAILY aspirin 81 mg tablet,chewable 81 mg feeding tube DAILY lactose-reduced food with fibr Liquid 1 ea feeding tube USEASDIRECTD Rx Instructions: uses 1 250mL bottle for each feeding; by gravity; ordered for 5x/day but pt states only does 4x/day. JEVITY 1.5 oxybutynin chloride 5 mg tablet 5 mg feeding tube HS Follow-up/Referrals: Abdullahi,Vince Hess MD [Primary Care Provider] -
[2024-07-24 02:21] VITALS: TEMP 37.7
[2024-07-24] MEDS: DOXYCYCLINE 100 MG/NS 100 ML 100 MG/100 ML BAG IVPB ×2 (02:50→14:47)
[2024-07-24 03:20] LABS: Add Urine Microscopic? NO; Appearance Urine Clear (Clear); Bilirubin Urine Negative (Negative); Blood Urine Negative (Negative); Color Urine Yellow (Yellow); Glucose Urine UA Negative (Negative); Ketones Urine Negative (Negative); Leukocyte Esterase Ur Negative LEU/UL (Negative); Nitrate Urine Negative (Negative); Protein Urine Negative (Negative); Specific Grav Ur 1.007 (1.001-1.035); Urobilinogen Urine 0.2 mg/dL (<2.0)
[2024-07-24 03:47] LABS: MRSA (PCR) NOT DETECTED (NOT DETECTE)
[2024-07-24] MEDS: VANCOMYCIN 1,500 MG/NS 500 ML 1,500 MG/500 ML BAG 250 MG IVPB (03:57)
[2024-07-24 04:26] VITALS: BP 114/57; PULSE 71; RESP 15; O2SAT 95
--- NOTE | 2024-07-24 05:33 | PC.NURSE ---
PATIENT ARRIVED ON 3 MEDSURG AT 0530
[2024-07-24 06:00] VITALS: BP 111/61; PULSE 75; RESP 20; TEMP 37.2; O2SAT 93
--- NOTE | 2024-07-24 08:34 | P.HP_ITS ---
H&P: HPI History of Present Illness Date/Time: 07/24/24 08:34 Chief Complaint: Fever and cough Narrative: 74 years old lady with history of hypertension, CKD stage 3 B, chronic anemia, hyperlipidemia, hypothyroidism, present ED with a chief complaint of fever. Patient was diagnosed influenza a infection about 7 days ago, patient completed course of Tamiflu treatment. Patient still has a cough chills and fever. Patient a fever 103 yesterday. Patient also develops shortness breath. Patient states she has dry cough initially, in past 2 days, patient coughs which large amount yellow greenish sputum. Patient has headache, denies focal weakness, patient also denies photophobia. Patient is on NG tube feeding because of previous lower jaw resection because of malignancy. Patient complicated radiation and chemotherapy. Patient came to ED for evaluation treatment Upon arrival to ED, patient still has low-grade fever 99.4, tachycardia tachypnea, blood pressure stable, hypoxemia, pulse ox 85 on room air. Labs showed anemia hemoglobin 10.0, hyponatremia 134, elevated BUN creatinine ratio 37/1.28 above the baseline, MRSA negative, influenza RSV and COVID negative. Chest x-ray shows left lower lobe pneumonia. Review of Systems Review of Systems: ROS negative except above PMFSH Past Medical History Medical History Asthma Cancer of mandible Chronic anemia Chronic renal failure, stage 4 (severe) Depression Fibromyalgia Gastrostomy malfunction GERD (gastroesophageal reflux disease) History of chemotherapy Hx of adenomatous colonic polyps Hx of radiation therapy Kidney failure Left upper quadrant pain Pain around percutaneous endoscopic gastrostomy (PEG) tube site Seizure age 5-16 Uses feeding tube Surgical History Surgical History H/O: hysterectomy History of mandibular surgery partial removal of mandible Hx of cholecystectomy S/P cervical spinal fusion 2000 Family History Family History Father Afib COPD (chronic obstructive pulmonary disease) Diabetes mellitus Mother Tumor Daughter Cancer Social History Social History Social History: The patient is and lives with her . 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 She does not drink any alcohol. She is an ex-smoker she smoked a pack a cigarettes a day for 30 years and quit in 2005. Her is a durable power personal injury attorney for healthcare. Code status full code Smoking packs per day: 1 Smoking cigarettes per day: 20.0 Years smoked: 30 Smoking pack-years: 30.00 Smoking status: Former smoker Tobacco type: cigarettes Second hand tobacco smoke exposure: No Smoking end date: 07/11/06 Additional smoking assessment comments: STATES QUIT SMOKING 2005 Alcohol intake: never Substance use: never Substance use type: does not use Do You Feel Safe in your Home?: Yes Lack of Transportation: No Lack of Food: Never True Current Housing: I Have Housing Concerned About Future Housing: No Difficulty Paying Gas/Electric Bills: No Difficulty Paying for Meds: No Currently Unemployed: No Education: Associate Degree Difficulty w/ Childcare or Family Care: No Living arrangements: with family Gender identity (if verbalized by the patient): Female Spiritual care concerns: No Agree to blood products: Yes Meds Home Medications and Allergies Home Medications ?Medication ?Instructions ?Recorded ?Confirmed ?Type citalopram 40 mg tablet 40 mg feeding tube DAILY 05/09/19 07/24/24 History levothyroxine 50 mcg tablet 50 mcg feeding tube DAILY 05/09/19 07/24/24 History cetirizine 5 mg tablet (Allergy 5 mg feeding tube DAILY 11/09/21 07/24/24 History Relief (cetirizine)) fluticasone propionate 50 1 spray intranasal DAILY 11/09/21 07/24/24 History mcg/actuation nasal spray,suspension lactose-reduced food with fiber 1 ea feeding tube USEASDIRECTD 02/10/22 07/24/24 History oral liquid oxybutynin chloride 5 mg tablet 5 mg feeding tube HS Bladder spasms 03/13/23 07/24/24 History albuterol sulfate 90 mcg/actuation 2 puff inhalation QID PRN 12/06/23 07/24/24 Rx aerosol inhaler (Proventil HFA) shortness of breath or wheezing #8.5 grams alendronate 70 mg tablet 70 mg PO WEEKLY 03/20/24 07/24/24 History amlodipine 2.5 mg tablet 2.5 mg feeding tube DAILY 03/20/24 07/24/24 History aspirin 81 mg chewable tablet 81 mg feeding tube DAILY 03/20/24 07/24/24 History atorvastatin 20 mg tablet 20 mg feeding tube DAILY 03/20/24 07/24/24 History fentanyl 25 mcg/hr transdermal 1 patch topical Q72H 07/24/24 07/24/24 History patch Allergies Allergy/AdvReac Type Severity Reaction Status Date / Time Penicillins Allergy Unknown Anaphylactic Verified 07/24/24 05:38 Shock levofloxacin (From Levaquin) Allergy Rash Verified 07/24/24 05:38 povidone-iodine (From Allergy Rash Verified 07/24/24 05:38 Betadine) soap (From Betadine) Allergy Rash Verified 07/24/24 05:38 CILLINS Allergy Anaphylaxis Uncoded 07/24/24 05:38 Vital Signs Vital Signs - 24 hr 07/23/24 23:40 07/23/24 23:56 07/24/24 00:18 Temperature 99.4 F Pulse Rate 93 Respiratory Rate 18 Blood Pressure 125/50 L Pulse Oximetry 85 L 95 94 Oxygen Delivery Room Air Nasal Cannula Room Air Oxygen Flow Rate 2 07/24/24 02:21 07/24/24 04:26 07/24/24 06:00 Temperature 99.9 F H 99 F Pulse Rate 71 75 Respiratory Rate 15 20 Blood Pressure 114/57 L 111/61 Pulse Oximetry 95 93 Oxygen Delivery Oxygen Flow Rate Exam Narrative: GENERAL: Ill-appearing, in no acute distress. Well-nourished. - EYES: EOMI. Anicteric. - HENT: Moist mucous membranes. - LUNGS: Coarse breath sound bilaterall y - CARDIOVASCULAR: Regular rate and rhyth m. No murmur. No JVD. - ABDOMEN: Soft, non-tender and non-dist ended. No palpable masses. - EXTREMITIES: No edema. Peripheral puls es 2+. Non-tender. - NEUROLOGIC: No focal neurological defi cits. CN II-XII grossly intact. - PSYCHIATRIC: Awake, Alert and oriented x 3. Appropriate mood and affect. - SKIN: No rashes or lesions. Warm. - LYMPH: No cervical lymphadenopathy. H&P: Results Labs Labs: Short CBC 07/24/24 Range/Units 00:09 WBC 7.7 (4.5-10.0) K/mm3 Hgb 10.0 L (12.0-15.0) g/dL Hct 31.9 L (37.0-47.0) % Plt Count 142 L (150-375) k/mm3 BMP 07/24/24 00:09 Sodium 134 L Potassium 4.0 Chloride 94 L Carbon Dioxide 34 H BUN 37 H Creatinine 1.28 H Glucose 134 H Calcium 9.5 Liver Function 07/24/24 Range/Units 00:09 Total Bilirubin 0.5 (0.2-1.3) mg/dL AST 26 (14-36) U/L ALT 14 (6-35) U/L Alkaline Phosphatase 92 (38-126) U/L Albumin 3.9 (3.5-5.1) g/dL Urine 07/24/24 Range/Units 03:14 Urine Color Yellow (Yellow) Urine Appearance Clear (Clear) Urine pH 7.0 (5.0-9.0) Ur Specific [place] 1.007 (1.001-1.035) Urine Protein Negative (Negative) mg/dL Urine Glucose (UA) Negative (Negative) mg/dL Assessment and Plan Assessment and plan (1) Community acquired pneumonia due to influenza A virus: Code(s): J09.X1 - Influenza due to identified novel influenza A virus with pneumonia Status: Acute (2) Acute and chronic respiratory failure, unspecified whether with hypoxia or hypercapnia: Code(s): J96.20 - Acute and chronic respiratory failure, unspecified whether with hypoxia or hypercapnia Status: Acute (3) Hypothyroidism: Code(s): E03.9 - Hypothyroidism, unspecified Status: Acute (4) CKD stage 3b, GFR 30-44 ml/min: Code(s): N18.32 - Chronic kidney disease, stage 3b Status: Acute Plan Community-acquired pneumonia Patient has cough fever, x-ray shows left lower lobe pneumonia Respiratory pathogen PCR negative of influenza RSV and COVID Recent influenza a infection. Suspecting better pneumonia MRSA negative Start cefepime IV and doxycycline IV Acute resp failure Upon arrival patient was found hypoxemia pulse ox 85 on room air Likely resulting from pneumonia Continue albuterol 2 puffs q.i.d. p.r.n. Start O2 therapy. Keep pulse ox above 92 Sepsis Patient has a fever, tachycardia tachypnea meeting criteria of sepsis likely resulting from pneumonia Antibiotics see above Start fluid resuscitation in the ED, patient received normal saline 2 L Follow-up blood culture urine culture urinalysis CKD stage 3 B Elevated BUN creatinine ratio above baseline Likely secondary to dehydration and sepsis Follow urinalysis Start normal saline IV Follow-up BMP Avoid nephrotoxic medication Chronic anemia No obvious bleeding Follow-up CBC Hypertension Continue amlodipine 2.5 mg daily p.o. Hyperlipidemia Continue Lipitor 20 mg daily p.o. Anxiety Continue citalopram Hypothyroidism Continue Synthroid 50 mcg daily p.o.
[2024-07-24] MEDS: amLODIPine BESYLATE 2.5 MG TABLET FEED TUBE (11:16)
[2024-07-24] MEDS: LEVOTHYROXINE SODIUM 50 MCG TABLET FEED TUBE (11:16)
[2024-07-24] MEDS: ATORVASTATIN 20 MG TABLET FEED TUBE (11:16)
[2024-07-24] MEDS: CITALOPRAM HYDROBROMIDE 20 MG TABLET 40 MG FEED TUBE (11:16)
[2024-07-24] MEDS: LORATADINE 5 MG TABLET FEED TUBE (11:16)
[2024-07-24] MEDS: ASPIRIN 81 MG CHEWABLE TABLET FEED TUBE (11:16)
[2024-07-24] MEDS: CEFEPIME 2 GM/NS 50 ML 2 GM/50 ML BAG IVPB ×2 (11:17→19:55)
[2024-07-24] MEDS: FLUTICASONE PROPIONATE 0.05% NA SPR 16 GM BTL (*BKC) 1 SPRAY NASAL (11:17)
[2024-07-24 14:00] VITALS: BP 116/53; PULSE 58; RESP 18; TEMP 35.9; O2SAT 95
[2024-07-24 14:09] VITALS: BMI 21.5
[2024-07-24] MEDS: oxyBUTYnin CHLORIDE 5 MG TABLET FEED TUBE (19:55)
[2024-07-24 21:10] VITALS: BP 140/57; PULSE 77; RESP 16; TEMP 36.4; O2SAT 90
[2024-07-25] MEDS: DOXYCYCLINE 100 MG/NS 100 ML 100 MG/100 ML BAG IVPB ×2 (01:01→13:33)
[2024-07-25 04:06] VITALS: BP 145/69; PULSE 89; RESP 16; TEMP 36.6; O2SAT 97
[2024-07-25] MEDS: HYDROcodone/acetaminophen (*CRX) 5-325 MG TABLET 1 TAB FEED TUBE (04:17)
[2024-07-25] MEDS: LEVOTHYROXINE SODIUM 50 MCG TABLET FEED TUBE (05:32)
[2024-07-25] MEDS: ASPIRIN 81 MG CHEWABLE TABLET FEED TUBE (08:58)
[2024-07-25] MEDS: ATORVASTATIN 20 MG TABLET FEED TUBE (08:58)
[2024-07-25] MEDS: LORATADINE 5 MG TABLET FEED TUBE (08:59)
[2024-07-25] MEDS: amLODIPine BESYLATE 2.5 MG TABLET FEED TUBE (08:59)
[2024-07-25] MEDS: CITALOPRAM HYDROBROMIDE 20 MG TABLET 40 MG FEED TUBE (08:59)
[2024-07-25] MEDS: CEFEPIME 2 GM/NS 50 ML 2 GM/50 ML BAG IVPB ×2 (09:02→20:41)
[2024-07-25] MEDS: LIDOCAINE 5% PATCH 1 PATCH TRANSDERM (09:03)
[2024-07-25] MEDS: FLUTICASONE PROPIONATE 0.05% NA SPR 16 GM BTL (*BKC) 1 SPRAY NASAL (09:03)
--- NOTE | 2024-07-25 09:51 | P.PNIM_ITS ---
Progress Note: A&P Assessment and Plan (1) Community acquired pneumonia due to influenza A virus: Code(s): J09.X1 - Influenza due to identified novel influenza A virus with pneumonia Status: Acute (2) Acute and chronic respiratory failure, unspecified whether with hypoxia or hypercapnia: Code(s): J96.20 - Acute and chronic respiratory failure, unspecified whether with hypoxia or hypercapnia Status: Acute (3) Hypothyroidism: Code(s): E03.9 - Hypothyroidism, unspecified Status: Acute (4) CKD stage 3b, GFR 30-44 ml/min: Code(s): N18.32 - Chronic kidney disease, stage 3b Status: Acute Plan Community-acquired pneumonia Patient has cough fever, x-ray shows left lower lobe pneumonia Respiratory pathogen PCR negative of influenza RSV and COVID Recent influenza a infection. Suspecting better pneumonia MRSA negative Started cefepime IV and doxycycline IV 07/24 Continue antibiotics today. Patient still has cough and large phlegm with cough Acute resp failure Upon arrival patient was found hypoxemia pulse ox 85 on room air Likely resulting from pneumonia Continue albuterol 2 puffs q.i.d. p.r.n. Start O2 therapy. Keep pulse ox above 92 Sepsis Patient has a fever, tachycardia tachypnea meeting criteria of sepsis likely resulting from pneumonia Antibiotics see above Start fluid resuscitation in the ED, patient received normal saline 2 L Follow-up blood culture urine : No growth so far Sputum culture grows group B Streptococcus CKD stage 3 B Elevated BUN creatinine ratio above baseline Likely secondary to dehydration and sepsis Follow urinalysis : No pyuria Start normal saline IV Follow-up BMP Avoid nephrotoxic medication Renal function is improving Chronic anemia No obvious bleeding Follow-up CBC Hypertension Continue amlodipine 2.5 mg daily p.o. Hyperlipidemia Continue Lipitor 20 mg daily p.o. Anxiety Continue citalopram Hypothyroidism Continue Synthroid 50 mcg daily p.o. Subjective Date/time seen: 07/25/24 09:51 Interval history: I saw examined the patient today, patient still has cough and leg phlegm. Patient feeling better today. Denies dyspnea at rest. Patient is on feeding tube, denies nausea vomiting. Exam Narrative: GENERAL: Ill-appearing, in no acute distress. Well-nourished. - EYES: EOMI. Anicteric. - HENT: Moist mucous membranes. - LUNGS: Coarse breath sound bilaterall y - CARDIOVASCULAR: Regular rate and rhyth m. No murmur. No JVD. - ABDOMEN: Soft, non-tender and non-dist ended. No palpable masses. - EXTREMITIES: No edema. Peripheral puls es 2+. Non-tender. - NEUROLOGIC: No focal neurological defi cits. CN II-XII grossly intact. - PSYCHIATRIC: Awake, Alert and oriented x 3. Appropriate mood and affect. - SKIN: No rashes or lesions. Warm. - LYMPH: No cervical lymphadenopathy. Objective Data Vital Signs Vital Signs: Vital Signs - 24 hr 07/24/24 14:00 07/24/24 20:00 07/24/24 21:10 Temperature 96.7 F L 97.5 F L Pulse Rate 58 L 77 Respiratory Rate 18 16 Blood Pressure 116/53 L 140/57 L Pulse Oximetry 95 90 Oxygen Delivery Room Air 07/25/24 04:06 Temperature 97.8 F Pulse Rate 89 Respiratory Rate 16 Blood Pressure 145/69 H Pulse Oximetry 97 Oxygen Delivery Intake/Output Intake/Output: Intake & Output 07/22/24 07/23/24 07/24/24 07/25/24 23:59 23:59 23:59 23:59 Intake Total 2830 236 Balance 2830 236 Meds/Results Medications: Active Medications Generic Name Dose Route Start Last Admin Trade Name Freq PRN Reason Stop Dose Admin Albuterol 2 puff 07/24/24 08:57 Albuterol Sulfate (*Sp) Aerosol 1 Puff INHALATION QIDRT PRN shortness of breath or wheezing Amlodipine Besylate 2.5 mg 07/24/24 09:00 07/25/24 08:59 Amlodipine Besylate 2.5 Mg Tablet FEED TUBE 2.5 mg DAILY KHOA Administration Aspirin 81 mg 07/24/24 09:00 07/25/24 08:58 Aspirin 81 Mg Chewable Tablet FEED TUBE 81 mg DAILY KHOA Administration Atorvastatin Calcium 20 mg 07/24/24 09:00 07/25/24 08:58 Atorvastatin 20 Mg Tablet FEED TUBE 20 mg DAILY KHOA Administration Citalopram Hydrobromide 40 mg 07/24/24 09:00 07/25/24 08:59 Citalopram Hydrobromide 20 Mg Tablet FEED TUBE 40 mg DAILY KHOA Administration Fentanyl 25 mcg 07/25/24 09:00 07/25/24 09:02 Fentanyl (*Crx) 25 Mcg Patch TRANSDERM 25 mcg Q72H KHOA Administration Fluticasone Propionate 1 spray 07/24/24 09:00 07/25/24 09:03 Fluticasone Propionate 0.05% Na Spr 16 Gm Btl (*Bkc) NASAL 1 spray DAILY KHOA Administration Doxycycline Hyclate 100 mg in 100 mls @ 100 mls/hr 07/24/24 14:00 07/25/24 01:01 Vibramycin 100 Mg/Ns 100 Ml IVPB 100 mls/hr Q12H KHOA Administration Cefepime HCl 2 gm in 50 mls @ 100 mls/hr 07/24/24 10:00 07/25/24 09:02 Maxipime 2 Gm/Ns 50 Ml IVPB 100 mls/hr Q12HR KHOA Administration Levothyroxine Sodium 50 mcg 07/24/24 09:05 07/25/24 05:32 Levothyroxine Sodium 50 Mcg Tablet FEED TUBE 50 mcg DAILY@0630 KHOA Administration Lidocaine 1 patch 07/25/24 09:00 07/25/24 09:03 Lidocaine 5% Patch TRANSDERM 1 patch DAILY KHOA Administration Loratadine 5 mg 07/24/24 09:00 07/25/24 08:59 Loratadine 5 Mg Tablet FEED TUBE 08/23/24 08:59 5 mg DAILY KHOA Administration Miscellaneous Information 0 each 07/25/24 00:01 Lidocaine Add Site Of Use XX 08/24/24 00:00 CLARIFY KHOA Oxybutynin Chloride 5 mg 07/24/24 21:00 07/24/24 19:55 Oxybutynin Chloride 5 Mg Tablet FEED TUBE 5 mg HS KHOA Administration Radiology Results: ITS Impressions Chest X-Ray 07/24/24 05:27 Impression: Probable left lower lobe pneumonia.
[2024-07-25 10:24] LABS: Basophils Percent Auto 0.9 % (0.2-1.2); Eosinophils Absolute Auto 0.2 K/mm3 (0-0.3); Eosinophils Percent Auto 3.8 % (0-4.4); Hematocrit 30.4 % (37.0-47.0); Hemoglobin 9.1 g/dL (12.0-15.0); Immature Granulocyte Absolute 0.01 K/mm3 (0.00-0.031); Immature Granulocyte Percent A 0.2 % (0-0.5); Lymphocytes Absolute Auto 0.46 K/mm3 (0.9-3.2); Lymphocytes Percent Auto 10.3 % (18.3-44.2); Mean Corpuscular HGB Conc 29.9 g/dl (32-36); Mean Corpuscular Hemoglobin 29.5 pg (26-34); Mean Corpuscular Volume 98.7 fl (80-100); Monocytes Absolute Auto 0.5 K/mm3 (0.1-0.6); Monocytes Percent Auto 11.9 % (2.6-8.5); Neutrophils Absolute Auto 3.3 K/mm3 (1.3-6.7); Neutrophils Percent Auto 72.9 % (45.5-73.1); Platelet Count Result 109 k/mm3 (150-375); Red Blood Count 3.08 M/mm3 (4.2-5.4); Red Cell Distribution Width 13.5 % (11.5-14.5); White Blood Count 4.5 K/mm3 (4.5-10.0)
[2024-07-25 10:44] LABS: Band Neutrophils Percent 0 % (0-6)
[2024-07-25 10:45] LABS: Anion Gap 4 mmol/L (4-12); Anisocytosis 1+; Blood Urea Nitrogen 24 mg/dL (7-17); Calcium 8.7 mg/dL (8.4-10.2); Carbon Dioxide 32 mmol/L (22-30); Chloride 104 mmol/L (98-107); Estimated CRCL calculation 39 ml/min; Estimated Glomerular Filt Rate 55; Glucose 109 mg/dL (65-110); Hypochromasia 1+; Platelet Estimate Decreased (Adequate); Potassium 4.1 mmol/L (3.4-5.0); Sodium 140 mmol/L (137-145)
[2024-07-25 10:46] LABS: Stomatocytes 1+
[2024-07-25 10:47] LABS: Schistocytes None Seen
[2024-07-25] MEDS: fentaNYL (*CRX) 50 MCG PATCH TRANSDERM (13:33)
[2024-07-25 14:00] VITALS: BP 123/64; PULSE 65; RESP 18; TEMP 36.9; O2SAT 95
[2024-07-25 20:40] VITALS: O2SAT 98
[2024-07-25] MEDS: oxyBUTYnin CHLORIDE 5 MG TABLET FEED TUBE (20:41)
[2024-07-25 21:17] VITALS: BP 131/64; PULSE 67; RESP 16; TEMP 36.7; O2SAT 96
[2024-07-25] MEDS: HYDROcodone/acetaminophen (*CRX) 5-325 MG TABLET 1 TAB PO (22:07)
[2024-07-26] MEDS: DOXYCYCLINE 100 MG/NS 100 ML 100 MG/100 ML BAG IVPB ×2 (02:04→14:23)
[2024-07-26 05:24] VITALS: BP 135/71; PULSE 64; RESP 16; TEMP 36.3; O2SAT 97
[2024-07-26] MEDS: LEVOTHYROXINE SODIUM 50 MCG TABLET FEED TUBE (05:56)
[2024-07-26 08:00] VITALS: O2SAT 97
[2024-07-26] MEDS: CEFEPIME 2 GM/NS 50 ML 2 GM/50 ML BAG IVPB ×2 (08:01→21:01)
[2024-07-26] MEDS: ATORVASTATIN 20 MG TABLET FEED TUBE (08:02)
[2024-07-26] MEDS: ASPIRIN 81 MG CHEWABLE TABLET FEED TUBE (08:02)
[2024-07-26] MEDS: LORATADINE 5 MG TABLET FEED TUBE (08:02)
[2024-07-26] MEDS: amLODIPine BESYLATE 2.5 MG TABLET FEED TUBE (08:02)
[2024-07-26] MEDS: CITALOPRAM HYDROBROMIDE 20 MG TABLET 40 MG FEED TUBE (08:02)
[2024-07-26] MEDS: FLUTICASONE PROPIONATE 0.05% NA SPR 16 GM BTL (*BKC) 1 SPRAY NASAL (08:04)
[2024-07-26] MEDS: LIDOCAINE 5% PATCH 1 PATCH TRANSDERM (08:04)
[2024-07-26] MEDS: HYDROcodone/acetaminophen (*CRX) 5-325 MG TABLET 1 TAB PO ×3 (08:12→22:55)
[2024-07-26 08:59] LABS: Basophils Absolute Auto 0.1 K/mm3 (0.0-0.1); Basophils Percent Auto 1.3 % (0.2-1.2); Eosinophils Absolute Auto 0.3 K/mm3 (0-0.3); Eosinophils Percent Auto 6.6 % (0-4.4); Hematocrit 31.1 % (37.0-47.0); Hemoglobin 9.5 g/dL (12.0-15.0); Immature Granulocyte Absolute 0.01 K/mm3 (0.00-0.031); Immature Granulocyte Percent A 0.3 % (0-0.5); Immature Platelet Fraction Pct 8.5 % (0.9-11.2); Lymphocytes Absolute Auto 0.57 K/mm3 (0.9-3.2); Lymphocytes Percent Auto 14.4 % (18.3-44.2); Mean Corpuscular HGB Conc 30.5 g/dl (32-36); Mean Corpuscular Volume 98.1 fl (80-100); Mean Platelet Volume 12.4 fl (7.4-10.4); Monocytes Absolute Auto 0.5 K/mm3 (0.1-0.6); Monocytes Percent Auto 12.2 % (2.6-8.5); Neutrophils Absolute Auto 2.6 K/mm3 (1.3-6.7); Neutrophils Percent Auto 65.2 % (45.5-73.1); Platelet Count Result 101 k/mm3 (150-375); Red Blood Count 3.17 M/mm3 (4.2-5.4); Red Cell Distribution Width 13.2 % (11.5-14.5)
[2024-07-26 09:14] LABS: Anion Gap 3 mmol/L (4-12); Blood Urea Nitrogen 24 mg/dL (7-17); Calcium 8.8 mg/dL (8.4-10.2); Carbon Dioxide 36 mmol/L (22-30); Chloride 99 mmol/L (98-107); Estimated CRCL calculation 41 ml/min; Estimated Glomerular Filt Rate 59; Glucose 93 mg/dL (65-110); Sodium 138 mmol/L (137-145)
--- NOTE | 2024-07-26 12:41 | P.PNIM_ITS ---
Progress Note: A&P Assessment and Plan (1) Community acquired pneumonia due to influenza A virus: Code(s): J09.X1 - Influenza due to identified novel influenza A virus with pneumonia Status: Acute (2) Acute and chronic respiratory failure, unspecified whether with hypoxia or hypercapnia: Code(s): J96.20 - Acute and chronic respiratory failure, unspecified whether with hypoxia or hypercapnia Status: Acute (3) Hypothyroidism: Code(s): E03.9 - Hypothyroidism, unspecified Status: Acute (4) CKD stage 3b, GFR 30-44 ml/min: Code(s): N18.32 - Chronic kidney disease, stage 3b Status: Acute Plan Community-acquired pneumonia Patient has cough fever, x-ray shows left lower lobe pneumonia Respiratory pathogen PCR negative of influenza RSV and COVID Recent influenza a infection. Suspecting better pneumonia MRSA negative Started cefepime IV and doxycycline IV 07/24 Continue antibiotics today. Patient still has cough and large phlegm with cough Acute resp failure Upon arrival patient was found hypoxemia pulse ox 85 on room air Likely resulting from pneumonia Continue albuterol 2 puffs q.i.d. p.r.n. Start O2 therapy. Keep pulse ox above 92 Sepsis Patient has a fever, tachycardia tachypnea meeting criteria of sepsis likely resulting from pneumonia Antibiotics see above Start fluid resuscitation in the ED, patient received normal saline 2 L Follow-up blood culture urine : No growth so far Sputum culture grows group B Streptococcus CKD stage 3 B Elevated BUN creatinine ratio above baseline Likely secondary to dehydration and sepsis Follow urinalysis : No pyuria Start normal saline IV Follow-up BMP Avoid nephrotoxic medication Renal function is improving Right hip pain Patient has chronic right hip pain, worse today Patient denied fall in the night Range of movement restricted Follow-up pelvic x-ray Chronic anemia No obvious bleeding Follow-up CBC Hypertension Continue amlodipine 2.5 mg daily p.o. Hyperlipidemia Continue Lipitor 20 mg daily p.o. Anxiety Continue citalopram Hypothyroidism Continue Synthroid 50 mcg daily p.o. Subjective Date/time seen: 07/26/24 12:41 Interval history: I saw examined the patient today, Patient feeling better today. Denies dyspnea at rest. Patient is on feeding tube, denies nausea vomiting. Patient has right hip pain, is worse today. Patient denies fall in the night Exam Narrative: GENERAL: Ill-appearing, in no acute distress. Well-nourished. - EYES: EOMI. Anicteric. - HENT: Moist mucous membranes. - LUNGS: Coarse breath sound bilaterall y - CARDIOVASCULAR: Regular rate and rhyth m. No murmur. No JVD. - ABDOMEN: Soft, non-tender and non-dist ended. No palpable masses. - EXTREMITIES: No edema. Peripheral puls es 2+. Non-tender. - NEUROLOGIC: No focal neurological defi cits. CN II-XII grossly intact. - PSYCHIATRIC: Awake, Alert and oriented x 3. Appropriate mood and affect. - SKIN: No rashes or lesions. Warm. - LYMPH: No cervical lymphadenopathy. Objective Data Vital Signs Vital Signs: Vital Signs - 24 hr 07/25/24 14:00 07/25/24 20:40 07/25/24 21:17 Temperature 98.5 F 98.0 F Pulse Rate 65 67 Respiratory Rate 18 16 Blood Pressure 123/64 131/64 Pulse Oximetry 95 98 96 Oxygen Delivery Nasal Cannula Oxygen Flow Rate 2 07/26/24 05:24 07/26/24 08:00 Temperature 97.4 F L Pulse Rate 64 Respiratory Rate 16 Blood Pressure 135/71 Pulse Oximetry 97 97 Oxygen Delivery Nasal Cannula Oxygen Flow Rate 1 Intake/Output Intake/Output: Intake & Output 07/23/24 07/24/24 07/25/24 07/26/24 23:59 23:59 23:59 23:59 Intake Total 2830 2306 150 Balance 2830 2306 150 Meds/Results Medications: Active Medications Generic Name Dose Route Start Last Admin Trade Name Freq PRN Reason Stop Dose Admin Acetaminophen 650 mg 07/25/24 21:54 Acetaminophen 325 Mg Tablet PO Q6H PRN Mild Pain (1-3) or Fever Hydrocodone Bitart/Acetaminophen 1 tab 07/25/24 21:54 07/26/24 08:12 Hydrocodone/Acetaminophen (*Crx) 5-325 Mg Tablet PO 1 tab Q6H PRN Administration Pain Rated 4-6 Albuterol 2 puff 07/24/24 08:57 Albuterol Sulfate (*Sp) Aerosol 1 Puff INHALATION QIDRT PRN shortness of breath or wheezing Amlodipine Besylate 2.5 mg 07/24/24 09:00 07/26/24 08:02 Amlodipine Besylate 2.5 Mg Tablet FEED TUBE 2.5 mg DAILY KHOA Administration Aspirin 81 mg 07/24/24 09:00 07/26/24 08:02 Aspirin 81 Mg Chewable Tablet FEED TUBE 81 mg DAILY KHOA Administration Atorvastatin Calcium 20 mg 07/24/24 09:00 07/26/24 08:02 Atorvastatin 20 Mg Tablet FEED TUBE 20 mg DAILY KHOA Administration Citalopram Hydrobromide 40 mg 07/24/24 09:00 07/26/24 08:02 Citalopram Hydrobromide 20 Mg Tablet FEED TUBE 40 mg DAILY KHOA Administration Fentanyl 50 mcg 07/25/24 13:20 07/25/24 13:33 Fentanyl (*Crx) 50 Mcg Patch TRANSDERM 50 mcg Q72HR KHOA Administration Fluticasone Propionate 1 spray 07/24/24 09:00 07/26/24 08:04 Fluticasone Propionate 0.05% Na Spr 16 Gm Btl (*Bkc) NASAL 1 spray DAILY KHOA Administration Doxycycline Hyclate 100 mg in 100 mls @ 100 mls/hr 07/24/24 14:00 07/26/24 02:04 Vibramycin 100 Mg/Ns 100 Ml IVPB 100 mls/hr Q12H KHOA Administration Cefepime HCl 2 gm in 50 mls @ 100 mls/hr 07/24/24 10:00 07/26/24 08:31 Maxipime 2 Gm/Ns 50 Ml IVPB Infused Q12HR KHOA Infusion Levothyroxine Sodium 50 mcg 07/24/24 09:05 07/26/24 05:56 Levothyroxine Sodium 50 Mcg Tablet FEED TUBE 50 mcg DAILY@0630 KHOA Administration Lidocaine 1 patch 07/25/24 09:00 07/26/24 08:04 Lidocaine 5% Patch TRANSDERM 1 patch DAILY KHOA Administration Loratadine 5 mg 07/24/24 09:00 07/26/24 08:02 Loratadine 5 Mg Tablet FEED TUBE 08/23/24 08:59 5 mg DAILY KHOA Administration Oxybutynin Chloride 5 mg 07/24/24 21:00 07/25/24 20:41 Oxybutynin Chloride 5 Mg Tablet FEED TUBE 5 mg HS KHOA Administration Radiology Results: ITS Impressions Chest X-Ray 07/24/24 05:27 Impression: Probable left lower lobe pneumonia. Labs Labs: Laboratory Results - last 24 hr 07/26/24 08:47 WBC 4.0 L RBC 3.17 L Hgb 9.5 L Hct 31.1 L MCV 98.1 MCH 30.0 MCHC 30.5 L RDW 13.2 Plt Count 101 L MPV 12.4 H Immature Gran % (Auto) 0.3 Neut % (Auto) 65.2 Lymph % (Auto) 14.4 L [place] % (Auto) 12.2 H Eos % (Auto) 6.6 H Baso % (Auto) 1.3 H Lymph # (Auto) 0.57 L [place] # (Auto) 0.5 Eos # (Auto) 0.3 Baso # (Auto) 0.1 Abs Immat Gran (auto) 0.01 Absolute Neuts (auto) 2.6 Absolute Nucleated RBC 0.000 Nucleated RBC % 0.0 % Immature Plt Fraction 8.5 Sodium 138 Potassium 4.0 Chloride 99 Carbon Dioxide 36 H Anion Gap 3 L BUN 24 H Creatinine 0.94 Estim Creat Clear Calc 41 Estimated GFR 59 Glucose 93 Calcium 8.8
[2024-07-26 13:59] VITALS: BP 111/63; PULSE 62; RESP 18; TEMP 36.3; O2SAT 97
[2024-07-26 20:39] VITALS: BP 151/76; PULSE 66; RESP 20; TEMP 36.2; O2SAT 95
[2024-07-26] MEDS: oxyBUTYnin CHLORIDE 5 MG TABLET FEED TUBE (21:01)
[2024-07-27] MEDS: DOXYCYCLINE 100 MG/NS 100 ML 100 MG/100 ML BAG IVPB ×2 (02:13→13:27)
[2024-07-27] MEDS: ACETAMINOPHEN 325 MG TABLET 650 MG PO (02:20)
[2024-07-27 05:30] VITALS: BP 134/72; PULSE 69; RESP 14; TEMP 36.5; O2SAT 99
[2024-07-27 05:39] LABS: Basophils Absolute Auto 0.1 K/mm3 (0.0-0.1); Basophils Percent Auto 1.4 % (0.2-1.2); Eosinophils Absolute Auto 0.3 K/mm3 (0-0.3); Eosinophils Percent Auto 8.2 % (0-4.4); Hematocrit 31.6 % (37.0-47.0); Hemoglobin 9.5 g/dL (12.0-15.0); Immature Granulocyte Absolute 0.01 K/mm3 (0.00-0.031); Immature Granulocyte Percent A 0.3 % (0-0.5); Lymphocytes Absolute Auto 0.73 K/mm3 (0.9-3.2); Lymphocytes Percent Auto 19.9 % (18.3-44.2); Mean Corpuscular HGB Conc 30.1 g/dl (32-36); Mean Corpuscular Hemoglobin 29.1 pg (26-34); Mean Corpuscular Volume 96.6 fl (80-100); Mean Platelet Volume 12.7 fl (7.4-10.4); Monocytes Absolute Auto 0.5 K/mm3 (0.1-0.6); Monocytes Percent Auto 13.4 % (2.6-8.5); Neutrophils Absolute Auto 2.1 K/mm3 (1.3-6.7); Neutrophils Percent Auto 56.8 % (45.5-73.1); Platelet Count Result 112 k/mm3 (150-375); Red Blood Count 3.27 M/mm3 (4.2-5.4); Red Cell Distribution Width 13.2 % (11.5-14.5); White Blood Count 3.7 K/mm3 (4.5-10.0)
[2024-07-27 05:54] LABS: Anion Gap 1 mmol/L (4-12); Blood Urea Nitrogen 28 mg/dL (7-17); Carbon Dioxide 39 mmol/L (22-30); Chloride 99 mmol/L (98-107); Estimated CRCL calculation 38 ml/min; Estimated Glomerular Filt Rate 54; Glucose 65 mg/dL (65-110); Potassium 4.3 mmol/L (3.4-5.0); Sodium 139 mmol/L (137-145)
[2024-07-27] MEDS: LEVOTHYROXINE SODIUM 50 MCG TABLET FEED TUBE (05:59)
[2024-07-27 07:37] VITALS: O2SAT 99
[2024-07-27] MEDS: LIDOCAINE 5% PATCH 1 PATCH TRANSDERM (08:58)
[2024-07-27] MEDS: amLODIPine BESYLATE 2.5 MG TABLET FEED TUBE (08:58)
[2024-07-27] MEDS: CEFEPIME 2 GM/NS 50 ML 2 GM/50 ML BAG IVPB ×2 (08:58→20:36)
[2024-07-27] MEDS: ASPIRIN 81 MG CHEWABLE TABLET FEED TUBE (08:58)
[2024-07-27] MEDS: LORATADINE 5 MG TABLET FEED TUBE (08:58)
[2024-07-27] MEDS: CITALOPRAM HYDROBROMIDE 20 MG TABLET 40 MG FEED TUBE (08:58)
[2024-07-27] MEDS: ATORVASTATIN 20 MG TABLET FEED TUBE (08:58)
[2024-07-27] MEDS: FLUTICASONE PROPIONATE 0.05% NA SPR 16 GM BTL (*BKC) 1 SPRAY NASAL (08:59)
--- NOTE | 2024-07-27 09:08 | P.PNIM_ITS ---
Progress Note: A&P Assessment and Plan (1) Community acquired pneumonia due to influenza A virus: Code(s): J09.X1 - Influenza due to identified novel influenza A virus with pneumonia Status: Acute (2) Acute and chronic respiratory failure, unspecified whether with hypoxia or hypercapnia: Code(s): J96.20 - Acute and chronic respiratory failure, unspecified whether with hypoxia or hypercapnia Status: Acute (3) Hypothyroidism: Code(s): E03.9 - Hypothyroidism, unspecified Status: Acute (4) CKD stage 3b, GFR 30-44 ml/min: Code(s): N18.32 - Chronic kidney disease, stage 3b Status: Acute Plan Community-acquired pneumonia Patient has cough fever, x-ray shows left lower lobe pneumonia Respiratory pathogen PCR negative of influenza RSV and COVID Recent influenza a infection. Suspecting better pneumonia MRSA negative Started cefepime IV and doxycycline IV 07/24 Continue in antibiotics today. Change oral antibiotics tomorrow per ID pharmacist recommendation Acute resp failure Upon arrival patient was found hypoxemia pulse ox 85 on room air Likely resulting from pneumonia Continue albuterol 2 puffs q.i.d. p.r.n. Start O2 therapy. Keep pulse ox above 92 Sepsis Patient has a fever, tachycardia tachypnea meeting criteria of sepsis likely resulting from pneumonia Antibiotics see above Start fluid resuscitation in the ED, patient received normal saline 2 L Follow-up blood culture urine : No growth so far Sputum culture grows group B Streptococcus CKD stage 3 B Elevated BUN creatinine ratio above baseline Likely secondary to dehydration and sepsis Follow urinalysis : No pyuria Start normal saline IV Follow-up BMP Avoid nephrotoxic medication Renal function is improving Right hip pain Patient has chronic right hip pain, worse today Patient denied fall in the night Range of movement restricted Follow-up pelvic x-ray: No acute osseous abnormality pelvis and right hip. Chronic anemia No obvious bleeding Follow-up CBC Stable Hypertension Continue amlodipine 2.5 mg daily p.o. Hyperlipidemia Continue Lipitor 20 mg daily p.o. Anxiety Continue citalopram Hypothyroidism Continue Synthroid 50 mcg daily p.o. Subjective Date/time seen: 07/27/24 09:08 Interval history: I saw examined the patient today, Patient feeling better today. Denies dyspnea at rest. Patient is on feeding tube, denies nausea vomiting. Hip pain is improving Exam Narrative: GENERAL: Ill-appearing, in no acute distress. Well-nourished. - EYES: EOMI. Anicteric. - HENT: Moist mucous membranes. - LUNGS: Coarse breath sound bilaterall y - CARDIOVASCULAR: Regular rate and rhyth m. No murmur. No JVD. - ABDOMEN: Soft, non-tender and non-dist ended. No palpable masses. - EXTREMITIES: No edema. Peripheral puls es 2+. Non-tender. - NEUROLOGIC: No focal neurological defi cits. CN II-XII grossly intact. - PSYCHIATRIC: Awake, Alert and oriented x 3. Appropriate mood and affect. - SKIN: No rashes or lesions. Warm. - LYMPH: No cervical lymphadenopathy. Objective Data Vital Signs Vital Signs: Vital Signs - 24 hr 07/26/24 13:59 07/26/24 20:39 07/27/24 05:30 Temperature 97.4 F L 97.2 F L 97.7 F Pulse Rate 62 66 69 Respiratory Rate 18 20 14 Blood Pressure 111/63 151/76 H 134/72 Pulse Oximetry 97 95 99 Oxygen Delivery Oxygen Flow Rate 07/27/24 07:37 Temperature Pulse Rate Respiratory Rate Blood Pressure Pulse Oximetry 99 Oxygen Delivery Nasal Cannula Oxygen Flow Rate 1 Intake/Output Intake/Output: Intake & Output 07/24/24 07/25/24 07/26/24 07/27/24 23:59 23:59 23:59 23:59 Intake Total 2830 2306 400 1250 Balance 2830 2306 400 1250 Meds/Results Medications: Active Medications Generic Name Dose Route Start Last Admin Trade Name Freq PRN Reason Stop Dose Admin Acetaminophen 650 mg 07/25/24 21:54 07/27/24 02:20 Acetaminophen 325 Mg Tablet PO 650 mg Q6H PRN Administration Mild Pain (1-3) or Fever Hydrocodone Bitart/Acetaminophen 1 tab 07/25/24 21:54 07/26/24 22:55 Hydrocodone/Acetaminophen (*Crx) 5-325 Mg Tablet PO 1 tab Q6H PRN Administration Pain Rated 4-6 Albuterol 2 puff 07/24/24 08:57 Albuterol Sulfate (*Sp) Aerosol 1 Puff INHALATION QIDRT PRN shortness of breath or wheezing Amlodipine Besylate 2.5 mg 07/24/24 09:00 07/27/24 08:58 Amlodipine Besylate 2.5 Mg Tablet FEED TUBE 2.5 mg DAILY KHOA Administration Aspirin 81 mg 07/24/24 09:00 07/27/24 08:58 Aspirin 81 Mg Chewable Tablet FEED TUBE 81 mg DAILY KHOA Administration Atorvastatin Calcium 20 mg 07/24/24 09:00 07/27/24 08:58 Atorvastatin 20 Mg Tablet FEED TUBE 20 mg DAILY KHOA Administration Citalopram Hydrobromide 40 mg 07/24/24 09:00 07/27/24 08:58 Citalopram Hydrobromide 20 Mg Tablet FEED TUBE 40 mg DAILY KHOA Administration Fentanyl 50 mcg 07/25/24 13:20 07/25/24 13:33 Fentanyl (*Crx) 50 Mcg Patch TRANSDERM 50 mcg Q72HR KHOA Administration Fluticasone Propionate 1 spray 07/24/24 09:00 07/27/24 08:59 Fluticasone Propionate 0.05% Na Spr 16 Gm Btl (*Bkc) NASAL 1 spray DAILY KHOA Administration Doxycycline Hyclate 100 mg in 100 mls @ 100 mls/hr 07/24/24 14:00 07/27/24 03:13 Vibramycin 100 Mg/Ns 100 Ml IVPB Infused Q12H KHOA Infusion Cefepime HCl 2 gm in 50 mls @ 100 mls/hr 07/24/24 10:00 07/27/24 08:58 Maxipime 2 Gm/Ns 50 Ml IVPB 100 mls/hr Q12HR KHOA Administration Levothyroxine Sodium 50 mcg 07/24/24 09:05 07/27/24 05:59 Levothyroxine Sodium 50 Mcg Tablet FEED TUBE 50 mcg DAILY@0630 KHOA Administration Lidocaine 1 patch 07/25/24 09:00 07/27/24 08:58 Lidocaine 5% Patch TRANSDERM 1 patch DAILY KHOA Administration Loratadine 5 mg 07/24/24 09:00 07/27/24 08:58 Loratadine 5 Mg Tablet FEED TUBE 08/23/24 08:59 5 mg DAILY KHOA Administration Oxybutynin Chloride 5 mg 07/24/24 21:00 07/26/24 21:01 Oxybutynin Chloride 5 Mg Tablet FEED TUBE 5 mg HS KHOA Administration Radiology Results: ITS Impressions Chest X-Ray 07/24/24 05:27 Impression: Probable left lower lobe pneumonia. Hip X-Ray 07/26/24 14:07 IMPRESSION: No acute osseous abnormality pelvis and right hip. Labs Labs: Laboratory Results - last 24 hr 07/26/24 07/27/24 08:47 05:23 WBC 4.0 L 3.7 L RBC 3.17 L 3.27 L Hgb 9.5 L 9.5 L Hct 31.1 L 31.6 L MCV 98.1 96.6 MCH 30.0 29.1 MCHC 30.5 L 30.1 L RDW 13.2 13.2 Plt Count 101 L 112 L MPV 12.4 H 12.7 H Immature Gran % (Auto) 0.3 0.3 Neut % (Auto) 65.2 56.8 Lymph % (Auto) 14.4 L 19.9 [place] % (Auto) 12.2 H 13.4 H Eos % (Auto) 6.6 H 8.2 H Baso % (Auto) 1.3 H 1.4 H Lymph # (Auto) 0.57 L 0.73 L [place] # (Auto) 0.5 0.5 Eos # (Auto) 0.3 0.3 Baso # (Auto) 0.1 0.1 Abs Immat Gran (auto) 0.01 0.01 Absolute Neuts (auto) 2.6 2.1 Absolute Nucleated RBC 0.000 0.000 Nucleated RBC % 0.0 0.0 % Immature Plt Fraction 8.5 Sodium 138 139 Potassium 4.0 4.3 Chloride 99 99 Carbon Dioxide 36 H 39 H Anion Gap 3 L 1 L BUN 24 H 28 H Creatinine 0.94 1.01 H Estim Creat Clear Calc 41 38 Estimated GFR 59 54 L Glucose 93 65 Calcium 8.8 9.0
[2024-07-27] MEDS: HYDROcodone/acetaminophen (*CRX) 5-325 MG TABLET 1 TAB PO ×2 (13:47→23:35)
[2024-07-27 14:00] VITALS: BP 114/64; PULSE 59; RESP 18; TEMP 36.8; O2SAT 100
[2024-07-27] MEDS: oxyBUTYnin CHLORIDE 5 MG TABLET FEED TUBE (20:36)
[2024-07-27 20:45] VITALS: BP 122/58; PULSE 63; RESP 20; TEMP 37.1; O2SAT 98
[2024-07-27] MEDS: CEFDINIR 300 MG CAPSULE PO (23:35)
[2024-07-27] MEDS: DOXYCYCLINE HYCLATE 100 MG TABLET PO (23:35)
[2024-07-28] MEDS: HYDROcodone/acetaminophen (*CRX) 5-325 MG TABLET 1 TAB PO (05:44)
[2024-07-28] MEDS: LEVOTHYROXINE SODIUM 50 MCG TABLET FEED TUBE (05:45)
[2024-07-28 06:00] VITALS: BP 133/72; PULSE 63; RESP 16; TEMP 36.1; O2SAT 90
[2024-07-28 08:00] VITALS: O2SAT 90
[2024-07-28] MEDS: fentaNYL (*CRX) 50 MCG PATCH TRANSDERM (08:55)
[2024-07-28] MEDS: amLODIPine BESYLATE 2.5 MG TABLET FEED TUBE (08:56)
[2024-07-28] MEDS: CITALOPRAM HYDROBROMIDE 20 MG TABLET 40 MG FEED TUBE (08:56)
[2024-07-28] MEDS: LIDOCAINE 5% PATCH 1 PATCH TRANSDERM (08:56)
[2024-07-28] MEDS: ASPIRIN 81 MG CHEWABLE TABLET FEED TUBE (08:56)
[2024-07-28] MEDS: CEFDINIR 300 MG CAPSULE PO (08:57)
[2024-07-28] MEDS: ATORVASTATIN 20 MG TABLET FEED TUBE (08:57)
[2024-07-28] MEDS: LORATADINE 5 MG TABLET FEED TUBE (08:57)
[2024-07-28] MEDS: FLUTICASONE PROPIONATE 0.05% NA SPR 16 GM BTL (*BKC) 1 SPRAY NASAL (08:57)
[2024-07-28 09:33] VITALS: O2SAT 92
--- NOTE | 2024-07-28 10:19 | PCNFU ---
Nutrition Follow-Up Complete: 1. Inability to meet protein energy needs PO related to past cancer, PEG tube as evidenced be need for full tube feeding 2. Inadequate fluid intake related to enteral nutrition as evidenced by at home flushes 350 ml QID Goal:Tolerate tube feeding Pt meeting goal. Pt current nutrition is NPO, Tube feeding: Jevity 1.5, 240ml bolus feed QID with 350ml flush. This provides 1420kcals, 60g protein, 2120ml fluid. Nutrition recommendation: Continue with current plan of care Last recorded weight is 57 kg. Bowel Motility: +BM 07/28 Labs Reviewed: Hgb:9.5, HCT:31.6, GFR:54, BUN:28, Cr:1.01 Meds Noted: synthroid Skin: WNL Additional Notes: Pt receiving tube feeds as recommended, tolerating well. Agree with orders. Continue with current plan of care. Monitoring tube feeding tolerance, labs, weights, plan of care Follow up Saturday/Saturday per policy
--- NOTE | 2024-07-28 11:18 | P.DS_ITS ---
DS: Admitting Diagnosis Discharge Date 07/28/24 Admitting Diagnosis (1) Community acquired pneumonia due to influenza A virus: Code(s): J09.X1 - Influenza due to identified novel influenza A virus with pneumonia Status: Acute (2) Acute and chronic respiratory failure, unspecified whether with hypoxia or hypercapnia: Code(s): J96.20 - Acute and chronic respiratory failure, unspecified whether with hypoxia or hypercapnia Status: Acute (3) Hypothyroidism: Code(s): E03.9 - Hypothyroidism, unspecified Status: Acute (4) CKD stage 3b, GFR 30-44 ml/min: Code(s): N18.32 - Chronic kidney disease, stage 3b Status: Acute DS: Discharge Diagnosis Discharge Diagnosis (1) Community acquired pneumonia due to influenza A virus: Code(s): J09.X1 - Influenza due to identified novel influenza A virus with pneumonia Status: Acute (2) Acute and chronic respiratory failure, unspecified whether with hypoxia or hypercapnia: Code(s): J96.20 - Acute and chronic respiratory failure, unspecified whether with hypoxia or hypercapnia Status: Acute (3) Hypothyroidism: Code(s): E03.9 - Hypothyroidism, unspecified Status: Acute (4) CKD stage 3b, GFR 30-44 ml/min: Code(s): N18.32 - Chronic kidney disease, stage 3b Status: Acute DS: Summary Hospital Course Hospital Course: Community-acquired pneumonia Patient has cough fever, x-ray shows left lower lobe pneumonia Respiratory pathogen PCR negative of influenza RSV and COVID Recent influenza a infection. Suspecting better pneumonia MRSA negative Started cefepime IV and doxycycline IV 07/24 Change cefdinir p.o. today Acute resp failure Upon arrival patient was found hypoxemia pulse ox 85 on room air Likely resulting from pneumonia Continue albuterol 2 puffs q.i.d. p.r.n. Start O2 therapy. Keep pulse ox above 92 Resolved Patient is on room air Sepsis Patient has a fever, tachycardia tachypnea meeting criteria of sepsis likely resulting from pneumonia Antibiotics see above Start fluid resuscitation in the ED, patient received normal saline 2 L Follow-up blood culture urine : No growth so far Sputum culture grows group B Streptococcus Patient afebrile, blood pressure stable, leukocytosis resolved Sepsis resolved CKD stage 3 B Elevated BUN creatinine ratio above baseline Likely secondary to dehydration and sepsis Follow urinalysis : No pyuria Start normal saline IV Follow-up BMP Avoid nephrotoxic medication Renal function is improving Right hip pain Patient has chronic right hip pain, worse today Patient denied fall in the night Range of movement restricted Follow-up pelvic x-ray: No acute osseous abnormality pelvis and right hip. Chronic anemia No obvious bleeding Follow-up CBC Stable Hypertension Continue amlodipine 2.5 mg daily p.o. Hyperlipidemia Continue Lipitor 20 mg daily p.o. Anxiety Continue citalopram Hypothyroidism Continue Synthroid 50 mcg daily p.o. Time Spent with Patient Time attestation: Total time spent providing and/or coordinating discharge services: Exam Narrative: GENERAL: Ill-appearing, in no acute distress. Well-nourished. - EYES: EOMI. Anicteric. - HENT: Moist mucous membranes. - LUNGS: Coarse breath sound bilaterall y - CARDIOVASCULAR: Regular rate and rhyth m. No murmur. No JVD. - ABDOMEN: Soft, non-tender and non-dist ended. No palpable masses. - EXTREMITIES: No edema. Peripheral puls es 2+. Non-tender. - NEUROLOGIC: No focal neurological defi cits. CN II-XII grossly intact. - PSYCHIATRIC: Awake, Alert and oriented x 3. Appropriate mood and affect. - SKIN: No rashes or lesions. Warm. - LYMPH: No cervical lymphadenopathy. DS: Data Data Completed and Pending Labs on day of discharge: Preliminary micro results at discharge 07/24/24 02:32 Blood Culture - Preliminary Blood 07/24/24 02:32 Blood Culture - Preliminary Blood Discharge Plan Discharge Attending physician on discharge: Vicky Tao Discharging Clinician: Vicky Tao Anticipated Discharge Date/Time: 07/28/24 11:19 Patient Disposition: Home, Self-Care Activity: as tolerated Diet: tube feeding Patient Instructions: Antibiotic Form Patient Language: Macedonian Stand Alone Forms: General Discharge Information Follow-up/Referrals: Abdullahi,Vince Hess MD [Primary Care Provider] - (Patient needs to see PCP in 1 week) Discharge Medications: New cefdinir 300 mg Capsule 300 mg PO Q12HR Qty: 3 0RF Continued albuterol sulfate [Proventil HFA] 90 mcg/actuation HFA aerosol inhaler 2 puff inhalation QID PRN (Reason: shortness of breath or wheezing) Qty: 8.5 0RF cetirizine [Allergy Relief (cetirizine)] 5 mg tablet 5 mg feeding tube DAILY fluticasone propionate 50 mcg/actuation spray,suspension 1 spray intranasal DAILY Rx Instructions: administer into each nostril citalopram 40 mg tablet 40 mg feeding tube DAILY levothyroxine 50 mcg tablet 50 mcg feeding tube DAILY atorvastatin 20 mg tablet 20 mg feeding tube DAILY alendronate 70 mg tablet 70 mg PO WEEKLY Patient Comments: crushes and takes throguh feeding tube amlodipine 2.5 mg tablet 2.5 mg feeding tube DAILY aspirin 81 mg tablet,chewable 81 mg feeding tube DAILY fentanyl 25 mcg/hr patch 72 hour 1 patch topical Q72H lactose-reduced food with fibr Liquid 1 ea feeding tube USEASDIRECTD Rx Instructions: uses 1 250mL bottle for each feeding; by gravity; ordered for 5x/day but pt states only does 4x/day. JEVITY 1.5 oxybutynin chloride 5 mg tablet 5 mg feeding tube HS Date of admission: 07/24/24 01:58 Primary Care Provider: Abdullahi,Vince Hess Admitting Provider: Goldie Roman Attending physician on admission: Goldie Roman Condition: Stable
--- NOTE | 2024-07-28 11:18 | P.PNIM_ITS ---
Progress Note: A&P Assessment and Plan (1) Community acquired pneumonia due to influenza A virus: Code(s): J09.X1 - Influenza due to identified novel influenza A virus with pneumonia Status: Acute (2) Acute and chronic respiratory failure, unspecified whether with hypoxia or hypercapnia: Code(s): J96.20 - Acute and chronic respiratory failure, unspecified whether with hypoxia or hypercapnia Status: Acute (3) Hypothyroidism: Code(s): E03.9 - Hypothyroidism, unspecified Status: Acute (4) CKD stage 3b, GFR 30-44 ml/min: Code(s): N18.32 - Chronic kidney disease, stage 3b Status: Acute Plan Community-acquired pneumonia Patient has cough fever, x-ray shows left lower lobe pneumonia Respiratory pathogen PCR negative of influenza RSV and COVID Recent influenza a infection. Suspecting better pneumonia MRSA negative Started cefepime IV and doxycycline IV 07/24 Continue in antibiotics today. Change oral cefdinir per ID pharmacist recommendation Acute resp failure Upon arrival patient was found hypoxemia pulse ox 85 on room air Likely resulting from pneumonia Continue albuterol 2 puffs q.i.d. p.r.n. Start O2 therapy. Keep pulse ox above 92 Sepsis Patient has a fever, tachycardia tachypnea meeting criteria of sepsis likely resulting from pneumonia Antibiotics see above Start fluid resuscitation in the ED, patient received normal saline 2 L Follow-up blood culture urine : No growth so far Sputum culture grows group B Streptococcus Resolved Continue cefdinir p.o. for 1 more day CKD stage 3 B Elevated BUN creatinine ratio above baseline Likely secondary to dehydration and sepsis Follow urinalysis : No pyuria Start normal saline IV Follow-up BMP Avoid nephrotoxic medication Renal function is improving Right hip pain Patient has chronic right hip pain, worse today Patient denied fall in the night Range of movement restricted Follow-up pelvic x-ray: No acute osseous abnormality pelvis and right hip. Chronic anemia No obvious bleeding Follow-up CBC Stable Hypertension Continue amlodipine 2.5 mg daily p.o. Hyperlipidemia Continue Lipitor 20 mg daily p.o. Anxiety Continue citalopram Hypothyroidism Continue Synthroid 50 mcg daily p.o. Subjective Date/time seen: 07/28/24 11:18 Interval history: Patient feeling better today. Denies dyspnea at rest. Patient is on feeding tube, denies nausea vomiting. Hip pain is improving Exam Narrative: GENERAL: Ill-appearing, in no acute distress. Well-nourished. - EYES: EOMI. Anicteric. - HENT: Moist mucous membranes. - LUNGS: Coarse breath sound bilaterall y - CARDIOVASCULAR: Regular rate and rhyth m. No murmur. No JVD. - ABDOMEN: Soft, non-tender and non-dist ended. No palpable masses. - EXTREMITIES: No edema. Peripheral puls es 2+. Non-tender. - NEUROLOGIC: No focal neurological defi cits. CN II-XII grossly intact. - PSYCHIATRIC: Awake, Alert and oriented x 3. Appropriate mood and affect. - SKIN: No rashes or lesions. Warm. - LYMPH: No cervical lymphadenopathy. Objective Data Vital Signs Vital Signs: Vital Signs - 24 hr 07/27/24 14:00 07/27/24 20:45 07/28/24 06:00 Temperature 98.2 F 98.7 F 97 F L Pulse Rate 59 L 63 63 Respiratory Rate 18 20 16 Blood Pressure 114/64 122/58 L 133/72 Pulse Oximetry 100 98 90 Oxygen Delivery 07/28/24 08:00 07/28/24 09:33 Temperature Pulse Rate Respiratory Rate Blood Pressure Pulse Oximetry 90 92 Oxygen Delivery Room Air Room Air Intake/Output Intake/Output: Intake & Output 07/25/24 07/26/24 07/27/24 07/28/24 23:59 23:59 23:59 23:59 Intake Total 2306 400 2600 100 Balance 2306 400 2600 100 Meds/Results Medications: Active Medications Generic Name Dose Route Start Last Admin Trade Name Freq PRN Reason Stop Dose Admin Acetaminophen 650 mg 07/25/24 21:54 07/27/24 02:20 Acetaminophen 325 Mg Tablet PO 650 mg Q6H PRN Administration Mild Pain (1-3) or Fever Hydrocodone Bitart/Acetaminophen 1 tab 07/25/24 21:54 07/28/24 05:44 Hydrocodone/Acetaminophen (*Crx) 5-325 Mg Tablet PO 1 tab Q6H PRN Administration Pain Rated 4-6 Albuterol 2 puff 07/24/24 08:57 Albuterol Sulfate (*Sp) Aerosol 1 Puff INHALATION QIDRT PRN shortness of breath or wheezing Amlodipine Besylate 2.5 mg 07/24/24 09:00 07/28/24 08:56 Amlodipine Besylate 2.5 Mg Tablet FEED TUBE 2.5 mg DAILY KHOA Administration Aspirin 81 mg 07/24/24 09:00 07/28/24 08:56 Aspirin 81 Mg Chewable Tablet FEED TUBE 81 mg DAILY KHOA Administration Atorvastatin Calcium 20 mg 07/24/24 09:00 07/28/24 08:57 Atorvastatin 20 Mg Tablet FEED TUBE 20 mg DAILY KHOA Administration Cefdinir 300 mg 07/27/24 23:10 07/28/24 08:57 Cefdinir 300 Mg Capsule PO 07/30/24 09:01 300 mg Q12HR KHOA Administration Citalopram Hydrobromide 40 mg 07/24/24 09:00 07/28/24 08:56 Citalopram Hydrobromide 20 Mg Tablet FEED TUBE 40 mg DAILY KHOA Administration Fentanyl 50 mcg 07/25/24 13:20 07/28/24 08:55 Fentanyl (*Crx) 50 Mcg Patch TRANSDERM 50 mcg Q72HR KHOA Administration Fluticasone Propionate 1 spray 07/24/24 09:00 07/28/24 08:57 Fluticasone Propionate 0.05% Na Spr 16 Gm Btl (*Bkc) NASAL 1 spray DAILY KHOA Administration Levothyroxine Sodium 50 mcg 07/24/24 09:05 07/28/24 05:45 Levothyroxine Sodium 50 Mcg Tablet FEED TUBE 50 mcg DAILY@0630 KHOA Administration Lidocaine 1 patch 07/25/24 09:00 07/28/24 08:56 Lidocaine 5% Patch TRANSDERM 1 patch DAILY KHOA Administration Loratadine 5 mg 07/24/24 09:00 07/28/24 08:57 Loratadine 5 Mg Tablet FEED TUBE 08/23/24 08:59 5 mg DAILY KHOA Administration Oxybutynin Chloride 5 mg 07/24/24 21:00 07/27/24 20:36 Oxybutynin Chloride 5 Mg Tablet FEED TUBE 5 mg HS KHOA Administration Radiology Results: ITS Impressions Chest X-Ray 07/24/24 05:27 Impression: Probable left lower lobe pneumonia. Hip X-Ray 07/26/24 14:07 IMPRESSION: No acute osseous abnormality pelvis and right hip.
== END 2024-07-28 13:00 | disposition home or self-care (01) | DRG 194 ==
LOC: ANHED 07-24 01:55 → ANH3MEDSUR 07-24 12:57 → ANH2MED 07-30 16:03 → ANH3MEDSUR 07-30 16:03
PROVIDERS: Admitting Provider Internal Medicine; Emergency Provider Emergency Medicine; PCP Internal Medicine; Visit Provider Hospitalist
DX: J10.00 Influenza due to other identified influenza virus with unspecified type of pneumonia (principal); N18.4 Chronic kidney disease, stage 4 (severe); I12.9 Hypertensive chronic kidney disease with stage 1 through stage 4 chronic kidney disease, or unspecified chronic kidney disease; D63.1 Anemia in chronic kidney disease; E78.5 Hyperlipidemia, unspecified; E03.9 Hypothyroidism, unspecified; F41.9 Anxiety disorder, unspecified; K21.9 Gastro-esophageal reflux disease without esophagitis; Z92.21 Personal history of antineoplastic chemotherapy; Z85.818 Personal history of malignant neoplasm of other sites of lip, oral cavity, and pharynx; Z93.1 Gastrostomy status; Z90.49 Acquired absence of other specified parts of digestive tract; Z87.891 Personal history of nicotine dependence; Z20.822 Contact with and (suspected) exposure to COVID-19; Z79.82 Long term (current) use of aspirin
CPT/HCPCS: 36415; 71045; 73502; 80048; 80053; 81003; 83605; 85025; 85055; 87040; 87637; 87641; 93005; 96361; 96365; 99285; A9270; J0692; J0696; J3370; J7030